=== PATIENT | female | born 1965 | race Caucasian/White ===

== ENCOUNTER 2020-10-03 15:44 | Outpatient (REF) | payer BC, SELFPAY ==
[2020-10-03 17:40] LABS: MANUAL DIFF FLAG NO
[2020-10-03 17:45] LABS: Basophils Absolute Auto 0.1 X10*3/uL (0.0-0.2); Basophils Percent Auto 0.4 % (0-2); Eosinophils Absolute Auto 0.2 X10*3/uL (0.0-0.4); Eosinophils Percent Auto 1.7 % (0-4); Hematocrit 37.8 % (37-47); Hemoglobin 12.1 g/dl (12.0-16.0); Imm Gran Abs Auto 0.06 X10*3/uL (0.00-0.03); Imm Gran Pct Auto 0.5 % (0.0-0.4); Lymphocytes Absolute Auto 2.9 X10*3/uL (1.2-4.9); Lymphocytes Percent Auto 22.7 % (20-40); Mean Corpuscular Volume 81.1 fL (80-98); Mean Platelet Volume 9.7 fL (9.4-12.3); Monocytes Absolute Auto 0.8 X10*3/uL (0.1-1.2); Monocytes Percent Auto 6.4 % (2-11); Neutrophils Absolute Auto 8.8 X10*3/uL (2.0-8.3); Neutrophils Percent Auto 68.3 % (45-73); Platelet Count 564 X10*3/uL (160-400); Red Blood Count 4.66 X10*6/uL (4.20-5.50); Red Cell Distribution Width 14.1 % (11.0-16.0); White Blood Count 12.8 X10*3/uL (4.8-10.8)
== END 2020-10-03 15:45 | disposition home or self-care (01) ==
LOC: HO.LAB 15:44
PROVIDERS: PCP Internal Medicine; Referring Provider Internal Medicine; Visit Provider Internal Medicine Pulmonary Disease
DX: J45.50 Severe persistent asthma, uncomplicated (principal); Z91.09 Other allergy status, other than to drugs and biological substances
CPT/HCPCS: 36415; 82785; 85025; 86003

== ENCOUNTER → 2020-11-16 15:38 | Outpatient (BNVA) | payer BC, SELFPAY | PROVIDERS: PCP Internal Medicine; Visit Provider Internal Medicine Pulmonary Disease | DX: Z13.89 Encounter for screening for other disorder (principal) ==

== ENCOUNTER 2021-02-09 08:51 | Outpatient (REF) | payer BC, SELFPAY ==
--- NOTE | 2021-02-09 17:05 | PFT_ITS ---
Forced vital capacity and FEV1 are both slightly decreased. [id number] and MVV are normal. post-bronchodilator therapy, there is no significant change. Total lung capacity and residual volume normal. Diffusion capacity normal. CONCLUSION: 1. Normal pulmonary function tests. 2. No evidence of obstructive or restrictive pulmonary disorder. MD RAMSES Onofre/MODL / [id number]
== END 2021-02-09 08:52 | disposition home or self-care (01) ==
LOC: HO.RESP 08:51
PROVIDERS: PCP Internal Medicine; Visit Provider Internal Medicine Pulmonary Disease
DX: J45.50 Severe persistent asthma, uncomplicated (principal)
CPT/HCPCS: 94060; 94727; 94729

== ENCOUNTER → 2021-02-27 15:39 | Outpatient (BNVA) | payer BC, SELFPAY | PROVIDERS: PCP Internal Medicine; Visit Provider Internal Medicine Pulmonary Disease ==

== ENCOUNTER 2021-05-08 07:29 | Day surgery (SDC) | payer BC, SELFPAY ==
[2021-05-01 14:19] VITALS: BMI 49.6
--- NOTE | 2021-05-04 08:14 | P.CONAN_ITS ---
Documented by User: Lenka Thomas 05/04/21 10:48 HPI - Anesthesia Eval Consult details Narrative: 55yo F for Colonoscopy Cardiac cleared *Multiple Med Allergies* PMFSH Active Problems Active Problems: All Active Problems (Updated 05/01/21 @ 14:18 by Torrie Masters) Severe persistent asthma (Acute) Environmental allergies (Acute) Past Medical History Medical History Anxiety and depression Asthma CHF (congestive heart failure) Depression Diabetes Diastolic dysfunction Fatty liver Fibromyalgia GERD (gastroesophageal reflux disease) HTN (hypertension) Hx of diverticulitis of colon Hx of endometriosis Hx of hidradenitis suppurativa Obesity JANKI on CPAP Osteoarthritis Surgical History Surgical History History of Hx of hernia repair Hx of laparoscopy Social History Social History Patient Tobacco Use Status: Never used Tobacco Use of substances other than those prescribed or required for medical reasons: No Are you DNR?: No Advance Directives: No Advance Directives Information Provided: No Advance Directives on File: No Meds Allergies Allergy/AdvReac Type Severity Reaction Status Date / Time hydrochlorothiazide Allergy Severe FACIAL Verified 05/08/21 07:59 [HYDROCHLOROTHIAZIDE] SWELLING AND REDNESS, redness and itching Sulfa (Sulfonamide Allergy Severe FACIAL Verified 05/08/21 07:59 Antibiotics) SWELLING [SULFA(SULFONAMIDE AND ANTIBIOTICS)] REDNESS, redness and itching cephalexin [From KEFLEX] Allergy Intermediate Mouth Verified 05/08/21 07:59 tingling clarithromycin Allergy Intermediate Gastrointestinal Verified 05/08/21 07:59 Upset glipizide Allergy Unknown Verified 05/08/21 07:59 lisinopril Allergy Cough Verified 05/08/21 08:43 Home Medications Medication Instructions Recorded Confirmed Last Taken Type albuterol sulfate 90 mcg/actuation 1 inh INHALATION QID 10/03/20 05/01/21 Unknown History aerosol inhaler bumetanide 2 mg tablet 4 mg PO . DAILY @1400 10/03/20 05/01/21 Unknown History esomeprazole magnesium 20 mg 20 mg PO DAILY 10/03/20 05/01/21 Unknown History capsule,delayed release losartan 25 mg tablet 25 mg PO DAILY 1205/01/21 05/08/21 06:00 History metformin 750 mg tablet,extended 750 mg PO DAILY 10/03/20 05/01/21 Unknown History release 24 hr mometasone-formoterol HFA 200 2 puff INHALATION BID 10/03/20 05/01/21 Unknown History mcg-5 mcg/actuation aerosol inhaler montelukast 10 mg tablet 10 mg PO BEDTIME 10/03/20 05/01/21 Unknown History spironolactone 50 mg tablet 50 mg PO DAILY 10/03/20 05/01/21 05/08/21 06:00 History verapamil 40 mg tablet 40 mg PO BID 10/03/20 05/01/21 05/08/21 06:00 History bumetanide 3 mg PO .DAILY @0800 05/01/21 05/01/21 Unknown History duloxetine [Cymbalta] 2 cap PO QAM 05/01/21 05/01/21 Unknown History Exam Exam Date and Time: May 04, 2021 0814 Height,Weight and Vital Signs: Height 5 ft 3 in Weight 127.006 kg Narrative Narrative: ETT/MIBI 2019 No ischemic EKG changes with exercise Normal myocardial perfusion. No evidence for ischemia or infarct Gated EF >70% ECHO 2019 Nml LV chamber size. Moderate conc LVH. Hyperdynamic LV systolic function. LVEF >75% Dynamic LVOT gradient which increases significantly with Valsava. Mitral chordal structure not well seen Normal RV size and function No significant valve disease Assessment and Plan Assessment Anesthesia Assessment: Chart Reviewed Documented by User: Sheryl Clark 05/08/21 09:03 [facility], [facility] Past Medical History Medical History Anxiety and depression Asthma CHF (congestive heart failure) Depression Diabetes Diastolic dysfunction Fatty liver Fibromyalgia GERD (gastroesophageal reflux disease) HTN (hypertension) Hx of diverticulitis of colon Hx of endometriosis Hx of hidradenitis suppurativa Obesity JANKI on CPAP Osteoarthritis Surgical History Surgical History History of Hx of hernia repair Hx of laparoscopy Social History Social History Patient Tobacco Use Status: Never used Tobacco Use of substances other than those prescribed or required for medical reasons: No Are you DNR?: No Advance Directives: No Advance Directives Information Provided: No Advance Directives on File: No Meds Allergies Allergy/AdvReac Type Severity Reaction Status Date / Time hydrochlorothiazide Allergy Severe FACIAL Verified 05/08/21 07:59 [HYDROCHLOROTHIAZIDE] SWELLING AND REDNESS, redness and itching Sulfa (Sulfonamide Allergy Severe FACIAL Verified 05/08/21 07:59 Antibiotics) SWELLING [SULFA(SULFONAMIDE AND ANTIBIOTICS)] REDNESS, redness and itching cephalexin [From KEFLEX] Allergy Intermediate Mouth Verified 05/08/21 07:59 tingling clarithromycin Allergy Intermediate Gastrointestinal Verified 05/08/21 07:59 Upset glipizide Allergy Unknown Verified 05/08/21 07:59 lisinopril Allergy Cough Verified 05/08/21 08:43 Home Medications Medication Instructions Recorded Confirmed Last Taken Type albuterol sulfate 90 mcg/actuation 1 inh INHALATION QID 10/03/20 05/01/21 Unknown History aerosol inhaler bumetanide 2 mg tablet 4 mg PO . DAILY @1400 10/03/20 05/01/21 Unknown History esomeprazole magnesium 20 mg 20 mg PO DAILY 10/03/20 05/01/21 Unknown History capsule,delayed release losartan 25 mg tablet 25 mg PO DAILY 10/03/20 05/01/21 05/08/21 06:00 History metformin 750 mg tablet,extended 750 mg PO DAILY 10/03/20 05/01/21 Unknown History release 24 hr mometasone-formoterol HFA 200 2 puff INHALATION BID 10/03/20 05/01/21 Unknown History mcg-5 mcg/actuation aerosol inhaler montelukast 10 mg tablet 10 mg PO BEDTIME 10/03/20 05/01/21 Unknown History spironolactone 50 mg tablet 50 mg PO DAILY 10/03/20 05/01/21 05/08/21 06:00 History verapamil 40 mg tablet 40 mg PO BID 10/03/20 05/01/21 05/08/21 06:00 History bumetanide 3 mg PO .DAILY @0800 05/01/21 05/01/21 Unknown History duloxetine [Cymbalta] 2 cap PO QAM 05/01/21 05/01/21 Unknown History Exam Airway Mallampati Class: II TM Dist: >3cm Neck ROM: Full Loose/Missing/Broken Teeth: No Heart: RRR Lungs: CTA Assessment and Plan Assessment Anesthesia Assessment: Anesthesia Plan Discussed and Chart Reviewed Final Anesthetic Review NPO: Yes ASA Class: III Final Preanesthetic Review: Meds/Allgs Chart Reviewed, Consent Obtained/Reviewed and Anes Risks/Benef Reviewed Patient Risk: Intermediate Procedure Risk: Low Anesthetic Plan Anesthetic Plan: MAC: Disposition: Standard PACU
[2021-05-08 08:11] VITALS: BP 130/67; PULSE 90; RESP 16; TEMP 36.8; O2SAT 98
[2021-05-08 08:15] LABS: Glucose, Whole Blood 165 mg/dL (60-115)
--- NOTE | 2021-05-08 08:42 | MHC.SHP ---
Pre-Procedural Eval Section A Date of Service: 05/08/21 Section B Chief Complaint: diverticulitis Details of Present Illness: screening,diverticulitis Relevant Family History (Specify if Yes): No Relevant Social History: None Present Medications: see Short Stay Collaborative assessment Medical History: No relevant PMH History of Previous Operations: No relevant previous surgery Allergies: Allergies Allergy/AdvReac Type Severity Reaction Status Date / Time hydrochlorothiazide Allergy Severe FACIAL Verified 05/08/21 07:59 [HYDROCHLOROTHIAZIDE] SWELLING AND REDNESS, redness and itching Sulfa (Sulfonamide Allergy Severe FACIAL Verified 05/08/21 07:59 Antibiotics) SWELLING [SULFA(SULFONAMIDE AND ANTIBIOTICS)] REDNESS, redness and itching cephalexin [From KEFLEX] Allergy Intermediate Mouth Verified 05/08/21 07:59 tingling clarithromycin Allergy Intermediate Gastrointestinal Verified 05/08/21 07:59 Upset glipizide Allergy Unknown Verified 05/08/21 07:59 Review of Systems Sugical H&P ROS: Negative: Constitution, Cardiovascular, Respiratory, Neurological, Psychiatric, Hem-Onc, Allergic/Immunologic, Gastrointestinal, Genitourinary, Musculoskeletal, Integumentary, Endocrine and Eyes/Ears/Nose/Throat Exam Surgical H&P Exam: Normal: HEENT, Normal: Heart, Normal: Lungs, Normal: Extremities, Normal: Abdomen, Normal: Skin and Normal: Neurological Plan Diagnosis/Plan: Unchanged I have reviewed the history and physical and performed a pertinent physical examination on my patient. No changes have occurred unless specified.
[2021-05-08] MEDS: Lactated Ringers 1,000 ML 50 ML IVCONT (08:43)
[2021-05-08 09:24] VITALS: BP 96/47; PULSE 85; RESP 18; TEMP 36.4; O2SAT 99
--- NOTE | 2021-05-08 09:25 | PM.OP ---
Brief Operative Note Date of Service: 05/08/21 Pre-op diagnosis: screening,diverticulitis Post-op diagnosis: same (colon polyps) Procedure: colonoscopy Surgeon: Corwin Álvarez Anesthesia: MAC Was an Profile Grinder Technician used for this Procedure?: No Estimated blood loss (mL): 0 Pathology: other (polyps x2) Condition: stable Disposition: PACU
[2021-05-08 09:40] VITALS: BP 121/74; PULSE 86; RESP 18; TEMP 36.4; O2SAT 97
--- NOTE | 2021-05-08 12:35 | OP_ITS ---
SURGEON: Corwin Álvarez MD INDICATIONS: Colon cancer screening and diverticulitis. PREOPERATIVE DIAGNOSIS: POSTOPERATIVE DIAGNOSIS: PROCEDURE PERFORMED: Colonoscopy to the cecum with snare polypectomy and biopsy. ESTIMATED BLOOD LOSS: COMPLICATIONS: ANESTHESIA: ASSISTANTS: SPECIMENS: MEDICATIONS: Monitored anesthesia care. DESCRIPTION OF PROCEDURE: History and physical performed. The risks and benefits of the procedure were explained to the patient. Informed consent was obtained. The patient was placed in the left lateral decubitus position. A digital rectal exam was performed and was found to be normal. The Olympus pediatric video colonoscope was introduced into the rectum and advanced to the cecum without difficulty. The cecum was identified by transillumination, palpation, and identification of ileocecal valve. Examination was performed and the scope was removed. She tolerated the procedure well and was taken to recovery area in stable condition. FINDINGS: The visualized colonic mucosa was within normal limits without evidence of masses or ulcers. A single polyp at about 45 cm was removed with a snare measuring about 8 mm and recovered via suction. The second polyp measuring less than 5 mm were identified in the rectum and removed with biopsy forceps. No other polyps were identified. There was scattered diverticulosis throughout the colon. The quality of the prep was good. IMPRESSION: Colon polyps. RECOMMENDATION: Follow up the biopsy results. MD EVA Zuniga/NAOMI / [id number]
== END 2021-05-08 10:00 | disposition home or self-care (01) ==
PROVIDERS: PCP Internal Medicine; Visit Provider Internal Medicine Gastroenterology
PROC: 0DJD8ZZ Inspection of Lower Intestinal Tract, Via Natural or Artificial Opening Endoscopic (ICD-10-PCS; CPT 45378; principal; 2021-05-08 08:50)
DX: Z12.11 Encounter for screening for malignant neoplasm of colon (principal); K51.40 Inflammatory polyps of colon without complications; K62.1 Rectal polyp; K57.30 Diverticulosis of large intestine without perforation or abscess without bleeding; Z87.19 Personal history of other diseases of the digestive system; G47.33 Obstructive sleep apnea (adult) (pediatric); J45.909 Unspecified asthma, uncomplicated; I11.0 Hypertensive heart disease with heart failure; I50.30 Unspecified diastolic (congestive) heart failure; E11.9 Type 2 diabetes mellitus without complications; Z79.84 Long term (current) use of oral hypoglycemic drugs; Z79.899 Other long term (current) drug therapy; Z88.1 Allergy status to other antibiotic agents; Z88.2 Allergy status to sulfonamides; Z88.8 Allergy status to other drugs, medicaments and biological substances; Z86.14 Personal history of Methicillin resistant Staphylococcus aureus infection
CPT/HCPCS: 45385; 45380; 82947; 88305; J2405; J2765

== ENCOUNTER → 2021-05-24 11:32 | Outpatient (BNVA) | payer BC, SELFPAY | PROVIDERS: PCP Internal Medicine; Visit Provider Internal Medicine Pulmonary Disease ==

== ENCOUNTER 2023-05-13 15:21 | Outpatient (AMB) | payer BC, MEDICAID, SELFPAY ==
--- NOTE | 2023-05-13 15:22 | A.OFFVIS_ITS ---
Intake Vital Signs 05/13/23 15:23 Height 5 ft 4 in Weight 268 lb BMI 46.0 BP 130/68 Pulse 105 H Pulse Oximetry (%) 97 Intake Visit Reasons: S/p ED visit Intake Note: pt was seen at the hospital for really bad asthma a couple weeks ago Allergies hydrochlorothiazide [HYDROCHLOROTHIAZIDE] Allergy (Severe, Verified 05/13/23 15:22) FACIAL SWELLING AND REDNESS, redness and itching Sulfa (Sulfonamide Antibiotics) [SULFA(SULFONAMIDE ANTIBIOTICS)] Allergy (Severe, Verified 05/13/23 15:22) FACIAL SWELLING AND REDNESS, redness and itching cephalexin [From KEFLEX] Allergy (Intermediate, Verified 05/13/23 15:22) Mouth tingling clarithromycin Allergy (Intermediate, Verified 05/13/23 15:22) Gastrointestinal Upset glipizide Allergy (Verified 05/13/23 15:22) Unknown lisinopril Allergy (Verified 05/13/23 15:22) Cough HPI S/p ED visit HPI Details 57-year-old lady, nonsmoker, with underlying history of diastolic dysfunction, obesity, hypertension, JANKI on CPAP (by her neurologist) followed for pulmonary component of underlying dyspnea. After the last office visit patient has been using Spiriva and albuterol MDI with suboptimal control of his symptoms. She has had a recent exacerbation treated with a prednisone course, now returned to baseline. [facility] Medical History Anxiety and depression Asthma CHF (congestive heart failure) Depression Diabetes Diastolic dysfunction Fatty liver Fibromyalgia GERD (gastroesophageal reflux disease) HTN (hypertension) Hx of diverticulitis of colon Hx of endometriosis Hx of hidradenitis suppurativa Obesity JANKI on CPAP Osteoarthritis Surgical History History of Hx of hernia repair Hx of laparoscopy Social History Patient Tobacco Use Status: Never used Tobacco Review of Systems Const Denies daytime sleepiness, Denies excessive sweating, Denies fatigue, Denies fever(s), Denies lethargy, Denies malaise, Denies night sweats, Denies snoring and Denies weight loss Eyes Denies blurry vision and Denies itchy eyes ENT Denies nasal congestion, Denies post nasal drip, Denies sinus pain, Denies sinus pressure and Denies other ( Thrush) Card Denies chest pain, Denies pedal edema, Denies dyspnea, Denies orthopnea and Denies paroxysmal nocturnal dyspnea Resp Denies cough, Denies hemoptysis, Denies excessive phlegm production, Denies dyspnea, Denies snoring and Denies wheezing GI Denies abdominal pain and Denies heartburn Musc Denies myalgias, Denies arthralgias and Denies joint swelling Skin/Breast Denies rash Neuro Denies memory loss and Denies seizure-like activity Psych Denies abnormal sleep pattern, Denies anxiety and Denies memory loss Endo Denies excessive sweating, Denies fatigue and Denies heat intolerance Jamal/Lymph Denies easy bruising Aller/Immun Denies itchy eyes, Denies seasonal rhinorrhea and Denies wheezing Physical Exam Vital Signs: Last Vital Signs Pulse 105 H 05/13/23 15:23 BP 130/68 05/13/23 15:23 Pulse Ox 97 05/13/23 15:23 BMI result Body Mass Index 46.0 Const General: no acute distress and alert Nutritional Appearance: obese Orientation/consciousness: Other orientation findings ( oriented) HEENT Head: Yes atraumatic Eyes General: appearance normal, both eyes and all related structures Sclerae: sclerae normal EOM: EOMs intact bilaterally Neck Neck: Yes supple Lymphatic: no lymphadenopathy noted Resp Effort & Inspection: normal respiratory effort and no use of accessory muscles Auscultation: clear to auscultation bilaterally Cardio Rate: regular rate Rhythm: regular rhythm Heart sounds: no gallops, no murmurs and no rubs Skin General skin exam: other ( warm) Extrem General: No clubbing, No cyanosis and No edema Assessment & Plan Assessment & Plan (1) Severe persistent asthma: Code(s): J45.50 - Severe persistent asthma, uncomplicated Plan: Suboptimal control on Spiriva, will switch to Dulera. Continue albuterol MDI. (2) Environmental allergies: Code(s): Z91.09 - Other allergy status, other than to drugs and biological substances Plan: Recent exacerbation secondary to environmental exposure. Continue on Singulair. Coding Level of Care Code Est Pt Level 4 (78343) Diagnoses Severe persistent asthma J45.50 Environmental allergies Z91.09
[2023-05-13 15:23] VITALS: BP 130/68; PULSE 105; O2SAT 97; BMI 46.0
== END 2023-05-13 15:43 | disposition home or self-care (01) ==
PROVIDERS: PCP Internal Medicine; Visit Provider Internal Medicine Pulmonary Disease
DX: J45.50 Severe persistent asthma, uncomplicated (principal); Z91.09 Other allergy status, other than to drugs and biological substances
CPT/HCPCS: 99214

== ENCOUNTER → 2023-05-13 15:21 | Outpatient (BNVA) | payer BC, MEDICAID, SELFPAY | PROVIDERS: PCP Internal Medicine; Visit Provider Internal Medicine Pulmonary Disease ==

== ENCOUNTER 2023-07-10 14:32 | Outpatient (AMB) | payer BC, MEDICAID, SELFPAY ==
[2023-07-10 14:35] VITALS: BP 122/72; PULSE 99; O2SAT 96; BMI 45.8
--- NOTE | 2023-07-10 14:35 | A.OFFVIS_ITS ---
Intake Vital Signs 07/10/23 14:35 Height 5 ft 4 in Weight 266 lb 12.149 oz BMI 45.8 BP 122/72 Blood Pressure Location Rt brachial Position Sitting Pulse 99 Pulse Source Doppler Pulse Oximetry (%) 96 Oxygen Delivery Method Room Air Intake Visit Reasons: hospital follow up Allergies hydrochlorothiazide [HYDROCHLOROTHIAZIDE] Allergy (Severe, Verified 07/10/23 14 :43) FACIAL SWELLING AND REDNESS, redness and itching Sulfa (Sulfonamide Antibiotics) [SULFA(SULFONAMIDE ANTIBIOTICS)] Allergy (Severe, Verified 07/10/23 14:43) FACIAL SWELLING AND REDNESS, redness and itching cephalexin [From KEFLEX] Allergy (Intermediate, Verified 07/10/23 14:43) Mouth tingling clarithromycin Allergy (Intermediate, Verified 07/10/23 14:43) Gastrointestinal Upset glipizide Allergy (Verified 07/10/23 14:43) Unknown lisinopril Allergy (Verified 07/10/23 14:43) Cough HPI hospital follow up HPI Details 57-year-old lady, nonsmoker, with underl elisabeth history of diastolic dysfunction, obesity, hypertension, JANKI on CPAP (by her neurologist) followed for pulmonary component of underlying dyspnea. After the last office visit patient required admission to [facility] for an acute exacerbation. She did not tolerate trilogy. Now she is using nebulized ipratropium and is finishing a prednisone taper. [facility] Medical History Anxiety and depression Asthma CHF (congestive heart failure) Depression Diabetes Diastolic dysfunction Fatty liver Fibromyalgia GERD (gastroesophageal reflux disease) HTN (hypertension) Hx of diverticulitis of colon Hx of endometriosis Hx of hidradenitis suppurativa Obesity JANKI on CPAP Osteoarthritis Surgical History History of Hx of hernia repair Hx of laparoscopy Social History Patient Tobacco Use Status: Never used Tobacco Review of Systems Const Denies daytime sleepiness, Denies excessive sweating, Denies fatigue, Denies fever(s), Denies lethargy, Denies malaise, Denies night sweats, Denies snoring and Denies weight loss Eyes Denies blurry vision and Denies itchy eyes ENT Denies nasal congestion, Denies post nasal drip, Denies sinus pain, Denies sinus pressure and Denies other ( Thrush) Card Denies chest pain, Denies pedal edema, Denies dyspnea, Reports dyspnea on exertion, Denies orthopnea and Denies paroxysmal nocturnal dyspnea Resp Denies cough, Denies hemoptysis, Denies excessive phlegm production, Denies dyspnea, Reports dyspnea on exertion, Denies snoring and Denies wheezing GI Denies abdominal pain and Denies heartburn Musc Denies myalgias, Denies arthralgias and Denies joint swelling Skin/Breast Denies rash Neuro Denies memory loss and Denies seizure-like activity Psych Denies abnormal sleep pattern, Denies anxiety and Denies memory loss Endo Denies excessive sweating, Denies fatigue and Denies heat intolerance Jamal/Lymph Denies easy bruising Aller/Immun Denies itchy eyes, Denies seasonal rhinorrhea and Denies wheezing Physical Exam Vital Signs: Last Vital Signs Pulse 99 07/10/23 14:35 BP 122/72 07/10/23 14:35 Pulse Ox 96 07/10/23 14:35 Oxygen Delivery Method Room Air 07/10/23 14:35 BMI result Body Mass Index 45.8 Const General: no acute distress and alert Nutritional Appearance: obese Orientation/consciousness: Other orientation findings ( oriented) HEENT Head: Yes atraumatic Eyes General: appearance normal, both eyes and all related structures Sclerae: sclerae normal EOM: EOMs intact bilaterally Neck Neck: Yes supple Lymphatic: no lymphadenopathy noted Resp Effort & Inspection: normal respiratory effort and no use of accessory muscles Auscultation: clear to auscultation bilaterally Cardio Rate: regular rate Rhythm: regular rhythm Heart sounds: no gallops, no murmurs and no rubs Skin General skin exam: other ( warm) Extrem General: No clubbing, No cyanosis and No edema Assessment & Plan Assessment & Plan (1) Severe persistent asthma: Code(s): J45.50 - Severe persistent asthma, uncomplicated Plan: Patient was not able to tolerate Trelegy or Symbicort. Her insurance does not cover Dulera. Will start on Breo and Combivent. (2) Environmental allergies: Code(s): Z91.09 - Other allergy status, other than to drugs and biological substances Plan: Continue Singulair. Medications: New ipratropium-albuterol 20-100 mcg/actuation (Combivent Respimat) space evenly during waking hours 1 puff inhalation 6XD 30 days 4 grams 6RF Breo Ellipta 200-25 mcg/dose (fluticasone furoate-vilanterol) 1 inh inhalation DAILY 30 days 60 ea 6RF NS Discontinued ipratropium-albuterol 0.5 mg-3 mg(2.5 mg base)/3 mL Discontinued Reason: Doctor's Order 3 mL inhalation Q4-6H 30 days PRN 270 mL 6RF wheezing fkrlrgdfffw-[id number]-qkjdjxim 200-62.5-25 mcg (Trelegy Ellipta) Discontinued Reason: Doctor's Order 1 inh inhalation DAILY 30 days 1 ea 6RF Coding Level of Care Code Est Pt Level 4 (38544) Diagnoses Severe persistent asthma J45.50 Environmental allergies Z91.09
== END 2023-07-10 15:10 | disposition home or self-care (01) ==
PROVIDERS: PCP Internal Medicine; Visit Provider Internal Medicine Pulmonary Disease
DX: J45.50 Severe persistent asthma, uncomplicated (principal); Z91.09 Other allergy status, other than to drugs and biological substances
CPT/HCPCS: 99214

== ENCOUNTER → 2023-07-10 14:32 | Outpatient (BNVA) | payer BC, MEDICAID, SELFPAY | PROVIDERS: PCP Internal Medicine; Visit Provider Internal Medicine Pulmonary Disease ==

== ENCOUNTER 2023-09-05 11:23 | Emergency (ER) | payer BC, MEDICAID, SELFPAY ==
--- NOTE | ~2023-09-05 | CT_ITS ---
EXAMINATION: CTA OF THE HEAD AND NECK CLINICAL INFORMATION: Right facial droop and aphasia. COMPARISON: None available. TECHNIQUE: Test bolus sequences followed by intravenous administration 70 mL of Omnipaque 350. Helical imaging was performed in the axial plane from the mediastinum to the skull vertex. Delayed postcontrast imaging of the head was also performed. The data was processed at the polysomnography technologist's workstation for generation of MIP sequences. Three-dimensional volume rendered reformatted images were also generated at an offline 3-D workstation. Stenoses are assessed in accordance with NASCET criteria unless otherwise indicated. This CT examination was performed using dose optimization techniques as appropriate, variously including the following: *Automated exposure control *Adjustment of mA and/or kV according to patient size (this includes techniques or standardized protocols for targeted exams where dose is matched to indication/reason for exam; i.e. extremities or head) *Use of iterative reconstruction technique DLP: 2370 mGy-cm FINDINGS: CT HEAD: There is no evidence of acute intracranial hemorrhage or territorial infarction. There is no loss of santoro to white matter differentiation. No abnormal mass effect or midline shift is seen. No extra-axial fluid collections are identified. The ventricles are normal in size. There is no abnormal attenuation within the brain parenchyma. The osseous structures and soft tissues are normal. The mastoid air cells and visualized portions of the paranasal sinuses are well aerated. CTA NECK: The imaged aortic arch and origins of the great vessels are normal. The common carotid arteries are widely patent with a partial retropharyngeal course. The carotid bifurcations are normal. The cervical internal carotid arteries are normal. The vertebral arteries opacify normally and are of normal caliber. Multinodular thyroid gland noted with punctate calcifications. No dominant glandular lesion is otherwise seen. Bulky ossific spurring and potential ossification of the posterior longitudinal ligament with disc-osteophyte complexes at the C5-C6 and C6-C7 levels contribute to significant foraminal encroachment and [id number] central canal stenosis, particularly at the C5-C6 level. Mild subsegmental atelectatic changes noted in the lungs. CTA HEAD: The intradural vertebral arteries and basilar artery are normal. The posterior cerebral arteries are widely patent. The internal carotid arteries are of normal caliber with mild atherosclerotic wall calcifications. The SO and MCA vascular complexes bilaterally are normal. Intracranial, there is no abnormal parenchymal or leptomeningeal enhancement. The venous sinuses opacify normally. CT/CT angio head neck IMPRESSION: Relatively normal CT angiogram of the head and neck. No vascular occlusion or significant stenosis. No acute intracranial process. 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 Similar findings also noted at the C6-C7 level, though to a lesser degree. Imaging findings reported to Dr. Gaston at 2:52 PM on 09/05/2023.
[2023-09-05 11:32] VITALS: BP 117/62; BP 131/104; PULSE 79; PULSE 82; RESP 18; TEMP 36.6; O2SAT 96; O2SAT 98; BMI 48.2
--- NOTE | 2023-09-05 11:53 | PC.NURSE ---
pt a&o x4, pleasant, calm, and cooperative. pt sts she has had some neuro deficits that started last friday. pt sts she was talking with her daughter when her words were coming out funny . she sts they didn't think anything of it and just laughed it off. pt now sts today she was at work when she noticed her R eye to be heavy and different than the L eye and than normal. she asked a coworker their opinion and stated they felt she did look a little off. pt went to school nurse who then called for an ambulands. pt neuros grossly in tact. pt got teary and sts she has been forgetful recently but has had a lot going on in her life right now. pt changed over to hospital attire and is sitting quietly on stretcher in no apparent distress. call jimenez within pt reach. awaiting provider pickup.
--- NOTE | 2023-09-05 12:05 | ECG_ITS ---
Test Reason : DIZZINESS Blood Pressure : / mmHG Vent. Rate : 080 BPM Atrial Rate : 080 BPM P-R Int : 172 ms QRS Dur : 080 ms QT Int : 394 ms P-R-T Axes : 027 005 052 degrees QTc Int : 454 ms Normal sinus rhythm Low voltage QRS Borderline ECG No previous ECGs available Referred By: Vicki Gaston Electronically Signed By:TIM MANDEL MD
--- NOTE | 2023-09-05 12:49 | ED_ITS ---
HPI - Neuro Symptoms/Deficit General Chief Complaint: Neuro Symptoms/Deficit Stated Complaint: R EYE DROOP SLURRED SPEECH Time Seen by Provider: 09/05/23 11:36 Source: patient Mode of arrival: EMS Limitations: no limitations History of Present Illness HPI Narrative: 58 yo female with PMH of HTN, asthma, elevated platelets, hidradenitis, DM, fibromyalgia here with c/o aphasia and word finding difficulties stuttering since Friday and then developed R sided eye facial droop yesterday. No prior known strokes. Her platelets are up to 600 not on aspirin or thinners no prior stroke or TIA - she is pending hematology evaluation. She did note Friday had nausea and did not feel well and stayed home from work. Onset (ago): day(s) () Location: speech and right face History of same: No Severity: mild Quality: weak Relieving factors: none Exacerbating factors: none Context: gradual onset On Anticoagulants: No Associated symptoms: denies other symptoms Treatments Prior to Arrival: none Related Data Home Medications Medication Instructions Recorded Confirmed bumetanide 2 mg tablet 4 mg PO . DAILY @1400 10/03/20 05/01/21 esomeprazole magnesium 20 mg 20 mg PO DAILY 10/03/20 05/01/21 capsule,delayed release metformin 750 mg tablet,extended 750 mg PO DAILY 10/03/20 05/01/21 release 24 hr montelukast 10 mg tablet 10 mg PO BEDTIME 10/03/20 05/01/21 spironolactone 50 mg tablet 50 mg PO DAILY 10/03/20 05/01/21 verapamil 40 mg tablet 40 mg PO BID 10/03/20 05/01/21 bumetanide 2 mg tablet 3 mg PO .DAILY @0800 05/01/21 05/01/21 cholecalciferol (vitamin D3) 25 25 mcg PO DAILY 05/13/23 mcg (1,000 unit) capsule dapagliflozin propanediol 10 mg 10 mg PO DAILY 05/13/23 tablet (Farxiga) duloxetine 60 mg capsule,delayed 60 mg PO QAM 05/13/23 release fluticasone propionate 50 1 spray intranasal DAILY 05/13/23 mcg/actuation nasal spray,suspension (Flonase Allergy Relief) losartan 50 mg tablet 50 mg PO DAILY 05/13/23 magnesium 200 mg tablet 200 mg PO DAILY 05/13/23 potassium chloride 10 mEq 10 meq PO DAILY 05/13/23 capsule,extended release potassium chloride 10 mEq 20 meq PO DAILY 05/13/23 tablet,extended release Previous Rx's Medication Instructions Recorded ipratropium 20 mcg-albuterol 100 1 puff inhalation 6XD 30 days #4 07/10/23 mcg/actuation mist for inhalation grams (Combivent Respimat) Dulera 200 mcg-5 mcg/actuation HFA 2 puff inhalation BID 30 days #1 ea 08/22/23 aerosol inhaler (mometasone-formoterol) albuterol sulfate 90 mcg/actuation 2 inh inhalation Q6H PRN shortness 08/22/23 aerosol inhaler (ProAir HFA) of breath or wheezing #8.5 grams Allergies Allergy/AdvReac Type Severity Reaction Status Date / Time hydrochlorothiazide Allergy Severe FACIAL Verified 07/10/23 14:43 [HYDROCHLOROTHIAZIDE] SWELLING AND REDNESS, redness and itching Sulfa (Sulfonamide Allergy Severe FACIAL Verified 07/10/23 14:43 Antibiotics) SWELLING [SULFA(SULFONAMIDE AND ANTIBIOTICS)] REDNESS, redness and itching cephalexin [From KEFLEX] Allergy Intermediate Mouth Verified 07/10/23 14:43 tingling clarithromycin Allergy Intermediate Gastrointestinal Verified 07/10/23 14:43 Upset glipizide Allergy Unknown Verified 07/10/23 14:43 lisinopril Allergy Cough Verified 07/10/23 14:43 Review of Systems 2 Review of Systems: Constitutional : No Fever, No Chills, No Fatigue ENT/Mouth : No sore throat, No Rhinorrhea Eyes: No Eye Pain, No Swelling, No Redness Cardiovascular : No Chest Pain, No SOB, No Dyspnea on Exertion Respiratory : No Cough, No Sputum Gastrointestinal : No Nausea, No Vomiting, No Diarrhea, No abdominal Pain Genitourinary : No Dysuria, No Urinary Frequency, No Hematuria, Musculoskeletal : No joint pain, No Myalgias, No Joint Swelling Skin : No Skin Lesions, No rash Neuro : No Weakness, No Numbness, No Dizziness, no Headache Psych : No Anxiety/Panic, No Depression Heme/Lymph: No Bruising, No Bleeding,No Lymphadenopathy Endocrine : No Polyuria, No Polydipsia All other systems reviewed and are negative PMFSH Past Medical History Attestation statement: The following information was validated with the patient. Medical History Anxiety and depression Fatty liver Asthma Osteoarthritis Hx of hidradenitis suppurativa Depression CHF (congestive heart failure) Fibromyalgia Diabetes HTN (hypertension) Hx of diverticulitis of colon Hx of endometriosis GERD (gastroesophageal reflux disease) Obesity JANKI on CPAP Diastolic dysfunction Surgical History Hx of laparoscopy History of Hx of hernia repair Social History Social History Patient Tobacco Use Status: Never used Tobacco Smoked in Last 30 Days: No Use of substances other than those prescribed or required for medical reasons: No Advance Directives: No Advance Directives Information Provided: Yes Physical Exam 2 Vital Signs: Vital Signs: Last Vital Signs Temp 97.9 F 09/05/23 11:32 Pulse 84 09/05/23 15:16 Resp 16 09/05/23 15:16 BP 105/59 L 09/05/23 15:16 Pulse Ox 99 09/05/23 15:16 O2 Del Method Room Air 09/05/23 15:16 BMI result Body Mass Index 48.2 Appearance: Alert. Oriented X3. No acute distress. Eyes: Pupils equal, round and reactive to light. ENT: Pharynx normal. Neck: Normal inspection. Neck supple. CVS: Normal heart rate and rhythm. Pulses normal. Respiratory: No respiratory distress. Breath sounds normal. Abdomen: Soft and nontender. Skin: Skin warm and dry. Normal skin color. Normal skin turgor. Extremities: No lower extremity edema. No calf ttp Neuro: Oriented X 3. No motor deficit. No sensory deficit. possible mild drooping of R upper eyelid ( I cannot see this)otherwise face is symmetric, some stuttering and word finding difficulties then speech is normal and fluent it is not consistent Course Course Course Narrative: symptoms unusual will get MRI of brain Reevaluation(s) Reevaluation #1: could not tolerate the MRI machine at this time given duration of symptoms and the fact that there are no consistent deficits and I myself see facial symmetry will DC home with outpatient MRI follow up and start her on 81mg aspirin with PCP follow up Medications Administered Discontinued Medications Generic Name Dose Route Start Last Admin Trade Name Freq PRN Reason Stop Dose Admin Iohexol 70 ml 11/03/23 13:56 09/05/23 13:56 Iohexol 350 Mg/Ml 75 Ml Infus..Btl IV 09/05/23 13:57 70 ml ONCE ONE Administration Lorazepam 1 mg 09/05/23 14:53 09/05/23 15:11 Lorazepam 1 Mg Tablet PO 09/05/23 14:54 1 mg ONCE ONE Administration Potassium Chloride 40 meq 09/05/23 13:14 09/05/23 14:19 Potassium Chloride Packet 20 Meq Packet PO 09/05/23 13:15 40 meq ONCE ONE Administration Medical Decision Making Medical Decision Making MDM Narrative: 58 yo female with PMH of HTN, asthma, elevated platelets, hidradenitis, DM, fibromyalgia at this time c/o R eyelid drooping and speech issues but > 24 hours ( I do not appreciate any facial assymetry) will need basic labs, EKG and CTA head and neck to assess for possible stroke. Platelets are elevated so she does have risk factors and is not on aspirin. Differential Diagnosis Differential Diagnoses: The differential diagnosis associated with the presentation includes stroke, lyte abnormality, anxiety Admission/Observation Consideration of admission/observation: Escalation of care including admission/observation considered Lab Data [facility] Lab Attestation statement: I reviewed the patient's lab results. 09/05/23 12:46 09/05/23 12:46 Labs: Lab Results 09/05/23 Range/Units 12:46 WBC 12.6 H (4.8-10.8) X10*3/uL RBC 4.92 (4.20-5.50) X10*6/uL Hgb 12.7 (12.0-16.0) g/dl Hct 39.9 (37.0-47.0) % MCV 81.1 (80.0-98.0) fL MCH 25.8 L (27.0-33.0) pg MCHC 31.8 (31.0-35.0) g/dl RDW 15.4 (11.0-16.0) % Plt Count 539 H (160-400) X10*3/uL MPV 9.5 (9.4-12.3) fL Immature Gran % (Auto) 0.6 H (0.0-0.4) % Neut % (Auto) 70.2 (45-73) % Lymph % (Auto) 20.3 (20-40) % [place] % (Auto) 6.2 (2-11) % Eos % (Auto) 2.1 (0-4) % Baso % (Auto) 0.6 (0-2) % Lymph # (Auto) 2.6 (1.2-4.9) X10*3/uL [place] # (Auto) 0.8 (0.1-1.2) X10*3/uL Eos # (Auto) 0.3 (0.0-0.4) X10*3/uL Baso # (Auto) 0.1 (0.0-0.2) X10*3/uL Abs Immat Gran (auto) 0.08 H (0.00-0.03) X10*3/uL Absolute Neuts (auto) 8.9 H (2.0-8.3) x10*3/uL Absolute Nucleated RBC 0.000 (0.0-0.012) X10*3/uL Nucleated RBC % (auto) 0.0 (0.0-0.2) /100WBC PT 14.0 H (11.1-13.3) SEC INR 1.2 H (0.9-1.1) Sodium 140 (135-145) mmol/L Potassium 3.2 L (3.3-5.1) mmol/L Chloride 101 (96-108) mmol/L Carbon Dioxide 28 (22-29) mmol/L Anion Gap 14 (12-20) BUN 12 (9-16) mg/dL Creatinine 0.69 (0.5-1.4) mg/dL Estim Creat Clear Calc 112.0 Estimated GFR > 60 Random Glucose 102 (60-115) mg/dL Calcium 9.4 (8.4-10.2) mg/dL Magnesium 1.8 (1.6-2.6) mg/dL Total Bilirubin 0.4 (0.0-1.0) mg/dL Direct Bilirubin 0.2 (0.0-0.5) mg/dL AST 13 (5-31) U/L ALT 12 (0-31) U/L Alkaline Phosphatase 119 H (39-117) U/L Troponin I High Sens < 2.7 (<3.5-17.0) ng/L Total Protein 7.5 (6.5-8.0) g/dL Albumin 4.0 (3.5-5.0) g/dL TSH 0.90 (0.32-4.0) uIU/mL Independent Interpretation I performed an independent interpretation of an: EKG and CT Scan Interpretation: Rate: 80 Rhythm: NSR [place]: normal Normal P waves. Normal CURT. Normal QRS complex. ST T wave : normal no JOCELYNN qTC: normal prior studies: no acute ischemia The study has been interpreted contemporaneously by me. . Radiology Impression Discussion of test interpretation with radiology: I discussed test interpretation with the radiologist and I have reviewed the radiologist's reading. Radiologist Impression: discussed with radiologist - negative CT - C5-C6 osteophytic spurring severe central canal stenosis. Independent Historian Clinical information obtained from an independent historian. History obtained from or confirmed by: Friend External Record Review External record reviewed: Inpatient record NIH Stroke Scale Internal: Initial- Upon Arrival Level of Consciousness: Alert Level of Consciousness Questions: Answers both questions correctly Level of Consciousness Commands: Performs both tasks correctly Best Gaze: Normal Visual: No visual loss Facial Palsy: Normal Motor Arm (Right): No drift Motor Arm (Left): No drift Motor Leg (Right): No drift Motor Leg (Left): No drift Limb Ataxia: Absent Sensory: Normal Best Language: No aphasia Dysarthia: Normal Extinction and Inattention: No abnormality Score: 0 Discharge Plan Discharge Clinical Impression: Stuttering, Elevated platelet count Patient Disposition: Home, Self-Care Instructions: Weakness (ED) Additional Instructions: start taking 81 mg aspirin daily given your elevated platelets. you can talk to your doctor about outpatient MRI at [facility] that might better fit your needs for claustrophobia. Please call your doctor next week for appointment. return for worsening symptoms - confusion, numbness, weakness, headaches, loss of vision, or any other concerns. Relatively normal CT angiogram of the head and neck. No vascular occlusion or significant stenosis. No acute intracranial process. 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 Similar findings also noted at the C6-C7 level, though to a lesser degree. incidental finding can follow up with your doctor Prescriptions: No Action albuterol sulfate [ProAir HFA] 90 mcg/actuation HFA aerosol inhaler 2 inh inhalation Q6H PRN (Reason: shortness of breath or wheezing) Qty: 8.5 6RF Dulera 200-5 mcg/actuation HFA aerosol inhaler 2 puff inhalation BID 30 Days Qty: 1 6RF bumetanide 2 mg tablet 3 mg PO .DAILY @0800 montelukast 10 mg tablet 10 mg PO BEDTIME verapamil 40 mg tablet 40 mg PO BID spironolactone 50 mg tablet 50 mg PO DAILY bumetanide 2 mg tablet 4 mg PO . DAILY @1400 metformin 750 mg tablet extended release 24 hr 750 mg PO DAILY esomeprazole magnesium 20 mg capsule,delayed release(DR/EC) 20 mg PO DAILY Combivent Respimat 20-100 mcg/actuation mist 1 puff inhalation 6XD 30 Days Qty: 4 6RF Rx Instructions: space evenly during waking hours potassium chloride 10 mEq tablet extended release 20 meq PO DAILY duloxetine 60 mg capsule,delayed release(DR/EC) 60 mg PO QAM Farxiga 10 mg tablet 10 mg PO DAILY losartan 50 mg tablet 50 mg PO DAILY magnesium 200 mg tablet 200 mg PO DAILY cholecalciferol (vitamin D3) 25 mcg (1,000 unit) capsule 25 mcg PO DAILY fluticasone propionate [Flonase Allergy Relief] 50 mcg/actuation spray,suspension 1 spray intranasal DAILY Rx Instructions: administer into each nostril potassium chloride 10 mEq capsule, extended release 10 meq PO DAILY
--- NOTE | 2023-09-05 12:51 | PC.NURSE ---
EKG obtained. 20G IV placed to RAC. labs drawn and sent. awaiting CTA.
[2023-09-05 12:52] LABS: MANUAL DIFF FLAG NO
[2023-09-05 12:54] LABS: Basophils Absolute Auto 0.1 X10*3/uL (0.0-0.2); Basophils Percent Auto 0.6 % (0-2); Eosinophils Absolute Auto 0.3 X10*3/uL (0.0-0.4); Eosinophils Percent Auto 2.1 % (0-4); Hematocrit 39.9 % (37.0-47.0); Hemoglobin 12.7 g/dl (12.0-16.0); Imm Gran Abs Auto 0.08 X10*3/uL (0.00-0.03); Imm Gran Pct Auto 0.6 % (0.0-0.4); Lymphocytes Absolute Auto 2.6 X10*3/uL (1.2-4.9); Lymphocytes Percent Auto 20.3 % (20-40); Mean Corpuscular HGB Conc 31.8 g/dl (31.0-35.0); Mean Corpuscular Hemoglobin 25.8 pg (27.0-33.0); Mean Corpuscular Volume 81.1 fL (80.0-98.0); Mean Platelet Volume 9.5 fL (9.4-12.3); Monocytes Absolute Auto 0.8 X10*3/uL (0.1-1.2); Monocytes Percent Auto 6.2 % (2-11); Neutrophils Absolute Auto 8.9 x10*3/uL (2.0-8.3); Neutrophils Percent Auto 70.2 % (45-73); Platelet Count 539 X10*3/uL (160-400); Red Blood Count 4.92 X10*6/uL (4.20-5.50); Red Cell Distribution Width 15.4 % (11.0-16.0); White Blood Count 12.6 X10*3/uL (4.8-10.8)
[2023-09-05 13:03] LABS: INTERNATIONAL NORM RATIO 1.2 (0.9-1.1)
[2023-09-05 13:08] LABS: Alanine Aminotransferase 12 U/L (0-31); Alkaline Phosphatase 119 U/L (39-117); Anion Gap 14 (12-20); Aspartate Amino Transferase 13 U/L (5-31); Bilirubin Direct 0.2 mg/dL (0.0-0.5); Bilirubin Total 0.4 mg/dL (0.0-1.0); Blood Urea Nitrogen 12 mg/dL (9-16); Calcium 9.4 mg/dL (8.4-10.2); Carbon Dioxide 28 mmol/L (22-29); Chloride 101 mmol/L (96-108); Estimated Glomerular Filt Rate > 60; Glucose Random 102 mg/dL (60-115); Magnesium 1.8 mg/dL (1.6-2.6); Potassium 3.2 mmol/L (3.3-5.1); Sodium 140 mmol/L (135-145); Total Protein 7.5 g/dL (6.5-8.0)
[2023-09-05 13:16] LABS: Troponin-I High Sensitivity < 2.7 ng/L (<3.5-17.0)
[2023-09-05] MEDS: iohexoL 350 MG/ML 75 ML INFUS..BTL 70 ML IV (13:56)
[2023-09-05] MEDS: Potassium Chloride Packet 20 MEQ PACKET 40 MEQ PO (14:19)
[2023-09-05] MEDS: LORazepam 1 MG TABLET PO (15:11)
[2023-09-05 15:16] VITALS: BP 105/59; PULSE 84; RESP 16; O2SAT 99
== END 2023-09-05 16:32 | disposition home or self-care (01) ==
PROVIDERS: Emergency Provider Emergency Medicine
DX: F98.5 Adult onset fluency disorder (principal); M79.7 Fibromyalgia; R42 Dizziness and giddiness; R47.81 Slurred speech; R47.01 Aphasia; R94.31 Abnormal electrocardiogram [ECG] [EKG]; R79.89 Other specified abnormal findings of blood chemistry; Z79.899 Other long term (current) drug therapy
CPT/HCPCS: 36415; 70496; 70498; 80048; 80076; 83735; 84443; 84484; 85025; 85610; 93005; 99284; Q9967

== ENCOUNTER 2024-04-21 08:03 | Outpatient (REF) | payer BC, MEDICAID, SELFPAY ==
--- NOTE | ~2024-04-21 | US_ITS ---
EXAMINATION: US ABDOMEN COMPLETE CLINICAL INFORMATION: Epigastric pain. COMPARISON: CT abdomen and pelvis 02/04/2023. TECHNIQUE: Real-time imaging of the abdominal viscera. FINDINGS: PANCREAS: The pancreas appears unremarkable, without masses or ductal dilatation, with the exception of the tail which is obscured by bowel gas. ABDOMINAL AORTA: The proximal, mid, and distal segments are normal in caliber. INFERIOR VENA CAVA: Visualized portions are normal. LIVER: The liver is normal in size. The liver contour is normal. There is diffuse increased liver parenchymal echogenicity, consistent with hepatic steatosis. No focal hepatic lesion. There is no intrahepatic biliary duct dilatation seen. GALLBLADDER: Normal. The gallbladder is physiologically distended without evidence of stones, sludge, polyps, wall thickening or pericholecystic fluid. COMMON BILE DUCT: Normal in caliber measuring 0.3 cm in diameter. RIGHT KIDNEY: Normal. No hydronephrosis. No renal calculi or focal parenchymal lesions. The kidney measures 12.6 cm in maximum dimension. LEFT KIDNEY: Normal. No hydronephrosis. No renal calculi or focal parenchymal lesions. The kidney measures 12.7 cm in maximum dimension. SPLEEN: Normal. The spleen measures 11.8 cm in maximum dimension. FREE FLUID: None. US/US abdomen complete IMPRESSION: Hepatic steatosis. A cause for the patient's epigastric pain has not been found.
[2024-04-21 09:10] LABS: Hematocrit 42.2 % (37.0-47.0); Hemoglobin 13.4 g/dl (12.0-16.0); Mean Corpuscular HGB Conc 31.8 g/dl (31.0-35.0); Mean Corpuscular Hemoglobin 26.2 pg (27.0-33.0); Mean Corpuscular Volume 82.6 fL (80.0-98.0); Mean Platelet Volume 9.1 fL (9.4-12.3); Platelet Count 516 X10*3/uL (160-400); Red Blood Count 5.11 X10*6/uL (4.20-5.50); Red Cell Distribution Width 14.6 % (11.0-16.0); White Blood Count 9.8 X10*3/uL (4.8-10.8)
[2024-04-21 10:04] LABS: Alanine Aminotransferase 11 U/L (0-31); Alkaline Phosphatase 117 U/L (39-117); Aspartate Amino Transferase 13 U/L (5-31); Bilirubin Direct 0.1 mg/dL (0.0-0.5); Bilirubin Total 0.4 mg/dL (0.0-1.0); Lipase 21 U/L (8-78); Total Protein 7.7 g/dL (6.5-8.0)
== END 2024-04-21 08:04 | disposition home or self-care (01) ==
LOC: HO.US 08:03
PROVIDERS: PCP Student in an Organized Health Care Education/Training Program; Visit Provider Internal Medicine Gastroenterology
DX: R10.13 Epigastric pain (principal)
CPT/HCPCS: 36415; 76700; 80076; 83690; 85027

== ENCOUNTER 2024-04-30 10:44 | Day surgery (SDC) | payer BC, MEDICAID, SELFPAY ==
--- NOTE | 2024-04-29 11:57 | P.CONAN_ITS ---
HPI - Anesthesia Eval Consult details Narrative: 58yo F for Upper Endoscopy Follows [facility] for Diastolic HF. Stable at last office visit but continues to describe chronic fatigue, dyspneic, chest tightness. Per cardiology, symptoms due to diastolic dysfunction and obesity. BMI = 50 Anesthesia Pre-Procedure Meds Is the patient on any of the following meds?: SGLT2 Inhib PMFSH Active Problems Active Problems: All Active Problems Severe persistent asthma (Acute) Environmental allergies (Acute) Past Medical History Medical History Anxiety and depression Fatty liver Asthma Osteoarthritis Hx of hidradenitis suppurativa Depression CHF (congestive heart failure) Fibromyalgia Diabetes HTN (hypertension) Hx of diverticulitis of colon Hx of endometriosis GERD (gastroesophageal reflux disease) Obesity JANKI on CPAP Diastolic dysfunction Surgical History Surgical History Hx of laparoscopy History of Hx of hernia repair Social History Social History Patient Tobacco Use Status: Never used Tobacco Use of substances other than those prescribed or required for medical reasons: No Are you DNR?: No Advance Directives: No Advance Directives Information Provided: Yes Patient : No Meds Allergies Allergy/AdvReac Type Severity Reaction Status Date / Time hydrochlorothiazide Allergy Severe FACIAL Verified 04/30/24 10:56 [HYDROCHLOROTHIAZIDE] SWELLING AND REDNESS, redness and itching Sulfa (Sulfonamide Allergy Severe FACIAL Verified 04/30/24 10:56 Antibiotics) SWELLING [SULFA(SULFONAMIDE AND ANTIBIOTICS)] REDNESS, redness and itching cephalexin [From KEFLEX] Allergy Intermediate Mouth Verified 04/30/24 10:56 tingling clarithromycin Allergy Intermediate Gastrointestinal Verified 04/30/24 10:56 Upset glipizide Allergy Unknown Verified 04/30/24 10:56 lisinopril Allergy Cough Verified 04/30/24 10:56 Home Medications ?Medication ?Instructions ?Recorded ?Confirmed ?Last Taken ?Type bumetanide 2 mg tablet 4 mg PO . DAILY @1400 10/03/20 04/30/24 04/29/24 History esomeprazole magnesium 20 mg 20 mg PO DAILY 10/03/20 04/30/24 04/29/24 History capsule,delayed release metformin 750 mg tablet,extended 750 mg PO DAILY 10/03/20 04/30/24 04/29/24 History release 24 hr montelukast 10 mg tablet 10 mg PO BEDTIME 10/03/20 04/30/24 04/29/24 History spironolactone 50 mg tablet 50 mg PO DAILY 10/03/20 04/30/24 04/30/24 History verapamil 40 mg tablet 40 mg PO BID 10/03/20 04/30/24 04/30/24 History bumetanide 2 mg tablet 3 mg PO .DAILY @0800 05/01/21 04/30/24 04/29/24 History cholecalciferol (vitamin D3) 25 25 mcg PO DAILY 05/13/23 04/30/24 04/29/24 Histo ry mcg (1,000 unit) capsule dapagliflozin propanediol 10 mg 10 mg PO DAILY 05/13/23 04/30/24 04/27/24 History tablet (Farxiga) duloxetine 60 mg capsule,delayed 60 mg PO QAM 05/13/23 04/30/24 04/29/24 History release fluticasone propionate 50 1 spray intranasal DAILY 05/13/23 Unknown History mcg/actuation nasal spray,suspension (Flonase Allergy Relief) losartan 50 mg tablet 50 mg PO DAILY 05/13/23 04/30/24 04/30/24 History magnesium 200 mg tablet 200 mg PO DAILY 05/13/23 04/30/24 04/29/24 History potassium chloride 10 mEq 10 meq PO DAILY 05/13/23 Unknown History capsule,extended release potassium chloride 10 mEq 20 meq PO DAILY 05/13/23 04/30/24 04/29/24 History tablet,extended release Exam Narrative Narrative: Per cardiology note, 09/2023 EKG was nml ECHO 12/2023 1. Nml LV chamber size. Mild conc LVH. Nml LV systolic function. Nml RWM. Mild cavity gradient that increases to 17mmHG with Valsalva. LVEF 55-60%. Nml LV diastolic function. 2. Enlarged RV size at 4.2cm. Nml RV global systolic function. 3. No hemodynamically significant valvular dysfunction. 4. C/w 2018, the dynamic mid LV gradient has decreased with Valsalva from up to 66mmHg to 17mmHg Assessment and Plan Assessment Anesthesia Assessment: Chart Reviewed
[2024-04-30 10:49] VITALS: BMI 46.9
--- NOTE | 2024-04-30 11:09 | P.CONAN_ITS ---
[facility] Active Problems Active Problems: All Active Problems Severe persistent asthma (Acute) Environmental allergies (Acute) Past Medical History Medical History Anxiety and depression Fatty liver Asthma Osteoarthritis Hx of hidradenitis suppurativa Depression CHF (congestive heart failure) Fibromyalgia Diabetes HTN (hypertension) Hx of diverticulitis of colon Hx of endometriosis GERD (gastroesophageal reflux disease) Obesity JANKI on CPAP Diastolic dysfunction Functional capacity: independent ambulation Patient : No Family History Family history of problems with anesthesia: No Surgical History Surgical History Hx of laparoscopy History of Hx of hernia repair History of Problems with Anesthesia: No Social History Social History Patient Tobacco Use Status: Never used Tobacco Meds Allergies Allergy/AdvReac Type Severity Reaction Status Date / Time hydrochlorothiazide Allergy Severe FACIAL Verified 04/30/24 10:56 [HYDROCHLOROTHIAZIDE] SWELLING AND REDNESS, redness and itching Sulfa (Sulfonamide Allergy Severe FACIAL Verified 04/30/24 10:56 Antibiotics) SWELLING [SULFA(SULFONAMIDE AND ANTIBIOTICS)] REDNESS, redness and itching cephalexin [From KEFLEX] Allergy Intermediate Mouth Verified 04/30/24 10:56 tingling clarithromycin Allergy Intermediate Gastrointestinal Verified 04/30/24 10:56 Upset glipizide Allergy Unknown Verified 04/30/24 10:56 lisinopril Allergy Cough Verified 04/30/24 10:56 Active Medications: Current Medications Albuterol Sulfate (Albuterol Sulfate (0.083%) 2.5 Mg/3 Ml Vial.Neb) 2.5 mg INHALE ONCE PRN PRN Reason: Shortness of Breath/Wheezing Lactated Ringer's (Lr) 1,000 mls @ 50 mls/hr IVCONT .Q20H RICHARD Home Medications ?Medication ?Instructions ?Recorded ?Confirmed ?Last Taken ?Type bumetanide 2 mg tablet 4 mg PO . DAILY @1400 10/03/20 04/30/24 04/29/24 History esomeprazole magnesium 20 mg 20 mg PO DAILY 10/03/20 04/30/24 04/29/24 History capsule,delayed release metformin 750 mg tablet,extended 750 mg PO DAILY 10/03/20 04/30/24 04/29/24 History release 24 hr montelukast 10 mg tablet 10 mg PO BEDTIME 10/03/20 04/30/24 04/29/24 History spironolactone 50 mg tablet 50 mg PO DAILY 10/03/20 04/30/24 04/30/24 History verapamil 40 mg tablet 40 mg PO BID 10/03/20 04/30/24 04/30/24 History bumetanide 2 mg tablet 3 mg PO .DAILY @0800 05/01/21 04/30/24 04/29/24 History cholecalciferol (vitamin D3) 25 25 mcg PO DAILY 05/13/23 04/30/24 04/29/24 History mcg (1,000 unit) capsule dapagliflozin propanediol 10 mg 10 mg PO DAILY 05/13/23 04/30/24 04/27/24 History tablet (Farxiga) duloxetine 60 mg capsule,delayed 60 mg PO QAM 05/13/23 04/30/24 04/29/24 History release fluticasone propionate 50 1 spray intranasal DAILY 05/13/23 Unknown History mcg/actuation nasal spray,suspension (Flonase Allergy Relief) losartan 50 mg tablet 50 mg PO DAILY 05/13/23 04/30/24 04/30/24 History magnesium 200 mg tablet 200 mg PO DAILY 05/13/23 04/30/24 04/29/24 History potassium chloride 10 mEq 10 meq PO DAILY 05/13/23 Unknown History capsule,extended release potassium chloride 10 mEq 20 meq PO DAILY 05/13/23 04/30/24 04/29/24 History tablet,extended release Exam Height,Weight and Vital Signs: Height 5 ft 3 in Weight 120.202 kg Airway Mallampati Class: IV TM Dist: >3cm Neck ROM: Full Assessment and Plan Final Anesthetic Review Family History of Problems with Anesthesia: No History of Problems with Anesthesia: No
[2024-04-30 11:14] VITALS: BP 143/83; PULSE 81; RESP 16; TEMP 35.8; O2SAT 94
[2024-04-30] MEDS: Lactated Ringers 1,000 ML 50 ML IVCONT (11:16)
[2024-04-30 11:25] LABS: Glucose, Whole Blood 131 mg/dL (60-115)
--- NOTE | 2024-04-30 11:38 | P.HPSUR_ITS ---
Pre-Procedural Eval Section A - 24 Hr Update-Section A only Date of Service: 04/30/24 Section B - Complete if H&P > 30 days Chief Complaint: Epigastric pain Details of Present Illness: see H&P no changes Relevant Family History (Specify if Yes): No Relevant Social History: None Present Medications: see Short Stay Collaborative assessment Medical History: No relevant PMH Allergies: Allergies Allergy/AdvReac Type Severity Reaction Status Date / Time hydrochlorothiazide Allergy Severe FACIAL Verified 04/30/24 10:56 [HYDROCHLOROTHIAZIDE] SWELLING AND REDNESS, redness and itching Sulfa (Sulfonamide Allergy Severe FACIAL Verified 04/30/24 10:56 Antibiotics) SWELLING [SULFA(SULFONAMIDE AND ANTIBIOTICS)] REDNESS, redness and itching cephalexin [From KEFLEX] Allergy Intermediate Mouth Verified 04/30/24 10:56 tingling clarithromycin Allergy Intermediate Gastrointestinal Verified 04/30/24 10:56 Upset glipizide Allergy Unknown Verified 04/30/24 10:56 lisinopril Allergy Cough Verified 04/30/24 10:56 Review of Systems Sugical H&P ROS: Negative: Constitution, Cardiovascular, Respiratory, Neurological, Psychiatric, Hem-Onc, Allergic/Immunologic, Gastrointestinal, Genitourinary, Musculoskeletal, Integumentary, Endocrine and Eyes/Ears/Nose/Throat Exam Surgical H&P Exam: Normal: HEENT, Normal: Heart, Normal: Lungs, Normal: Extrem ities, Normal: Abdomen, Normal: Skin and Normal: Neurological Plan Diagnosis/Plan: Unchanged I have reviewed the history and physical and performed a pertinent physical examination on my patient. No changes have occurred unless specified. Time Spent With Patient Time: Total time managing care of this patient today ____ minutes.
[2024-04-30 12:07] VITALS: BP 115/63; PULSE 81; RESP 16; TEMP 37.5; O2SAT 95
--- NOTE | 2024-04-30 12:11 | HO.ANESPROP2 ---
[facility] Active Problems Active Problems: All Active Problems Severe persistent asthma (Acute) Environmental allergies (Acute) Past Medical History Medical History Anxiety and depression Fatty liver Asthma Osteoarthritis Hx of hidradenitis suppurativa Depression CHF (congestive heart failure) Fibromyalgia Diabetes HTN (hypertension) Hx of diverticulitis of colon Hx of endometriosis GERD (gastroesophageal reflux disease) Obesity JANKI on CPAP Diastolic dysfunction Functional capacity: independent ambulation Patient : No Family History Family history of problems with anesthesia: No Surgical History Surgical History Hx of laparoscopy History of Hx of hernia repair History of Problems with Anesthesia: No Social History Social History Patient Tobacco Use Status: Never used Tobacco Use of substances other than those prescribed or required for medical reasons: No Are you DNR?: No Advance Directives: No Advance Directives Information Provided: Yes Patient : No Meds Allergies Allergy/AdvReac Type Severity Reaction Status Date / Time hydrochlorothiazide Allergy Severe FACIAL Verified 04/30/24 10:56 [HYDROCHLOROTHIAZIDE] SWELLING AND REDNESS, redness and itching Sulfa (Sulfonamide Allergy Severe FACIAL Verified 04/30/24 10:56 Antibiotics) SWELLING [SULFA(SULFONAMIDE AND ANTIBIOTICS)] REDNESS, redness and itching cephalexin [From KEFLEX] Allergy Intermediate Mouth Verified 04/30/24 10:56 tingling clarithromycin Allergy Intermediate Gastrointestinal Verified 04/30/24 10:56 Upset glipizide Allergy Unknown Verified 04/30/24 10:56 lisinopril Allergy Cough Verified 04/30/24 10:56 Active Medications: Current Medications Albuterol Sulfate (Albuterol Sulfate (0.083%) 2.5 Mg/3 Ml Vial.Neb) 2.5 mg INHALE ONCE PRN PRN Reason: Shortness of Breath/Wheezing Lactated Ringer's (Lr) 1,000 mls @ 50 mls/hr IVCONT .Q20H RICHARD Last Admin: 04/30/24 11:16 Dose: 50 mls/hr Home Medications ?Medication ?Instructions ?Recorded ?Confirmed ?Last Taken ?Type bumetanide 2 mg tablet 4 mg PO . DAILY @1400 10/03/20 04/30/24 04/29/24 History esomeprazole magnesium 20 mg 20 mg PO DAILY 10/03/20 04/30/24 04/29/24 History capsule,delayed release metformin 750 mg tablet,extended 750 mg PO DAILY 10/03/20 04/30/24 04/29/24 History release 24 hr montelukast 10 mg tablet 10 mg PO BEDTIME 10/03/20 04/30/24 04/29/24 History spironolactone 50 mg tablet 50 mg PO DAILY 10/03/20 04/30/24 04/30/24 History verapamil 40 mg tablet 40 mg PO BID 10/03/20 04/30/24 04/30/24 History bumetanide 2 mg tablet 3 mg PO .DAILY @0800 05/01/21 04/30/24 04/29/24 History cholecalciferol (vitamin D3) 25 25 mcg PO DAILY 05/13/23 04/30/24 04/29/24 History mcg (1,000 unit) capsule dapagliflozin propanediol 10 mg 10 mg PO DAILY 05/13/23 04/30/24 04/27/24 History tablet (Farxiga) duloxetine 60 mg capsule,delayed 60 mg PO QAM 05/13/23 04/30/24 04/29/24 History release fluticasone propionate 50 1 spray intranasal DAILY 05/13/23 Unknown History mcg/actuation nasal spray,suspension (Flonase Allergy Relief) losartan 50 mg tablet 50 mg PO DAILY 05/13/23 04/30/24 04/30/24 History magnesium 200 mg tablet 200 mg PO DAILY 05/13/23 04/30/24 04/29/24 History potassium chloride 10 mEq 10 meq PO DAILY 05/13/23 Unknown History capsule,extended release potassium chloride 10 mEq 20 meq PO DAILY 05/13/23 04/30/24 04/29/24 History tablet,extended release Exam Height,Weight and Vital Signs: Height 5 ft 3 in Weight 120.202 kg Last Vital Signs Temp 96.5 F L 04/30/24 11:14 Pulse 81 04/30/24 11:14 Resp 16 04/30/24 11:14 BP 143/83 H 04/30/24 11:14 Pulse Ox 94 04/30/24 11:14 O2 Del Method Room Air 04/30/24 11:14 Pertinent Lab Results Pertinent Lab Results: Laboratory Tests 04/30/24 11:09 POC Glucose 131 H Airway Mallampati Class: IV TM Dist: >3cm Neck ROM: Full Heart: RRR Lungs: CTA Assessment and Plan Assessment Anesthesia Assessment: Anesthesia Plan Discussed Final Anesthetic Review Family History of Problems with Anesthesia: No History of Problems with Anesthesia: No NPO: Yes ASA Class: III Final Preanesthetic Review: Meds/Allgs Chart Reviewed, Consent Obtained/Reviewed and Anes Risks/Benef Reviewed Patient Risk: Intermediate Procedure Risk: Low Anesthetic Plan Anesthetic Plan: MAC:
--- NOTE | 2024-04-30 12:14 | HO.POSTANES ---
Post Anesthesia Evaluation Post Anesthesia Evaluation Date of Service: 04/30/24 Vital Signs: Vital Signs Temp Pulse Resp BP Pulse Ox O2 Del Method 04/30/24 12:07 99.5 F 81 16 115/63 95 Room Air 04/30/24 11:14 96.5 F L 81 16 143/83 H 94 Room Air Anesthesia: Monitored Mental Status: Awake Pain Control: Satisfactory Nausea/Vomiting: None Hydration: Adequate Anesthesia-Related Issues: No Anes. Related Issues
[2024-04-30 12:22] VITALS: BP 115/63; PULSE 69; RESP 16; O2SAT 96
[2024-04-30 12:37] VITALS: BP 110/61; PULSE 68; RESP 16; O2SAT 96
--- NOTE | 2024-04-30 12:37 | OP_ITS ---
DATE OF SERVICE: 04/30/2024 SURGEON: Corwin Álvarez MD INDICATIONS: Epigastric pain. PREOPERATIVE DIAGNOSIS: POSTOPERATIVE DIAGNOSIS: PROCEDURE PERFORMED: Upper endoscopy with biopsy. ESTIMATED BLOOD LOSS: COMPLICATIONS: ANESTHESIA: Monitored anesthesia care. ASSISTANTS: SPECIMENS: DESCRIPTION OF PROCEDURE: A history and physical was performed. The risks and benefits of the procedure were explained to the patient. Informed consent was obtained. The patient was placed in the left lateral decubitus position. The Olympus video gastroscope was introduced into the esophagus, stomach, and duodenum. Examination was performed. The scope was removed. She tolerated the procedure well and was returned to the recovery area in stable condition. FINDINGS: Esophagus: The esophagus was normal. There was no esophagitis. The EG junction was slightly irregular. Biopsies were obtained from the EG junction. Stomach: The stomach showed multiple polyps in the body and fundus consistent with fundic gland polyps, the largest measured approximately 12 mm. Antral biopsies were obtained. Duodenum: The bulb and second portion were normal. Duodenal biopsies were obtained. IMPRESSION: 1. Epigastric pain. 2. Gastric polyps. RECOMMENDATION: Follow up the biopsy results. MD EVA Zuniga/NAOMI / [id number]
[2024-04-30 12:50] VITALS: BP 128/72; PULSE 79; RESP 20; TEMP 36.9; O2SAT 95
== END 2024-04-30 13:34 | disposition home or self-care (01) ==
PROVIDERS: PCP Student in an Organized Health Care Education/Training Program; Visit Provider Internal Medicine Gastroenterology
PROC: 0DJ08ZZ Inspection of Upper Intestinal Tract, Via Natural or Artificial Opening Endoscopic (ICD-10-PCS; CPT 43235; principal; 2024-04-30 12:10)
DX: R10.13 Epigastric pain (principal); K29.50 Unspecified chronic gastritis without bleeding; K31.7 Polyp of stomach and duodenum; Z87.19 Personal history of other diseases of the digestive system; I11.0 Hypertensive heart disease with heart failure; I50.9 Heart failure, unspecified; E11.9 Type 2 diabetes mellitus without complications; D75.839 Thrombocytosis, unspecified; G47.33 Obstructive sleep apnea (adult) (pediatric); J45.909 Unspecified asthma, uncomplicated; M79.7 Fibromyalgia; N80.9 Endometriosis, unspecified; F32.A Depression, unspecified; Z86.010 Personal history of colon polyps; Z79.51 Long term (current) use of inhaled steroids; Z79.899 Other long term (current) drug therapy; Z79.84 Long term (current) use of oral hypoglycemic drugs; Z88.8 Allergy status to other drugs, medicaments and biological substances; Z88.2 Allergy status to sulfonamides; Z88.1 Allergy status to other antibiotic agents; Z98.890 Other specified postprocedural states
CPT/HCPCS: 43239; 82947; 88305; 88313; 88342; J1596; J2704

== ENCOUNTER 2024-09-03 14:53 | Outpatient (AMB) | payer BC, MEDICAID, SELFPAY ==
[2024-09-03 14:57] VITALS: BP 104/60; PULSE 92; O2SAT 97; BMI 46.4
--- NOTE | 2024-09-03 14:57 | MHC.OFFVIS ---
Vital Signs 09/03/24 14:57 Height 5 ft 3 in Weight 262 lb BMI 46.4 BP 104/60 Blood Pressure Location Rt brachial Position Sitting Pulse 92 Pulse Source Doppler Pulse Oximetry (%) 97 Oxygen Delivery Method Room Air Intake Visit Reasons: COPD Allergies hydrochlorothiazide [HYDROCHLOROTHIAZIDE] Allergy (Severe, Verified 04/30/24 10:56) FACIAL SWELLING AND REDNESS, redness and itching Sulfa (Sulfonamide Antibiotics) [SULFA(SULFONAMIDE ANTIBIOTICS)] Allergy (Severe, Verified 04/30/24 10:56) FACIAL SWELLING AND REDNESS, redness and itching cephalexin [From KEFLEX] Allergy (Intermediate, Verified 04/30/24 10:56) Mouth tingling clarithromycin Allergy (Intermediate, Verified 04/30/24 10:56) Gastrointestinal Upset glipizide Allergy (Verified 04/30/24 10:56) Unknown lisinopril Allergy (Verified 04/30/24 10:56) Cough HPI HPI COPD: Details: 58-year-old lady, nonsmoker, with underlying history of diastolic dysfunction, obesity, hypertension, JANKI on CPAP (by her neurologist) followed for pulmonary component of underlying dyspnea. Patient continues on Breo, duo nebs, and albuterol MDI with good baseline control of her asthma symptoms. She uses Singulair for allergic component. She did have recent exacerbation with bronchitic symptoms treated with a course of doxycycline and prednisone, now resolved and essentially at baseline. [facility] Medical History Anxiety and depression Fatty liver Asthma Osteoarthritis Hx of hidradenitis suppurativa Depression CHF (congestive heart failure) Fibromyalgia Diabetes HTN (hypertension) Hx of diverticulitis of colon Hx of endometriosis GERD (gastroesophageal reflux disease) Obesity JANKI on CPAP Diastolic dysfunction Surgical History Hx of laparoscopy History of Hx of hernia repair Social History Patient Tobacco Use Status: Never used Tobacco Review of Systems Const Denies daytime sleepiness, Denies excessive sweating, Denies fatigue, Denies fever(s), Denies lethargy, Denies malaise, Denies night sweats, Denies snoring and Denies weight loss Eyes Denies blurry vision and Denies itchy eyes ENT Denies nasal congestion, Denies post nasal drip, Denies sinus pain, Denies sinus pressure and Denies other ( Thrush) Card Denies chest pain, Denies pedal edema, Denies dyspnea, Denies orthopnea and Denies paroxysmal nocturnal dyspnea Resp Denies cough, Denies hemoptysis, Denies excessive phlegm production, Denies dyspnea, Denies snoring and Denies wheezing GI Denies abdominal pain and Denies heartburn Musc Denies myalgias, Denies arthralgias and Denies joint swelling Skin/Breast Denies rash Neuro Denies memory loss and Denies seizure-like activity Psych Denies abnormal sleep pattern, Denies anxiety and Denies memory loss Endo Denies excessive sweating, Denies fatigue and Denies heat intolerance Jamal/Lymph Denies easy bruising Aller/Immun Denies itchy eyes, Denies seasonal rhinorrhea and Denies wheezing Physical Exam Vital Signs: Last Vital Signs Pulse 92 09/03/24 14:57 BP 104/60 09/03/24 14:57 Pulse Ox 97 09/03/24 14:57 Oxygen Delivery Method Room Air 09/03/24 14:57 BMI result Body Mass Index 46.4 Const General: no acute distress and alert Nutritional Appearance: obese Orientation/consciousness: Other orientation findings ( oriented) HEENT Head: Yes atraumatic Eyes General: appearance normal, both eyes and all related structures Sclerae: sclerae normal EOM: EOMs intact bilaterally Neck Neck: Yes supple Lymphatic: no lymphadenopathy noted Resp Effort & Inspection: normal respiratory effort and no use of accessory muscles Auscultation: clear to auscultation bilaterally Cardio Rate: regular rate Rhythm: regular rhythm Heart sounds: no gallops, no murmurs and no rubs Skin General skin exam: other ( warm) Extrem General: No clubbing, No cyanosis and No edema Assessment & Plan Assessment & Plan (1) Severe persistent asthma: Code(s): J45.50 - Severe persistent asthma, uncomplicated Category: Medical Plan: Controlled on current regimen of Breo, duo nebs, and albuterol MDI. Continue current regimen. (2) Environmental allergies: Code(s): Z91.09 - Other allergy status, other than to drugs and biological substances Category: Medical Plan: Controlled on Singulair. Continue current regimen. Coding Level of Care Code Est Pt Level 4 (16849) Diagnoses Severe persistent asthma J45.50 Environmental allergies Z91.09
== END 2024-09-03 15:15 | disposition home or self-care (01) ==
LOC: HO.HPS 14:53
PROVIDERS: PCP Student in an Organized Health Care Education/Training Program; Visit Provider Internal Medicine Pulmonary Disease
DX: J45.50 Severe persistent asthma, uncomplicated (principal); Z91.09 Other allergy status, other than to drugs and biological substances
CPT/HCPCS: 99214

== ENCOUNTER → 2024-09-03 14:53 | Outpatient (BNVA) | payer BC, MEDICAID, SELFPAY | PROVIDERS: PCP Student in an Organized Health Care Education/Training Program; Visit Provider Internal Medicine Pulmonary Disease ==

== ENCOUNTER 2024-12-08 14:57 | Outpatient (REF) | payer BC, MEDICAID, SELFPAY ==
[2024-12-08 15:25] LABS: MANUAL DIFF FLAG NO
[2024-12-08 15:34] LABS: Basophils Absolute Auto 0.1 X10*3/uL (0.0-0.2); Basophils Percent Auto 0.6 % (0-2); Eosinophils Absolute Auto 0.2 X10*3/uL (0.0-0.4); Eosinophils Percent Auto 1.7 % (0-4); Hemoglobin 12.5 g/dl (12.0-16.0); Imm Gran Abs Auto 0.11 X10*3/uL (0.00-0.03); Imm Gran Pct Auto 0.8 % (0.0-0.4); Lymphocytes Absolute Auto 2.6 X10*3/uL (1.2-4.9); Mean Corpuscular HGB Conc 31.3 g/dl (31.0-35.0); Mean Corpuscular Hemoglobin 26.1 pg (27.0-33.0); Mean Corpuscular Volume 83.5 fL (80.0-98.0); Mean Platelet Volume 9.4 fL (9.4-12.3); Monocytes Absolute Auto 0.7 X10*3/uL (0.1-1.2); Monocytes Percent Auto 5.3 % (2-11); Neutrophils Absolute Auto 9.3 x10*3/uL (2.0-8.3); Neutrophils Percent Auto 71.6 % (45-73); Platelet Count 497 X10*3/uL (160-400); Red Blood Count 4.79 X10*6/uL (4.20-5.50); Red Cell Distribution Width 14.5 % (11.0-16.0)
--- OUTSIDE RECORDS SUMMARY | 2024-12-08 16:03 | XMS_ITS | Clinical Summary ---
Author Organization [address] [place] [address] [place] [phone] Phone Care Team Providers Care Wrapper Stemmer Operator Name Role Phone Maria Del Rosario Oneill MD Primary Care Provider [phone] Allergies Active Allergy Reactions Criticality Noted Date Comments Amoxicillin 08/01/2021 Cephalexin 10/10/2016 Glipizide 05/21/2018 Hydrochlorothiazide 10/10/2016 Lisinopril 10/10/2016 Sulfa (Sulfonamide Antibiotics) 07/05 Medications Medication Sig Dispensed Refills Start Date End Date Status albuterol HFA (PROAIR HFA ; PROVENTIL HFA ; VENTOLIN HFA) 90 mcg/actuation inhaler Inhale by mouth. Active albuterol 0.63 mg/3 mL nebulizer solution Inhale 1 ampule by mouth. Active acetaminophen (TYLENOL) 500 mg tablet Take 1 tablet (500 mg total) by mouth. Active ascorbic acid, vitamin C, 500 mg capsule Take by mouth 1 (one) time each day. Active clindamycin (CLEOCIN T) 1 % gel PLEASE SEE ATTACHED FOR DETAILED DIRECTIONS 11/27/2024 Active clonazePAM (KlonoPIN) 0.5 mg tablet Take 1 tablet (0.5 mg total) by mouth 2 (two) times a day if needed. 09/20/2024 Active Farxiga 10 mg tablet Take 1 tablet (10 mg total) by mouth 1 (one) time each day. Active DULoxetine (CYMBALTA) [address] capsule Take 1 capsule (30 mg total) by mouth 2 (two) times a day. 09/20/2024 Active ferrous sulfate 325 mg (65 mg elemental iron) tablet Take 1 tablet (325 mg total) by mouth 1 (one) time each day. Active Breo Ellipta 200-25 mcg/dose inhaler Inhale 1 puff by mouth 1 (one) time each day. 06/30/2024 Active losartan (COZAAR) 50 mg tablet Take 1 tablet (50 mg total) by mouth 1 (one) time each day. Active metFORMIN XR (GLUCOPHAGE-XR) 750 mg 24 hr tablet Take 1 tablet (750 mg total) by mouth 2 (two) times a day. Active montelukast (SINGULAIR) 10 mg tablet Take 1 tablet (10 mg total) by mouth 1 (one) time each day. Active potassium chloride (KLOR-CON) 10 mEq CR tablet Take 2 tablets (20 mEq total) by mouth 1 (one) time each day. Active esomeprazole magnesium 20 mg tablet,delayed release (DR/EC) Take by mouth. Activ e verapamiL (CALAN) 40 mg tablet Take 1 tablet (40 mg total) by mouth 3 (three) times a day. Active bumetanide (BUMEX) 2 mg tablet Take 4.5 mg by mouth 1 (one) time each day. 1.5 tablet in the morning and 1 tablet in the afternoon Active cholecalciferol (VITAMIN D-3) 50 mcg (2,000 unit) tablet Take 1 tablet (2,000 Units total) by mouth 1 (one) time each day. Active magnesium 250 mg tablet Take by mouth 2 (two) times a day. Active Active Problems Problem Noted Date Diagnosed Date Type 2 diabetes mellitus wit h hyperglycemia, without long-term current use of insulin 12/07/2024 Chronic heart failure with p reserved ejection fraction (HFpEF) 12/07/2024 Assessment & Plan (12/07/2024 3:46 PM EST): The patient presents today with ongoing complaints of fatigue, dyspnea on exertion, and chest discomfort. 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 I have asked her to follow-up with her sleep medicine provider to ensure that she does not need a retitration study as she reports her sleep is nonrestorative; continued consistent use of CPAP was encouraged. She denies any shortness of breath with exertion as long as she remains compliant with her medications for her asthma which is reassuring. Additionally, she denies chest discomfort with exertion; this typically occurs at rest and improves when she is up and moving. She appears euvolemic on exam today and offers no other symptoms to present concern for worsening heart failure. Nevertheless, given her symptoms we will update an echocardiogram for reevaluation of worsening cardiac function or structural heart disease. She will continue with Farxiga and bumetanide as prescribed in addition to antihypertensive therapies. We discussed risk reduction through lifestyle choices including healthy diet, routine exercise and weight management. We reviewed heart failure management including low-sodium diet, symptom surveillance, daily weights and medication compliance. I've asked the patient to call if they develop worsening symptoms of heart failure such as increased shortness of breath, new or worsening cough, increased swelling in the legs or ankles, or weight gain of more than 2 pounds in one day or 4 pounds in one week. The patient verbalizes understanding and agreement with this plan. Orders: ECG 12 lead Transthoracic echocardiogram (TTE) complete with PRN contrast, bubble, strain, and 3D order panel; Future Primary hypertension 12/07/2024 Assessment & Plan (12/07/2024 3:46 PM EST): Pressure is adequately controlled on current antihypertensive medical therapy; continue verapamil, losartan, and bumetanide. We will update a metabolic panel and magnesium level as above. Orders: Basic metabolic panel; Future Magnesium; Future Sinus tachycardia 12/07/2024 Hyperlipidemia 12/07/2024 Assessment & Plan (12/07/2024 3:46 PM EST): No recent lipid panel on file; we will update a fasting lipid panel and readdress this as needed. Given her history of diabetes, LDL goal would be less than 70. She is currently not on any antilipid therapies. Orders: Lipid panel with reflex to direct LDL; Future Class 3 severe obesity due t o excess calories with serious comorbidity and body mass index (BMI) of 45.0 to 49.9 in adult 12/07/2024 Assessment & Plan (12/07/2024 3:46 PM EST): The patient is morbidly obese. She admits that she is an emotional eater and is struggling with depression more so in the recent months; she also has not followed up with her therapist since August 2024. The patient and I had a long discussion regarding this; she states that she was previously not ready to do the work that she needs to in order to address her mental health needs but that she feels as though she is not ready to do so. As such, she will reach out to her therapist to reestablish care and is aware of the importance in doing so; she also has a good friend that she is able to lean on for support and to help keep her accountable and I encouraged her to use her friend as a resource for her weight loss. I have strongly urged her to use the recumbent bicycle that she has access to at home, starting with brief exercise sessions and increasing duration and intensity over the course of time. Approaches towards weight loss are discussed, including burning more calories than one takes in by portion control and regular exercise with an emphasis on duration rather than intensity. Orders: Lipid panel with reflex to direct LDL; Future Chronic fatigue 12/07/2024 Assessment & Plan (12/07/2024 3:46 PM EST): Unchanged from previous, as discussed above. She has not had any labs completed in quite some time; we will update a basic metabolic panel and magnesium level to rule out any underlying electrolyte derangement that may be contributory, as well as a CBC to evaluate for possible anemia, and a TSH to evaluate for any underlying thyroid dysregulation. Will continue to readdress this as needed; she was also encouraged to follow-up with her PCP regarding this as well. Orders: Basic metabolic panel; Future Magnesium; Future Thyroid stimulating hormone with reflex free T4; Future Complete blood count; Future Transthoracic echocardiogram (TTE) complete with PRN contrast, bubble, strain, and 3D order panel; Future Chest discomfort 12/07/2024 Assessment & Plan (12/07/2024 3:46 PM EST): The patient does not experience chest discomfort with exertion; she describes it more as a sensation of needing to open of her chest, like a chest tightness that occurs more when she has been at rest for some time. I have encouraged her to try utilizing her rescue inhaler to see if this helps improve symptoms any. The patient was advised to seek emergent medical attention by calling 911 if they were to develop severe dyspnea, chest pain that did not resolve with rest, or if they were to faint. Dyspnea on exertion 12/07/2024 Assessment & Plan (12/07/2024 3:46 PM EST): As above; this does not appear to be related to her heart failure at this moment in time as she appears euvolemic on exam. She states that her dyspnea on exertion only occurs when she does not take her medications for asthma consistently, which is encouraging in relation to her cardiac comorbidities. We will continue to readdress this as indicated. Dizziness 12/07/2024 Assessment & Plan (12/07/2024 3:46 PM EST): The patient's dizziness may be multifactorial related to factors such as poor sleep, inactivity, inadequate self-care, and possibly even vertigo. She reports that her dizziness with position changes is often quite brief and not intrusive; should this worsen, I suggest that she obtain a blood pressure cuff and check her blood pressure during these times to evaluate for possible hypotension. Proper self-care with adequate hydration, proper nutrition, and adequate rest was encouraged. Her symptoms occur more so with rolling over in bed which is more typical for vertigo; she will follow-up with her PCP regarding this. Encounters Date Type Department Care Team Description 12/07/2024 8:40 AM EST Office Visit [facility] [address] [place] [address] Iqra Arellano NP Chronic heart failure with preserved ejection fraction (HFpEF) ([facility]) (Primary Dx); Chronic fatigue; Dyspnea on exertion; Dizziness; Chest discomfort; Primary hypertension; Hyperlipidemia, unspecified hyperlipidemia type; Class 3 severe obesity due to excess calories with serious comorbidity and body mass index (BMI) of 45.0 to 49.9 in adult ([facility]) from Last 3 Months Medical History Medical History Date Comments HTN (hypertension) DX:HTN (hyper tension) Hypokalemia DX:Hypokalemia Leukocytosis DX:Leukocytosis Diabetes mellitus ([facility]) DX:D iabetes mellitus ([facility]) Obstructive sleep apnea DX:Obstr uctive sleep apnea Morbid obesity with BMI of 4 5.0-49.9, adult ([facility]) DX:Morbid obesity with BMI o f 45.0-49.9, adult ([facility]) Family History Medical History Relation Name Comments Heart attack Father Heart failure Father Other: cardiac stents Father Other: cardiac arrest Maternal Grandmother Other: afib Other Other: cardica arrest Uncle Relation Name Status Comments Father Maternal Grandmother Other Uncle Social History Tobacco Use Types Packs/Day Years Used Date Smoking Tobacco: Never Smokeless Tobacco: Never Alcohol Use Standard Drinks/Week Comments Never 0 (1 standard drink = 0.6 oz pur e alcohol) Sex and Gender Information Value Date Recorded Sex Assigned at Not on file Gender Identity Not on file Sexual Orientation Not on file Job Start Date Occupation Industry Not on file Not on file Not on file Obstetrics History Last Filed Vital Signs Vital Sign Reading Time Taken Comments Blood Pressure 128/70 12/07/2024 10:03 AM EST Pulse 91 12/07/2024 10:03 AM EST Temperature - - Respiratory Rate - - Oxygen Saturation 97% 12/07/2024 10:03 AM EST Inhaled Oxygen Concentration - - Weight 117 kg (259 lb) 12/07/2024 10:03 AM EST Height 157.5 cm (5' 2 ) 12/07/2024 10:03 AM EST Body Mass Index 47.37 12/07/2024 10:03 AM EST Plan of Treatment Upcoming Encounters Date Type Department Care Team (Late st Contact Info) Description 02/23/2025 3:30 PM EDT Ancillary Procedure [facility] [address] [phone] 06/03/2025 9:20 AM EDT Office Visit [facility] [address] [id number] [place] Manuel MD [address] [address] Health Maintenance Due Date Last Done Comments Diabetes: Annual Foot Exam 1974 Diabetes: Annual Retina Eye Exam 1974 Cervical Cancer Screening: Pap Smear 1985 Zoster Vaccines (1 of 2) 2014 Pneumococcal Vaccine: Pediatrics (0 to 5 Years) and At-Risk Patients (6 to 64 Years) (2 of 2 - PCV) 07/25/2017 07/25/2016 Cholesterol Screening (Lipid Panel) 10/06/2022 Colorectal Cancer Screening: Colonoscopy 10/06/2022 Depression Screening 10/06/2022 HIV Screening 10/06/2022 Hepatitis C Screening 10/06/2022 Social Influencers of Health Screening 10/06/2022 Breast Cancer Screening 04/29/2024 04/29/2022, 12/08 RSV Immunization Patients 60+ Years Old (1 - Risk 60-74 years 1-dose series) 2024 Diabetes: Annual Urine Albumin-Creatinine Ratio (uACR) 12/07/2024 Diabetes: Blood Sugar Control Test (HGBA1C) 12/07/2024 Diabetes: Annual GFR (Glomerular Filtration Rate) 12/07/2025 12/07/2024 Hypertension/CHF/CAD Annual BMP Blood Test 12/07/2025 12/07/2024 DTaP,Tdap,and Td Vaccines (3 - Td or Tdap) 12/23/2028 12/23/2018, 06/13/2008 COVID-19 Vaccine Completed 10/09/2024, , 10/24/2021, Additional history exists Influenza Vaccine Completed 10/09/2024, , 08/16/2022, Additional history exists HIB Vaccines Aged Out No longer eligi ble based on patient's age to complete this topic HPV Vaccines Aged Out No longer eligi ble based on patient's age to complete this topic Hepatitis A Vaccines Aged Out No long er eligible based on patient's age to complete this topic Hepatitis B Vaccines Aged Out No long er eligible based on patient's age to complete this topic IPV Vaccines Aged Out No longer eligi ble based on patient's age to complete this topic MMR Vaccines Aged Out No longer eligi ble based on patient's age to complete this topic Meningococcal ACWY Vaccine Aged Out N o longer eligible based on patient's age to complete this topic RSV Immunization Patients Under 20 months Aged Out No longer eligible based on patient's age to complete this topic Varicella Vaccines Aged Out No longer eligible based on patient's age to complete this topic Procedures Procedure Name Priority Date/Time Associated Diagnosis Comments ECG 12-LEAD Routine 12/07/2024 3:47 PM EST Chronic heart failure with preserved ejection fraction (HFpEF) ([facility]) COMPLETE BLOOD COUNT Routine 12/07/2024 11:56 AM EST Chronic fatigue THYROID STIMULATING HORMONE WITH REFLEX FREE T4 Routine 12/07/2024 11:56 AM EST Chronic fatigue MAGNESIUM Routine 12/07/2024 11:56 AM EST Primary hypertension Chronic fatigue BASIC METABOLIC PANEL Routine 12/07/2024 11:56 AM EST Primary hypertension Chronic fatigue from Last 3 Months Results * ECG 12 lead (12/07/2024 3:47 PM EST) Ventricular Rate ECG 91 BPM GEMUSE Atrial Rate 91 BPM GEMUSE P-R Interval 172 ms GEMUSE QRS Duration 74 ms GEMUSE Q-T Interval 364 ms GEMUSE QTc 447 ms GEMUSE P Wave [place] 46 degrees GEMUSE R [place] -4 degrees GEMUSE T [place] 59 degrees GEMUSE ECG Interpretation Normal sinus rhythm Possible Left atrial enlargement Borderline ECG When compared with ECG of 30-JUN-2023 16:39, No significant change was found GEMUSE 12/07/2024 10:2 8 AM EST 12/07/2024 11:41 AM EST Iqra Arellano NP ECG ORDERABLE S GEMUSE * Thyroid stimulating hormone with reflex free T4 (12/07/2024 11:56 AM EST) Thyroid Stimulating Hormone (TSH) 1.320 0.450 - 4.500 uIU/mL [facility] 1 Blood Venous blood specimen / Unknown 12/07/2024 11:56 AM EST 12/07/2024 Narrative [facility] 1 - 12/08/2024 1:06 PM EST Performed at: ??01 - [facility] [address] ??[id number] Molecular Genetic Pathologist: Nancy Griggs MD, Phone: ??[phone] Iqra Arellano CUSTODIAL SERVICES MANAGER LAB BLOOD ORD ERABLES [facility] 1 * (ABNORMAL) Complete blood count (12/07/2024 11:56 AM EST) WBC 14.3(H) 3.4 - 10.8 x10E3/uL [facility] 1 RBC 5.27 3.77 - 5.28 x10E6/uL [facility] 1 Hemoglobin 13.9 11.1 - 15.9 g/dL [facility] 1 Hematocrit 43.8 34.0 - 46.6 % [facility] 1 MCV 83 79 - 97 fL [facility] 1 MCH 26.4(L) 26.6 - 33.0 pg [facility] 1 MCHC 31.7 31.5 - 35.7 g/dL [facility] 1 RDW 14.0 11.7 - 15.4 % [facility] 1 Platelets 584(H) 150 - 450 x10E3/uL [facility] 1 Blood Venous blood specimen / Unknown 12/07/2024 11:56 AM EST 12/07/2024 Narrative [facility] 1 - 12/08/2024 6:07 AM EST Performed at: ??01 - [facility] [address] ??[id number] Molecular Genetic Pathologist: Nancy Griggs MD, Phone: ??[phone] Iqra Arellano CUSTODIAL SERVICES MANAGER LAB BLOOD ORD ERABLES [facility] 1 * Magnesium (12/07/2024 11:56 AM EST) Magnesium 2.0 1.6 - 2.3 mg/dL [facility] 1 Blood Venous blood specimen / Unknown 12/07/2024 11:56 AM EST 12/07/2024 Narrative [facility] 1 - 12/08/2024 1:06 PM EST Performed at: ??01 - [facility] [place] [address] [place], [place] ??[id number] Molecular Genetic Pathologist: Nancy Griggs MD, Phone: ??[phone] Iqra Arellano CUSTODIAL SERVICES MANAGER LAB BLOOD ORD ERABLES [facility] 1 * (ABNORMAL) Basic metabolic panel (12/07/2024 11:56 AM EST) Glucose 133(H) 70 - 99 mg/dL [facility] 1 Blood Urea Nitrogen (BUN) 24 8 - 27 mg/dL [facility] 1 Creatinine 0.96 0.57 - 1.00 mg/dL [facility] 1 eGFR 68 >59 mL/min/1.7 3 [facility] 1 BUN/Creatinine Ratio 25 12 - 28 [facility] 1 Sodium 140 134 - 144 mmol/L [facility] 1 Potassium 4.0 3.5 - 5.2 mmol/L [facility] 1 Chloride 95(L) 96 - 106 mmol/L [facility] 1 Carbon Dioxide 23 20 - 29 mmol/L [facility] 1 Calcium 9.6 8.7 - 10.3 mg/dL [facility] 1 Blood Venous blood specimen / Unknown 12/07/2024 11:56 AM EST 12/07/2024 Narrative [facility] 1 - 12/08/2024 9:07 AM EST Performed at: ??01 - [facility] [place] [address] [place], [place] ??[id number] Molecular Genetic Pathologist: Nancy Griggs MD, Phone: ??[phone] Iqra Arellano CUSTODIAL SERVICES MANAGER LAB BLOOD ORD ERABLES [facility] 1 from Last 3 Months Care Teams Wrapper Stemmer Operator Relationship Specialty Start Date End Date Maria Del Rosario Oneill MD [address] [phone] PCP - General 06/30/23
--- OUTSIDE RECORDS SUMMARY | 2024-12-08 16:03 | XMS_ITS | Continuity of Care Document ---
Author Organization [facility] ter Address [address] [place] [id number]- Care Team Providers Care It Infrastructure Project Manager Name Role Phone Maria Del Rosario Oneill MD Primary Care Physician Encounter [facility] Date(s): 09/06/24 - 11/27/[address] [address] Attending Physician: Lenka Zamora NP Admitting Physician: Lenka Zamora NP Referring Physician: Lenka Zamora NP Encounter Type: Pre-Outpt Allergies, Adverse Reactions, Alerts Substance Criticality Severity Reaction Reaction Severity Status glipiZIDE Active lisinopril Active hydroCHLOROthiazide Active sulfa drugs Active Keflex Active Medications Breo Ellipta 200 mcg-25 mcg/inh inhalation powder 1 puffs, Inhalation, Daily, 0 Refills, Maintenance, 06/26/24 4:27:00 PM EDT, Partial fill upon patient request if the prescription is for a schedule II opioid drug. Start Date: 06/26/24 Status: Ordered Repeat number: 1 bumetanide 2 mg oral tablet See Instructions, 1.5 tab in AM. 1 tab in afternoon, 0 Refills, Maintenance, 06/26/24 4:27:00 PM EDT, Partial fill upon patient request if the prescription is for a schedule II opioid drug. Start Date: 06/26/24 Status: Ordered Repeat number: 1 esomeprazole 40 mg oral enteric coated capsule 1 capsule = 40 mg, By Mouth, Daily, # 90 capsule, 0 Refills, Maintenance, 06/26/17 9:10:51 AM EDT, EC Capsule Start Date: 06/26/17 Status: Ordered Quantity: 90.0 Unit: capsule Repeat number: 1 Farxiga 10 mg oral tablet 1 tablet = 10 mg, By Mouth, Daily, # 30 tablet, 0 Refills, Maintenance, 06/26/24 4:27:00 PM EDT, Tablet, Partial fill upon patient request if the prescription is for a schedule II opioid drug. Start Date: 06/26/24 Status: Ordered Quantity: 30.0 Unit: tablet Repeat number: 1 losartan 50 mg oral tablet 50 mg, 1, tablet, By Mouth, Daily, # 30 tablet, Refills 0, Maintenance, 03/08/21 3:11:00 PM EDT, Partial fill upon patient request if the prescription is for a schedule II opioid drug. Start Date: 03/08/21 Status: Ordered Quantity: 30.0 Unit: tablet Repeat number: 1 metFORMIN 750 mg oral tablet, extended release 1 tablet = 750 mg, By Mouth, 2 times a day, 0 Refills, Maintenance, 06/26/24 4:29:00 PM EDT, Partialfill upon patient request if the prescription is for a schedule II opioid drug. Start Date: 06/26/24 Status: Ordered Repeat number: 1 montelukast 10 mg oral tablet 10 mg, 1, tablet, By Mouth, Daily, Refills 0, Maintenance, 06/26/24 4:27:00 PM EDT, Partial fill upon patient request if the prescription is for a schedule II opioid drug. Start Date: 06/26/24 Status: Ordered Repeat number: 1 Singulair = 10 mg, By Mouth, Daily, 0 Refills, Maintenance, 06/26/17 9:13:34 AM EDT Start Date: 06/26/17 Status: Ordered Repeat number: 1 Spironolactone = 50 mg, By Mouth, Daily, 0 Refills, Maintenance, 06/26/24 4:26:00 PM EDT, Partial fill upon patientrequest if the prescription is for a schedule II opioid drug. Start Date: 06/26/24 Status: Ordered Repeat number: 1 Verapamil = 40 mg, By Mouth, 3 times a day, 0 Refills, Maintenance, 06/26/24 4:26:00 PM EDT, Partial fill uponpatient request if the prescription is for a schedule II opioid drug. Start Date: 06/26/24 Status: Ordered Repeat number: 1 Problem List Condition Confirmation Course Effective Dates Status Health St atus Informant Severe obesity Confirmed Active Social History Social History Type Response Smoking Status Never smoker entered on: 06/26/17 Sex Sex Representation Female (finding) Patient Care team information Care Team Personnel Name: Maria Del Rosario Oneill MD Position: Reference Physician Member Role: PCP Address: [address] [place] [address] Telecom: Care Team Related Persons Name: LAKISHA PHILLIPS Name: DARREN ASHTON Insurance Providers Guarantor name: SIS ASHTON Health Plan Information #: 1 Payer: [employer] Member Number: [id number] Policy Number: NA Group Number: [id number] Health Plan Information #: 2 Payer: [facility] Member Number: [id number] Policy Number: NA Group Number: [id number]
--- OUTSIDE RECORDS SUMMARY | 2024-12-08 16:05 | XMS_ITS | Encounter Summary ---
Author Organization [facility] Address [address] [place] [address] Care Team Providers Care Chemist Internship Name Role Phone Maria Del Rosario Oneill MD Primary Care Provider [phone] Reason for Referral * Imaging (Routine) - Pending Review Specialty Diagnoses / Procedures Referred By Naomi santos Referred To Contact Cardiology Diagnoses Chronic heart failure with preserved ejection fraction (HFpEF) (CMS/HCC) Chronic fatigue Procedures Transthoracic echocardiogram (TTE) complete with PRN contrast, bubble, strain, and 3D order panel NJ TTE W 2D IMAGE COMPLETE W DOPPLER ECHO & COLOR FLOW DOPPLER ECHO NJ BRODIE 2D COMPLETE W/CONTRAST OR W & WO CONTRAST WITH DOPPLER Iqra Arellano NP [address] [address] [facility] Referral ID Status Reason Start Date Expiration Date V isits Requested Visits Authorized [id number] Pending Review 12/07/2024 12/07/2025 1 1 Reason for Visit * Reason Comments Follow-up 6 mo * Other Medical (Routine) - Authorized Specialty Diagnoses / Procedures Referred By Naomi santos Referred To Contact Cardiology Diagnoses [Per [facility] Return for 6 months with catherine Ji 03/02/24 w/[place]. [facility]/Mervat pt] 12/06/24 jef w/pt per catherine-TainaT Procedures OFFICE VISIT Maria Del Rosario Oneill MD [address] [place] [address] [facility] [address] [place] [address] Referral ID Status Reason Start Date Expiration Date V isits Requested Visits Authorized [id number] Authorized 03/02/2024 03/02/2025 5 5 Encounter Details Date Type Department Care Team (Late st Contact Info) Description 12/07/2024 8:40 AM EST Office Visit [facility] Cardiology [facility] [address] [place] [address] Iqra Arellano, HARRY [address] [place], [place] [id number] Chronic heart failure with preserved ejection fraction (HFpEF) (CMS/[facility]) (Primary Dx); Chronic fatigue; Dyspnea on exertion; Dizziness; Chest discomfort; Primary hypertension; Hyperlipidemia, unspecified hyperlipidemia type; Class 3 severe obesity due to excess calories with serious comorbidity and body mass index (BMI) of 45.0 to 49.9 in adult (CMS/HCC) Social History Tobacco Use Types Packs/Day Years [...] file Not on file Not on file documented as of this encounter Last Filed Vital Signs Vital Sign Reading [...] Mass Index 47.37 12/07/2024 10:03 AM EST documented in this encounter Progress Notes * Iqra Arellano NP - 12/07/2024 8:40 AM ESTAssociated Problem(s): Chronic heart failure with preserved ejection fraction (HFpEF) ([facility]) The patient presents today with ongoing complaints [...] present concern for worsening heart failure. Nevertheless, givenher symptoms we will update an echocardiogram for [...] bubble, strain, and 3D order panel; Future * Iqra Arellano NP - 12/07/2024 8:40 AM ESTAssociated Problem(s): Primary hypertension Pressure is adequately controlled on current antihypertensive medical therapy; continue verapamil, losartan, and bumetanide. We will update a metabolic panel and magnesium level as above. Orders: Basic metabolic panel; Future Magnesium; Future * Iqra Arellano NP - 12/07/2024 8:40 AM ESTAssociated Problem(s): Hyperlipidemia No recent lipid panel on file; we will update a fasting lipid panel and readdress this as needed. Given her history of diabetes, LDL goal would be less than 70. She is currently not on any antilipid therapies. Orders: Lipid panel with reflex to direct LDL; Future * Iqra Arellano NP - 12/07/2024 8:40 AM ESTAssociated Problem(s): Class 3 severe obesity due to excess calories with serious comorbidity and minal dy mass index (BMI) of 45.0 to 49.9 in adult ([facility]) The patient is morbidly obese. She admits [...] panel with reflex to direct LDL; Future * Iqra Arellano NP - 12/07/2024 8:40 AM ESTAssociated Problem(s): Chronic fatigue Unchanged from previous, as discussed above. She has not had any labs completed in quite some time;we will update a basic metabolic panel and [...] bubble, strain, and 3D order panel; Future IA * Iqra Arellano NP - 12/07/2024 8:40 AM ESTAssociated Problem(s): Dyspnea on exertion As above; this does not appear to be related to her heart failure at this moment in time as she appears euvolemic on exam. She states that her dyspnea on exertion only occurs when she does not take her medications for asthma consistently, which is encouraging in relation to her cardiac comorbidities. We will continue to readdress this as indicated. IA * Iqra Arellano NP - 12/07/2024 8:40 AM ESTAssociated Problem(s): Chest discomfort The patient does not experience chest discomfort [...] emergent medical attention by calling 911 if theywere to develop severe dyspnea, chest pain that did not resolve with rest, or if they were to faint. * Iqra Arellano NP - 12/07/2024 8:40 AM ESTAssociated Problem(s): Dizziness The patient's dizziness may be multifactorial related to factors such as poor sleep, inactivity, inadequate self-care, and possibly even vertigo. She reports that her dizziness with position changes is often quite brief and not intrusive; should this worsen, I suggest that she obtain a blood pressure cuff and check her blood pressure during these times to evaluate for possible hypotension. Properself-care with adequate hydration, proper nutrition, and adequate rest was encouraged. Her symptomsoccur more so with rolling over in bed which is more typical for vertigo; she will follow-up with her PCP regarding this. * Iqra Arellano NP - 12/07/2024 8:40 AM EST Images from the original note were not included. [facility] PR[facility]IAL[facility] SOCIAL WORKER: Kingston Manuel MD PCP: Maria Del Rosario Oneill MD HPI: Juliette Stewart is a 59 y.o. old female with a past medical history significant for chronic diastolic heart failure/HFpEF, JANKI compliant with CPAP via nasal pillows, hypertension, hyperlipidemia, diabetes, and morbid obesity. She is a previous patient of Dr. Lemus who established care with Dr. Manuel in February 2024. Her most recent echocardiogram was completed in November 2023 noting mild concentric LVH with normalLV chamber size; normal left ventricular systolic function with an EF of 55 to 60%. Mid cavity gradient increased to 17 mmHg with Valsalva. Normal left ventricular diastolic function. Normal left andright atria. Enlarged RV at 4.2 cm; normal RV global systolic function. No hemodynamically significant valvular dysfunction. Compared to previous echocardiogram from 2018 which had shown a hyperdynamic left ventricle with EF greater than 75%, the dynamic mid LV gradient with Valsalva had decreased from up to 66 mmHg to 17 mmHg. Due to her previously significantly LV gradient, she underwent elevated cardiac MRI in April 2020 which revealed a normal LV with no evidence of cardiomyopathy and a normal right ventricle. She also had a right heart catheterization in December 2019 which revealed a pulmonary capillary wedge pressure of 16 mmHg and right ventricular pressure of 32/16, as well as a PA systolic pressure of 28/23. Previous PET/CT stress test from September 2023 completed for reports of shortness of breath with exertion and chest pain was read as probably normal; no clear ischemia or infarct and no coronary calcifications. A previous Holter monitor from 2022 at [facility] showed a heart rate range of 57-128 with a mean of 87 bpm. Less than 1% PVCs and less than 1% PACs. Symptoms of chest pain, dizziness, dyspnea,, heaviness and tightness, were reported throughout. She last saw Dr. Manuel in February 2024 at which time she was reporting chronic fatigue as well as chronic dyspnea on exertion, often with tightness in her chest. He felt that many of her symptoms were due to diastolic dysfunction, exacerbated by her weight; additionally, a hyperdynamic ventricle and dynamic outflow tract obstruction was likely contributory. Weight loss was advised as well as possible consultation with bariatric surgery should she be unsuccessful; given may history of pancreatitis in the past she was warned against taking Ozempic like medications. The patient presents today for a past medical history significant for chronic diastolic heart failure, hypertension, and hyperlipidemia. History of Present Illness She continues to report severe fatigue as exacerbated by her work schedule; often she will feel short of breath with exertion and will have some tightness in her chest that typically occurs at rest and improves with exertion. She has not tried using her inhaler when she feels this tightness in her chest, which she describes as of sensation of needing to open up her chest, like she needs to stretch but the stretching often does not provide any improvement. She denies any chest pain or pressurewith exertion. 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 Her sleep is nonrestorative, even with consistent use of her CPAP; she last sawher chief bank examiner over the summer but states she was not experiencing feeling this way at that time. She has also been having some hot flashes recently which are new; she has been menopausal since age 49. She continues to struggle with weight loss and depression; she admits that she is an emotional eater. She is not exercising as she used to fatigued at the end of the day; she does have a recumbent bicycle at home but does not use it. Her shortness of breath is unchanged from previous; she denies any shortness of breath at rest or with exertion as long as she takes her Breo and montelukast which she has been consistent with. She endorses some intermittent dizziness often with rolling over in bed but also when standing up too quickly or bending over at the waist; she has a history of severe vertigo over the summer 2023 which she did not seek timely treatment for as she believed it would resolve on its own. She also admits she suspects some mild hearing loss. No lightheadedness, no syncope or presyncope. She tries to remain well-hydrated. She denies peripheral edema and wears compression stockings daily; she also follows a low-sodium diet. No palpitations, no orthopnea or PND. ACTIVE MEDICATIONS: Current Outpatient Medications Medication Instructions acetaminophen (TYLENOL) 500 mg, oral albuterol 0.63 mg/3 mL nebulizer solution 1 ampule, inhalation albuterol HFA (PROAIR HFA ; PROVENTIL HFA ; VENTOLIN HFA) 90 mcg/actuation inhaler inhalation ascorbic acid, vitamin C, 500 mg capsule oral, Daily Breo Ellipta 200-25 mcg/dose inhaler 1 puff, inhalation, Daily bumetanide (BUMEX) 4.5 mg, oral, Daily, 1.5 tablet in the morning and 1 tablet in the afternoon cholecalciferol (VITAMIN D-3) 2,000 Units, oral, Daily clindamycin (CLEOCIN T) 1 % gel PLEASE SEE ATTACHED FOR DETAILED DIRECTIONS clonazePAM (KLONOPIN) 0.5 mg, oral, 2 times daily PRN DULoxetine (CYMBALTA) 30 mg, oral, 2 times daily esomeprazole magnesium 20 mg tablet,delayed release (DR/EC) oral Farxiga 10 mg, oral, Daily ferrous sulfate 325 mg (65 mg elemental iron) tablet 1 tablet, oral, Daily losartan (COZAAR) 50 mg, oral, Daily magnesium 250 mg tablet oral, 2 times daily metFORMIN XR (GLUCOPHAGE-XR) 750 mg, oral, 2 times daily montelukast (SINGULAIR) 10 mg, oral, Daily potassium chloride (KLOR-CON) 10 mEq CR tablet 20 mEq, oral, Daily verapamiL (CALAN) 40 mg, oral, 3 times daily PAST MEDICAL HISTORY: Patient Active Problem List Diagnosis Type 2 diabetes mellitus with hyperglycemia, without long-term current use of insulin ([facility]) Chronic heart failure with preserved ejection fraction (HFpEF) ([facility]) Primary hypertension Sinus tachycardia Hyperlipidemia Class 3 severe obesity due to excess calories with serious comorbidity and body mass index (BMI) of45.0 to 49.9 in adult ([facility]) Chronic fatigue Chest discomfort Dyspnea on exertion Dizziness ALLERGIES: Allergies Allergen Reactions Amoxicillin Cephalexin Glipizide Hydrochlorothiazide Lisinopril Sulfa (Sulfonamide Antibiotics) SOCIAL HISTORY: Social History Tobacco Use Smoking status: Never Smokeless tobacco: Never Substance Use Topics Alcohol use: Never PHYSICAL EXAM: Vitals: 12/07/24 1003 BP: 128/70 BP Location: Left arm Patient Position: Sitting BP Cuff Size: Large adult Pulse: 91 SpO2: 97% Weight: 117 kg (259 lb) Height: 1.575 m (62 ) Body mass index is 47.37 kg/m??. Physical Exam Vitals reviewed. Constitutional: General: She is not in acute distress. Appearance: Normal appearance. She is not ill-appearing. Comments: Morbid obesity HENT: Head: Normocephalic and atraumatic. Mouth/Throat: Mouth: Mucous membranes are moist. Eyes: General: No scleral icterus. Extraocular Movements: Extraocular movements intact. Pupils: Pupils are equal, round, and reactive to light. Neck: Vascular: Normal carotid pulses. No carotid bruit, hepatojugular reflux or JVD. Cardiovascular: Rate and Rhythm: Normal rate and regular rhythm. Pulses: Normal pulses. Heart sounds: Normal heart sounds. No murmur heard. No friction rub. No gallop. Pulmonary: Effort: Pulmonary effort is normal. No respiratory distress. Breath sounds: Normal breath sounds. No wheezing, rhonchi or rales. Abdominal: General: There is no distension. Palpations: Abdomen is soft. Tenderness: There is no abdominal tenderness. Musculoskeletal: General: No swelling. Cervical back: Neck supple. Right lower leg: No edema. Left lower leg: No edema. Skin: General: Skin is warm and dry. Neurological: General: No focal deficit present. Mental Status: She is alert and oriented to person, place, and time. Cranial Nerves: No cranial nerve deficit. Gait: Gait normal. Psychiatric: Attention and Perception: Attention normal. Mood and Affect: Mood and affect normal. Behavior: Behavior normal. Thought Content: Thought content normal. EKG: Encounter Date: 12/07/24 ECG 12 lead Result Value Ventricular Rate ECG 91 Atrial Rate 91 P-R Interval 172 QRS Duration 74 Q-T Interval 364 QTc 447 P Wave Hayward 46 R Hayward -4 T Hayward 59 ECG Interpretation Normal sinus rhythm Possible Left atrial enlargement Borderline ECG When compared with ECG of 30-JUN-2023 16:39, No significant change was found *Note: Due to a large number of results and/or encounters for the requested time period, some results have not been displayed. A complete set of results can be found in Results Review. TESTING: No recent labs available for review. ASSESSMENT/PLAN: Assessment & Plan Chronic heart failure with preserved ejection fraction (HFpEF) (CMS/[facility]) The patient presents today with ongoing complaints [...] such as increased shortness of breath, new orworsening cough, increased swelling in the legs or ankles, or weight gain of more than 2 pounds in one day or 4 pounds in one week. The patient verbalizes understanding and agreement with this plan. Orders: ECG 12 lead Transthoracic echocardiogram (TTE) complete with PRN contrast, bubble, strain, and 3D order panel; Future Chronic fatigue Unchanged from previous, as discussed above. She has not had any labs completed in quite some time;we will update a basic metabolic panel and [...] bubble, strain, and 3D order panel; Future Dyspnea on exertion As above; this does not appear to be related to her heart failure at this moment in time as she appears euvolemic on exam. She states that her dyspnea on exertion only occurs when she does not take her medications for asthma consistently, which is encouraging in relation to her cardiac comorbidities. We will continue to readdress this as indicated. Dizziness The patient's dizziness may be multifactorial related to factors such as poor sleep, inactivity, inadequate self-care, and possibly even vertigo. She reports that her dizziness with position changes is often quite brief and not intrusive; should this worsen, I suggest that she obtain a blood pressure cuff and check her blood pressure during these times to evaluate for possible hypotension. Properself-care with adequate hydration, proper nutrition, and adequate rest was encouraged. Her symptomsoccur more so with rolling over in bed which is more typical for vertigo; she will follow-up with her PCP regarding this. Chest discomfort The patient does not experience chest discomfort [...] emergent medical attention by calling 911 if theywere to develop severe dyspnea, chest pain that did not resolve with rest, or if they were to faint. Primary hypertension Pressure is adequately controlled on current antihypertensive medical therapy; continue verapamil, losartan, and bumetanide. We will update a metabolic panel and magnesium level as above. Orders: Basic metabolic panel; Future Magnesium; Future Hyperlipidemia, unspecified hyperlipidemia type No recent lipid panel on file; we will update a fasting lipid panel and readdress this as needed. Given her history of diabetes, LDL goal would be less than 70. She is currently not on any antilipid therapies. Orders: Lipid panel with reflex to direct LDL; Future Class 3 severe obesity due to excess calories with serious comorbidity and body mass index (BMI) of45.0 to 49.9 in adult ([facility]) The patient is morbidly obese. She admits [...] panel with reflex to direct LDL; Future I have obtained verbal consent from Juliette Stewart prior to the recording. I have advised Juliette T Robitaille that she may refuse the recording and require the recording to be turned off at any time during this encounter. I personally spent a total of >40 minutes, including both [id number] and tjq-[id number]-face timeon the date of the encounter, addressing the above diagnoses. Activities performed in this time include chart review, obtaining / reviewing history, performing amedically necessary evaluation, documentation and counseling including medical decision making of HFpEF, chronic fatigue, dyspnea on exertion, dizziness, chest discomfort, hypertension, hyperlipidemia, and obesity.. Thank you for allowing us to participate in the care of this patient. The patient will follow up in6 months, sooner PRN. As per AHA guidelines and previously established plan of care by Dr. Kingston Manuel MD, we discussed the following today: 1. Chronic heart failure with preserved ejection fraction (HFpEF) (CMS/[facility]) 2. Chronic fatigue 3. Dyspnea on exertion 4. Dizziness 5. Chest discomfort 6. Primary hypertension 7. Hyperlipidemia, unspecified hyperlipidemia type 8. Class 3 severe obesity due to excess calories with serious comorbidity and body mass index (BMI)of 45.0 to 49.9 in adult (CMS/[facility]) [facility] documented in this encounter Plan of Treatment Upcoming Encounters Date Type Department Care Team (Late st Contact Info) Description 02/23/2025 3:30 PM EDT Ancillary Procedure [facility] Cardiology [facility] [place] [address] [address] [address] 06/03/2025 9:20 AM EDT Office Visit [facility] Cardiology [facility] [address] [address] Kingston Manuel MD [address] [address] Scheduled Orders Name Type Priority Associated Diagnoses Orde r Schedule Lipid panel with reflex to direct LDL Lab Routine Hyperlipidemia, unspecified hyperlipidemia type Class 3 severe obesity due to excess calories with serious comorbidity and body mass index (BMI) of 45.0 to 49.9 in adult ([facility]) 1 Occurrences starting 12/07/2024 until 12/07/2025 Transthoracic echocardiogram (TTE) complete with PRN contrast, bubble, strain, and 3D order panel Echocardiography Routine Chronic heart failure with preserved ejection fraction (HFpEF) ([facility]) Chronic fatigue 1 Occurrences starting 12/07/2024 until 12/07/2025 documented as of this encounter Procedures Procedure Name Priority Date/Time Associated Diagnosis Comments ECG 12-LEAD Routine 12/07/2024 3:47 PM EST Chronic heart failure with preserved ejection fraction (HFpEF) ([facility]) THYROID STIMULATING HORMONE WITH REFLEX FREE T4 Routine 12/07/2024 11:56 AM EST Chronic fatigue COMPLETE BLOOD COUNT Routine 12/07/2024 11:56 AM EST Chronic fatigue MAGNESIUM Routine 12/07/2024 11:56 AM EST Primary hypertension Chronic fatigue BASIC METABOLIC PANEL Routine 12/07/2024 11:56 AM EST Primary hypertension Chronic fatigue documented in this encounter Results * ECG 12 lead (12/07/2024 3:47 PM EST) Ventricular Rate ECG 91 BPM GEMUSE Atrial Rate 91 BPM GEMUSE P-R Interval 172 ms GEMUSE QRS Duration 74 ms GEMUSE Q-T Interval 364 ms GEMUSE QTc 447 ms GEMUSE P Wave Hayward 46 degrees GEMUSE R Hayward -4 degrees GEMUSE T Hayward 59 degrees GEMUSE ECG Interpretation Normal sinus rhythm Possible Left atrial enlargement Borderline ECG When compared with ECG of 30-JUN-2023 16:39, No significant change was found GEMUSE 12/07/2024 10:2 8 AM EST 12/07/2024 11:41 AM EST Iqra Arellano NP ECG ORDERABLE S GEMUSE * (ABNORMAL) Complete blood count (12/07/2024 11:56 [...] AM EST Performed at: ??01 - [facility] [address] ??[id number] Site Supervisor: Nancy Griggs MD, Phone: ??[phone] Iqra Arellano NP LAB BLOOD ORD ERADALE Performing Organization Address [facility] Co de Phone Number [facility] 1 * Thyroid stimulating hormone with reflex free T4 (12/07/2024 11:56 AM EST) Thyroid Stimulating Hormone (TSH) 1.320 0.450 - 4.500 uIU/mL [facility] 1 Blood Venous blood specimen / Unknown 12/07/2024 11:56 AM EST 12/07/2024 Narrative [facility] 1 - 12/08/2024 1:06 PM EST Performed at: ??01 - [facility] [address] ??[id number] Site Supervisor: Nancy Griggs MD, Phone: ??[phone] Iqra Arellano NP LAB BLOOD ORD ERADALE Performing Organization Address City/[facility]/ZIP Co de Phone Number [facility] 1 * Magnesium (12/07/2024 11:56 AM EST) Magnesium 2.0 1.6 - 2.3 mg/dL [facility] 1 Blood Venous blood specimen / Unknown 12/07/2024 11:56 AM EST 12/07/2024 Narrative [facility] 1 - 12/08/2024 1:06 PM EST Performed at: ??01 - [facility] [address] ??[id number] Site Supervisor: Nancy Griggs MD, Phone: ??[phone] Iqra Arellano TRAFFIC ASSISTANT LAB BLOOD ORD ERABLES [facility] 1 * [...] AM EST Performed at: ??01 - [facility] [address] ??[id number] Site Supervisor: Nancy Griggs MD, Phone: ??[phone] Iqra Arellano TRAFFIC ASSISTANT LAB BLOOD ORD ERABLES [facility] 1 documented in this encounter Visit Diagnoses Diagnosis Chronic heart failure with preserved ejection fraction (HFpEF) ([facility])- Primary Chronic fatigue Other malaise and fatigue Dyspnea on exertion Other dyspnea and respiratory abnormality Dizziness Dizziness and giddiness Chest discomfort Other chest pain Primary hypertension Unspecified essential hypertension Hyperlipidemia, unspecified hyperlipidemia type Class 3 severe obesity due to excess calories with serious comorbidity and body mass index (BMI) of 45.0 to 49.9 in adult ([facility]) documented in this encounter Historical Medications * This list may reflect changes made after this encounter. Medication Sig Dispensed Refills Start Date End Date magnesium 250 mg tablet Take by mouth 2 (two) times a day. cholecalciferol (VITAMIN D-3) 50 mcg (2,000 unit) tablet Take 1 tablet (2,000 Units total) by mouth 1 (one) time each day. bumetanide (BUMEX) 2 mg tablet Take 4.5 mg by mouth 1 (one) time each day. 1.5 tablet in the morning and 1 tablet in the afternoon verapamiL (CALAN) 40 mg tablet Take 1 tablet (40 mg total) by mouth 3 (three) times a day. esomeprazole magnesium 20 mg tablet,delayed release (DR/EC) Take by mouth. potassium chloride (KLOR-CON) 10 mEq CR tablet Take 2 tablets (20 mEq total) by mouth 1 (one) time each day. montelukast (SINGULAIR) 10 mg tablet Take 1 tablet (10 mg total) by mouth 1 (one) time each day. metFORMIN XR (GLUCOPHAGE-XR) 750 mg 24 hr tablet Take 1 tablet (750 mg total) by mouth 2 (two) times a day. losartan (COZAAR) 50 mg tablet Take 1 tablet (50 mg total) by mouth 1 (one) time each day. Breo Ellipta 200-25 mcg/dose inhaler Inhale 1 puff by mouth 1 (one) time each day. 06/30/2024 ferrous sulfate 325 mg (65 mg elemental iron) tablet Take 1 tablet (325 mg total) by mouth 1 (one) time each day. DULoxetine (CYMBALTA) [address] capsule Take 1 capsule (30 mg total) by mouth 2 (two) times a day. 09/20/2024 Farxiga 10 mg tablet Take 1 tablet (10 mg total) by mouth 1 (one) time each day. clonazePAM (KlonoPIN) 0.5 mg tablet Take 1 tablet (0.5 mg total) by mouth 2 (two) times a day if needed. 09/20/2024 clindamycin (CLEOCIN T) 1 % gel PLEASE SEE ATTACHED FOR DETAILED DIRECTIONS 11/27/2024 ascorbic acid, vitamin C, 500 mg capsule Take by mouth 1 (one) time each day. acetaminophen (TYLENOL) 500 mg tablet Take 1 tablet (500 mg total) by mouth. albuterol 0.63 mg/3 mL nebulizer solution Inhale 1 ampule by mouth. albuterol HFA (PROAIR HFA ; PROVENTIL HFA ; VENTOLIN HFA) 90 mcg/actuation inhaler Inhale by mouth. added in this encounter Care Teams Chemist Internship Relationship Specialty Start Date End Date Maria Del Rosario Oneill MD [id number] [address] PCP - General 06/30/23 documented as of this encounter
[2024-12-08 16:11] LABS: Alanine Aminotransferase 14 U/L (0-31); Albumin Level 3.8 g/dL (3.5-5.0); Aspartate Amino Transferase 16 U/L (5-31); Bilirubin Direct 0.1 mg/dL (0.0-0.5); Bilirubin Total 0.4 mg/dL (0.0-1.0); Lipase 17 U/L (8-78); Total Protein 7.7 g/dL (6.5-8.0)
[2024-12-08 16:32] LABS: Alkaline Phosphatase 112 U/L (39-117)
== END 2024-12-08 14:58 | disposition home or self-care (01) ==
LOC: HO.LAB 14:57
PROVIDERS: Visit Provider Internal Medicine Gastroenterology
DX: R10.84 Generalized abdominal pain (principal)
CPT/HCPCS: 36415; 80076; 83690; 85025

== ENCOUNTER 2025-05-24 13:56 | Outpatient (AMB) | payer BC, SELFPAY ==
[2025-05-24 14:03] VITALS: BP 108/62; PULSE 101; O2SAT 96; BMI 45.2
--- NOTE | 2025-05-24 14:03 | MHC.OFFVIS ---
Vital Signs 05/24/25 14:03 Height 5 ft 3 in Weight 255 lb BMI 45.2 BP 108/62 Blood Pressure Location Lt brachial Position Sitting Pulse 101 H Pulse Source Pulse Oximeter Pulse Oximetry (%) 96 Oxygen Delivery Method Room Air Intake Visit Reasons: COPD Allergies hydrochlorothiazide (HYDROCHLOROTHIAZIDE) Allergy (Severe, Verified 05/24/25 14:07) FACIAL SWELLING AND REDNESS, redness and itching Sulfa (Sulfonamide Antibiotics) (SULFA(SULFONAMIDE ANTIBIOTICS)) Allergy (Severe, Verified 05/24/25 14:07) FACIAL SWELLING AND REDNESS, redness and itching cephalexin (From KEFLEX) Allergy (Intermediate, Verified 05/24/25 14:07) Mouth tingling clarithromycin Allergy (Intermediate, Verified 05/24/25 14:07) Gastrointestinal Upset glipizide Allergy (Verified 05/24/25 14:07) Unknown lisinopril Allergy (Verified 05/24/25 14:07) Cough HPI HPI COPD: Details: 59-year-old lady, nonsmoker, with underlying history of diastolic dysfunction, obesity, hypertension, JANKI on CPAP (by her neurologist) followed for pulmonary component of underlying dyspnea. Patient continues on Breo, duo nebs, and albuterol MDI with good baseline control of her asthma symptoms. She continues to Singulair for allergic component. She denies recent exacerbations. [facility] Medical History Anxiety and depression Fatty liver Asthma Osteoarthritis Hx of hidradenitis suppurativa Depression CHF (congestive heart failure) Fibromyalgia Diabetes HTN (hypertension) Hx of diverticulitis of colon Hx of endometriosis GERD (gastroesophageal reflux disease) Obesity JANKI on CPAP Diastolic dysfunction Surgical History Hx of laparoscopy History of Hx of hernia repair Social History Patient Tobacco Use Status: Never used Tobacco Review of Systems Const Denies daytime sleepiness, Denies excessive sweating, Denies fatigue, Denies fever(s), Denies lethargy, Denies malaise, Denies night sweats, Denies snoring and Denies weight loss Eyes Denies blurry vision and Denies itchy eyes ENT Denies nasal congestion, Denies post nasal drip, Denies sinus pain, Denies sinus pressure and Denies other ( Thrush) Card Denies chest pain, Denies pedal edema, Denies dyspnea, Denies orthopnea and Denies paroxysmal nocturnal dyspnea Resp Denies cough, Denies hemoptysis, Denies excessive phlegm production, Denies dyspnea, Denies snoring and Denies wheezing GI Denies abdominal pain and Denies heartburn Musc Denies myalgias, Denies arthralgias and Denies joint swelling Skin/Breast Denies rash Neuro Denies memory loss and Denies seizure-like activity Psych Denies abnormal sleep pattern, Denies anxiety and Denies memory loss Endo Denies excessive sweating, Denies fatigue and Denies heat intolerance Jamal/Lymph Denies easy bruising Aller/Immun Denies itchy eyes, Denies seasonal rhinorrhea and Denies wheezing Physical Exam Vital Signs: Last Vital Signs Pulse 101 H 05/24/25 14:03 BP 108/62 05/24/25 14:03 Pulse Ox 96 05/24/25 14:03 Oxygen Delivery Method Room Air 05/24/25 14:03 BMI result Body Mass Index 45.2 Const General: no acute distress and alert Nutritional Appearance: obese Orientation/consciousness: Other orientation findings ( oriented) HEENT Head: Yes atraumatic Eyes General: appearance normal, both eyes and all related structures Sclerae: sclerae normal EOM: EOMs intact bilaterally Neck Neck: Yes supple Lymphatic: no lymphadenopathy noted Resp Effort & Inspection: normal respiratory effort and no use of accessory muscles Auscultation: clear to auscultation bilaterally Cardio Rate: regular rate Rhythm: regular rhythm Heart sounds: no gallops, no murmurs and no rubs Skin General skin exam: other ( warm) Extrem General: No clubbing, No cyanosis and No edema Assessment & Plan Assessment & Plan (1) Severe persistent asthma: Code(s): J45.50 - Severe persistent asthma, uncomplicated Category: Medical Plan: Well controlled on current regimen of Breo, duo nebs, and albuterol MDI. Continue current regimen. (2) Environmental allergies: Code(s): Z91.09 - Other allergy status, other than to drugs and biological substances Category: Medical Plan: Well controlled on Singulair and Flonase. Continue current regimen. Coding Level of Care Code Est Pt Level 4 (34820) Diagnoses Severe persistent asthma J45.50 Environmental allergies Z91.09
--- OUTSIDE RECORDS SUMMARY | 2025-05-24 15:13 | XMS_ITS ---
Author Organization Unknown Allergies, Adverse Reactions, Alerts Substance Reaction Status Noinformation - Inactive Noinformation - Inactive Medications Medication Instructions Effective Dates (start - sto p) Status NoInformation Completed NoInformation Completed Problems Problem Status Start date Recorded date Z71.3: Dietary counseling and surveillance Inactive Z71.3: Dietary counseling and surveillance Inactive Procedures Procedure Date NoInformation NoInformation Results No information Plan of Treatment Patient Care team information Name Category Status Period Participants - Episode of care-focused care team Proposed 25-01-27 - - Episode of care-focused care team Proposed 25-01-05 - - - Proposed period not known - Notes Author - Date Note - no notes - no notes
--- OUTSIDE RECORDS SUMMARY | 2025-05-24 15:13 | XMS_ITS | Patient Health Record ---
Author Organization [facility] Address [address] [place] [address] Care Team Providers Care Monogram Operator Name Role Phone Maria Del Rosario Oneill Primary Care Provider Unavail Corwin Ames Jr Unavailable [phone] Allergies Allergen (clinical drug ingredient) Drug/Non Drug Allergy documented on EMR Reaction Allergy Type Onset Date Status Keflex Unknown Drug Allergy Active glipizide GlipiZIDE Unknown Drug Allergy Active hydrochlorothiazide HCTz (uncoded) Unknown Allergy Active Substance with sulfonamide structure and antibacterial mechanism of action (substance) Sulfa (uncoded) Unknown Allergy Active lisinopril Lisinopril Unknown Drug Allergy Activ e Results Component Value Reference Range Notes Complete Blood Count Auto Di ff Reviewed date:12/09/2024 10:30:07 AM Interpretation: Performing Lab:[facility], [address] [place] [id number] Notes/Report: White Blood Count 13.0 4.8-10.8 X10*3/uL Red Blood Count 4.79 4.20-5.50 X10*6/uL Hemoglobin 12.5 12.0-16.0 g/dl Hematocrit 40.0 37.0-47.0 % Mean Corpuscular Volume 83.5 80.0-98.0 fL Mean Corpuscular Hemoglobin 26.1 27.0-33.0 pg Mean Corpuscular HGB Conc 31.3 31.0-35.0 g/dl Red Cell Distribution Width 14.5 11.0-16.0 % Platelet Count 497 160-400 X10*3/uL Mean Platelet Volume 9.4 9.4-12.3 fL Neutrophils Percent Auto 71.6 45-73 % Imm Gran Pct Auto 0.8 0.0-0.4 % Lymphocytes Percent Auto 20.0 20-40 % Monocytes Percent Auto 5.3 2-11 % Eosinophils Percent Auto 1.7 0-4 % Basophils Percent Auto 0.6 0-2 % NRBC Pct Auto 0.0 0.0-0.2 /100WBC Neutrophils Absolute Auto 9.3 2.0-8.3 x10*3/u L Imm Gran Abs Auto 0.11 0.00-0.03 X10*3/uL Lymphocytes Absolute Auto 2.6 1.2-4.9 X10*3/u L Monocytes Absolute Auto 0.7 0.1-1.2 X10*3/uL Eosinophils Absolute Auto 0.2 0.0-0.4 X10*3/u L Basophils Absolute Auto 0.1 0.0-0.2 X10*3/uL NRBC Abs Auto 0.000 0.0-0.012 X10*3/uL Liver Panel Reviewed date:12/09/2024 10:30:22 AM Interpretation: Performing Lab:[address] [phone] Notes/Report: Bilirubin Total 0.4 0.0-1.0 mg/dL Bilirubin Direct 0.1 0.0-0.5 mg/dL Aspartate Amino Transferase 16 5-31 U/L Alanine Aminotransferase 14 0-31 U/L Total Protein 7.7 6.5-8.0 g/dL Albumin Level 3.8 3.5-5.0 g/dL Alkaline Phosphatase 112 39-117 U/L Lipase Reviewed date:12/09/2024 10:30:29 AM Interpretation: Performing Lab:[address] [phone] Notes/Report: Lipase 17 8-78 U/L Reason For Referral No Information Medications Medication SIG (Take, Route, Frequency, Duration) Notes Start Date End Date Status Esomeprazole Sodium 40 MG as directed Intravenous Active Bumex 0.5 MG 1 tablet Orally Once a day Active Montelukast Sodium A ctive Ferrous Sulfate 325 (65 Fe) MG TAKE 1 TABLET BY MOUTH EVERY DAY Oral for 90 Active Losartan Potassium 50 MG 1 tablet Orally Once a day Active Potassium Chloride ER 10 MEQ Oral for 90 Active ProAir HFA Active Breo Ellipta 200-25 MCG/ACT Inhalation for 30 Active Magnesium 250 MG 1 tablet with a meal Orally Once a day for 30 day(s) Active metFORMIN HCl ER 750 MG TAKE 1 TABLET BY MOUTH TWICE A DAY Oral for 90 Active MiraLax 17 GM/SCOOP 1 scoop mixed with 8 ounces of fluid Orally Once a day for 30 day(s) Active Potassium 99 MG 1 tablet Orally Once a day Active Flonase Allergy Relief 50 MCG/ACT 1 spray in each nostril Nasally Once a day for 30 day(s) Active Vitamin D3 50 MCG (1999) Orally Active Spironolactone 50 MG 1 tablet Orally Onc e a day Active Farxiga 10 MG TAKE 1 TABLET BY MORENO TH EVERY DAY Oral for 90 Active Verapamil HCl 40 MG as directed Orally T hree times a day Active Vitamin C 500 MG TAKE 1 TABLET BY MORENO TH EVERY DAY Oral for 90 Active Bumetanide 2 MG TAKE 1 AND A 1/2 TAB LETS BY MOUTH EVERY MORNING AND 1 TABLET EVERY EVENING Oral for 90 Active DULoxetine HCl 30 MG 1 capsule Orally Tw ice a day Active Immunizations Vaccine Route Administration Date Status Comme nts Influenza Unknown 08/09/2020 Administered Influenza Unknown 08/26/2023 Administered Social History Tobacco Use: Social History Observation Description Date Details (start date - stop date) Never Smoker NA - NA Tobacco Use/Smoking Question Answer Notes Patient is a nonsmoker Alcohol Screen Question Answer Notes Did you have a drink containing alcohol in the p ast year? No Points 0 Interpretation Negative Problems Problem Type SNOMED Code ICD Code Onset Dates Problem Status W/U Status Risk Notes Problem 358810313 Colon cancer screening (Z12.11) Active confirmed Problem 00942201 Epigastric pain (R10.13) Active confirmed Problem 9019303 Diverticulitis o f large intestine without perforation or abscess without bleeding (K57.32) Active confirmed Problem 872658637 Gastroesophageal reflux disease without esophagitis (K21.9) Active confirmed Encounters Encounter Location Date Provider Diagnosis [facility] [address] [place] [phone] 06/29/2024 Corwin Álvarez Jr [facility] [address] [place] [phone] 11/26/2024 Corwin Álvarez Jr Generalized abdominal pain R10.84 [facility] [address] [place] [address] 12/09/2024 Corwin Álvarez Jr Assessments Encounter Date Diagnosis (ICD Code) Assessment Notes Treatment Notes Treatment Clinical Notes Section Notes 11/26/2024 Generalized abdominal pain (ICD-10 - R10.84) Plan Of Treatment Pending Test Test Name Order Date LIVER PROFILE 11/26/2024 LIVER PROFILE 03/17/2024 LIPASE 11/26/2024 LIPASE 03/17/2024 CBC w/o DIFF 11/26/2024 CBC w/o DIFF 03/17/2024 US ABD 03/17/2024 Future Test Test Name Order Date COLONOSCOPY 01/08/2021 UPPER GI ENDOSCOPY 03/17/2024 HIDA SCAN GB WITH CCK 05/12/2024 Insurance Providers Payer Name Payer Address Payer Phone Subscriber Number Group Number Insured Name Patient Relationship to Insured Coverage Start Date Coverage End Date [employer] [facility] [address] [place] [address] [phone] [id number] SIS OLIVA Self - patient is the insured MEDICAID OF [facility] [address] [place] [address] [phone] [id number] SIS OLIVA Self - patient is the insured Medical (General) History Medical History History ICD Code hypertension type II diabetes asthma sleep apnea congestive heart failure fibromyalgia depression diverticulitis gastroesophageal reflux disease endometriosis Thrombocytosis Colonoscopy 05/23, benign polyps, five-ye ar followup Surgical History Surgery Date(Month/Year) hernia repair 2017 section 1995 laparoscopy
--- OUTSIDE RECORDS SUMMARY | 2025-05-24 15:13 | XMS_ITS | Clinical Summary ---
Author Organization [address] [place] [address] [place] [phone] Phone Care Team Providers Care Rn Midwife Name Role Phone Maria Del Rosario Oneill MD Primary Care Provider Allergies Active Allergy Reactions Criticality Noted Date Comments Amoxicillin 08/01/2021 Cephalexin 10/10/2016 Glipizide 05/21/2018 Hydrochlorothiazide 10/10/2016 Lisinopril 10/10/2016 Sulfa (Sulfonamide Antibiotics) 07/05 Medications albuterol HFA (PROAIR HFA ; PROVENTIL HFA [...] gel PLEASE SEE ATTACHED FOR DETAILED DIRECTIONS 5 Active clonazePAM (KlonoPIN) 0.5 mg tablet Take 1 tablet (0.5 mg total) by mouth 2 (two) times a day if needed. 4 Active Farxiga 10 mg tablet Take 1 tablet (10 mg total) by mouth 1 (one) time each day. Active DULoxetine (CYMBALTA) [address] capsule Take 1 capsule (30 mg total) by mouth 2 (two) times a day. 4 Active ferrous sulfate 325 mg (65 mg elemental iron) tablet Take 1 tablet (325 mg total) by mouth 1 (one) time each day. Active Breo Ellipta 200-25 mcg/dose inhaler Inhale 1 puff by mouth 1 (one) time each day. 4 Active losartan (COZAAR) 50 mg tablet Take [...] mg tablet,delayed release (DR/EC) Take by mouth. Active bumetanide (BUMEX) 2 mg tablet Take 4.5 mg by mouth 1 (one) time each day. 1.5 tablet in the morning and 1 tablet in the afternoon Active cholecalciferol (VITAMIN D-3) 50 mcg (2,000 unit) tablet Take 1 tablet (2,000 Units total) by mouth 1 (one) time each day. Active magnesium 250 mg tablet Take by mouth 2 (two) times a day. Active verapamiL (CALAN) 40 mg tabletIndicatio ns:Chronic diastolic (congestive) heart failure (CMS/HCC V24, CMS/HCC V28) TAKE 1 TABLET BY MOUTH 3 TIMES A DAY 270 tablet 1 5 Active fluticasone propionate (Flonase Allergy Relief) 50 mcg/actuation nasal spray Humble 2 sprays every day by intranasal route. Active loratadine (CLARITIN) 10 mg tablet Take 1 tablet (10 mg total) by mouth 1 (one) time each day. Active Active Problems Problem Noted Date Diagnosed Date Type 2 diabetes mellitus wit h hyperglycemia, without long-term current use of insulin ([facility] V24, [facility] V28) 12/07/2024 Chronic heart failure with p reserved ejection fraction (HFpEF) ([facility] [place]24, [facility] V28) 12/07/2024 Assessment & Plan (12/07/2024 3:46 PM [...] (BMI) of 45.0 to 49.9 in adult ([facility] V24, [facility] V28) 12/07/2024 Assessment & Plan (12/07/2024 3:46 PM [...] Encounters Date Type Department Care Team Description 05/09/2025 3:00 PM EDT Ancillary Procedure [facility] [address] [place] [phone] Chronic heart failure with preserved ejection fraction (HFpEF) ([facility] V24, [facility] V28); Chronic fatigue 03/14/2025 3:00 PM EDT Office Visit [facility] Oncology [address] [place] [phone] Rubio Andre MD Leukocytosis, unspecified type (Primary Dx); Reactive thrombocytosis 02/24/2025 3:00 PM EDT Office Visit [facility] Hematology Oncology [address] [place] [phone] Rubio Andre MD Leukocytosis, unspecified type from Last 3 Months Medical History Medical History Date Comments HTN (hypertension) DX:HTN (hyper tension) Hypokalemia DX:Hypokalemia Leukocytosis DX:Leukocytosis Diabetes mellitus ([facility] V 24, [facility] V28) DX:Diabetes mellitus ([facility]) Obstructive sleep apnea DX:Obstr uctive sleep apnea Morbid obesity with BMI of 4 5.0-49.9, adult ([facility] V24, [facility] V28) DX:Morbid obesity wit h BMI of 45.0-49.9, adult ([facility]) Family History Medical History Relation Name Comments [...] drink = 0.6 oz pur e alcohol) Comments Unknown Sex and Gender Information Value Date Recorded Sex Assigned at Female 02/15/2025 4:18 PM EDT Legal Sex Female 4:46 AM EST Gender Identity Female 02/15/2025 4:18 PM EDT Sexual Orientation Straight 02/15/2025 4: 18 PM EDT Obstetrics History Last Filed Vital Signs Vital Sign Reading Time Taken Comments Blood Pressure 129/84 05/09/2025 3:48 PM EDT Pulse 96 03/14/2025 3:05 PM EDT Temperature 36.3 C (97.3 F) 03/14/2025 3:05 PM EDT Respiratory Rate - - Oxygen Saturation 99% 03/14/2025 3:05 PM EDT Inhaled Oxygen Concentration - - Weight 117 kg (257 lb) 05/09/2025 3:48 PM EDT Height 160 cm (5' 3 ) 05/09/2025 3:48 PM EDT Body Mass Index 45.53 05/09/2025 3:48 PM EDT Plan of Treatment Upcoming Encounters Date Type Department Care Team (Late st Contact Info) Description 06/03/2025 9:20 AM EDT Office Visit [facility] [address] [facility] [address] [place] [phone] Kingston Manuel MD [address] [facility] [address] [place] [address] Health Maintenance Due Date Last Done Comments Diabetes: Annual Foot Exam 1974 Diabetes: Annual Retina Eye Exam 1974 Zoster Vaccines (1 of 2) 1983 Cervical Cancer Screening: Pap Smear 1985 Cholesterol Screening (Lipid Panel) 10/06/2022 Colorectal Cancer Screening: Colonoscopy 10/06/2022 HIV Screening 10/06/2022 Hepatitis C Screening 10/06/2022 Social Influencers of Health Screening 10/06/2022 Breast Cancer Screening 04/29/2024 04/29/2022, 12/08 RSV Immunization Adult Patients (1 - Risk 60-74 years 1-dose series) 2024 Depression Screening 11/03/2024 Diabetes: Annual Urine Albumin-Creatinine Ratio (uACR) 12/07/2024 Diabetes: Blood Sugar Control Test (HGBA1C) 12/07/2024 COVID-19 Vaccine (6 - Moderna risk season) 2025 10/09/2024, 08/16/2022, 10/24/2021, Additional history exists Influenza Vaccine (#1) 2025 , 07/31/2023, 08/16/2022, Additional history exists Diabetes: Annual GFR (Glomerular Filtration Rate) 12/07/2025 12/07/2024 Hypertension/CHF/CAD Annual BMP Blood Test 12/07/2025 12/07/2024 DTaP,Tdap,and Td Vaccines (3 - Td or Tdap) 12/23/2028 12/23/2018, 06/13/2008 Pneumococcal Vaccine: 50+ Years Completed 12/18/2024, 07/25/2016 HIB Vaccines Aged Out No longer eligi [...] patient's age to complete this topic Meningococcal B Vaccine Aged Out No l onger eligible based on patient's age to complete this topic RSV Immunization Patients Under 20 months Aged Out No longer eligible based on patient's age to complete this topic Varicella Vaccines Aged Out No longer eligible based on patient's age to complete this topic Procedures Procedure Name Priority Date/Time Associated Diagnosis Comments TRANSTHORACIC ECHOCARDIOGRAM (TTE) COMPLETE Routine 05/09/2025 3:48 PM EDT Chronic heart failure with preserved ejection fraction (HFpEF) ([facility] V24, [facility] V28) Chronic fatigue JAK2 GENE, V617F MUTATION, QUANTITATIVE, MOLECULAR STUDY Routine 02/24/2025 3:32 PM EDT Leukocytosis, unspecified type CBC WITH AUTO DIFFERENTIAL Routine 02/24/2025 3:32 PM EDT Leukocytosis, unspecified type SEDIMENTATION RATE Routine 02/24/2025 3: 32 PM EDT Leukocytosis, unspecified type CBC AND DIFFERENTIAL Routine 02/24/2025 3:32 PM EDT Leukocytosis, unspecified type BASIC METABOLIC PANEL Routine 12/07/2024 11:56 AM EST Primary hypertension Chronic fatigue from Last 3 Months or Most Recently Relevant to Health Maintenance Results * (ABNORMAL) TRANSTHORACIC ECHOCARDIOGRAM (TTE) COMPLETE (05/09/2025 3:48 PM EDT) Left Atrium Minor [place] 5.5 cm CV PACS Left Atrium Major [place] 5.6 cm CV PACS LA Area Sys (A2C) 17 cm2 CV PACS LA Area Sys (A4C) 16 cm2 CV PACS LA Volume (BP) 39 mL CV PACS LA Size 3.8 cm CV PACS RA Area 11.0 cm2 CV PACS RA 2D Volume 27 mL CV PACS AV Mean Gradient 6 mmHg CV PACS AV Mean Gradient 6 mmHg CV PACS Ao VTI 28.2 cm CV PACS AV Peak Yoni 1.7 m/s CV PACS AV Peak Gradient 11 mmHg CV PACS AV Area Continuity Equation 3.1 cm2 CV PACS AV Area Peak Velocity 3.1 cm2 CV PACS Aortic Sinus Valsalva 3.6 cm CV PACS Ascending Aorta 3.2 cm CV PACS IVC Proximal 1.2 cm CV PACS IVSD 1.1(A) 0.6 - 0.9 cm CV PACS LVIDD 3.9 3.8 - 5.2 cm CV PACS LVIDS 2.6 2.2 - 3.5 cm CV PACS LVOT Diameter 2.0 cm CV PACS LVOT Mean Yoni 1.2 m/s CV PACS LVOT Mean Grad 6 mmHg CV PACS LVOT Mean Grad 6 mmHg CV PACS LVOT Peak VTI 27.7 cm CV PACS LVOT Peak Yoni 1.6 m/s CV PACS LVOT Peak Gradient 11 mmHg CV PACS LVPWD 1.1(A) 0.6 - 0.9 cm CV PACS MV E' Tissue Velocity Lateral 7 cm/s CV PACS MV E' Tissue Velocity Septal 5 cm/s CV PACS LVOT Area 3.1 cm2 CV PACS LVOT Stroke Volume 87 mL CV PACS MV Deceleration [place] 2.6 m/s2 CV PACS E Wave Deceleration Time 232 119 - 242 ms CV PACS MV PHT 68 ms CV PACS MV Peak A Yoni 0.86 m/s CV PACS MV Peak E Yoni 0.62 m/s CV PACS MV Mean Gradient 1 mmHg CV PACS MV Mean Gradient 1 mmHg CV PACS MV Mean Gradient 1 mmHg CV PACS MV Mean Gradient 1 mmHg CV PACS MV VTI 18.5 cm CV PACS Mitral Valve Max Velocity 0.9 m/s CV PACS MV Peak Gradient 3 mmHg CV PACS MV Area PHT 3.2 cm2 CV PACS MV Area Continuity Equation 4.7 cm2 CV PACS PV Acceleration Time 144 ms CV PACS PV Acceleration Time 144 ms CV PACS PV Mean Gradient 1 mmHg CV PACS PV VTI 15.4 cm CV PACS PV Peak Velocity 0.8 m/s CV PACS PV Peak Gradient 3 mmHg CV PACS RV Diastolic Basal Dimension 3.3 2.5 - 4.1 cm CV PACS RV S' 11 cm/s CV PACS TAPSE 19 mm CV PACS E/E' Ratio Septal 12 CV PACS E/E' Ratio Averaged 11 CV PACS Relative Wall Thickness ratio 0.56 CV PACS LVOT:AV VTI Index 0.98 CV PACS FS 33 % CV PACS LV Mass 2D 140 g CV PACS MV VTI:LVOT VTI ratio 0.7 CV PACS LVOT flow 377 mL/s CV PACS AV Velocity Ratio 0.94 CV PACS E/A Ratio 0.7 CV PACS E/E' Ratio Lateral 9 CV PACS BSA 2.28 m2 CV PACS LA Volume Index (BP) 18 mL/m2 CV PACS LVIDD Index 1.81 cm/m2 CV PACS LVIDS Index 1.21 cm/m2 CV PACS LV Mass Index 2D 65 44 - 88 g/m2 CV PACS LVOT Stroke Index 40 mL/m2 CV PACS LA Dimension Index 2D 1.8 cm/m2 CV PACS RA 2D Volume Index 13(A) 15 - 27 mL/m2 CV PACS BERNARDA Index (VTI) 1.43 cm2/m2 CV PACS BERNARDA Index (Pk Yoni) 1.44 cm2/m2 CV PACS Ascending Aorta Index 1.49 cm/m2 CV PACS Est. RA Pressure 3 mmHg CV PACS Anatomical Region Laterality Modality Ultrasound Narrative 05/10/2025 3:20 PM EDT Left ventricle cavity size is normal. Left ventricular systolic function is in the normal range with an ejection fraction of 65-70%. No regional LV wall motion abnormalities noted. Left ventricle mild concentric hypertrophy. Right ventricle cavity is normal. Right ventricular systolic function is normal. Aortic valve leaflets are mildly thickened. No stenosis or insufficiency. There is moderate mitral annular calcification. No mitral stenosis or insufficiency. The Sinus of Valsalva is dilated (3.6 cm). Normal ascending aorta at 3.2 cm. No significant change from November 25, 2023. Left Ventricle Left ventricle cavity size is normal. There is trivial concentric hypertrophy. Systolic function is normal with an ejection fraction of 65-70%. There are no regional LV wall motion abnormalities. There is no diastolic dysfunction. Right Ventricle Right ventricle cavity appears normal. Systolic function is normal. Left Atrium Left atrium cavity size is normal. Right Atrium Right atrium cavity is normal. IVC/SVC Inferior vena cava structure is normal. RA pressures is estimated to be 3 mmHg (IVC diameter <21 mm and decreases >50% during inspiration). Mitral Valve The leaflets are mildly thickened. There is mild annular calcification. There is trace regurgitation. There is no evidence of mitral valve stenosis. Tricuspid Valve Tricuspid valve structure is normal. There is no regurgitation or stenosis. Cannot assess RVSP. Aortic Valve Number of aortic valve cusps cannot be determined. The leaflets are mildly thickened. There is no regurgitation or stenosis. Pulmonic Valve There is trace pulmonic valve regurgitation. There is no evidence of pulmonic valve stenosis. Ascending Aorta The Sinus of Valsalva is dilated (3.6 cm). Normal ascending aorta at 3.2 cm. Pericardium Pericardium appears normal. There is no pericardial effusion. Study Details Overall the study quality was technically difficult. Unable to administer contrast. Iqra Arellano NP CV ECHO PROCEDURES Fi nal Result * JAK2 gene, V617F mutation, quantitative, molecular study (02/24/2025 3:32 PM EDT) JAK2 V617F Mutation Quant Rslt NEGATIVE 03/03/2025 3:05 PM EDT [facility] Comment: The JAK2 V617F mutation is not detected in the provided specimen of this individual. This result does not rule out the presence of the JAK2 mutation at a level below the sensitivity of detection of this assay, or the presence of other mutations within JAK2 not detected by this assay. Background: Note 03/03/2025 3:05 PM EDT [facility] Comment: The Quantitative Real-Time PCR assay detects V617F mutation (c.1849 G>T) observed in approximately 95% polycythemia vera (PV), 55% essential thrombocythemia (ET) and 55% primary myelofibrosis (PMF). It is also infrequently present (3-5%) in myelodysplastic syndrome, chronic myelomonocytic leukemia, and other atypical chronic myeloid disorders. The results should be interpreted in the context of all clinical and laboratory findings. No therapeutic action should be taken based solely on these results. This assay detects only the JAK2 V617F point mutation. Other mutations that may occur in the JAK2 gene will not be detected. Methodology: Note 03/03/2025 3:05 PM EDT [facility] Comment: Total genomic DNA was extracted and subjected to TaqMan real-time PCR amplification/detection. Two amplification products per sample were monitored by real-time PCR using primers/probes specific to JAK2 wild type (WT) and JAK2 mutant V617F. The A-TEX Absolute Quantitation software will compare the patient specimen values to the standard curves and generate percent values for wild type and mutant type. The numerical values of Sample Mutant Quantity/(Sample Mutant Quantity+ Sample Wild Type Quantity)X100 is reported as a percentage. In vitro studies have indicated that this assay has an analytical sensitivity of 1%. References Note 03/03/2025 3:05 PM EDT [facility] Comment: Kurtis EJ, Clayton LM, Logna PJ, et al. Acquired mutation of the tyrosine kinase JAK2 in human myeloproliferative disorders. Lancet. 2005 Jan 19-; 365(5771):5494-9558. Isra Frank, Vince V, Lia Jett ROLA. A unique clonal JAK2 mutation leading to constitutive signaling causes polycythaemia vera. Nature. 2005 Feb 28; 434(6580):0105-7035. Rocio R, Raymundo F, Matilda , et al. A [id number]-ar-josdevdk mutation of JAK2 in myeloproliferative disorders. N Engl J Med. 2005 Feb 28; 352(64):9190-3913. Director Review: Estrellita Loaiza, PhD, [facility] 03/03/2025 3:05 PM EDT [facility] Comment: Director, Molecular Oncology [facility] [place] [address] Blood Venous blood specimen / Unknown Venipuncture / Unknown 02/24/2025 3:32 PM EDT 02/24/2025 4:41 PM EDT Narrative [facility] - 03/03/2025 3:05 PM EDT Test(s) [id number]: was developed and its performance characteristics determined by [facility]. It has not been cleared or approved by the Food and Drug Administration. Performed at: - [facility] [address] [facility], [place] [id number] Civil Clerk: Yaneli Harrison [facility], Phone: [phone] us Rubio Andre MD LAB MOLECULAR DIAGNOSTICS OR DERABLES Final Result [facility] * (ABNORMAL) CBC auto differential (02/24/2025 3:32 PM EDT) WBC 12.7(H) 4.8 - 10.8 K/mcL LAB HEMETOLOGY METHOD 02/24/2025 5:00 PM EDT [facility] RBC 5.00(H) 3.80 - 4.80 M/mcL LAB HEMETOLOGY METHOD 02/24/2025 5:00 PM EDT [facility] Hemoglobin 13.1 11.5 - 16.0 g/dL LAB HEMETOLOGY METHOD 02/24/2025 5:00 PM EDT [facility] Hematocrit 41.8 35.0 - 47.0 % LAB HEMETOLOGY METHOD 02/24/2025 5:00 PM EDT [facility] MCV 84.4 79.0 - 98.0 FL LAB [facility] MCH 26.5(L) 27.0 - 32.0 pcg LAB HEMETOLOGY METHOD 02/24/2025 5:00 PM [facility] MCHC 31.3(L) 32.0 - 37.0 g/dL LAB HEMETOLOGY METHOD 02/24/2025 5:00 PM [facility] RDW 14.5 11.0 - 15.0 % LAB HEMETOLOGY METHOD 02/24/2025 5:00 PM [facility] Platelets 534(H) 130 - 400 K/mcL LAB HEMETOLOGY METHOD 02/24/2025 5:00 PM [facility] MPV 9.9 7.0 - 11.0 FL LAB HEMETOLOGY METHOD 02/24/2025 5:00 PM [facility] NRBC 0.0 <1.0 % LAB HEMETOLOGY METHOD 02/24/2025 5:00 PM [facility] NRBC Absolute 0.00 <0.10 K/mcL LAB HEMETOLOGY METHOD 02/24/2025 5:00 PM [facility] Neutrophils Relative 70.7 % LAB HEMETOLOGY METHOD 02/24/2025 5:00 PM [facility] Lymphocytes Relative 19.5 % LAB HEMETOLOGY METHOD 02/24/2025 5:00 PM [facility] Monocytes Relative 5.9 % LAB HEMETOLOGY METHOD 02/24/2025 5:00 PM [facility] Eosinophils Relative 2.5 % LAB HEMETOLOGY METHOD 02/24/2025 5:00 PM [facility] Basophils Relative 0.6 % LAB HEMETOLOGY METHOD 02/24/2025 5:00 PM [facility] Immature Granulocytes Relative 0.8 % LAB HEMETOLOGY METHOD 02/24/2025 5:00 PM [facility] Neutrophils Absolute 8.98(H) 1.50 - 7.00 K/mcL LAB HEMETOLOGY METHOD 02/24/2025 5:00 PM EDT [facility] Lymphocytes Absolute 2.48 1.00 - 5.00 K/mcL LAB HEMETOLOGY METHOD 02/24/2025 5:00 PM EDT [facility] Monocytes Absolute 0.75 0.20 - 1.00 K/mcL LAB HEMETOLOGY METHOD 02/24/2025 5:00 PM EDT [facility] Eosinophils Absolute 0.32 0.00 - 0.50 K/[facility] LAB HEMETOLOGY METHOD 02/24/2025 5:00 PM EDT [facility] Basophils Absolute 0.08 0.00 - 0.20 K/[facility] LAB HEMETOLOGY METHOD 02/24/2025 5:00 PM EDT [facility] Immature Granulocytes Absolute 0.10(H) 0.00 - 0.03 K/[facility] LAB HEMETOLOGY METHOD 02/24/2025 5:00 PM EDT [facility] Blood Venous blood specimen / Unknown Venipuncture / Unknown 02/24/2025 3:32 PM EDT 02/24/2025 4:39 PM EDT us Rubio Andre MD LAB BLOOD ORDERABLES Final R esult [facility] [address] [place] [address], * (ABNORMAL) Sedimentation rate (02/24/2025 3:32 PM EDT) Sed Rate 36(H) 0 - 30 mm/hr LAB HEMETOLOGY METHOD 02/24/2025 4:49 PM EDT [facility] Blood Venous blood specimen / Unknown Venipuncture / Unknown 02/24/2025 3:32 PM EDT 02/24/2025 4:39 PM EDT us Rubio Andre MD LAB BLOOD ORDERABLES Final R esult [facility] [address] [place] [address], * (ABNORMAL) Basic metabolic panel (12/07/2024 11:56 AM EST) Pathologist [facility] Glucose 133(H) 70 - 99 mg/dL [facility] [...] - 12/08/2024 9:07 AM EST Performed at: 01 - [facility] [id number] Civil Clerk: Nancy Griggs MD, Phone: [phone] Iqra Arellano NP LAB BLOOD ORDERABLES Final Result [facility] 1 from Last 3 Months or Most Recently Relevant to Health Maintenance Insurance [facility] Care Teams Rn Midwife Relationship Specialty Start Date End Date Maria Del Rosario Oneill MD [address] [phone] PCP - General 06/30/23
--- OUTSIDE RECORDS SUMMARY | 2025-05-24 15:15 | XMS_ITS | Data Portability ---
Author Organization [facility], Main Office Address [address] [facility] [address] [place] [id number] Care Team Providers Care Swahili Teacher Name Role Phone GEORGIA SMALLWOOD Digital Associate Media Director DOUGLAS SANTIAGO Materials Branch Chief PATRICIO MILLER Sound Technician Supervisor PATRICIO DUMONT General Surgeon LYRIC ELDRIDGE Orthopedic Surgeon PACO ROMERO JR Keycase Assembler MARIA DEL ROSARIO ONEILL Primary Care Provider CARLENE BURNHAM Foundation Engineer Assessment Encounter Date Assessment Date Assessment LastModified by Organization Details LastModified Time 11/19/2024 11/19/2024 Discussed with patient the signs/symptom s warranted for a return to office visit and/or an ER visit. Patient understood and agreed with the plan. [email or web address] Not available 11/19/2024 14:13:50 Plan of Treatment Reminders Order Date Submit Date Provider Last Modified By Organization Details Last Modified Time Details Appointments FOLLOW UP 30MIN 2024 09:30A M MARIA DEL ROSARIO ONEILL MD Not available Not available Not available Follow Up DM 30 2024 02:00P M Nikole Urias PA-C Not available Not available Not available PE EST 2024 03:00P M MARIA DEL ROSARIO ONEILL MD Not available Not available Not available Lab CBC w/ auto diff 07/22/ 2025 07/22/2 025 CHARO [facility] (Centralized Electronic Ordering - All Locations), Patient Can Go To The Location Of Their Choice, 05/24/2025 10:08:02 inflam mation panel, serum or plasma 2024 025 CHARO [facility] (Centralized Electronic Ordering - All Locations), Patient Can Go To The Location Of Their Choice, 05/24/2025 10:08:03 ferrit in, serum or plasma 2024 025 CHARO [facility] (Centralized Electronic Ordering - All Locations), Patient Can Go To The Location Of Their Choice, 05/24/2025 10:08:01 inflam mation panel, serum or plasma 2024 025 CHARO [facility] (Centralized Electronic Ordering - All Locations), Patient Can Go To The Location Of Their Choice, 01/30/2025 08:07:01 CBC w/ auto diff 2024 025 CHARO [facility] (Centralized Electronic Ordering - All Locations), Patient Can Go To The Location Of Their Choice, 01/30/2025 08:06:59 ferrit in, serum or plasma 2024 025 CHARO [facility] (Centralized Electronic Ordering - All Locations), Patient Can Go To The Location Of Their Choice, 01/30/2025 08:07:03 ELGIN (antin uclear antibo dies) screen , ifa, serum 2024 025 [facility] Patient Can Go To The Location Of Their Choice, 01/30/2025 08:07:04 rf (rheum atoid factor ), serum 2024 025 [facility] Patient Can Go To The Location Of Their Choice, 01/30/2025 08:07:02 measle s virus IgG Ab, quant, immuno assay, serum 2024 025 [facility], [address], [place], [address], 01/30/2025 08:07:03 rubell a IgG Ab, quant immuno assay, serum or plasma 2024 025 CHARO [facility], [address], [place], [address], 01/30/2025 08:07:01 mumps virus IgG Ab, quant, immuno assay, serum 2024 025 CHARO [facility], [address], [place], [address], 01/30/2025 08:07:03 BMP, serum or plasma 2024 025 CHARO [facility] ([facility]ized [facility] Ordering - All Locations), Patient Can Go To The Location Of Their Choice, 01/30/2025 08:07:00 inflam mation panel, serum or plasma 2024 025 CHARO [facility] ([facility]ized Electronic Ordering - All Locations), Patient Can Go To The Location Of Their Choice, 12/30/2024 16:06:50 CBC w/ auto diff 2024 025 CHARO [facility] (Centralized Electronic Ordering - All Locations), Patient Can Go To The Location Of Their Choice, 12/30/2024 16:06:46 ferrit in, serum or plasma 2024 025 [email or web address] [facility] ([facility]ized [facility] Ordering - All Locations), Patient Can Go To The Location Of Their Choice, 12/21/2024 09:46:17 unlist ed lab - cortis ol+act h 2024 025 CHARO [facility] (Centralized Electronic Ordering - All Locations), Patient Can Go To The Location Of Their Choice, 12/30/2024 16:06:50 urinal ysis, comple te 2024 025 CHARO [facility] ([facility]ized Electronic Ordering - All Locations), Patient Can Go To The Location Of Their Choice, 12/30/2024 16:06:47 cultur e, urine 2024 025 CHARO [facility] ([facility]ized [facility] Ordering - All Locations), Patient Can Go To The Location Of Their Choice, [id number] 12/30/2024 16:06:52 cobala min and folate panel, serum 2024 025 CHARO [facility] ([facility]ized [facility] Ordering - All Locations), Patient Can Go To The Location Of Their Choice, [id number] 12/30/2024 16:06:48 hetero phile Ab, qualit ative latex agglut inatio n, serum 2024 025 CHARO [facility] ([facility]ized [facility] Ordering - All Locations), Patient Can Go To The Location Of Their Choice, [id number] 12/30/2024 16:06:51 parvov irus B19 igg+ig m Ab, serum 2024 025 CHARO [facility] ([facility]ized [facility] Ordering - All Locations), Patient Can Go To The Location Of Their Choice, [id number] 12/30/2024 16:06:49 Referral None record ed. Procedures None record ed. Surgeries None record ed. Imaging XR, chest, 2 view 2024 025 CHARO Not available 12/16/2024 12:34:24 Medication Orders Mirala x 17 gram/d ose oral powder 2024 025 [email or web address] [facility]acy #[id number], [address] [place] [address], [address], 03/29/2025 13:06:49 doxycy gimenez monohy drate 100 mg tablet 2024 025 [facility]acy #[id number], [address] [place] [address], [address], 01/28/2025 15:13:37 Patient TargetsNo targets recorded. Patient Instructions Encounter Date Encounter Id Patient Instructions Last Modified By Organization Details Last Modified Time 12/14/2024 [id number] learning about high white blood cell counts Not available 12/14/2024 13:33:39 01/28/2025 [id number] learning about high white blood cell counts Not available 01/28/2025 15:34:39 Reason for Referral None Reported. Results Created Date Observation Date Name Description Value Unit Range Abnormal Flag Note LastModifiedBy Organization Detail LastModifiedTime 11/10/19 25 11/10/2024 hemog lobin A1C, gilbert lopez k A1C 6.6 % 4-6 abnormal Not Available In-Office Order Internal Use Only DO Not Attach Compendium DO Not Attach Compendium, Do Not Delete/merge, [id number] 11/10/2024 15:12:05 12/07/1912/08/2024 CBC WITH DIFFE RENTI AL/PL ATELE T WBC 14.3 x10e3 /uL 3.4-10 .8 above high normal Not Available [facility] ([facility]) [address] [place], [address], 12/08/2024 14:07:03 12/07/19 25 12/08/2024 CBC WITH DIFFE RENTI AL/PL ATELE T RBC 5.25 x10e6 /uL 3.77-5 .28 normal Not Available [facility] ([facility]) [address] [place], [address], 12/08/2024 14:07:03 12/07/19 25 12/08/2024 CBC WITH DIFFE RENTI AL/PL ATELE T hemoglobin 14.1 g/dL 11.1-1 5.9 normal Not Available [facility] ([facility]) [address] [place], [address], 12/08/2024 14:07:03 12/07/19 25 12/08/2024 CBC WITH DIFFE RENTI AL/PL ATELE T hematocrit 43.8 % 34.0-4 6.6 normal Not Available [facility] ([facility]) [address] [place], [address], 12/08/2024 14:07:03 12/07/19 25 12/08/2024 CBC WITH DIFFE RENTI AL/PL ATELE T MCV 83 fL 79-97 normal Not Available [facility] ([facility]) [address] [place], [address], 12/08/2024 14:07:03 12/07/19 25 12/08/2024 CBC WITH DIFFE RENTI AL/PL ATELE T MCH 26.9 pg 26.6-3 3.0 normal Not Available [facility] ([facility]) [address] [facility], [place], [address], 12/08/2024 14:07:03 12/07/19 25 12/08/2024 CBC WITH DIFFE RENTI AL/PL ATELE T MCHC 32.2 g/dL 31.5-3 5.7 normal Not Available [facility] ([facility]) [address] [facility], [place], [address], 12/08/2024 14:07:03 12/07/19 25 12/08/2024 CBC WITH DIFFE RENTI AL/PL ATELE T RDW 14.0 % 11.7-1 5.4 Not Available [facility] ([facility]) [address] [facility], [place], [address], 12/08/2024 14:07:03 12/07/19 25 12/08/2024 CBC WITH DIFFE RENTI AL/PL ATELE T platelets 559 x10e3 /uL 150-45 0 above high normal Not Available [facility] ([facility]) [address] [facility], [place], [address], 12/08/2024 14:07:03 12/07/19 25 12/08/2024 CBC WITH DIFFE RENTI AL/PL ATELE T neutrophils 74 % not estab. normal Not Available [facility] ([facility]) [address] [facility], [place], [address], 12/08/2024 14:07:03 12/07/19 25 12/08/2024 CBC WITH DIFFE RENTI AL/PL ATELE T lymphs 17 % not estab. normal Not Available [facility] ([facility]) [address] [place], [address], 12/08/2024 14:07:03 12/07/19 25 12/08/2024 CBC WITH DIFFE RENTI AL/PL ATELE T monocytes 5 % not estab. normal Not Available [facility] ([facility]) [address] [place], [address], 12/08/2024 14:07:03 12/07/19 25 12/08/2024 CBC WITH DIFFE RENTI AL/PL ATELE T eos 2 % not estab. normal Not Available [facility] ([facility]) [address] [facility], [place], [address], 12/08/2024 14:07:03 12/07/19 25 12/08/2024 CBC WITH DIFFE RENTI AL/PL ATELE T basos 1 % not estab. normal Not Available [facility] ([facility]) [address] [place], [address], 12/08/2024 14:07:03 12/07/19 25 12/08/2024 CBC WITH DIFFE RENTI AL/PL ATELE T immature cells METABOLIC SPECIALIST Not Available [facility] ([facility]) [address] [place], [address], 12/08/2024 14:07:03 12/07/19 25 12/08/2024 CBC WITH DIFFE RENTI AL/PL ATELE T neutrophils (absolute) 10.7 x10e3 /uL 1.4-7. 0 above high normal Not Available [facility] ([facility]) [address] [place], [address], 12/08/2024 14:07:03 12/07/19 25 12/08/2024 CBC WITH DIFFE RENTI AL/PL ATELE T lymphs (absolute) 2.5 x10e3 /uL 0.7-3. 1 normal Not Available [facility] ([facility]) [address] [place], [address], 12/08/2024 14:07:03 12/07/19 25 12/08/2024 CBC WITH DIFFE RENTI AL/PL ATELE T monocytes(ab solute) 0.7 x10e3 /uL 0.1-0. 9 normal Not Available [facility] ([facility]) [address] [facility], [place], [address], 12/08/2024 14:07:03 12/07/19 25 12/08/2024 CBC WITH DIFFE RENTI AL/PL ATELE T eos (absolute) 0.2 x10e3 /uL 0.0-0. 4 normal Not Available [facility] ([facility]) [address] [facility], [place], [address], 12/08/2024 14:07:03 12/07/19 25 12/08/2024 CBC WITH DIFFE RENTI AL/PL ATELE T baso (absolute) 0.1 x10e3 /uL 0.0-0. 2 normal Not Available [facility] ([facility]) [address] [facility], [place], [address], 12/08/2024 14:07:03 12/07/19 25 12/08/2024 CBC WITH DIFFE RENTI AL/PL ATELE T immature granulocytes 1 % not estab. Not Available [facility] ([facility]) [address] [facility], [place], [address], 12/08/2024 14:07:03 12/07/19 25 12/08/2024 CBC WITH DIFFE RENTI AL/PL ATELE T immature grans (abs) 0.1 x10e3 /uL 0.0-0. 1 Not Available [facility] ([facility]) [address] [facility], [place], [address], 12/08/2024 14:07:03 12/07/19 25 12/08/2024 CBC WITH DIFFE RENTI AL/PL ATELE T NRBC METABOLIC SPECIALIST Not Available [facility] ([facility]) [address] [facility], [place], [address], 12/08/2024 14:07:03 12/07/19 25 12/08/2024 CBC WITH DIFFE RENTI AL/PL ATELE T hematology comments: METABOLIC SPECIALIST Not Available [facility] ([facility]) [address] [place], [address], 12/08/2024 14:07:03 12/07/19 25 12/08/2024 BASIC METAB OLIC PANEL (8) glucose 129 mg/dL 70-99 above high normal Not Available [facility] ([facility]) [address] [place], [address], 12/08/2024 14:07:04 12/07/19 25 12/08/2024 BASIC METAB OLIC PANEL (8) BUN 25 mg/dL 8-27 normal Not Available [facility] ([facility]) [address] [place], [address], 12/08/2024 14:07:04 12/07/19 25 12/08/2024 BASIC METAB OLIC PANEL (8) creatinine 0.91 mg/dL 0.57-1 .00 normal Not Available [facility] ([facility]) [address] [place], [address], 12/08/2024 14:07:04 12/07/19 25 12/08/2024 BASIC METAB OLIC PANEL (8) eGFR 72 mL/mi n/1.7 3 >59 normal Not Available [facility] ([facility]) [address] [place], [address], 12/08/2024 14:07:04 12/07/19 25 12/08/2024 BASIC METAB OLIC PANEL (8) BUN/creatini ne ratio 27 12-28 normal Not Available [facility] ([facility]) [address] [place], [address], 12/08/2024 14:07:04 12/07/19 25 12/08/2024 BASIC METAB OLIC PANEL (8) sodium 140 mmol/ L 134-14 4 normal Not Available [facility] ([facility]) [address] [facility] [place] [place], [address], 12/08/2024 14:07:04 12/07/19 25 12/08/2024 BASIC METAB OLIC PANEL (8) potassium 4.0 mmol/ L 3.5-5. 2 normal Not Available [facility] ([facility]) [address] [facility] [place] [place], [address], 12/08/2024 14:07:04 12/07/19 25 12/08/2024 BASIC METAB OLIC PANEL (8) chloride 95 mmol/ L 96-106 below low normal Not Available [facility] ([facility]) [address] [facility] [place] [place], [address], 12/08/2024 14:07:04 12/07/19 25 12/08/2024 BASIC METAB OLIC PANEL (8) carbon dioxide, total 24 mmol/ L 20-29 normal Not Available [facility] ([facility]) [address] [facility] [place], [address], 12/08/2024 14:07:04 12/07/19 25 12/08/2024 BASIC METAB OLIC PANEL (8) calcium 9.8 mg/dL 8.7-10 .3 normal Not Available [facility] ([facility]) [address] [place], [address], 12/08/2024 14:07:04 12/07/19 25 12/08/2024 IRON AND TIBC iron bind.cap.(TI BC) 360 ug/dL 250-45 0 normal Not Available [facility] ([facility]) [address] [place], [address], 12/08/2024 14:07:05 12/07/19 25 12/08/2024 IRON AND TIBC UIBC 324 ug/dL 131-42 5 normal Not Available [facility] ([facility]) [address] [place], [address], 12/08/2024 14:07:05 12/07/19 25 12/08/2024 IRON AND TIBC iron 36 ug/dL 27-159 normal Not Available [facility] ([facility]) [address] [place], [address], 12/08/2024 14:07:05 12/07/19 25 12/08/2024 IRON AND TIBC iron saturation 10 % 15-55 below low normal Not Available [facility] ([facility]) [address] [place], [address], 12/08/2024 14:07:05 12/07/19 25 12/08/2024 HEMOG LOBIN A1C hemoglobin A1C 7.0 % 4.8-5. 6 above high normal Predi abete s: 5.7 - 6.4 Diabe nayan: >6.4 Glyce charo contr ol for adult s with diabe nayan: <7.0 Not Available [facility] ([facility]) [address] [place], [address], 12/08/2024 14:07:06 12/07/1912/08/2024 TSH RFX ON ABNOR MAL TO FREE T4 TSH 1.370 uIU/m L 0.450- 4.500 normal Not Available [facility] ([facility]) [address] [place], [address], 12/08/2024 14:07:07 12/07/1912/08/2024 MARYLIN TIN ferritin 175 NG/mL 15-150 above high normal Not Available [facility] ([facility]) [address] [place], [address], 12/08/2024 14:07:08 12/07/1912/08/2024 ALBUM IN/CR EAT RATIO , RANDO M UR creatinine, urine 22.7 mg/dL not estab. normal Not Available [facility] ([facility]) [address] [place], [address], 12/08/2024 16:07:10 12/07/19 25 12/08/2024 ALBUM IN/CR EAT RATIO , TATE Wagner UR albumin, urine <3.0 ug/mL not estab. Not Available [facility] ([facility]) [address] [place], [address], 12/08/2024 16:07:10 12/07/19 25 12/08/2024 ALBUM IN/CR EAT RATIO , RANDO M UR alb/creat ratio <13 mg/g_ creat 0-29 Yue l: 0 - 29 Moder ately incre ased: 30 - 300 Sever hilda incre ased: >300 Not Available [facility] ([facility]) [address] [place], [address], 12/08/2024 16:07:10 12/28/19 25 12/29/2024 CBC WITH DIFFE RENTI AL/PL ATELE T WBC 14.5 x10e3 /uL 3.4-10 .8 above high normal Not Available [facility] ([facility]) [address] [place], [address], 12/30/2024 16:06:46 12/28/19 25 12/29/2024 CBC WITH DIFFE RENTI AL/PL ATELE T RBC 4.98 x10e6 /uL 3.77-5 .28 normal Not Available [facility] ([facility]) [address] [place], [address], 12/30/2024 16:06:46 12/28/19 25 12/29/2024 CBC WITH DIFFE RENTI AL/PL ATELE T hemoglobin 12.9 g/dL 11.1-1 5.9 normal Not Available [facility] ([facility]) [address] [place], [address], 12/30/2024 16:06:46 12/28/19 25 12/29/2024 CBC WITH DIFFE RENTI AL/PL ATELE T hematocrit 40.9 % 34.0-4 6.6 normal Not Available [facility] ([facility]) [address] [place], [address], 12/30/2024 16:06:46 12/28/19 25 12/29/2024 CBC WITH DIFFE RENTI AL/PL ATELE T MCV 82 fL 79-97 normal Not Available [facility] ([facility]) [address] [place], [address], 12/30/2024 16:06:46 12/28/19 25 12/29/2024 CBC WITH DIFFE RENTI AL/PL ATELE T MCH 25.9 pg 26.6-3 3.0 below low normal Not Available [facility] ([facility]) [address] [place], [address], 12/30/2024 16:06:46 12/28/19 25 12/29/2024 CBC WITH DIFFE RENTI AL/PL ATELE T MCHC 31.5 g/dL 31.5-3 5.7 normal Not Available [facility] ([facility]) [address] [place], [address], 12/30/2024 16:06:46 12/28/19 25 12/29/2024 CBC WITH DIFFE RENTI AL/PL ATELE T RDW 14.8 % 11.7-1 5.4 Not Available [facility] ([facility]) [address] [place], [address], 12/30/2024 16:06:46 12/28/19 25 12/29/2024 CBC WITH DIFFE RENTI AL/PL ATELE T platelets 530 x10e3 /uL 150-45 0 above high normal Not Available [facility] ([facility]) [address] [place], [address], 12/30/2024 16:06:46 12/28/19 25 12/29/2024 CBC WITH DIFFE RENTI AL/PL ATELE T neutrophils 69 % not estab. normal Not Available [facility] ([facility]) [address] [facility], [place], [address], 12/30/2024 16:06:46 12/28/19 25 12/29/2024 CBC WITH DIFFE RENTI AL/PL ATELE T lymphs 22 % not estab. normal Not Available [facility] ([facility]) [address] [facility], [place], [address], 12/30/2024 16:06:46 12/28/19 25 12/29/2024 CBC WITH DIFFE RENTI AL/PL ATELE T monocytes 5 % not estab. normal Not Available [facility] ([facility]) [address] [facility], [place], [address], 12/30/2024 16:06:46 12/28/19 25 12/29/2024 CBC WITH DIFFE RENTI AL/PL ATELE T eos 2 % not estab. normal Not Available [facility] ([facility]) [address] [facility], [place], [address], 12/30/2024 16:06:46 12/28/19 25 12/29/2024 CBC WITH DIFFE RENTI AL/PL ATELE T basos 1 % not estab. normal Not Available [facility] ([facility]) [address] [place], [address], 12/30/2024 16:06:46 12/28/19 25 12/29/2024 CBC WITH DIFFE RENTI AL/PL ATELE T immature cells METABOLIC SPECIALIST Not Available [facility] ([facility]) [address] [place], [address], 12/30/2024 16:06:46 12/28/19 25 12/29/2024 CBC WITH DIFFE RENTI AL/PL ATELE T neutrophils (absolute) 10.2 x10e3 /uL 1.4-7. 0 above high normal Not Available [facility] ([facility]) [address] [facility], [place], [address], 12/30/2024 16:06:46 12/28/19 25 12/29/2024 CBC WITH DIFFE RENTI AL/PL ATELE T lymphs (absolute) 3.1 x10e3 /uL 0.7-3. 1 normal Not Available [facility] ([facility]) [address] [place], [address], 12/30/2024 16:06:46 12/28/19 25 12/29/2024 CBC WITH DIFFE RENTI AL/PL ATELE T monocytes(ab solute) 0.7 x10e3 /uL 0.1-0. 9 normal Not Available [facility] ([facility]) [address] [facility], [place], [address], 12/30/2024 16:06:46 12/28/19 25 12/29/2024 CBC WITH DIFFE RENTI AL/PL ATELE T eos (absolute) 0.3 x10e3 /uL 0.0-0. 4 normal Not Available [facility] ([facility]) [address] [place], [address], 12/30/2024 16:06:46 12/28/19 25 12/29/2024 CBC WITH DIFFE RENTI AL/PL ATELE T baso (absolute) 0.1 x10e3 /uL 0.0-0. 2 normal Not Available [facility] ([facility]) [address] [place], [address], 12/30/2024 16:06:46 12/28/19 25 12/29/2024 CBC WITH DIFFE RENTI AL/PL ATELE T immature granulocytes 1 % not estab. Not Available [facility] ([facility]) [address] [place], [address], 12/30/2024 16:06:46 12/28/19 25 12/29/2024 CBC WITH DIFFE RENTI AL/PL ATELE T immature grans (abs) 0.1 x10e3 /uL 0.0-0. 1 Not Available [facility] ([facility]) [address] [place], [address], 12/30/2024 16:06:46 12/28/19 25 12/29/2024 CBC WITH DIFFE RENTI AL/PL ATELE T NRBC METABOLIC SPECIALIST Not Available [facility] ([facility]) [address] [place], [address], 12/30/2024 16:06:46 12/28/19 25 12/29/2024 CBC WITH DIFFE RENTI AL/PL ATELE T hematology comments: METABOLIC SPECIALIST Not Available [facility] ([facility]) [address] [facility], [place], [address], 12/30/2024 16:06:46 12/28/19 25 12/29/2024 URINA LYSIS , COMPL ETE specific gravity COMMEN T Test not perfo rmed. Patie nt was unabl e to provi de a self- colle cted speci men for the reque sted testi ng. The follo wing test( s) were not perfo rmed: Not Available [facility] ([facility]) [address] [facility], [place], [address], 12/30/2024 16:06:47 12/28/1912/29/2024 URINA LYSIS , COMPL ETE pH TNP Test not perfo rmed Not Available [facility] ([facility]) [address] [place], [address], 12/30/2024 16:06:47 12/28/19 25 12/29/2024 URINA LYSIS , COMPL ETE urine-color METABOLIC SPECIALIST Not Available [facility] ([facility]) [address] [place], [address], 12/30/2024 16:06:47 12/28/19 25 12/29/2024 URINA LYSIS , COMPL ETE appearance METABOLIC SPECIALIST Not Available [facility] ([facility]) [address] [facility], [place], [address], 12/30/2024 16:06:47 12/28/19 25 12/29/2024 URINA LYSIS , COMPL ETE WBC esterase METABOLIC SPECIALIST Not Available [facility] ([facility]) [address] [place], [address], 12/30/2024 16:06:47 12/28/19 25 12/29/2024 URINA LYSIS , COMPL ETE protein TNP Test not perfo rmed Not Available [facility] ([facility]) [address] [place], [address], 12/30/2024 16:06:47 12/28/19 25 12/29/2024 URINA LYSIS , COMPL ETE glucose TNP Test not perfo rmed Not Available [facility] ([facility]) [address] [place], [address], 12/30/2024 16:06:47 12/28/19 25 12/29/2024 URINA LYSIS , COMPL ETE ketones TNP Test not perfo rmed Not Available [facility] ([facility]) [address] [place], [address], 12/30/2024 16:06:47 12/28/19 25 12/29/2024 URINA LYSIS , COMPL ETE occult blood METABOLIC SPECIALIST Not Available [facility] ([facility]) [address] [place], [address], 12/30/2024 16:06:47 12/28/19 25 12/29/2024 URINA LYSIS , COMPL ETE bilirubin METABOLIC SPECIALIST Not Available [facility] ([facility]) [address] [place], [address], 12/30/2024 16:06:47 12/28/19 25 12/29/2024 URINA LYSIS , COMPL ETE urobilinogen ,semi-qn METABOLIC SPECIALIST Not Available [facility] ([facility]) [address], [place], [address], 12/30/2024 16:06:47 12/28/19 25 12/29/2024 URINA LYSIS , COMPL ETE nitrite, urine METABOLIC SPECIALIST Not Available [facility] ([facility]) [address] [facility] [place] [place], [address], 12/30/2024 16:06:47 12/28/19 25 12/29/2024 URINA LYSIS , COMPL ETE microscopic examination METABOLIC SPECIALIST Not Available [facility]) [address] [facility] [place] [place], [address], 12/30/2024 16:06:47 12/28/19 25 12/29/2024 URINA LYSIS , COMPL ETE microscopic examination METABOLIC SPECIALIST Not Available [facility] ([facility]) [address] [facility] [place] [place], [address], 12/30/2024 16:06:47 12/28/19 25 12/30/2024 VITAM IN B12 AND FOLAT E vitamin B12 403 pg/mL 232-12 45 normal Not Available [facility] ([facility]) [address] [facility] [place] [place], [address], 12/30/2024 16:06:48 12/28/19 25 12/30/2024 VITAM IN B12 AND FOLAT E folate (folic acid), serum 10.4 NG/mL >3.0 normal A serum folat e ivelisse ntrat ion of less than 3.1 ng/mL is consi dered to repre sent clini devin defic iency . Not Available [facility] ([facility]) [address] [facility] [place] [place], [address], 12/30/2024 16:06:48 12/28/19 25 12/29/2024 PARVO VIRUS B19, HUMAN , IGG/I GM parvovirus B19, IgG 3.9 index 0.0-0. 8 above high normal Negat nader <0.9 Equiv ocal 0.9 - 1.1 Posit nader >1.1 Not Available [facility] ([facility]) [address] [place], [address], 12/30/2024 16:06:49 12/28/19 25 12/29/2024 PARVO VIRUS B19, HUMAN , IGG/I GM parvovirus B19, IgM 0.2 index 0.0-0. 8 Negat nader <0.9 Equiv ocal 0.9 - 1.1 Posit nader >1.1 Not Available [facility] ([facility]) [address] [facility], [place], [address], 12/30/2024 16:06:49 12/28/1912/29/2024 CORTI ALBERTO+A CTH cortisol 6.0 ug/dL 6.2-19 .4 below low normal Pleas e Note: The refer ence inter tasha and robbi ing for this test is for an AM colle ction . If this is a PM colle ction pleas e use: Corti alberto PM: 2.3-1 1.9 Not Available [facility] ([facility]) [address] [place], [address], 12/30/2024 16:06:50 12/28/1912/30/2024 CORTI ALBERTO+A CTH acth, plasma 18.4 pg/mL 7.2-63 .3 ACTH refer ence inter tasha for sampl es colle cted betwe en 7 and 10 AM. Not Available [facility] ([facility]) [address] [place], [address], 12/30/2024 16:06:50 12/28/1912/29/2024 ESR-W ES+CR P sedimentatio n rate-westerg mallika 50 mm/HR 0-40 above high normal Not Available [facility] ([facility]) [address] [place], [address], 12/30/2024 16:06:50 12/28/19 25 12/29/2024 ESR-W ES+CR P C-reactive protein, quant 35 mg/L 0-10 above high normal Not Available [facility] ([facility]) [address] [facility], [place], [address], 12/30/2024 16:06:50 12/28/19 25 12/29/2024 MONON UCLEO SIS, QUAL W/REF COURTNEY mononucleosi s test, qual Negati ve negati ve The sensi tivit y of Heter ophil e antib kavon testi ng is 80-90 %. Epste in Martin IgM testi ng offer s highe r sensi tivit y. Not Available [facility] ([facility]) [address] [facility], [place], [address], 12/30/2024 16:06:51 12/28/1912/29/2024 MONON UCLEO SIS, QUAL W/REF COURTNEY interpretati on: Commen t EBV Inter preta tion Chart Gallagher: Antib kavon Prese nt + Antib kavon Absen t - Inter preta tion VCA-I gM VCA-I gG EBNA- IgG No previ ous infec tion/ - - - Susce ptibl e Prima ry infec tion (new + + - or recen t) Past Infec tion +or- + + See comme nt below * + - - *Resu lts indic ate infec tion with EBV at some time howev er canno t predi ct the timin g of the infec tion since antib odies to EBNA usual ly devel op after prima ry infec tion or, alter nativ hilda, appro ximat hilda 5-10% of patie nts with EBV never devel op antib odies to EBNA. Not Available [facility] ([facility]) [address] [facility], [place], [address], 12/30/2024 16:06:51 12/28/19 25 12/30/2024 MONON UCLEO SIS, QUAL W/REF COURTNEY ebv Ab vca, IgM <36.0 U/mL 0.0-35 .9 Negat nader <36.0 Equiv ocal 36.0 - 43.9 Posit nader >43.9 Not Available [facility] ([facility]) [address] [place], [address], 12/30/2024 16:06:51 12/28/19 25 12/30/2024 MONON UCLEO SIS, QUAL W/REF COURTNEY ebv Ab vca, IgG 227.0 U/mL 0.0-17 .9 above high normal Negat nader <18.0 Equiv ocal 18.0 - 21.9 Posit nader >21.9 Not Available [facility] ([facility]) [address] [place], [address], 12/30/2024 16:06:51 12/28/19 25 12/30/2024 MONON UCLEO SIS, QUAL W/REF COURTNEY ebv nuclear antigen Ab, IgG 42.9 U/mL 0.0-17 .9 above high normal Negat nader <18.0 Equiv ocal 18.0 - 21.9 Posit nader >21.9 Not Available [facility] ([facility]) [address] [place], [address], 12/30/2024 16:06:51 12/28/19 25 12/29/2024 MARYLIN TIN ferritin 160 NG/mL 15-150 above high normal Not Available [facility] ([facility]) [address] [place], [address], 12/30/2024 16:06:52 12/28/19 25 12/29/2024 URINE CULTU RE, ROUTI NE urine culture, routine COMMEN T Test not perfo rmed. Patie nt was unabl e to provi de a self- colle cted speci men for the reque sted testi ng. The follo wing test( s) were not perfo rmed: Not Available [facility] ([facility]) [address] [place], [address], 12/30/2024 16:06:52 12/28/19 25 12/29/[address] PROBL EM request problem COMMEN T Test not perfo rmed. Patie nt was unabl e to provi de a self- colle cted speci men for the reque sted testi ng. The follo wing test( s) were not perfo rmed: TEST: 92708 [id number] Urina lysis , Compl ete 65777 7 Urine Cultu re, Routi ne Not Available [facility] ([facility]) [address] [place], [address], 12/30/2024 16:06:53 01/29/2001/29/2025 CBC WITH DIFFE RENTI AL/PL ATELE T WBC 13.9 x10e3 /uL 3.4-10 .8 above high normal Not Available [facility] ([facility]) [address] [place], [address], 01/30/2025 08:06:59 01/29/2001/29/2025 CBC WITH DIFFE RENTI AL/PL ATELE T RBC 4.90 x10e6 /uL 3.77-5 .28 normal Not Available [facility] ([facility]) [address] [place], [address], 01/30/2025 08:06:59 01/29/2001/29/2025 CBC WITH DIFFE RENTI AL/PL ATELE T hemoglobin 13.1 g/dL 11.1-1 5.9 normal Not Available [facility] ([facility]) [address] [place], [address], 01/30/2025 08:06:59 01/29/2001/29/2025 CBC WITH DIFFE RENTI AL/PL ATELE T hematocrit 40.3 % 34.0-4 6.6 normal Not Available [facility] ([facility]) [address] [place], [address], 01/30/2025 08:06:59 01/29/20 25 01/29/2025 CBC WITH DIFFE RENTI AL/PL ATELE T MCV 82 fL 79-97 normal Not Available [facility] ([facility]) [address] [facility], [place], [address], 01/30/2025 08:06:59 01/29/20 25 01/29/2025 CBC WITH DIFFE RENTI AL/PL ATELE T MCH 26.7 pg 26.6-3 3.0 normal Not Available [facility] ([facility]) [address] [facility], [place], [address], 01/30/2025 08:06:59 01/29/2001/29/2025 CBC WITH DIFFE RENTI AL/PL ATELE T MCHC 32.5 g/dL 31.5-3 5.7 normal Not Available [facility] ([facility]) [address] [place], [address], 01/30/2025 08:06:59 01/29/20 25 01/29/2025 CBC WITH DIFFE RENTI AL/PL ATELE T RDW 14.4 % 11.7-1 5.4 Not Available [facility] ([facility]) [address] [place], [address], 01/30/2025 08:06:59 01/29/2001/29/2025 CBC WITH DIFFE RENTI AL/PL ATELE T platelets 523 x10e3 /uL 150-45 0 above high normal Not Available [facility] ([facility]) [address] [facility], [place], [address], 01/30/2025 08:06:59 01/29/2001/29/2025 CBC WITH DIFFE RENTI AL/PL ATELE T neutrophils 73 % not estab. normal Not Available [facility] ([facility]) [address] [place], [address], 01/30/2025 08:06:59 01/29/20 25 01/29/2025 CBC WITH DIFFE RENTI AL/PL ATELE T lymphs 19 % not estab. normal Not Available [facility] ([facility]) [address] [place], [address], 01/30/2025 08:06:59 01/29/20 25 01/29/2025 CBC WITH DIFFE RENTI AL/PL ATELE T monocytes 4 % not estab. normal Not Available [facility] ([facility]) [address] [place], [address], 01/30/2025 08:06:59 01/29/20 25 01/29/2025 CBC WITH DIFFE RENTI AL/PL ATELE T eos 2 % not estab. normal Not Available [facility] ([facility]) [address] [place], [address], 01/30/2025 08:06:59 01/29/20 25 01/29/2025 CBC WITH DIFFE RENTI AL/PL ATELE T basos 1 % not estab. normal Not Available [facility] ([facility]) [address] [place], [address], 01/30/2025 08:06:59 01/29/20 25 01/29/2025 CBC WITH DIFFE RENTI AL/PL ATELE T immature cells METABOLIC SPECIALIST Not Available [facility] ([facility]) [address] [place], [address], 01/30/2025 08:06:59 01/29/20 25 01/29/2025 CBC WITH DIFFE RENTI AL/PL ATELE T neutrophils (absolute) 10.3 x10e3 /uL 1.4-7. 0 above high normal Not Available [facility] ([facility]) [address] [place], [address], 01/30/2025 08:06:59 01/29/20 25 01/29/2025 CBC WITH DIFFE RENTI AL/PL ATELE T lymphs (absolute) 2.7 x10e3 /uL 0.7-3. 1 normal Not Available [facility] ([facility]) [address] [facility], [place], [address], 01/30/2025 08:06:59 01/29/20 25 01/29/2025 CBC WITH DIFFE RENTI AL/PL ATELE T monocytes(ab solute) 0.6 x10e3 /uL 0.1-0. 9 normal Not Available [facility] ([facility]) [address] [facility], [place], [address], 01/30/2025 08:06:59 01/29/20 25 01/29/2025 CBC WITH DIFFE RENTI AL/PL ATELE T eos (absolute) 0.3 x10e3 /uL 0.0-0. 4 normal Not Available [facility] ([facility]) [address] [facility], [place], [address], 01/30/2025 08:06:59 01/29/20 25 01/29/2025 CBC WITH DIFFE RENTI AL/PL ATELE T baso (absolute) 0.1 x10e3 /uL 0.0-0. 2 normal Not Available [facility] ([facility]) [address] [facility], [place], [address], 01/30/2025 08:06:59 01/29/20 25 01/29/2025 CBC WITH DIFFE RENTI AL/PL ATELE T immature granulocytes 1 % not estab. Not Available [facility] ([facility]) [address] [place], [address], 01/30/2025 08:06:59 01/29/20 25 01/29/2025 CBC WITH DIFFE RENTI AL/PL ATELE T immature grans (abs) 0.1 x10e3 /uL 0.0-0. 1 Not Available [facility] ([facility]) [address] [place], [address], 01/30/2025 08:06:59 01/29/20 25 01/29/2025 CBC WITH DIFFE RENTI AL/PL ATELE T NRBC METABOLIC SPECIALIST Not Available [facility] ([facility]) [address] [facility], [place], [address], 01/30/2025 08:06:59 01/29/20 25 01/29/2025 CBC WITH DIFFE RENTI AL/PL ATELE T hematology comments: METABOLIC SPECIALIST Not Available [facility] ([facility]) [address] [facility], [place], [address], 01/30/2025 08:06:59 01/29/20 25 01/29/2025 BASIC METAB OLIC PANEL (8) glucose 129 mg/dL 70-99 above high normal Not Available [facility] ([facility]) [address] [facility], [place], [address], 01/30/2025 08:07:00 01/29/20 25 01/29/2025 BASIC METAB OLIC PANEL (8) BUN 14 mg/dL 8-27 normal Not Available [facility] ([facility]) [address] [place], [address], 01/30/2025 08:07:00 01/29/20 25 01/29/2025 BASIC METAB OLIC PANEL (8) creatinine 0.66 mg/dL 0.57-1 .00 normal Not Available [facility] ([facility]) [address] [facility], [place], [address], 01/30/2025 08:07:00 01/29/20 25 01/29/2025 BASIC METAB OLIC PANEL (8) eGFR 100 mL/mi n/1.7 3 >59 normal Not Available [facility] ([facility]) [address] [facility] [place] [place], [address], 01/30/2025 08:07:00 01/29/20 25 01/29/2025 BASIC METAB OLIC PANEL (8) BUN/creatini ne ratio 21 12-28 normal Not Available [facility] ([facility]) [address] [facility] [place] [place], [address], 01/30/2025 08:07:00 01/29/2001/29/2025 BASIC METAB OLIC PANEL (8) sodium 139 mmol/ L 134-14 4 normal Not Available [facility] ([facility]) [address] [facility] [place] [place], [address], 01/30/2025 08:07:00 01/29/2001/29/2025 BASIC METAB OLIC PANEL (8) potassium 3.8 mmol/ L 3.5-5. 2 normal Not Available [facility] ([facility]) [address] [facility] [place] [place], [address], 01/30/2025 08:07:00 01/29/2001/29/2025 BASIC METAB OLIC PANEL (8) chloride 99 mmol/ L 96-106 normal Not Available [facility] ([facility]) [address] [facility] [place] [place], [address], 01/30/2025 08:07:00 01/29/2001/29/2025 BASIC METAB OLIC PANEL (8) carbon dioxide, total 21 mmol/ L 20-29 normal Not Available [facility] ([facility]) [address] [facility] [place] [place], [address], 01/30/2025 08:07:00 01/29/2001/29/2025 BASIC METAB OLIC PANEL (8) calcium 9.2 mg/dL 8.7-10 .3 normal Not Available [facility] ([facility]) [address] [facility] [place] [place], [address], 01/30/2025 08:07:00 01/29/2001/29/2025 ESR-W ES+CR P sedimentatio n rate-westerg mallika 79 mm/HR 0-40 above high normal Not Available [facility] ([facility]) [address] [facility] [place] [place], [address], 01/30/2025 08:07:01 01/29/2001/29/2025 ESR-W ES+CR P C-reactive protein, quant 33 mg/L 0-10 above high normal Not Available [facility] ([facility]) [address] [facility], [place], [address], 01/30/2025 08:07:01 01/29/2001/29/2025 RUBEL LA ANTIB ODIES , IGG rubella antibodies, IgG 3.78 index immune >0.99 Non-i mmune <0.90 Equiv ocal 0.90 - 0.99 Immun e >0.99 Not Available [facility] ([facility]) [address] [place], [address], 01/30/2025 08:07:01 01/29/2001/29/2025 RHEUM ATOID FACTO R (RF) rheumatoid factor (rf) 10.7 IU/mL <14.0 normal Not Available [facility]) [address] [facility], [place], [address], 01/30/2025 08:07:02 01/29/2001/29/2025 MUMPS ANTIB ODIES , IGG mumps abs, IgG 31.5 AU/mL immune >10.9 Negat nader <9.0 Equiv ocal 9.0 - 10.9 Posit nader >10.9 A posit nader resul t gener ally indic ates past expos ure to Mumps virus or previ ous vacci natio n. Not Available [facility] ([facility]) [address] [facility], [place], [address], 01/30/2025 08:07:02 01/29/2001/29/2025 MEASL ES ANTIB ODIES , IGG measles antibodies, IgG 231.0 AU/mL immune >16.4 Negat nader <13.5 Equiv ocal 13.5 - 16.4 Posit nader >16.4 Prese nce of antib odies to Rubeo la is presu mptiv e evide nce of immun ity excep t when acute infec tion is suspe cted. Not Available [facility] ([facility]) [address] [facility], [place], [address], 01/30/2025 08:07:03 01/29/20 25 01/29/2025 MARYLIN TIN ferritin 101 NG/mL 15-150 normal Not Available [facility] ([facility]) [address] [facility], [place], [address], 01/30/2025 08:07:03 01/29/20 25 01/29/2025 ELGIN BY IFA RFX TITER /LEIDY YING ELGIN by ifa rfx titer/patter n Negati ve Negat nader <1:80 Borde rline 1:80 Posit nader >1:80 ICAP nomen clatu re: AC-0 For more infor matio n about Hep-2 cell patte rns use ANApa ttern s.org , the offic ial websi te for the Inter natio nal Conse nsus on Antin uclea r Antib kavon (ELGIN) Patte rns (ICAP ). Not Available [facility] ([facility]) [address] [facility], [place], [address], 01/30/2025 08:07:04 02/25/20 25 02/24/2025 SEDIM ENTAT ION RATE sed rate 36 mm/HR 0-30 high Not Available [address], [address], 02/24/2025 16:52:49 02/25/20 25 02/24/2025 SEDIM ENTAT ION RATE note See Report high [facility], [address], Jayant puri, [place] [address] Not Available [address], [address], 02/24/2025 16:52:49 02/25/20 25 02/24/2025 CBC WITH AUTO DIFFE RENTI AL WBC 12.7 K/mcL 4.8-10 .8 high Not Available [address], [address], 02/24/2025 17:02:57 02/25/20 25 02/24/2025 CBC WITH AUTO DIFFE RENTI AL RBC 5.00 M/mcL 3.80-4 .80 high Not Available [address], [address], 02/24/2025 17:02:57 02/25/20 25 02/24/2025 CBC WITH AUTO DIFFE RENTI AL hemoglobin 13.1 g/dL 11.5-1 6.0 Not Available [address], [address], 02/24/2025 17:02:57 02/25/20 25 02/24/2025 CBC WITH AUTO DIFFE RENTI AL hematocrit 41.8 % 35.0-4 7.0 Not Available [address], [address], 02/24/2025 17:02:57 02/25/20 25 02/24/2025 CBC WITH AUTO DIFFE RENTI AL MCV 84.4 fL 79.0-9 8.0 Not Available [address], [address], 02/24/2025 17:02:57 02/25/20 25 02/24/2025 CBC WITH AUTO DIFFE RENTI AL MCH 26.5 pcg 27.0-3 2.0 low Not Available [address], [address], 02/24/2025 17:02:57 02/25/20 25 02/24/2025 CBC WITH AUTO DIFFE RENTI AL MCHC 31.3 g/dL 32.0-3 7.0 low Not Available [address], [address], 02/24/2025 17:02:57 02/25/20 25 02/24/2025 CBC WITH AUTO DIFFE RENTI AL RDW 14.5 % 11.0-1 5.0 Not Available [address], [address], 02/24/2025 17:02:57 02/25/20 25 02/24/2025 CBC WITH AUTO DIFFE RENTI AL platelets 534 K/mcL 130-40 0 high Not Available [address], [address], 02/24/2025 17:02:57 02/25/20 25 02/24/2025 CBC WITH AUTO DIFFE RENTI AL MPV 9.9 fL 7.0-11 .0 Not Available [address], [address], 02/24/2025 17:02:57 02/25/20 25 02/24/2025 CBC WITH AUTO DIFFE RENTI AL NRBC 0.0 % <1.0 Not Available [address], [address], 02/24/2025 17:02:57 02/25/20 25 02/24/2025 CBC WITH AUTO DIFFE RENTI AL NRBC absolute 0.00 K/mcL <0.10 Not Available [address], [address], 02/24/2025 17:02:57 02/25/20 25 02/24/2025 CBC WITH AUTO DIFFE RENTI AL neutrophils relative 70.7 % Not Available [address], [address], 02/24/2025 17:02:57 02/25/20 25 02/24/2025 CBC WITH AUTO DIFFE RENTI AL lymphocytes relative 19.5 % Not Available [address], [address], 02/24/2025 17:02:57 02/25/20 25 02/24/2025 CBC WITH AUTO DIFFE RENTI AL monocytes relative 5.9 % Not Available [address], [address], 02/24/2025 17:02:57 02/25/20 25 02/24/2025 CBC WITH AUTO DIFFE RENTI AL eosinophils relative 2.5 % Not Available [address], [address], 02/24/2025 17:02:57 02/25/20 25 02/24/2025 CBC WITH AUTO DIFFE RENTI AL basophils relative 0.6 % Not Available [address], [address], 02/24/2025 17:02:57 02/25/20 25 02/24/2025 CBC WITH AUTO DIFFE RENTI AL immature granulocytes relative 0.8 % Not Available [address], [address], 02/24/2025 17:02:57 02/25/20 25 02/24/2025 CBC WITH AUTO DIFFE RENTI AL neutrophils absolute 8.98 K/mcL 1.50-7 .00 high Not Available [address], [address], 02/24/2025 17:02:57 02/25/20 25 02/24/2025 CBC WITH AUTO DIFFE RENTI AL lymphocytes absolute 2.48 K/mcL 1.00-5 .00 Not Available [address], [address], 02/24/2025 17:02:57 02/25/20 25 02/24/2025 CBC WITH AUTO DIFFE RENTI AL monocytes absolute 0.75 K/mcL 0.20-1 .00 Not Available [address], [address], 02/24/2025 17:02:57 02/25/20 25 02/24/2025 CBC WITH AUTO DIFFE RENTI AL eosinophils absolute 0.32 K/mcL 0.00-0 .50 Not Available [address], [address], 02/24/2025 17:02:57 02/25/20 25 02/24/2025 CBC WITH AUTO DIFFE RENTI AL basophils absolute 0.08 K/mcL 0.00-0 .20 Not Available [address], [address], 02/24/2025 17:02:57 02/25/20 25 02/24/2025 CBC WITH AUTO DIFFE RENTI AL immature granulocytes absolute 0.10 K/mcL 0.00-0 .03 high Not Available [address], [address], 02/24/2025 17:02:57 02/25/20 25 02/24/2025 CBC WITH AUTO DIFFE RENTI AL note See Report high [facility], [address], Jayant reed d, [facility] [place] [id number] Not Available [address], [address], 02/24/2025 17:02:57 02/25/20 25 02/24/2025 JAK2 GENE, V617F MUTAT ION, QUANT ITATI VE, MOLEC ULAR STUDY jak2 v617f mutation quant rslt NEGATI VE The JAK2 V617F mutat ion is not detec tameka in the provi ded speci men of this indiv idual . This resul t does not rule out the prese nce of the JAK2 mutat ion at a level below the sensi tivit y of detec tion of this assay , or the prese nce of other mutat ions withi n JAK2 not detec tameka by this assay . Not Available [address], [address], 03/03/2025 15:07:02 02/25/20 25 02/24/2025 JAK2 GENE, V617F MUTAT ION, QUANT ITATI VE, MOLEC ULAR STUDY background: Note The Quant itati ve Real- Time PCR assay detec ts V617F mutat ion (c.18 49 G>T) obser carito in appro ximat hilda 95% polyc ythem ia vera (PV), 55% essen tial throm bocyt hemia (ET) and 55% prima ry myelo fibro sis (PMF) . It is also infre quent ly prese nt (3-5% ) in myelo dyspl astic syndr ome, chron ic myelo monoc ytic leuke roni, and other atypi devin chron ic myelo id disor ders. The resul ts shoul d be inter prete d in the soren xt of all clini devin and labor atory findi ngs. No thera peuti c actio n shoul d be taken based solel y on these resul ts. This assay detec ts only the JAK2 V617F point mutat ion. Other mutat ions that may occur in the JAK2 gene will not be detec tameka. Not Available [address], [address], 03/03/2025 15:07:02 02/25/2002/24/2025 JAK2 GENE, V617F MUTAT ION, QUANT ITATI VE, MOLEC ULAR STUDY methodology: Note Total genom ic DNA was extra cted and subje cted to TaqMa n real- time PCR ampli ficat ion/d etect ion. Two ampli ficat ion produ cts per sampl e were monit ored by real- time PCR using prime rs/pr obes speci fic to JAK2 wild type (WT) and JAK2 mutan t V617F . The ABI79 00 Absol jami Quant itati on softw are will cari re the patie nt speci men value s to the stand shruti curve s and gener ate perce nt value s for wild type and mutan t type. The numer ical value s of Sampl e Mutan t Quant ity/( Sampl e Mutan t Quant ity+ Sampl e Wild Type Quant ity)X 100 is repor tameka as a perce ntage . In vitro studi es have indic ated that this assay has an herson tical sensi tivit y of 1%. Not Available [address], [address], 03/03/2025 15:07:02 02/25/20 25 02/24/2025 JAK2 GENE, V617F MUTAT ION, QUANT ITATI VE, MOLEC ULAR STUDY references Note Ran r EJ, Clayton LM, Tiffanie francis PJ, et al. Acqui red mutat ion of the tyros ine kinas e JAK2 in human myelo proli ferat nader disor ders. Ayden t. 2005 Jan 19 ; 365(2 106): 1054- 1061. Patricio Frank, Vince V, Lia lynch ROLA. A uniqu e clona l JAK2 mutat ion leadi ng to const ituti ve signa ling cause s polyc ythae roni vera. Natur e. 2005 Feb 28; 434(8 099): 1144- 1148. Michelle duarte R, Lori cox F, Matilda , et al. A gain- of-fu nctio n mutat ion of JAK2 in myelo proli ferat nader disor ders. N Engl J Med. 2005 Feb 28; 352(1 7):17 79-17 90. Not Available [address], [address], 03/03/2025 15:07:02 02/25/20 25 02/24/2025 JAK2 GENE, V617F MUTAT ION, QUANT ITATI VE, MOLEC ULAR svp group director review: Estrellita Loaiza, PhD, [facility] Direc tor, [facility] Biolo [place] [address] [phone] Not Available [address], [address], 03/03/2025 15:07:02 02/25/20 25 02/24/2025 JAK2 GENE, V617F MUTAT ION, QUANT ITATI VE, MOLEC ULAR STUDY note See Report [facility], [address], Jayant reed d, [place] [id number] Not Available [address], [address], 03/03/2025 15:07:02 12/09/19 25 ECG 12-le ad No observ ation record ed. [email or web address] [facility] [address] [place], [address], 12/09/2024 19:04:14 12/16/19 25 12/14/2024 XR, chest , 2 view No observ ation record ed. CHARO [facility] [address] [facility] [address], [place], [address], 12/16/2024 14:29:50 02/09/20 25 02/08/2025 CT, abdom en + pelvi s, w/ contr ast CT Abd/Pe lvis W/ IV + Oral Contra st Reason : D72.82 9 elevat ed white blood count TECHNI QUE: Spiral CT throug h the abdome n and pelvis with IV contra st format tameka in 3 planes . 100 cc of Isovue 300 was admini stered intrav enousl y. This study was perfor med with oral contra st. Weight -based protoc ol using automa tic tube modula tion was used to optimi ze exposu re parame ters. CTDIvo l Body: 23.35 mGy, DLP Body: 1138 mGy*cm . COMPAR PABLO: 024 FINDIN GS: [employer] View Findin gs, Lines and Tubes: None. Visual ized Chest: Lung bases are clear. No pleura l effusi on. The heart is normal in size. No perica rdial effusi on. Diaphr agm: Normal . Liver: Normal . Gallbl adder: No CT eviden ce of gallbl adder pathol ogy. Bile ducts: No biliar y ductal dilati on. Spleen : Normal . Pancre as: Normal . Adrena l glands : Normal . Kidney s and ureter s: No hydron ephros is, stones , or suspic ious masses . Bladde r: Normal . Reprod uctive organs : Unrema rkable . Stomac h, small bowel, and large bowel: Normal stomac h and small bowel. Coloni c divert iculos is withou t acute inflam matory change . Append ix: Normal . Perito neum and retrop eriton eum: No ascite s or pneumo perito neum. No omenta l or mesent liat lesion s. Lymph nodes: No enlarg ed lymph nodes. Blood vessel s: Mild vascul ar calcif icatio ns but no aneury sm. No eviden ce of venous thromb osis. Abdomi nal and pelvic wall: Unrema rkable . Bones: Degene rative disc change s in the lumbar spine, increa sed at the L2-3 level. IMPRES CARMELITA: No acute intra- abdomi nal abnorm ality. Chroni c coloni c divert iculos is. No visual ized absces s or adenop athy. WSN: [id number] Orderi ng Physic danelle: Major Romero ie Dictat ed By: Gabriele Jackson MD Dictat ed Date/T augie: 11:35 a Review ed By: Gabriele Jackson MD Signed By: Gabriele Jackson MD Signed Date/T augie: 11:35 am Transc ribed By: FANNY Transc ribed Date/T augie: 11:19 am Patien t Class: Outpat ient [facility] (Outpt Imaging) [address] [place], [address], 02/09/2025 15:27:36 05/10/20 25 05/09/2025 trans thora cic echoc ardio gram (TTE) compl ete (cont rast/ bubbl e/3D PRN) No observ ation record ed. [email or web address] [facility] U/S Dept [address], [place], [address], 05/10/2025 19:15:06 05/16/20 05/09/2025 US, echoc ardio gram No observ ation record ed. [email or web address] [facility] [address] [facility] [address] [facility] [address], [place], [address], 05/16/2025 17:06:13 Result Notes Documentation Provider Name and Address Organization Details Recorded Time Ct, Abdomen + Pelvis, W/ Contrast : CT Abd/Pelvis W/ IV + Oral Contrast Reason: D72.829 elevated white blood count TECHNIQUE: Spiral CT through the abdomen and pelvis with IV contrast formatted in 3 planes. 100 cc of Isovue 300 was administered intravenously. This study was performed with oral contrast. Weight-based protocol using automatic tube modulation was used to optimize exposure parameters. CTDIvol Body: 23.35 mGy, DLP Body: 1138 mGy*cm. COMPARISON: 06/26/2024 FINDINGS: [employer] View Findings, Lines and Tubes: None. Visualized Chest: Lung bases are clear. No pleural effusion. The heart is normal in size. No pericardial effusion. Diaphragm: Normal. Liver: Normal. Gallbladder: No CT evidence of gallbladder pathology. Bile ducts: No biliary ductal dilation. Spleen: Normal. Pancreas: Normal. Adrenal glands: Normal. Kidneys and ureters: No hydronephrosis, stones, or suspicious masses. Bladder: Normal. Reproductive organs: Unremarkable. Stomach, small bowel, and large bowel: Normal stomach and small bowel. Colonic diverticulosis without acute inflammatory change. Appendix: Normal. Peritoneum and retroperitoneum: No ascites or pneumoperitoneum. No omental or mesenteric lesions. Lymph nodes: No enlarged lymph nodes. Blood vessels: Mild vascular calcifications but no aneurysm. No evidence of venous thrombosis. Abdominal and pelvic wall: Unremarkable. Bones: Degenerative disc changes in the lumbar spine, increased at the L2-3 level. IMPRESSION: No acute intra-abdominal abnormality. Chronic colonic diverticulosis. No visualized abscess or adenopathy. WSN: [id number] Ordering Physician: Maria Del Rosario Oneill Dictated By: Gabriele Millan MD Dictated Date/Time: 02/08/25 11:35 a Reviewed By: Gabriele Millan MD Signed By: Gabriele Millan MD Signed Date/Time: 02/08/25 11:35 am Transcribed By: FANNY Transcribed Date/Time: 04/08/25 11:19 am Patient Class: Outpatient MARIA DEL ROSARIO ALONZO, MD [address], [place], [address], [facility] 02/09/2025 10:27:59 Problems Name Problem SNOMED Code Status Onset Date Resolution Date Notes Provider Name and Address Organization Details Recorded Time Sinusiti s 35729167 Completed 04/02/2017 Mirza de la cruz [facility] 7 20:49:07 Abscess of breast 27081600 Completed 04/02/2017 Mirza de la cruz [facility] 7 20:49:17 Methicil apolinar resistan t Staphylo coccus aureus infectio n [id number] Completed 09/20/2024 MARIA DEL ROSARIO ONEILL MD [address], [place], [address] , [facility] 4 10:17:18 Anxiety 58176505 Completed 05/04/2015 Nikole Urias PA-C [address], [place], [address] , [facility] 6 15:19:05 Esophagi tis 39787156 Completed 09/20/2016 Mirza de la cruz [facility] 6 15:26:42 Skin lesion 11088359 Completed 02/12/2017 Mirza de la cruz [facility] 7 15:26:29 Fatigue 99798418 Completed 05/04/2015 Mirza de la cruz [facility] 7 15:26:32 Retro-au ricular cysts (hidrade nitis) 007750003 Completed 04/02/2017 Mirza de la cruz [facility] 7 20:48:57 On examinat ion - edema of legs Completed 09/20/2016 Mirza de la cruz [facility] 6 15:26:39 Acute asthma Completed 04/02/2017 Mirza de la cruz [facility] 7 20:49:14 Fatigue 97259839 Completed 02/12/2017 Mirza de la cruz [facility] 7 15:26:32 Cough 33796824 Completed 04/02/2017 MARIA DEL ROSARIO ONEILL MD [address], [place], [address] , [facility] 4 10:23:16 Dyspnea on exertion 23210851 Completed 02/12/2017 Mirza de la cruz [facility] 7 15:26:52 Dyspnea 485020224 Completed 04/02/2017 Mirza de la cruz [facility] 7 20:49:41 Acute sinusiti s 00538350 Completed 09/20/2016 MARIA DEL ROSARIO ONEILL MD [address], [place], [address] , [facility] 4 10:16:49 Muscle pain 39711521 Completed 02/12/2017 Mirza de la cruz [facility] 7 15:26:45 Acute pharyngi tis 107804382 Completed 04/02/2017 MARIA ESTHER Moncada [facility] 4 09:51:00 Disorder of breast 91234942 Completed 02/12/2017 Mirza de la cruz [facility] 7 15:26:38 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 [address], [place], [address] , [facility] 6 15:19:06 Administ ration of bacteria l and viral vaccine Completed 200705/17/2014 RECORDED 06/13/20 08 3:42PM BY MARIA ESTHER RODRIGEZ, OFFICE VISIT Nikole CHAWLAnParioC [address], [place], [address] , [facility] 6 15:19:06 Adult health examinat ion Completed 200806/13/2014 RESOLVED DATE: 03/31/20 09; IMPRESSI ON: PAP UTD, MAMMO UTD, NO ROLE FOR COLONOSC OPY, WILL EXERCISE MORE AND TRY FOR WEIGHT LOSS; RECORDED 03/31/20 09 12:46PM BY MEGHANN REYNOSO ON/ADDEN DUM iNkole Evangelistaden DENTONnParioC [address], [place], [address] , [facility] 6 15:19:06 General examinat ion of patient Completed 200806/13/2014 RESOLVED DATE: 03/31/20 09; IMPRESSI ON: 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, UP TO DATE ON MAMMO, NO ROLE FOR COLONSCO PY, 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; RECORDED 03/31/20 09 12:46PM BY MEGHANN REYNOSO ON/ADDEN DUM Nikole CORCORANC [address], [place], [address] , [facility] 6 15:19:06 General examinat ion of patient Completed 200805/17/2014 RESOLVED DATE: 03/31/20 09; IMPRESSI ON: 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, UP TO DATE ON MAMMO, NO ROLE FOR COLONSCO PY, 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; RECORDED 03/31/20 09 12:46PM BY XOCHITL REDDY, LILLIEATI ON/ADDEN RAUDEL CHAWLA-C [address], [place], [address] , [facility] 6 15:19:06 Acute pharyngi tis 135250622 Completed 201006/13/2014 RECORDED 09/25/20 11 4:25PM BY BALDOMERO STOKES MD, ANNOTATI ON/ADDEN MARIA ESTHER Lyles, [facility] 4 09:51:00 Cellulit is and abscess of trunk 740550373 Completed 201006/13/2014 RECORDED 09/25/20 11 4:25PM BY BALDOMERO STOKES MD, ANNOTATI ON/HERNANDEZ CORCORANC [address], [place], [address] , [facility] 6 15:19:05 Contact dermatit is due to solar radiatio n Completed 201006/13/2014 IMPRESSI ON: SECONDAR Y TO NEW HCTZ. COUNSELE D PT THAT I SUSPECT S/E NOT ALLX RX TO MEDICATI ON. NEVERTHE LESS SHE WILL MONITOR CLOSELY, CONTINUE WITH COOL COMPRESS ES AND BENADRYL THROUGHO UT THE DAY. DISCUSSE D CAMILO CE OF PROPER SUN PROTECTI ON ON MEDICATI ON. SHE DOES NOT WISH TO CHANGE MED FOR THE TIME BEING, HOWEVER WILL ALERT US AMISHA SHOULD HER SXS PERSIST OR CHANGE IN ANY CONCERNI NG WAY. I HAVE ASKED HER TO F/U WITH US IN 3-4 WEEKS, SOONER PRN.; RECORDED 09/25/20 11 4:25PM BY BALDOMERO STOKES MD, MEGHANN ON/HERNANDEZ CORCORANC [address], [place], [address] , [facility] 6 15:19:05 Pain of elbow region 34377104 Completed 201006/13/2014 RECORDED 09/25/20 11 4:25PM BY BALDOMERO STOKES MD, ANNOTATI ON/ADDEN DUM Nikole CORCORANC [address], [place], [address] , [facility] 6 15:19:05 Acute pharyngi tis 196214828 Completed 201005/17/2014 RECORDED 09/25/20 11 4:25PM BY BALDOMEOR STOKES MD, ANNOTATI ON/ADDEN DUM Deshaun thakkar [place] [facility] 4 09:51:00 Contact dermatit is due to solar radiatio n Completed 201005/17/2014 IMPRESSI ON: SECONDAR Y TO NEW HCTZ. COUNSELE D PT THAT I SUSPECT S/E NOT ALLX RX TO MEDICATI ON. NEVERTHE LESS SHE WILL MONITOR CLOSELY, CONTINUE WITH COOL COMPRESS ES AND BENADRYL THROUGHO UT THE DAY. DISCUSSMikey PAGE CE OF PROPER SUN PROTECTI ON ON MEDICATI ON. SHE DOES NOT WISH TO CHANGE MED FOR THE TIME BEING, HOWEVER WILL ALERT US AMISHA SHOULD HER SXS PERSIST OR CHANGE IN ANY CONCERNI NG WAY. I HAVE ASKED HER TO F/U WITH US IN 3-4 WEEKS, SOONER PRN.; RECORDED 09/25/20 11 4:25PM BY BALDOMERO STOKES MD, ANNOTATI ON/ADDEN DUM Nikole CORCORANC [address], [place], [address] , [facility] 6 15:19:05 Cellulit is and abscess of trunk [id number] Completed 201005/17/2014 RECORDED 09/25/20 11 4:25PM BY BALDOMERO STOKES MD, ANNOTBOONE ON/ADDEN DUM Nikole Urias PA-C [address], [place], [address] , [facility] 6 15:19:05 Pain of elbow region 63335816 Completed 201005/17/2014 RECORDED 09/25/20 11 4:25PM BY BALDOMERO STOKES MD, ANNOTATI ON/ADDEN DUM Nikole Urias PA-C [address], [place], [address] , [facility] 6 15:19:05 Contact dermatit is 07214167 Completed 201005/17/2014 RECORDED 09/25/20 11 4:25PM BY BALDOMERO STOKES MD, ANNOTATI ON/ADDEN DUM Mirza dumont [facility] 7 20:49:00 Acute bronchit is 71699273 Completed 201106/13/2014 RECORDED 07/24/20 12 11:28AM BY PAU ARRIAZA, MEGHANN ON/ADDEN DUM Nikole Urias PA-C [address], [place], [address] , [facility] 6 15:19:05 Chronic sinusiti s 00748452 Completed 201106/13/2014 RECORDED 07/24/20 12 11:28AM BY PAU ARRIAZA, MEGHANN ON/ADDEN DUM Nikole Urias PA-C [address], [place], [address] , [facility] 6 15:19:05 Acute asthma 994054337 Completed 201106/13/2014 IMPRESSI ON: FLARED WITH SINUSITI S, HAS PND, OVERUSIN G VENTOLIN , NEEDS TO USE SPACER, RESTART ADVAIR WHICH HELPED IN PAST, HAS FOLLWOUP 10/03; RECORDED 07/24/20 12 11:28AM BY MEGHANN VYAS ON/ADDEN DUM Nikole Urias PA-C [address], [place], [address] , [facility] 6 15:19:05 Eruption 949925820 Completed 201106/13/2014 RECORDED 07/24/20 12 11:28AM BY MEGHANN VYAS/ADDEN RAUDEL Urias PA-C [address], [place], [address] , [facility] 6 15:19:05 Dysphagi a 57332589 Completed 201106/13/2014 IMPRESSI ON: FOLLOWED BY DR HUSAIN , UNUSUAL SYMPTOM OF FOOD RELATED UPPER AIRWAY TIGHTENI NG, HAVING AN EVAL OF EHR UPPER AIRWAY WITH A NEW DOC; RECORDED 07/24/20 12 11:28AM BY MEGHANN VYAS/ADDJOSE MIGUEL Urias PA-C [address], [place], [address] , [facility] 6 15:19:06 Wheezing 87709271 Completed 201106/13/2014 IMPRESSI ON: SPIROMET RY STILL WITH SMALL AIRWAYS BRONCHOS PASM, WILL INCREASE FLOVENT TO 440MCG AND START SINGULAR I, RETURN IN 2M ONTHS FOR REPEAT SPIROMET RY; RECORDED 07/24/20 12 11:28AM BY MEGHANN VYAS/HERNANDEZ Urias PA-C [address], [place], [address] , [facility] 6 15:19:05 Dysuria 96213550 Completed 201106/13/2014 IMPRESSI ON: CHECK URINE SOUNDS LLIKE IC FLARE, WILL SURE PYRIDIUM FOR COMFORT FOR 2 NIIGHTS MAX; RECORDED 07/24/20 12 11:30AM BY MEGHANN VYAS/HERNANDEZ Urias PA-C [address], [place], [address] , [facility] 6 15:19:06 Noninfec tious gastroen teritis 55775622 Completed 201106/13/2014 RECORDED 07/24/20 12 11:28AM BY MEGHANN VYAS/HERNANDEZ STARKS Nikole Adonay CORCORANC [address], [place], [address] , [facility] 6 15:19:05 Pain of joint 81548508 Completed 201106/13/2014 RECORDED 07/24/20 12 11:29AM BY MEGHANN VYAS ON/ADDEN DUM Nikole Adonay CHAWLA-C [address], [place], [address] , [facility] 6 15:19:05 Screenin g for malignan t neoplasm of cervix Completed 201106/13/2014 RECORDED 07/24/20 12 11:28AM BY MEGHANN VYAS ON/ADDEN DUM Nikole Adonay CORCORANC [address], [place], [address] , [facility] 6 15:19:06 Generali zed aches and pains 77742317 Completed 201106/13/2014 RECORDED 07/24/20 12 11:29AM BY MEGHANN VYAS ON/ADDEN DUM Nikole CORCORANC [address], [place], [address] , [facility] 6 15:19:05 Diarrhea 47046181 Completed 201106/13/2014 IMPRESSI ON: PT PRESENTE D WITH WHAT LOOKED LIKE C DIF BUT FIRST TEST NEGATIVE , WAS GETTING BETTER ON MEDS, FINISHED 7 DAYS, NO GI COMPLAIN TS; RECORDED 07/24/20 12 11:28AM BY MEGHANN VYAS ON/ADDEN DUM Nikole Adonay CHAWLA-C [address], [place], [address] , [facility] 6 15:19:06 Acute bronchit is 58589522 Completed 201105/17/2014 RECORDED 07/24/20 12 11:28AM BY MEGHANN VYAS ON/ADDEN DUM Nikole Urias PA-C [address], [place], [address] , [facility] 6 15:19:05 Chronic sinusiti s 34010818 Completed 201105/17/2014 RECORDED 07/24/20 12 11:28AM BY MEGHANN VYAS ON/ADDEN DUM Nikole Urias PA-C [address], [place], [address] , [facility] 6 15:19:05 Noninfec tious gastroen teritis 33869374 Completed 201105/17/2014 RECORDED 07/24/20 12 11:28AM BY MEGHANN VYAS ON/ADDEN DUM Nikole Urias PA-C [address], [place], [address] , [facility] 6 15:19:05 Pain of joint 56196391 Completed 201105/17/2014 RECORDED 07/24/20 12 11:29AM BY MEGHANN VYAS ON/ADDEN DUM Nikole Urias PA-C [address], [place], [address] , [facility] 6 15:19:05 Eruption [id number] Completed 201105/17/2014 RECORDED 07/24/20 12 11:28AM BY MEGHANN VYAS ON/ADDEN DUM Nikole Urias PA-C [address], [place], [address] , [facility] 6 15:19:05 Dysphagi a [id number] Completed 201105/17/2014 IMPRESSI ON: FOLLOWED BY DR HUSAIN , UNUSUAL SYMPTOM OF FOOD RELATED UPPER AIRWAY TIGHTENI NG, HAVING AN EVAL OF EHR UPPER AIRWAY WITH A NEW DOC; RECORDED 07/24/20 12 11:28AM BY MEGHANN VYAS ON/ADDEN DUM Nikole Urias PA-C [address], [place], [address] , [facility] 6 15:19:05 Dysuria 66153695 Completed 201105/17/2014 IMPRESSI ON: CHECK URINE SOUNDS LLIKE IC FLARE, WILL SURE PYRIDIUM FOR COMFORT FOR 2 NIIGHTS MAX; RECORDED 07/24/20 12 11:30AM BY MEGHANN VYAS ON/ADDEN DUM Nikole CHAWLA-C [address] [address], [place], [address] , [facility] 6 15:19:06 Generali zed aches and pains 44958296 Completed 201105/17/2014 RECORDED 07/24/20 12 11:29AM BY MEGHANN VYAS ON/ADDEN DUM Nikoledileep CHAWLA-C [address] [address], [place], [address] , [facility] 6 15:19:05 Diarrhea 46030875 Completed 201105/17/2014 IMPRESSI ON: PT PRESENTE D WITH WHAT LOOKED LIKE C DIF BUT FIRST TEST NEGATIVE , WAS GETTING BETTER ON MEDS, FINISHED 7 DAYS, NO GI COMPLAIN TS; RECORDED 07/24/20 12 11:28AM BY MEGHANN VYAS ON/ADDEN DUM Nikole CHAWLA-C [address] [address], [place], [address] , [facility] 6 15:19:06 Adult health examinat ion Completed 201105/17/2014 RECORDED 07/24/20 12 11:28AM BY MEGHANN VYAS ON/ADDEN DUM Nikole Adonay CHAWLA-C [address] [address], [place], [address] , [facility] 6 15:19:06 Screenin g for malignan t neoplasm of cervix Completed 201105/17/2014 RECORDED 07/24/20 12 11:28AM BY MEGHANN VYAS ON/ADDJOSE MIGUEL Urias PA-C [address], [place], [address] , [facility] 6 15:19:06 Acute asthma 325329197 Completed 201105/17/2014 IMPRESSI ON: FLARED WITH SINUSITI S, HAS PND, OVERUSIN G VENTOLIN , NEEDS TO USE SPACER, RESTART ADVAIR WHICH HELPED IN PAST, HAS FOLLWOUP 10/03; RECORDED 07/24/20 12 11:28AM BY MEGHANN VYAS ON/ADDJOSE MIGUEL Urias PA-C [address], [place], [address] , [facility] 6 15:19:05 Wheezing 17420459 Completed 201105/17/2014 IMPRESSI ON: SPIROMET RY STILL WITH SMALL AIRWAYS BRONCHOS PASM, WILL INCREASE FLOVENT TO 440MCG AND START SINGULAR I, RETURN IN 2M ONTHS FOR REPEAT SPIROMET RY; RECORDED 07/24/20 12 11:28AM BY MEGHANN VYAS ON/HERNANDEZ Urias PA-C [address], [place], [address] , [facility] 6 15:19:05 Blood in urine 68339732 Completed 201106/13/2014 RECORDED 07/25/20 12 8:34AM BY MEGHANN SOUTH/HERNANDEZ CHAWLA-C [address], [place], [address] , [facility] 6 15:19:05 Malaise and fatigue 189879057 Completed 201106/13/2014 RECORDED 07/25/20 12 8:34AM BY [facility]TH[facility] 20:[facility]:24 Cough 19449533 Completed 201106/13/2014 RECORDED 07/25/20 12 8:34AM BY MEGHANN SOUTH ON/ADDEN RAUDEL ONEILL MD [address], [place], [address] , [facility] 4 10:23:16 Lymphade nopathy 48091332 Completed 201106/13/2014 IMPRESSI ON: LIKELY NODE. NO SIGNS OF INFX. ADVISED RE WARM COMPRESS , PRN NSAID. TO CALL FOR WORSENIN G OR IF PERSISTS . MAY CONSIDER US AND/OR ENT EVAL.; RECORDED 07/25/20 12 8:34AM BY MEGHANN SOUTH ON/ADDEN DUM Nikole CORCORANC [address], [place], [address] , [facility] 6 15:19:05 Fibromyo sitis 47120081 Completed 201106/13/2014 IMPRESSI ON: NL STRENGTH , NO RASH, CHECK LABS AND PT TO SEE [facility]; RECORDED 07/25/20 12 8:34AM BY MEGHANN SOUTH ON/DARNELLEN DUM Nikole CORCORANC [address], [place], [address] , [facility] 6 15:19:05 Blood in urine 02002327 Completed 201105/17/2014 RECORDED 07/25/20 12 8:34AM BY MEGHANN SOUTH ON/HERNANDEZ CORCORANC [address], [place], [address] , [facility] 6 15:19:05 Fibromyo sitis 49306932 Completed 201105/17/2014 IMPRESSI ON: NL STRENGTH , NO RASH, CHECK LABS AND PT [facility]; RECORDED 07/25/20 12 8:34AM BY MEGHANN SOUTH ON/HERNANDEZ CORCORANC [address], [place], [address] , [facility] 6 15:19:05 Malaise and fatigue 420940836 Completed 201105/17/2014 RECORDED 07/25/20 12 8:34AM BY MEGHANN SOUTH ON/ADDEN DUM [facility] 7 20:49:24 Lymphade nopathy 40532455 Completed 201105/17/2014 IMPRESSI ON: LIKELY NODE. NO SIGNS OF INFX. ADVISED RE WARM COMPRESS , PRN NSAID. TO CALL FOR WORSENIN G OR IF PERSISTS . MAY CONSIDER US AND/OR ENT EVAL.; RECORDED 07/25/20 12 8:34AM BY MEGHANN SOUTH ON/ADDEN DUM Nikole Urias PA-C [address], [place], [address] , [facility] 6 15:19:05 Cough 67673610 Completed 201105/17/2014 RECORDED 07/25/20 12 8:34AM BY MEGHANN SOUTH ON/ADDEN DUM MARIA DEL ROSARIO ONEILL MD [address], [place], [address] , [facility] 4 10:23:16 Candidia sis of mouth 04630119 Completed 201106/13/2014 IMPRESSI ON: NEW PROBLEM TO PROVIDER , USING STEROID INHALER WITHOUT RINSING; RECORDED 09/04/20 12 3:17PM BY DESHAUN REDDY MA, MEGHANN ON/ADDEN DUM Nikole Urias PA-C [address], [place], [address] , [facility] 6 15:19:05 Otitis media 54707514 Completed 201106/13/2014 RECORDED 09/04/20 12 3:17PM BY DESHAUN REDDY MA, MEGHANN ON/ADDEN DUM Nikole Urias PA-C [address], [place], [address] , [facility] 6 15:19:05 Tinnitus 65491556 Completed 201106/13/2014 RECORDED 09/04/20 12 3:17PM BY DESHAUN REDDY MA, ANNOTATI ON/ADDEN DUM Nikolesoto Urias PA-C [address], [place], [address] , [facility] 6 15:19:05 Acute sinusiti s 29576469 Completed 201106/13/2014 RECORDED 09/04/20 12 3:18PM BY DESHAUN REDDY MA, ANNOTATI ON/ADDEN DUM MARIA DEL ROSARIO ONEILL MD [address], [place], [address] , [facility] 4 10:16:49 Jack serna [id number] Completed 201106/13/2014 RECORDED 09/04/20 12 3:18PM BY DESHAUN REDDY MA, ANNOTATI ON/ADDEN DUM Nikolesoto Urias PA-C [address], [place], [address] , [facility] 6 15:19:05 Edema [id number] Completed 201106/13/2014 IMPRESSI ON: WORSE IN HEAT THE PAST WEEK.; RECORDED 09/04/20 12 3:17PM BY DESHAUN REDDY MA, ANNOTBOONE ON/ADDEN DUM Mirza de la cruz, [facility] 7 20:49:32 Allergy to drug 159145043 Completed 201106/13/2014 IMPRESSI ON: DUE TO HCTZ, WILL AVOID SUN, STOP MED; RECORDED 09/04/20 12 3:17PM BY DESHAUN REDDY MA, ANNOTBOONE ON/ADDEN DUM Nikoledileep Urias PA-C [address], [place], [address] , [facility] 6 15:19:06 Candidia sis of mouth 92460212 Completed 201105/17/2014 IMPRESSI ON: NEW PROBLEM TO PROVIDER , USING STEROID INHALER WITHOUT RINSING; RECORDED 09/04/20 12 3:17PM BY DESHAUN REDDY MA, MEGHANN ON/ADDEN DUM Nikole CORCORANC [address], [place], [address] , [facility] 6 15:19:05 Otitis media 18878964 Completed 201105/17/2014 RECORDED 09/04/20 12 3:17PM BY DESHAUN REDDY MA, MEGHANN ON/ADDEN DUM Nikole CORCORANC [address], [place], [address] , [facility] 6 15:19:05 Acute sinusiti s 23381191 Completed 201105/17/2014 RECORDED 09/04/20 12 3:18PM BY DESHAUN REDDY MA, MEGHANN ON/ADDEN DUM MARIA DEL ROSARIO ONEILL MD [address], [place], [address] , [facility] 4 10:16:49 Tinnitus 90692923 Completed 201105/17/2014 RECORDED 09/04/20 12 3:17PM BY DESHAUN REDDY MA, ANNOTBOONE ON/ADDEN DUM Nikole CORCORANC [address], [place], [address] , [facility] 6 15:19:05 Allergy to drug 347882409 Completed 201105/17/2014 IMPRESSI ON: DUE TO HCTZ, WILL AVOID SUN, STOP MED; RECORDED 09/04/20 12 3:17PM BY DESHAUN REDDY MA, ANNOTBOONE ON/ADDEN DUM Nikloe Urias PA-C [address], [place], [address] , [facility] 6 15:19:06 Increase d frequenc y of urinatio n 013847667 Completed 201106/13/2014 RECORDED 09/29/20 12 2:41PM BY SHELDON SHEIKH MA, ANNOTATI ON/ADDEN DUM Nikole Adonay PA-C [address], [place], [address] , [facility] 6 15:19:06 Abdomina l pain [id number] Completed 201106/13/2014 RECORDED 09/29/20 12 2:41PM BY SHELDON SHEIKH MA, ANNOTATI ON/ADDEN DUM Nikole Adonay PA-C [address], [place], [address] , [facility] 6 15:19:06 Knee pain Completed 201106/13/2014 IMPRESSI ON: HAD INJECITO N STILL WITH EFFUSION , PT TO GET MRI WITH LORAZEPA M, MOST LIKELY CARTILAG E INJURY; RECORDED 09/29/20 12 2:41PM BY SHELDON SHEIKH MA, ANNOTATI ON/ADDEN DUM Nikole Adonay PA-C [address], [place], [address] , [facility] 6 15:19:05 Pain of breast [id number] Completed 201106/13/2014 RECORDED 09/29/20 12 2:41PM BY SHELDON SHEIKH MA, ANNOTATI ON/ADDEN DUM Nikole Adonay PA-C [address], [place], [address] , [facility] 6 15:19:05 Pain of breast 59662659 Completed 201105/17/2014 RECORDED 09/29/20 12 2:41PM BY SHELDON SHEIKH MA, ANNOTATI ON/ADDEN DUM Nikole Adonay PA-C [address], [place], [address] , [facility] 6 15:19:05 Knee pain Completed 201105/17/2014 IMPRESSI ON: HAD INJECITO N STILL WITH EFFUSION , PT TO GET MRI WITH LORAZEPA M, MOST LIKELY CARTILAG E INJURY; RECORDED 09/29/20 12 2:41PM BY SHELDON SHEIKH MA, ANNOTATI ON/ADDEN DUM Nikolesoto CORCORANC [address], [place], [address] , [facility] 6 15:19:05 Increase d frequenc y of urinatio n [id number] Completed 201105/17/2014 RECORDED 09/29/20 12 2:41PM BY SHELDON SHEIKH MA, MEGHANN ON/ADDEN DUM Nikole CORCORANC [address], [place], [address] , [facility] 6 15:19:06 Abdomina l pain [id number] Completed 201105/17/2014 RECORDED 09/29/20 12 2:41PM BY SHELDON SHEIKH MA, ANNOTATI ON/ADDEN DUM Nikolesoto CORCORANC [address], [place], [address] , [facility] 6 15:19:06 Elevated blood-pr essure reading without diagnosi s of hyperten carmelita [id number] Completed 201106/13/2014 IMPRESSI ON: OFF MEDS DUE TO EDEMA WITH NORVASC, BRING IN BP NUMBERS 12/; RECORDED 10/01/20 12 8:06AM BY SHAY STEELE PA-C, ANNOTATI ON/ADDEN DUM Nikoledileep CORCORANC [address], [place], [address] , [facility] 6 15:19:06 Elevated blood-pr essure reading without diagnosi s of hyperten carmelita [id number] Completed 201105/17/2014 IMPRESSI ON: OFF MEDS DUE TO EDEMA WITH NORVASC, BRING IN BP NUMBERS 10/03; RECORDED 10/01/20 12 8:06AM BY SHAY STEELE PA-C, MEGHANN ON/HERNANDEZ Urias PA-C [address], [place], [address] , [facility] 6 15:19:06 Disorder of upper respirat ory system [id number] Completed 201206/13/2014 IMPRESSI ON: CONTINUE S WITH SXS OF SOME EAR AND SINUS PRESSURE , DIZZINES S AND NAUSEA. DISCUSSE D POSSIBLE FURTHER TX OPTIONS, TX W/MIGUEL ÁNGEL MCCORD. CALL ME FRIDAY WITH UPDATE, SOONER PRN.; RECORDED 12/07/19 13 3:53PM BY SHELDON SHEIKH MA, MEGHANN ON/HERNANDEZ Urias PA-C [address], [place], [address] , [facility] 6 15:19:06 Nausea [id number] Completed 201206/13/2014 IMPRESSI ON: IT IS DIFFICUL T TO SAY IF THIS IS A RESULT OF HER VERTIGO OR OF DIFFEREN T ETIOLOGY . SHE DOES HAVE GERD WHICH OVERALL IS STABLE. NO VOMITING , NO CHANGE IN BOWELS AND HER ABDO PAIN HAS RESOLVED WITH A DOWNWARD TRENDING WBC. SHE IS ALSO SIGNIFIC ANTLY STRESSED , HAS HX OF IBS AND ENDOMETR IOSIS BOTH OF WHICH HAVE GIVEN HER NAUSEA IN THE PAST. TX OUTLINED ABOVE, TOUCH BASE END OF WEEK.; RECORDED 12/07/19 13 3:53PM BY SHELDON SHEIKH MA, MEGHANN ON/HERNANDEZ Urias PA-C [address], [place], [address] , [facility] 6 15:19:05 Disorder of upper respirat ory system [id number] Completed 201205/17/2014 IMPRESSI ON: CONTINUE S WITH SXS OF SOME EAR AND SINUS PRESSURE , DIZZINES S AND NAUSEA. DISCUSSE D POSSIBLE FURTHER TX OPTIONS, TX W/MIGUEL ÁNGEL MCCORD. CALL ME FRIDAY WITH UPDATE, SOONER PRN.; RECORDED 12/07/19 13 3:53PM BY SHELDON SHEIKH MA, MEGHANN ON/ADDEN DUM Nikoledileep Urias PA-C [address], [place], [address] , [facility] 6 15:19:06 Nausea [id number] Completed 201205/17/2014 YAAI ON: IT IS DIFFICUL T TO SAY IF THIS IS A RESULT OF HER VERTIGO OR OF DIFFEREN T ETIOLOGY . SHE DOES HAVE GERD WHICH OVERALL IS STABLE. NO VOMITING , NO CHANGE IN BOWELS AND HER ABDO PAIN HAS RESOLVED WITH A DOWNWARD TRENDING WBC. SHE IS ALSO SIGNIFIC ANTLY STRESSED , HAS HX OF IBS AND ENDOMETR IOSIS BOTH OF WHICH HAVE GIVEN HER NAUSEA IN THE PAST. TX OUTLINED ABOVE, TOUCH BASE END OF WEEK.; RECORDED 12/07/19 13 3:53PM BY SHELDON SHEIKH MA, MEGHANN ON/ADDEN DUM Nikolesoto Urias PA-C [address], [place], [address] , [facility] 6 15:19:05 Vitamin D deficien cy 38536779 Completed 201206/13/2014 RECORDED 12/15/19 13 3:51PM BY SHAY STEELE PA-C, MEGHANN ON/ADDEN DUM Nikole Urias PA-C [address] [facility] [address], [place], [address] , [facility] 6 15:19:05 Vitamin D deficien cy 15639720 Completed 201205/17/2014 RECORDED 12/15/19 13 3:51PM BY SHAY STEELE PA-C, MEGHANN ON/ADDEN DUM Nikole Adonay CORCORANC [address] [facility] [address], [place], [address] , [facility] 6 15:19:05 Brachial neuritis 06252733 Completed 201206/13/2014 IMPRESSI ON: WITH CONTINUE D DISCOMFO RT, NOW UNABLE TO SLEEP AT NIGHT. CONTINUE S ON NSAID AND TYLENOL WITH LITTLE BENEFIT. PT X 1 ONLY, HOWEVER FEELS RELUCTAN T TO CONTINUE WITH COURSE DUE TO HER LEVEL OF DISCOMFO RT. WILL CHECK XRAY TODAY AND ARRANGE FOR HER TO SEE SPEC AT PSS. SHE WILL CONTINUE WITH OTCS FOR PAIN PER HER REQ.; RECORDED 01/14/20 13 8:48AM BY SHELDON SHEIKH MA, MEGHANN ON/ADDEN DUM Nikolesoto Urias PA-C [address], [place], [address] , [facility] 6 15:19:06 Brachial neuritis 08758471 Completed 201205/17/2014 IMPRESSI ON: WITH CONTINUE D DISCOMFO RT, NOW UNABLE TO SLEEP AT NIGHT. CONTINUE S ON NSAID AND TYLENOL WITH LITTLE BENEFIT. PT X 1 ONLY, HOWEVER FEELS RELUCTAN T TO CONTINUE WITH COURSE DUE TO HER LEVEL OF DISCOMFO RT. WILL CHECK XRAY TODAY AND ARRANGE FOR HER TO SEE SPEC AT PSS. SHE WILL CONTINUE WITH OTCS FOR PAIN PER HER REQ.; RECORDED 01/14/20 13 8:48AM BY SHELDON SHEIKH MA, MEGHANN ON/ADDEN DUM Nikole Urias PA-C [address], [place], [address] , [facility] 6 15:19:06 Breast finding [id number] Completed 201206/13/2014 RECORDED 03/17/20 13 10:01AM BY SHELDON SHEIKH MA, MEGHANN ON/ADDEN DUM Nikole Urias PA-C [address], [place], [address] , [facility] 6 15:19:06 Breast finding [id number] Completed 201205/17/2014 RECORDED 03/17/20 13 10:01AM BY SHELDON SHEIKH MA, MEGHANN ON/ADDEN DUM Nikoledileep Urias PA-C [address], [place], [address] , [facility] 6 15:19:06 Erythroc yte sediment ation rate above referenc e range 294186868 Completed 201206/13/2014 IMPRESSI ON: WILL RECHECK LABS ND PT HAS APPT TO SEE RHEUMATO LOGY; RECORDED 05/07/20 13 3:31PM BY GONZALO STEELE MA, MEGHANN ON/ADDEN DUM Nikole Urias PA-C [address], [place], [address] , [facility] 6 15:19:06 Hidtomen itis 87325124 Completed 201205/17/2014 IMPRESSI ON: SMALL UNDER AXILLA WILL RESTART MINOCYCL IN; RECORDED 05/07/20 13 3:31PM BY GONZALO STEELE MA, MEGHANN ON/ADDEN DUM Nikoledileep CHAWLA-C [address], [place], [address] , [facility] 6 15:19:05 Erythroc yte sediment ation rate above referenc e range 055888268 Completed 201205/17/2014 IMPRESSI ON: WILL RECHECK LABS ND PT HAS APPT TO SEE RHEUMATO LOGY; RECORDED 05/07/20 13 3:31PM BY GONZALO STEELE MA, MEGHANN ON/ADDEN DUM Nikole Urias DENTON-C [address], [place], [address] , [facility] 6 15:19:06 Dysfunct ion of eustachi an tube 99264374 Completed 201206/13/2014 IMPRESSI ON: START WITH SINUS RINSE, THEN DO FLONASE. CALL IN 2 WKS IF NOT IMPROVIN G AND CAN REFER TO ENT; RECORDED 06/23/20 13 8:04AM BY SHELDON SHEIKH MA, MEGHANN ON/ADDEN DUM Nikoledileep CHAWLA-C [address], [place], [address] , [facility] 6 15:19:05 Dysfunct ion of eustachi an tube 06522139 Completed 201205/17/2014 IMPRESSI ON: START WITH SINUS RINSE, THEN DO FLONASE. CALL IN 2 WKS IF NOT IMPROVIN G AND CAN REFER TO ENT; RECORDED 06/23/20 13 8:04AM BY SHELDON SHEIKH MA, MEGHANN ON/ADDEN DUM Nikolesoto Urias PA-C [address] [address], [place], [address] , [facility] 6 15:19:05 Candidal vulvovag initis 48987364 Completed 201206/13/2014 RECORDED 10/12/20 13 2:39PM BY SHELDON SHEIKH MA, MEGHANN ON/ADDEN DUM Nikoledileep Urias PA-C [address] [address], [place], [address] , [facility] 6 15:19:05 Urinary tract infectio us disease 61405935 Completed 201206/13/2014 RECORDED 10/12/20 13 2:39PM BY SHELDON SHEIKH MA, MEGHANN ON/ADDEN DUM Nikoledileep Urias PA-C [address] [address], [place], [address] , [facility] 6 15:19:05 Influenz a vaccine needed [id number] 06 Completed 201206/13/2014 RECORDED 10/12/20 13 2:39PM BY SHELDON SHEIKH MA, MEGHANN ON/ADDEN DUM Nikole Urias PA-C [address] [facility] [address], [place], [address] , [facility] 6 15:19:06 Epidermo id cyst of skin 325047955 Completed 201206/13/2014 IMPRESSI ON: ON BACK OF NECK, FULLY HEALED; RECORDED 10/12/20 13 2:39PM BY SHELDON SHEIKH MA, MEGHANN ON/ADDEN DUM Nikoledileep Urias PA-C [address] [facility] [address], [place], [address] , [facility] 6 15:19:05 Dizzines s and giddines s 787833451 Completed 201206/13/2014 RECORDED 10/12/20 13 2:39PM BY SHELDON SHEIKH MA, ANNOTATI ON/ADDEN DUM Nikole Urias PA-C [address] [facility] [address], [place], [address] , [facility] 6 15:19:05 Candidal vulvovag initis 03316989 Completed 201205/17/2014 RECORDED 10/12/20 13 2:39PM BY SHELDON SHEIKH MA, ANNOTATI ON/ADDEN DUM Nikole Urias PA-C [address] [address], [place], [address] , [facility] 6 15:19:05 Urinary tract infectio us disease 59501682 Completed 201205/17/2014 RECORDED 10/12/20 13 2:39PM BY SHELDON SHEIKH MA, ANNOTBOONE ON/ADDEN DUM Nikole [employer]-C [address] [address], [place], [address] , [facility] 6 15:19:05 Epidermo id cyst of skin 583425764 Completed 201205/17/2014 IMPRESSI ON: ON BACK OF NECK, FULLY HEALED; RECORDED 10/12/20 13 2:39PM BY SHELDON SHEIKH MA, ANNOTATI ON/ADDEN DUM Nikole Urias PA-C [address] [address], [place], [address] , [facility] 6 15:19:05 Edema 635270392 Completed 201205/17/2014 IMPRESSI ON: PROBABAL Y D/T SHORT LAPSE IN SPIRONOL ACTONE, LUNGS ARE CLEAR AND WITHOUT SIGNIFIC ANT WEIGHT GAIN BUT WILL CHECK A METABOLI C PANEL AND CXR; RECORDED 10/12/20 13 2:39PM BY SHELDON SHEIKH MA, ANNOTATI ON/ADDEN DUM [facility] 20:[facility]32 Dizzines s and giddines s 390162986 Completed 201205/17/2014 RECORDED 10/12/20 13 2:39PM BY SHELDON SHEIKH MA, ANNOTATI ON/ADDEN DUM Nikole Urias PA-C [address], [place], [address] , [facility] 6 15:19:05 Influenz a vaccine needed [id number] 06 Completed 201205/17/2014 RECORDED 10/12/20 13 2:39PM BY SHELDON SHEIKH MA, ANNOTBOONE ON/ADDEN DUM Nikole Adonay PA-C [address], [place], [address] , [facility] 6 15:19:06 Measurem ent finding [id number] Completed 201306/13/2014 RECORDED 11/18/19 14 8:54AM BY SHELDON SHEIKH MA, MEGHANN ON/ADDEN DUM Nikole Adonay PA-C [address], [place], [address] , [facility] 6 15:19:06 Cellulit is 016516704 Completed 201306/13/2014 RECORDED 11/18/19 14 8:55AM BY SHELDON SHEIKH MA, ANNOTBOONE ON/ADDEN DUM Nikole Adonay PA-C [address], [place], [address] , [facility] 6 15:19:05 Abnormal involunt luci movement 760829657 Completed 201306/13/2014 IMPRESSI ON: CONCERN FOR DEEP NECK SPACE INFECTIO N. NEED URGENT IMAGING (CT). SHE WILL GO TO [facility]. HER POST [place] HAS MEDIAL BULGING ON RIGHT. SHE UNDERSTA NDS IMPORTAN CE OF GOING; RECORDED 11/18/19 14 8:54AM BY SHELDON SHEIKH MA, ANNOTATI ON/ADDEN DUM Nikole Urias PA-C [address], [place], [address] , [facility] 6 15:19:05 Cellulit is 585017196 Completed 201305/17/2014 RECORDED 11/18/19 14 8:55AM BY SHELDON SHEIKH MA, ANNOTATI ON/ADDEN DUM Nikole Urias PA-C [address], [place], [address] , [facility] 6 15:19:05 Measurem ent finding [id number] Completed 201305/17/2014 RECORDED 11/18/19 14 8:54AM BY SHELDON SHEIKH MA, ANNOTATI ON/ADDEN DUM Nikole Adonay PA-C [address], [place], [address] , [facility] 6 15:19:06 Abnormal involunt luci movement 424403828 Completed 201305/17/2014 IMPRESSI ON: CONCERN FOR DEEP NECK SPACE INFECTIO N. NEED URGENT IMAGING (CT). SHE WILL GO TO [facility]. HER POST [place]ARY[place] HAS MEDIAL BULGING ON RIGHT. SHE UNDERSTA NDS IMPORTAN CE OF GOING; RECORDED 11/18/19 14 8:54AM BY SHELDON SHEIKH MA, MEGHANN ON/ADDEN DUM Nikole Adonay PA-C [address], [place], [address] , [facility] 6 15:19:05 Screenin g for malignan t neoplasm of breast Completed 201306/13/2014 RECORDED 02/10/20 14 3:24PM BY GONZALO STEELE MA, ANNOTATI ON/ADDEN DUM Nikole Urias PA-C [address], [place], [address] , [facility] 6 15:19:06 Patient status finding [id number] Completed 201305/17/2014 RECORDED 02/10/20 14 3:24PM BY GONZALO STEELE MA, OFFICE VISIT Nikole CORCORANC [address], [place], [address] , [facility] 6 15:19:06 Screenin g for malignan t neoplasm of breast Completed 201305/17/2014 RECORDED 02/10/20 14 3:24PM BY GONZALO STEELE MA, ANNOTATI ON/ADDEN DUM Nikole CHAWLA-C [address], [place], [address] , [facility] 6 15:19:06 Major depressi on single episode, in partial remissio n 40158567 Active 2013 Not Available [facility] 2 13:24:00 Adult health examinat ion Completed 201305/04/2015 Nikole CORCORANC [address], [place], [address] , [facility] 6 15:19:06 Lymphede md [id number] Completed 201306/13/2014 IMPRESSI ON: WILL INCREASE SPIRONOL ACTONE TO 50MG A DAY; RECORDED 02/24/20 14 11:34AM BY SHELDON SHEIKH MA, ANNOTATI ON/ADDEN DUM Nikole CORCORANC [address], [place], [address] , [facility] 6 15:19:05 Allergic rhinitis 26971434 Completed 201305/17/2014 RECORDED 02/24/20 14 11:34AM BY SHELDON SHEIKH MA, ANNOTATI ON/ADDEN DUM Nikole Adonay CHAWLA-C [address], [place], [address] , [facility] 6 15:19:05 Lymphede md [id number] Completed 201305/17/2014 IMPRESSI ON: WILL INCREASE SPIRONOL ACTONE TO 50MG A DAY; RECORDED 02/24/20 14 11:34AM BY SHELDON SHEIKH MA, ANNOTATI ON/ADDEN [facility] Nikole Urias PA-C [address], [place], [address] , [facility] 6 15:19:05 Pruritic disorder 283931721 Completed 201306/13/2014 IMPRESSI ON: MOST LIKLEY FORM FLOVENT, AVOID STEROID INHALERS FOR NOW, NO SYSTEMIC COMPLAIN TS; RECORDED 04/28/20 14 11:18AM BY SHELDON SHEIKH MA, ANNOTATI ON/ADDEN DUM Nikole Urias PA-C [address], [place], [address] , [facility] 6 15:19:05 Contact dermatit is [id number] Completed 201304/02/2017 Mirza de la cruz [facility] 7 20:49:00 Radial styloid tenosyno vitis 67280687 Completed 201309/20/2016 Mirza de la cruz [facility] 6 15:26:47 Edema 666553112 Completed 201304/02/2017 Mirza de la cruz [facility] 7 20:49:32 Vitamin D deficien cy 31141534 Active 2013 Not Available [facility] 2 13:24:00 Anemia 361893498 Completed 201304/02/2017 Mirza de la cruz [facility] 7 20:49:27 Anxiety state 541474051 Active 2013 Not Available [facility] 2 13:24:00 Hypokale roni 30043653 Completed 201304/02/2017 Mirza de la cruz [facility] 7 20:48:48 Phobia 141405515 Completed 201304/02/2017 Mirza de la cruz [facility] 7 20:49:04 Mood disorder 56829913 Completed 201305/04/2015 Nikole Urias PA-C [address], [place], [address] , [facility] 6 15:19:05 Allergic rhinitis 93064077 Active 2013 Not Available [facility] 2 13:24:00 Irritabl e bowel syndrome 76703182 Active 2013 Not Available [facility] 2 13:24:00 Glossiti s 12709131 Completed 201304/02/2017 Mirza de la cruz [facility] 7 20:48:45 Bite of animal Completed 201304/02/2017 [facility] 7 20:48:50 Cyst of ovary 35657259 Completed 201302/12/2017 Mirza de la cruz [facility] 7 15:26:35 Patient status finding [id number] Completed 201305/04/2015 Nikole Urias PA-C [address], [place], [address] , [facility] 6 15:19:06 Malaise and fatigue 646872086 Completed 201304/02/2017 Mirza de la cruz [facility] 7 20:49:24 Pure hypercho lesterol emia 676576303 Completed 201304/02/2017 Mirza de la cruz [facility] 7 20:49:29 Low back pain 462656243 Completed 201304/02/2017 Mirza de la cruz [facility] 7 20:49:21 Jack serna 86619434 Active 2014 Not Available [facility] 2 13:24:00 Gastro-e sophagea l reflux disease with esophagi tis 599832331 Active 2014 Not Available [facility] 2 13:24:00 Essentia l hyperten carmelita 07122070 Active 2014 Mariah Romero LPN null, [facility] 5 11:51:30 Asthma 433800047 Completed 201404/14/2020 Mirza de la cruz, [facility] 0 15:50:46 Fibromyo sitis 02413052 Active 2014 Not Available [facility] 2 13:24:00 Congesti ve heart failure 48070377 Completed 201604/14/2020 Mirza de la cruz, [facility] 0 15:50:26 Umbilica l hernia 688337384 Active 2016 Not Available [facility] 2 13:24:00 Restrict nader lung disease 56940479 Active 2016 Not Available [facility] 2 13:24:00 Type 2 diabetes mellitus 94543124 Completed 201706/23/2019 Mirza de la cruz, [facility] 0 15:50:37 Type 2 diabetes mellitus 92879290 Completed 201704/14/2020 Mirza de la cruz [facility] 0 15:50:37 Chronic diastoli c heart failure 687763323 Active 2018 Not Available [facility] 2 13:24:00 Divertic ulitis 225300587 Completed 201812/24/2019 Mirza de la cruz, [facility] 1 16:14:56 Type 2 diabetes mellitus 15443198 Completed 201812/24/2019 Mirza SkaggsSarai tim null, [facility] 0 15:50:37 Hyperlip idemia 98102079 Active 2019 Mariah Romero LPN null, [facility] 5 11:51:30 Divertic ulitis 945228133 Completed 202007/11/2021 Mirza TapiabetinaMary AnnSarai tim null, [facility] 1 16:14:56 Disorder of nervous system due to type 2 diabetes mellitus 526223637 Active 2021 Not Available [facility] 2 13:24:00 Diabetic peripher al neuropat hy 994469697 Active 2021 Not Available [facility] 2 13:24:00 COVID-19 038340945 Completed 202105/01/2023 MARIA DEL ROSARIO ONEILL MD [address], [place], [address] , [facility] 3 08:07:31 Divertic ulitis of colon 631665753 Active 2022 MARIA DEL ROSARIO ONEILL MD [address], [place], [address] , [facility] 3 09:36:57 Hypomagn esemia 305769079 Completed 202209/20/2024 MARIA DEL ROSARIO ONEILL MD [address], [place], [address] , [facility] 4 10:23:30 Morbid obesity 139981599 Active 2022 Filomena Ferris null, [facility] 3 09:03:34 Thoracic back pain 584737560 Active 2022 Poncho Manuel [facility] [address], [place], [address] , [facility] 3 11:19:05 Rib pain 956134090 Active 2022 GREG Liang [address], [place], [address] , [facility] 3 11:19:18 Iron deficien cy anemia 18702170 Active 2023 MARIA ESTHER Moncada, [facility] 4 16:17:09 Acute pharyngi tis 975784839 Completed 202307/30/2024 MARIA ESTHER Moncada, [facility] 4 09:51:00 Fever 421565449 Completed 202309/20/2024 MARIA DEL ROSARIO ONEILL MD [address], [place], [address] , [facility] 4 10:23:21 Exacerba tion of moderate persiste nt asthma 422562511 Completed 202309/20/2024 MARIA DEL ROSARIO ONEILL MD [address] [facility] [address], [place], [address] , [facility] 4 10:17:08 Nasal congesti on 95614468 Completed 202309/20/2024 MARIA DEL ROSARIO ONEILL MD [address] [facility] [address], [place], [address] , [facility] 4 10:17:44 Acute sinusiti s 94061707 Completed 202309/20/2024 MARIA DEL ROSARIO ONEILL MD [address] [facility] [address], [place], [address] , [facility] 4 10:16:49 Cough 83537698 Completed 202309/20/2024 MARIA DEL ROSARIO ONEILL MD [address] [facility] [address], [place], [address] , [facility] 4 10:23:16 Acute constipa tion 290439196 Active 2024 Mk de la cruz, [facility] 5 12:29:59 Hidraden itis suppurat mynor 32146470 Active 2024 Mk de la cruz, [facility] 5 12:36:57 Problem Notes None recorded. Procedures Surgical History Date Name Laterality Status Provider Name and Address Organization Details Recorded Time 09/21/20 24 I&D completed MARIA DEL ROSARIO ONEILL MD [address] [address], [place], [address], [facility] 09/21/2024 18:38:42 04/30/20 24 Endoscopic us exam esoph completed Luna Albarado [facility] 05/26/2024 08:25:26 04/19/20 24 Diabetic Foot Exam (Monofilament) completed Liborio Wilson [facility] 04/19/2024 11:26:34 03/12/20 23 diabetic retinopathy screening completed Luna Albarado [facility] 03/27/2023 13:05:58 04/29/20 22 Most Recent Mammogram completed Becky Rendon [facility] 05/02/2022 10:32:42 04/29/20 22 Mammogram Diagnostic Bilateral completed Becky Rendon [facility] 05/02/2022 10:32:31 04/26/20 22 Diabetic Foot Exam (Monofilament) completed Tanya Younger MA [facility] 04/26/2022 10:48:34 03/12/20 22 Diabetic Foot Exam (Monofilament) completed Nikole Urias PA-C [id number] [address], [place], [id number], [facility] 03/12/2022 13:51:50 03/03/20 21 Date of Last Pap Smear completed Pau Arriaza MA [facility] 05/02/2023 09:43:32 12/08/19 21 Date of Last Colonoscopy completed Pau Arriaza MA [facility] 05/02/2023 09:43:11 12/23/19 20 catheterization of right heart completed Pau Arriaza MA [facility] 12/24/2019 09:28:59 05/15/20 18 hernia repair completed Pau Arriaza MA [facility] 12/23/2018 11:20:55 12/08/19 18 Mammogram one breast completed Callie Howell [facility] 12/13/2017 11:59:24 10/16/20 17 FOBT completed Deshaun arriaga MA [facility] 10/16/2017 14:28:58 07/02/20 17 Breast Biopsy completed Becky Rendon [facility] 07/30/2017 11:47:14 05/02/20 16 Ultrasound of breast completed Becky Rendon [facility] 05/02/2016 15:51:32 11/03/18 96 Caesarean Section completed Yulisa Rosales [facility] 10/30/2015 13:54:35 Colonoscopy completed Danilo Urias PA-C [address], [id number] [place] [address] 06/03/2024 14:54:19 Imaging Results None recorded. Procedure Notes None recorded. Medical Equipment None Reported. Allergies Allergen ID Allergen Name Allergen Category Reaction Reaction Severity Criticality Documentation Date Start Date Code Code System Note Provider Name and Address Organization Details Recorded Time 58185 lisinopri l medicatio n cough Not available Not available 09/05/2015 92177 RxNorm MARIA ESTHER Vyas [facility] 5 10:41:56 91854 glipizide medicatio n Not available Not available Not available 08/04/2017 4821 RxNorm aller gy to sulfa MARIA ESTHER Bobo [facility] 7 16:20:38 32040 hydrochlo rothiazid e medicatio n Not available Not available Not available 12/31/2019 5487 RxNorm Mariah RomeroLUCRETIA [facility] 4 15:32:08 44256 Keflex medicatio n anaphylax is Not available Not available 12/31/2019 35995 7 RxNorm Shanique Palma jono [facility] 0 11:51:21 54767 Substance with sulfonami de structure and antibacte rial mechanism of action (substanc e) medicatio n rash severe Not available 12/31/2019 51603 8003 SNOMED Shanique Palma jono [facility] 0 11:51:22 5896 Augmentin medicatio n nausea Not available Not available 05/17/20142013 83211 2 RxNorm Deshaun Carlos Alberto-MARIA ESTHER Lees [facility] 5 16:04:47 5897 cephalexi n monohydra te medicatio n other Not available Not available 05/17/20142013 23670 8 RxNorm LIP TINGL ING AND PALET TE TINGL ING MARIA ESTHER Bobo [facility] 5 16:04:47 5898 hydrochlo rothiazid e medicatio n angioedem a itching Not available Not available Not available 05/17/20142013 5487 RxNorm FACIA L SWELL ING Deshaun Carlos Alberto-MARIA ESTHER Lees [facility] 9 14:34:17 5899 sulfameth oxazole medicatio n angioedem a rash Not available Not available Not available 05/17/20142013 56917 RxNorm Deshaun Carlos Alberto-M MARIA ESTHER nava [facility] 9 14:34:05 Medications Name Sig Start Date Stop Date Status Note LastModified by Organization Details LastModified Time Prescript ion - Prior Authoriza tion Request 02/24 completed Not Available Not Available Not Available tetracycl ine 500 mg capsule TAKE 1 CAPSULE BY MOUTH TWICE A DAY FOR 90 DAYS 12/27 completed Not Available Not Available Not Available losartan 50 mg tablet TAKE 1 TABLET BY MOUTH EVERY DAY DIRECTED 2024 active Not Available Not Available Not Avai lable cyclobenz aprine 10 mg tablet TAKE 1 TABLET 3 TIMES A DAY BY MOUTH DIRECTED FOR 10 DAYS, FOR MUSCLE SPASM. 08/09 completed Not Available Not Available Not Available amoxicill in 500 mg capsule Take 1 capsule every 12 hours by oral route. 07/24 completed Not Available Not Available Not Available furosemid e 40 mg tablet 01/02 completed Not Available Not Available Not Available azithromy mitzy 250 mg capsule DIRECTED 12/30 completed RECORDED 01/03/20 10 10:39AM BY SHAY STEELE, PA-C, MEDICATI ON AUTO-SYEDA CTIVATIO N;TAKE TWO TABS DAY ONE FOLLOWED BY ONE TAB DAILY DAYS 2-5 Not Available Not Available Not Available Miralax 17 gram/dose oral powder Take 17 g every day by oral route as needed. 2024 active Not Available Not Available Not Avai lable clotrimaz ole 10 mg krzysztof FOUR TIMES DAILY 11/25 completed RECORDED 12/13/19 14 5:10PM BY BALDOMERO STOKES MD, MEDICATI ON AUTO-SYEDA CTIVATIO N; Not Available Not Available Not Available nystatin 100,000 unit/mL oral suspensio n Take 5 mL 4 times a day by oral route for 7 days. 09/02 completed Not Available Not Available Not Available prednison e 10 mg tablet PLEASE SEE ATTACHED FOR DETAILED DIRECTIO NS 08/10 completed Not Available Not Available Not Available Protonix 40 mg tablet,de layed release Take 1 tablet twice a day by oral route as directed for 30 days. 08/09 completed Not Available Not Available Not Available doxycycli ne hyclate 100 mg capsule TAKE 1 CAPSULE TWICE A DAY BY ORAL ROUTE WITH MEALS FOR 10 DAYS. 08/20 completed Not Available Not Available Not Available Toprol XL 25 mg tablet,ex tended release DAILY 01/30 completed RECORDED 01/31/20 12 4:08PM BY YULISA CORDERO I, ANNOTATI ON/ADDJOSE MIGUEL DUM; Not Available Not Available Not Available ipratropi um 0.5 mg-albute rol 3 mg (2.5 mg base)/3 mL nebulizat ion soln INHALE 1 VIAL VIA NEBULIZE R 4 TIMES A DAY active Not Available Not Available No t Available torsemide 20 mg tablet 04/11 completed Not Available Not Available Not Available bumetanid e 2 mg tablet TAKE 1 & 1/2 TABLETS BY MOUTH EVERY MORNING AND TAKE 1 TABLET EVERY EVENING 2024 active Not Available Not Available Not Avai lable clindamyc in HCl 300 mg capsule TAKE 1 CAPSULE BY MOUTH EVERY 8 HOURS FOR10 DAYS TAKE IF STREP CULTURE IS POSITIVE . 02/25 completed Not Available Not Available Not Available verapamil 40 mg tablet TAKE 1 TABLET BY MOUTH 3 TIMES A DAY active Not Available Not Available No t Available Vitamin C 500 mg tablet TAKE 1 TABLET BY MOUTH EVERY DAY 2024 active Not Available Not Available Not Avai lable Cortispor in 3.5 mg/mL-10, 000 unit/mL-1 % ear drops,rosy pension FOUR TIMES DAILY 07/25 completed RECORDED 08/29/20 09 1:35PM BY CRALENE MACIEL PA-C, MEDICATI ON AUTO-SYEDA CTIVATIO N; Not Available Not Available Not Available azithromy mitzy 250 mg tablet TAKE 2 TABLETS (500 MG) BY ORAL ROUTE ONCE DAILY FOR 1 DAY THEN 1 TABLET (250 MG) BY ORAL ROUTE ONCE DAILY FOR 4 DAYS 03/12 completed Not Available Not Available Not Available ibuprofen 800 mg tablet 01/02 completed Not Available Not Available Not Available fluconazo le 150 mg tablet 01/02 completed Not Available Not Available Not Available benzonata te 200 mg capsule Take 1 capsule 3 times a day by oral route as needed for 10 days, for cough. 08/20 completed Not Available Not Available Not Available citalopra m 10 mg tablet DAILY 09/04 completed RECORDED 09/04/20 12 3:16PM BY DESHAUN REDDY MA, OFFICE VISIT; Not Available Not Available Not Available clarithro mycin 500 mg tablet Take 1 tablet twice a day by oral route as directed for 10 days. 12/28 completed Not Available Not Available Not Available minocycli ne 100 mg capsule TAKE 1 CAPSULE BY MOUTH EVERY 12 HOURS active Not Available Not Available No t Available phenazopy ridine 200 mg tablet QHS PRN SPASM 03/29 completed RECORDED 04/03/20 12 11:15AM BY MIRZA Gardner MD, MEDICATI ON AUTO-SYEDA CTIVATIO N; Not Available Not Available Not Available prednison e 20 mg tablet TAKE 2 TABLETS BY MOUTH EVERY DAY DIRECTED FOR 5 DAYS 09/26 completed Not Available Not Available Not Available clonazepa m 0.5 mg tablet TAKE 1 TABLET BY MOUTH TWICE A DAY NEEDED active Not Available Not Available No t Available sertralin e 100 mg tablet 04/11 completed Not Available Not Available Not Available Advair Diskus 100 mcg-50 mcg/dose powder for inhalatio n EVERY 12 HOURS 01/15 completed RECORDED 01/16/20 12 9:02AM BY PAU ARRIAZA, OFFICE VISIT; Not Available Not Available Not Available meclizine 12.5 mg tablet THREE TIMES DAILY PRN 10/29 completed RECORDED 12/05/19 13 8:22AM BY SHAY STEELE [facility]-C, [facility]; Not Available Not Available Not Available amlodipin e 2.5 mg tablet 01/02 completed Not Available Not Available Not Available potassium chloride ER 10 mEq tablet,ex tended release TAKE 2 TABLETS BY MOUTH EVERY DAY active Not Available Not Available No t Available metronida zole 500 mg tablet TAKE 1 TABLET BY MOUTH EVERY 8 HOURS FOR 7 DAYS 07/30 completed Not Available Not Available Not Available ciproflox acin 250 mg tablet BID 09/23 completed RECORDED 09/28/20 13 3:45PM BY ANNA CHAPA, MEDICATI ON AUTO-SYEDA CTIVATIO N; Not Available Not Available Not Available amlodipin e 5 mg tablet Take 1 tablet every day by oral route for 30 days. active Not Available Not Available No t Available ciproflox acin 500 mg tablet TAKE 1 TABLET BY MOUTH EVERY 12 HOURS FOR 7 DAYS 07/30 completed Not Available Not Available Not Available sulfameth oxazole 800 mg-trimet hoprim 160 mg tablet TWO TIMES DAILY 10/28 completed RECORDED 11/23/19 10 4:32PM BY SHAY STEELE PA-C, MEDICATI ON AUTO-SYEDA CTIVATIO N; Not Available Not Available Not Available doxycycli ne monohydra te 100 mg tablet Take 1 tablet twice a day by oral route for 10 days. 01/28 completed Not Available Not Available Not Available spironola ctone 25 mg tablet TAKE 1 TABLET BY MOUTH EVERY DAY 08/09 completed Not Available Not Available Not Available bupropion HCl SR 100 mg tablet,12 hr sustained -release TAKE 1 TABLET BY MOUTH EVERY DAY 07/02 completed Not Available Not Available Not Available Medrol 4 mg tablet DAILY 02/01 completed RECORDED 02/14/20 10 7:08AM BY CARLENE MACIEL PA-C, MEDICATI ON AUTO-SYEDA CTIVATIO N;TAKE MEDROL DOSEPAK DIRECTED Not Available Not Available Not Available oxycodone -acetamin ophen 5 mg-325 mg tablet 07/27 completed Not Available Not Available Not Available rifampin 300 mg capsule Take 1 capsule every 12 hours by oral route for 84 days. 01/17 completed Not Available Not Available Not Available Fluticaso ne Propionat e (Inhal) 50 mcg/BLIST inhl powd EACH NOSTRIL ONCE DAILY 2012 active RECORDED 02/10/20 14 3:26PM BY GONZALO STEELE MA, OFFICE VISIT; Not Available Not Available Not Available amoxicill in 875 mg tablet BID 09/10 completed RECORDED 09/25/20 11 3:33PM BY MIRZA Gardner MD, MEDICATI ON AUTO-SYEDA CTIVATIO N; Not Available Not Available Not Available citalopra m 20 mg tablet DAILY 04/05 completed RECORDED 04/05/20 10 3:20PM BY DESHAUN REDDY MA, OFFICE VISIT; Not Available Not Available Not Available lorazepam 0.5 mg tablet TAKE 1 TABLET BY MOUTH DAILY NEEDED FOR ANXIETY 12/09 completed Not Available Not Available Not Available clindamyc in 1 % topical gel PLEASE SEE ATTACHED FOR DETAILED DIRECTIO NS active Not Available Not Available No t Available furosemid e 80 mg tablet 04/11 completed Not Available Not Available Not Available OneTouch Ultra Test strips USE 1 STRIP EVERY DAY DIRECTED active Not Available Not Available No t Available benzonata te 100 mg capsule TAKE 1 CAPSULE BY MOUTH THREE TIMES A DAY NEEDED FOR 10 DAYS 10/21 completed Not Available Not Available Not Available deslorata dine 5 mg tablet DAILY 01/31 completed RECORDED 02/14/20 10 7:08AM BY CARLENE MACIEL PA-C, MEDICATI ON AUTO-SYEDA CTIVATIO N;SAMPLE S Not Available Not Available Not Available cephalexi n 500 mg capsule TID 01/20 completed RECORDED 01/21/20 13 3:29PM BY PAU ARRIAZA, OFFICE VISIT; Not Available Not Available Not Available Atrovent 0.02 % solution for inhalatio n Inhale 2.5 mL every 6 hours by inhalati on route. 08/09 completed Not Available Not Available Not Available ferrous sulfate 325 mg (65 mg iron) tablet TAKE 1 TABLET BY MOUTH EVERY DAY active Not Available Not Available No t Available esomepraz ole magnesium 40 mg capsule,d elayed release Take 1 capsule every day by oral route as directed . active Not Available Not Available No t Available nystatin 100,000 unit/gram topical cream APPLY TO THE AFFECTED AREA(S) BY TOPICAL ROUTE 2 TIMES PER DAY 03/24 completed Not Available Not Available Not Available lisinopri l 10 mg tablet 01/02 completed Not Available Not Available Not Available prednison e 50 mg tablet 05/14 completed Not Available Not Available Not Available Antivert 25 mg tablet TID PRN VERTIGO 08/06 completed RECORDED 08/29/20 09 1:35PM BY CARLENE MACIEL PA-C, MEDICATI ON AUTO-SYEDA CTIVATIO N; Not Available Not Available Not Available losartan 25 mg tablet TAKE 1 TABLET BY MOUTH EVERY DAY 03/27 completed currentl y on the 50mg Not Available Not Available Not Available indometha mitzy 25 mg capsule Take 1 capsule 3 times a day by oral route as needed for 20 days. 11/13 completed Not Available Not Available Not Available minocycli ne 50 mg capsule Take 100 mg by oral route. 03/24 completed Not Available Not Available Not Available bupropion HCl 75 mg tablet DAILY 04/24 completed RECORDED 04/24/20 12 8:50AM BY PAU ARRIAZA, OFFICE VISIT; Not Available Not Available Not Available Advair Diskus 500 mcg-50 mcg/dose powder for inhalatio n BID 01/15 completed RECORDED 01/16/20 12 9:02AM BY PAU ARRIAZA, OFFICE VISIT; Not Available Not Available Not Available diclofena c potassium 50 mg tablet Take 1 tablet twice a day by oral route. active Not Available Not Available No t Available magnesium 500 mg (as magnesium oxide) tablet Take 1 tablet every day by oral route as needed. 08/13 completed Not Available Not Available Not Available omeprazol e 20 mg capsule,d elayed release active Not Available Not Available Not Available budesonid e 0.5 mg/2 mL suspensio n for nebulizat ion INHALE 1 VIAL VIA NEBULIZE R TWICE A DAY 03/23 completed Not Available Not Available Not Available bumetanid e 1 mg tablet Take 1 tablet every day by oral route. 04/26 completed Not Available Not Available Not Available monteluka st 10 mg tablet TAKE 1 TABLET BY MOUTH EVERY DAY 2024 active Not Available Not Available Not Avai lable zinc 50 mg tablet Take 1 tablet every day by oral route as needed. 04/26 completed Not Available Not Available Not Available magnesium 250 mg tablet Take 1 tablet every day by oral route. active Not Available Not Available No t Available hydrochlo rothiazid e 25 mg tablet DAILY 07/01 completed RECORDED 07/01/20 11 3:32PM BY MEGHANN ROSALES ON/HERNANDEZ STARKS; Not Available Not Available Not Available mupirocin 2 % topical ointment APPLY A SMALL AMOUNT to nares twice daily for 5 days 12/27 completed Not Available Not Available Not Available furosemid e 20 mg tablet Take 3 tablets twice a day by oral route for 7 days. 11/25 completed Not Available Not Available Not Available ergocalci ferol (vitamin D2) 1,250 mcg (50,000 unit) capsule DAILY 04/09 completed RECORDED 04/09/20 10 2:51PM BY ANNA CHAPA, ANNOTATI ON/ADDJOSE MIGUEL DUM;OTC Not Available Not Available Not Available lorazepam 1 mg tablet DAILY PRN ANXIETY FOR MRI 09/05 completed RECORDED 09/08/20 12 8:29AM BY MIRZA Gardner MD, MEDICATI ON AUTO-YSEDA CTIVATIO N; Not Available Not Available Not Available Nasonex 50 mcg/actua tion [place] DAILY 2010 active RECORDED 01/16/20 12 9:02AM BY PAU ARRIAZA, OFFICE VISIT;SA MPLE GIVEN Not Available Not Available Not Available levofloxa mitzy 500 mg tablet TAKE 1 TABLET BY MOUTH EVERY DAY WITH FOOD FOR 1 WEEK 07/30 completed Not Available Not Available Not Available levofloxa mitzy 750 mg tablet TAKE 1 TABLET BY MOUTH EVERY DAY FOR 4 DAYS 05/02 completed Not Available Not Available Not Available methylpre dnisolone 4 mg tablets in a dose pack Take 1 dose pk every day by oral route as directed for 6 days. 03/24 completed Not Available Not Available Not Available albuterol sulfate HFA 90 mcg/actua tion aerosol inhaler Inhale 2 inhalati ons 4 times a day by inhalati on route as needed. active Not Available Not Available No t Available Zoloft 25 mg tablet Take 25 mg by oral route. 03/24 completed Not Available Not Available Not Available ondansetr on 4 mg disintegr ating tablet 07/27 completed Not Available Not Available Not Available losartan 100 mg tablet 01/02 completed Not Available Not Available Not Available fluoxetin e 20 mg capsule DAILY 04/05 completed RECORDED 04/05/20 10 3:20PM BY DESHAUN REDDY MA, OFFICE VISIT; Not Available Not Available Not Available Vicks Vaporub 5.2 %-1.2 %-2.8 % topical cream rubbing on her forehead and neck 08/01 /2024 completed Not Available Not Available Not Available sertralin e 50 mg tablet 04/11 completed Not Available Not Available Not Available doxycycli ne hyclate 100 mg tablet TAKE 1 TABLET BY MOUTH TWICE A DAY DIRECTED FOR 7 DAYS 04/19 completed Not Available Not Available Not Available chlorhexi dine gluconate 4 % topical liquid 1-2 TIMES DAILY 04/09 completed RECORDED 04/09/20 10 2:51PM BY MEGHANN ROSALES ON/ADDEN DUM; Not Available Not Available Not Available loratadin e 10 mg tablet DAILY 08/27 completed RECORDED 08/27/20 11 7:53AM BY RIAN RODRIGEZ MA, OFFICE VISIT; Not Available Not Available Not Available glipizide 5 mg tablet 08/04 completed Not Available Not Available Not Available spironola ctone 50 mg tablet TAKE 1 TABLET BY MOUTH TWICE A DAY active Not Available Not Available No t Available amoxicill in 875 mg-potass ium clavulana te 125 mg tablet 05/14 completed Not Available Not Available Not Available Tylenol Extra Strength 500 mg tablet Take 2 tablets every 6 hours by oral route as needed. 02/10 completed Not Available Not Available Not Available esomepraz ole magnesium 20 mg capsule,d elayed release Take 1 capsule every day by oral route. active Not Available Not Available No t Available Vitamin D 50,000 unit capsule EVERY 04/09 completed RECORDED 04/09/20 10 2:51PM BY MEGHANN ROSALES ON/HERNANDEZ DUM;THIS ORDER DISCONTI NUED PER [facility]. Not Available Not Available Not Available albuterol (refill) 90 mcg/actua tion aerosol inhaler Q 4-6 HRS PRN COUGH/WH EEZE 2012 active RECORDED 07/29/20 13 7:21PM BY MIRZA Gardner MD, REFILL REQUEST; Not Available Not Available Not Available azithromy mitzy 500 mg tablet 01/05 completed Not Available Not Available Not Available escitalop hussein 10 mg tablet DAILY 04/05 completed RECORDED 04/05/20 10 3:19PM BY DESHAUN REDDY MA, OFFICE VISIT; Not Available Not Available Not Available metaxalon e 800 mg tablet Take 1 tablet 3 times a day by oral route as directed for 6 days. 09/22 completed Not Available Not Available Not Available Vitamin D3 25 mcg (1,000 unit) capsule Take 3 capsules every day by oral route. active Not Available Not Available No t Available cyclobenz aprine 5 mg tablet Take 1 tablet 3 times a day by oral route as needed for 10 days. 09/21 completed Not Available Not Available Not Available minocycli ne 100 mg tablet 05/14 completed Not Available Not Available Not Available metformin ER 750 mg tablet,ex tended release 24 hr TAKE 1 TABLET BY MOUTH TWICE A DAY active Not Available Not Available No t Available Klor-Con M10 mEq tablet,ex tended release Take 2 tablets every day by oral route. 07/29 completed Not Available Not Available Not Available bupropion HCl XL 300 mg 24 hr tablet, extended release DAILY 04/24 completed RECORDED 04/24/20 12 8:50AM BY PAU ARRIAZA, OFFICE VISIT; Not Available Not Available Not Available escitalop hussein 5 mg tablet DAILY 08/06 completed RECORDED 08/06/20 13 3:31PM BY PAU ARRIAZA, OFFICE VISIT; Not Available Not Available Not Available Readi-Cat 2 2.1 % (w/v), 2.0 % (w/w) oral suspensio n Take 450 mL twice a day by oral route as directed for 1 day. 02/09 completed Not Available Not Available Not Available Spiriva with HandiHale r 18 mcg and inhalatio n capsules INHALE CONTENTS OF 1 CAPSULE DAILY 07/08 completed Not Available Not Available Not Available nitrofura ntoin monohydra te/macroc rystals 100 mg capsule Take 1 capsule twice a day by oral route for 7 days. 11/25 completed Not Available Not Available Not Available duloxetin e 20 mg capsule,d elayed release Take 2 capsules every day by oral route for 90 days. 10/10 completed Not Available Not Available Not Available duloxetin e 30 mg capsule,d elayed release Take 1 capsule twice a day by oral route for 90 days. active Not Available Not Available No t Available duloxetin e 60 mg capsule,d elayed release TAKE 1 CAPSULE BY MOUTH EVERY DAY IN THE MORNING 08/10 completed Not Available Not Available Not Available lactulose 10 gram/15 mL oral solution 04/11 completed Not Available Not Available Not Available Flovent HFA 110 mcg/actua tion aerosol inhaler 06/13 completed Not Available Not Available Not Available Amoxil TWO TIMES DAILY 01/05 completed RECORDED 01/26/20 10 2:46PM BY ANGIE COE, MEDICATI ON AUTO-SYEDA CTIVATIO N; Not Available Not Available Not Available Norvasc 1 TAB(S), 2.5 MG, ONCE A DAY, 30 DAY(S) 01/02 completed Not Available Not Available Not Available Singulair 1 TAB(S), 10 MG, ONCE A DAY (IN THE EVENING) , 30 DAY(S) 01/02 completed Not Available Not Available Not Available Citracal DAILY active RECORDED 02/23/20 14 9:06AM BY PAU ARRIAZA, OFFICE VISIT; Not Available Not Available Not Available Botox 06/13 completed Not Available Not Available Not Available Vitamin D3 2000 po qd 04/26 completed Not Available Not Available Not Available E-Z Spacer NEEDED 09/26 completed RECORDED 09/26/20 11 3:38PM BY RIAN RODRIGEZ MA, MEDICATI ON AUTO-SYEDA CTIVATIO N; Not Available Not Available Not Available multivita min TAKE 1 TABLET PO DAILY, PRN 03/24 completed Not Available Not Available Not Available Clindagel 1 1. 04/14 completed Not Available Not Available Not Available Flovent HFA TWO TIMES DAILY 03/23 completed RECORDED 03/23/20 14 9:23AM BY MIRZA Gardner MD, ANNOTATI ON/HERNANDEZ DUM;RINS E MOUTH AFTER EACH USE Not Available Not Available Not Available Symbicort 160 mcg-4.5 mcg/actua tion HFA aerosol inhaler INHALE 2 PUFFS TWICE A DAY 07/08 completed Not Available Not Available Not Available lisdexamf etamine 30 mg capsule 09/21 completed Not Available Not Available Not Available omeprazol e 20 mg tablet,de layed release Take 1 tablet every day by oral route. 07/08 completed Not Available Not Available Not Available lisdexamf etamine 20 mg capsule TAKE 1 CAPSULE BY MOUTH EVERY DAY IN THE MORNING active Not Available Not Available No t Available oxycodone 10 mg tablet 04/11 completed Not Available Not Available Not Available Dulera 200 mcg-5 mcg/actua tion HFA aerosol inhaler INHALE 2 PUFFS BY MOUTH TWICE A DAY 07/11 completed Not Available Not Available Not Available Dulera 2 1s. 04/14 completed Not Available Not Available Not Available Combivent Respimat 20 mcg-100 mcg/actua tion solution for inhalatio n po prn 10/21 completed Not Available Not Available Not Available EpiPen 2-Derick PRN ALLERGY 08/13 completed Not Available Not Available Not Available Victoza 2-Derick 0.6 mg/0.1 mL (18 mg/3 mL) subcutane ous pen injector Inject 0.6 mg by subcutan eous route for 30 days. 10/15 completed Not Available Not Available Not Available Farxiga 10 mg tablet TAKE 1 TABLET BY MOUTH EVERY DAY active Not Available Not Available No t Available guaifenes in ER 600 mg tablet, extended release 12 hr TAKE 1 TABLET BY MOUTH TWICE A DAY DIRECTED FOR 10 DAYS 08/10 completed Not Available Not Available Not Available Flonase Allergy Relief 50 mcg/actua tion nasal spray,rosy pension [place] 2 sprays every day by intranas al route. active Not Available Not Available No t Available duloxetin e 40 mg capsule,d elayed release Take 1 capsule every day by oral route for 30 days. 06/27 completed Not Available Not Available Not Available Breo Ellipta 200 mcg-25 mcg/dose powder for inhalatio n INHALE 1 PUFF INTO LUNGS ONCE DAILY active Not Available Not Available No t Available Readi-Cat 2 2 % (w/v) oral suspensio n DRINK 450ML BY MOUTH 6 HRS PRIOR APPT 450ML 90 MINS PRIOR APPT DIRECTED DO NOT EAT 3HRS PRIOR 03/29 completed Not Available Not Available Not Available Qvar RediHaler 80 mcg/actua tion HFA breath activated aerosol INHALE 1 DOSE TWICE A DAY 11/13 completed Not Available Not Available Not Available OneTouch Ultra Blue Test Strip Take 1 strip 3 times a day by miscell. route for 90 days. 03/23 completed Not Available Not Available Not Available Afluria Quad (PF) 60 mcg (15 mcg x 4)/0.5 mL IM syringe 04/11 completed Not Available Not Available Not Available magnesium 400 mg (as magnesium oxide) tablet Take 1 tablet twice a week by oral route as needed. 03/23 completed takes when not feeling nauseous Not Available Not Available Not Available OneTouch Delica Plus Lancet 30 gauge Take 1 each 3 times a day by miscell. route for 90 days. active Not Available Not Available No t Available Flucelvax Quad (PF) 60 mcg (15 mcg x 4)/0.5 mL IM syringe 04/14 completed Not Available Not Available Not Available Trelegy Ellipta 200 mcg-62.5 mcg-25 mcg powder for inhalatio n 1 INHALATI ON DAILY 07/08 completed Not Available Not Available Not Available BinaxNOW COVID-19 Ag Self Test kit TEST DIRECTED TODAY 02/03 completed Not Available Not Available Not Available Paxlovid 300 mg (150 mg x 2)-100 mg tablets in a dose pack TAKE 3 TABLETS BY MOUTH TWICE A DAY DIRECTED FOR 5 DAYS 12/15 completed Not Available Not Available Not Available Bimzelx Autoinjec tor 320 mg/2 mL subcutane ous auto-inje ctor one injectio n every 2 weeks x 4 months active Not Available Not Available No t Available Vitals Date Recorded Body height Body mass index (BMI) Body weight Heart rate Oxygen saturation Oxygen saturation in Arterial blood by Pulse oximetry Body temperature Systolic And Diastolic Provider Name and Address Organization Details Last Updated DateTime 5 160.02 cm 45.9 kg/m2 987255. 42 g 89 /min 98 % 98 % 97.9 [degF] 111/72 mm[Hg] Quyen Knox MA [facility] 5 14:05:38 Date Recorded Body height Body mass index (BMI) Body weight Oxygen saturation Oxygen saturation in Arterial blood by Pulse oximetry Heart rate Body temperature Systolic And Diastolic Provider Name and Address Organization Details Last Updated DateTime 5 160.02 cm 45.9 kg/m2 043427. 42 g 99 % 99 % 82 /min 98.2 [degF] 101/67 mm[Hg] Pau Arriaza MA [facility] 5 13:04:13 Date Recorded Body height Body mass index (BMI) Body weight Oxygen saturation Oxygen saturation in Arterial blood by Pulse oximetry Heart rate Body temperature Systolic And Diastolic Provider Name and Address Organization Details Last Updated DateTime 5 160.02 cm 45.5 kg/m2 014429. 24 g 97 % 97 % 81 /min 98.4 [degF] 109/73 mm[Hg] Pau Arriaza [facility] 5 15:12:28 Date Recorded Body height Body mass index (BMI) Body weight Heart rate Oxygen saturation Oxygen saturation in Arterial blood by Pulse oximetry Body temperature Systolic And Diastolic Provider Name and Address Organization Details Last Updated DateTime 5 160.02 cm 44.7 kg/m2 945376. 38 g 111 /min 95 % 95 % 98.5 [degF] 122/81 mm[Hg] Mariah Romero LPN [facility] 5 11:51:02 Date Recorded Body height Body mass index (BMI) Body weight Heart rate Oxygen saturation Oxygen saturation in Arterial blood by Pulse oximetry Body temperature Systolic And Diastolic Provider Name and Address Organization Details Last Updated DateTime 5 160.02 cm 45.2 kg/m2 959932. 05 g 94 /min 96 % 96 % 97.5 [degF] 96/65 mm[Hg] Young stephens MA [facility] 5 09:35:27 Social History Question Answer Notes LastModified by Organizat ion Details LastModified Time Tobacco Smoking Status Never Smoker Yulisa de la cruz [facility] 06/06/2014 13:05:38 Do You Have An Advance Directive? No HCP Declined Information not available 04/26/2022 Is Blood Transfusion Acceptable In An Emergency? Yes Information not available 06/21/2015 What Is Your Level Of Caffeine Consumption? Occasional [email or web address] Information not available 08/31/2014 How Much Tobacco Do You Chew? None Information not available 06/21/2015 What Type Of Diet Are You Following? DIABETIC Information not available 04/26/2022 Which Illicit Or Recreational Drugs Have You Used? None Information not available 06/21/2015 Do You Take Precautions To Prevent Distracted Driving? Yes Information not available 06/21/2015 How Often Do You Need To Have Someone Help You When You Read Instructions, Pamphlets, Or Other Written Material From Your Doctor Or Pharmacy? Never Information not available 06/21/2015 Have You Served In The ? No Information not available 04/21/2017 Have You Or Anyone In Your Household Had Any Of The Following Symptoms In The Last 14 Days: Sore Throat, Cough, Chills, Body Aches For Unknown Reasons, Shortness Of Breath For Unknown Reasons, Loss Of Smell, Loss Of Taste, Fever At Or Greater Than 100 Degrees Fahrenheit? No [email or web address] Information not available 12/28/2020 Are You Or Anyone In Your Household A Health Care Provider Or Emergency Responder? No [email or web address] Information not available 07/24/2020 To The Best Of Your Knowledge Have You Been In Close Proximity To Any Individual Who Tested Positive For COVID-19? No [email or web address] Information not available 07/24/2020 Have You Recently Traveled To A COVID-19 High Risk Area Or Gathering In The Last 10 Days? No [email or web address] Information not available 03/16/2021 What Was The Date Of Your Most Recent Tobacco Screening? 09/21/2024 [email or web address] Information not available 09/21/2024 How Many Children Do You Have? 1 Daughter Information not available 06/21/2015 Do You Use Your Seat Belt Or Car Seat Routinely? Yes Information not available 04/26/2022 Are You Sexually Active? No Information not available 06/21/2015 Do You Have Smoke And Carbon Monoxide Detectors In Your Home? Yes Information not available 04/26/2022 At What Age Did You Start Smoking Tobacco? 0 Information not available 06/21/2015 Are You Passively Exposed To Smoke? No Information not available 06/21/2015 How Much Tobacco Do You Smoke? No Information not available 06/21/2015 Do You Use Sunscreen Routinely? No Information not available 04/26/2022 How Many Years Have You Smoked Tobacco? 0 Information not available 06/21/2015 Sex: Unknown Functional Status Question Answer Note LastModified by Organizat ion Details LastModified Time Do you use any illicit or recreational drugs? No Information not available 04/26/2022 Do you or have you ever used any other forms of tobacco or nicotine? No Information not available 04/26/2022 What is your level of alcohol consumption? None [email or web address] Information not available 08/31/2014 Do you or have you ever used smokeless tobacco? Never used smokeless tobacco Information not available 09/14/2019 Are you currently employed? Yes [email or web address] Information not available 08/31/2014 Are you able to walk? YESWOREST Information not available 04/26/2022 Are you able to care for yourself? 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 Never used electronic cigarettes Information not available 04/26/2022 What is your exercise level? None [email or web address] Information not available 08/31/2014 Mental Status None recorded. Family History Relationship Description Onset Age of this Age Resolved Age Notes LastModified by Organization Details LastModified Time Father Myocardial infarction x 3 [email or web address] Not available 04/26 10:44:40 Father Stented artery x 6 abolcun Not available 2021 10:44:40 Father Malignant neoplasm of prostate abolcun Not available 2021 10:44:40 Father Hypertensive disorder abolcun Not available 2015 10:02:11 Father Carcinoma in situ of prostate abolcun Not available 2021 10:44:40 Father Hypercholest erolemia abolcun Not available 2021 10:44:40 Father Heart disease abolcun Not available 2021 10:44:40 Paternal Grandmother Alzheimer's disease abolcun Not available 2015 10:02:11 Maternal Aunt Alzheimer's disease abolcun Not available 2021 10:44:40 Mother Hypertensive disorder abolcun Not available 2015 10:02:11 Mother Anxiety abolcun Not available 0 04/26/2022 10:44:40 Mother Depressive disorder abolcun Not available 2015 10:02:11 Mother Diverticulit is abolcun Not available 2021 10:44:40 Mother Congenital hip dysplasia abolcun Not available 2021 10:44:40 Mother Endometriosi s abolcun Not available 2021 10:44:40 Mother History of total hysterectomy abolcun Not available 10:44:40 Mother Atrial fibrillation [email or web address] Not available 09:42:10 Maternal Grandmother Sudden cardiac abolcun Not available 2021 10:44:40 Maternal Uncle Sudden cardiac 53 abolcun Not available 2021 10:44:40 Paternal Uncle Sudden cardiac 52 abolcun Not available 2021 10:44:40 Paternal Grandfather Sudden cardiac abolcun Not available 2021 10:44:40 Paternal Grandfather Alcoholism abolcun Not available 10:44:40 Maternal Grandfather Alcoholism abolcun Not available 10:44:40 Brother Malignant melanoma abolcun Not available 2021 10:44:40 Sister Malignant tumor of breast age 62, PGM bilate ral breast cancer , patern al aut and a matern al aunt. [email or web address] enz Not available 02/21/2021 14:35:23 Unspecified Relation Kidney disease abolcun Not available 2021 10:44:40 Medical History Condition Response Coronary Artery Disease N Gout N Other N Blood Diseases N Kidney Stones N Hyperthyroidism N Breast Cancer N mrsa exposure N Depression Y COPD N Lung Disease N Hypothyroidism N Defects or Inherited Disease N Developmental or Behavioral Disorders N Breast Problem N Anesthesia Complications N Headaches/Migraines N Varicose Veins N Anxiety Disorder Y Muscle, Joint, or Bone Problems N Obesity N Vision or Eye Problems N Arthritis N Head Injury/Concussion N Polyps N Infertility N Mental Disorder N Congenital Anomalies N Acid Reflux (GERD) Y Cancer N Stroke N ADHD N Endometriosis N High Cholesterol N Liver Disease N Headaches N Fibromyalgia Y Kidney Disease N Heart Problems N Ear or Hearing Problems N Hospitalizations N Thyroid Problems N GI Problems N Developmental Delay N Acne N Skin Problems N Eating Disorder N Anemia N Constipation N Bladder Problems N Mental Illness N Ovarian Cancer N Diabetes N Bedwetting N Blood Transfusions N Seizures/Epilepsy N Heart Problems/Murmur N Tuberculosis N AIDS/HIV N Congestive Heart Failure (CHF) N Eczema N Diverticulitis N Abuse/Domestic Violence N Asthma Y Allergies N Reflux/GERD N Hepatitis N Heart Disease N Pulmonary Embolism N Hypertension Y Chicken Pox N Autism Spectrum Disorder (ASD) N Osteoporosis N Gynecological History Statement/Question Response Date of Last Pap Smear 03/03/2021 Date of Last Colonoscopy 12/08/2020 Most Recent Mammogram 04/29/2022 Obstetrics History GPAL:G 0 P 0 0 0 0 Immunizations Vaccine Type Date Status Note Provider Nam e and Address Organization Details Recorded Time Influenza, split virus, quadrivalent, PF 8 completed Luna de la cruz [facility] 08/19/2022 14:54:33 Influenza, MDCK, quadrivalent, PF 9 completed Luna de la cruz [facility] 08/19/2022 14:54:33 COVID-19, mRNA, LNP-S, PF, 100 mcg/0.5mL dose or 50 mcg/0.25mL dose 1 completed Luna de la cruz [facility] 08/19/2022 14:54:33 COVID-19, mRNA, LNP-S, PF, 100 mcg/0.5mL dose or 50 mcg/0.25mL dose 1 completed Luna de la cruz [facility] 08/19/2022 14:54:33 Influenza, split virus, quadrivalent, PF 5 completed Not Available [facility] 02:22:01 Influenza, split virus, quadrivalent, PF 1 [facility] 14:54:33 COVID-19, mRNA, LNP-S, PF, 100 mcg/0.5mL dose or 50 mcg/0.25mL dose 1 [facility] 14:54:33 Influenza, split virus, quadrivalent, PF 0 [facility] 14:54:33 pneumococcal polysaccharide PPV23 6 completed Luna Albarado [facility] 08/19/2022 14:54:33 Influenza, split virus, quadrivalent, PF 7 [facility] 14:54:33 Td (adult), 2 Lf tetanus toxoid, preservative free, adsorbed 9 [facility] 14:54:33 Influenza, split virus, trivalent, PF 4 [facility] 14:54:33 COVID-19, mRNA, LNP-S, bivalent, PF, 50 mcg/0.5 mL or 25mcg/0.25 mL dose 2 completed Beverly Garcia MA null, [facility] 08/21/2022 10:52:37 Influenza, split virus, quadrivalent, PF 2 completed MARIA ESTHER Hogan, [facility] 08/21/2022 10:52:37 COVID-19, mRNA, LNP-S, PF, 50 mcg/0.5 mL 4 [facility] 10:17:25 Influenza, split virus, trivalent, PF 4 completed Mariah Romero LPN null, [facility] 11/10/2024 15:29:47 Pneumococcal conjugate PCV21, polysaccharide [id number] conjugate, PF 5 completed MARIA ESTHER Vyas, [facility] 01/28/2025 15:06:12 Influenza, split virus, quadrivalent, PF 6 completed Not Available [facility] 11/20/2019 02:22:04 Influenza, split virus, trivalent, preservative 7 completed Luna de la cruz, [facility] 08/19/2022 14:54:33 Tdap 8 completed Luna de la cruz, [facility] 08/19/2022 14:54:33 Influenza, split virus, trivalent, preservative 0 completed Luna de la cruz, [facility] 08/19/2022 14:54:33 Influenza, split virus, trivalent, preservative 1 completed Luna de la cruz, [facility] 08/19/2022 14:54:33 Novel [id number], all formulations 1 completed Luna de la cruz, [facility] 08/19/2022 14:54:33 Influenza, split virus, trivalent, preservative 2 completed Luna de la cruz, [facility] 08/19/2022 14:54:33 Influenza, split virus, trivalent, preservative 3 completed Luna de la cruz, [facility] 08/19/2022 14:54:33 Influenza, split virus, quadrivalent, PF 3 completed Poncho Manuel, [facility] [address], [address], [facility] 07/31/2023 12:47:24 Past Encounters Encounter ID Performer Location Encounter Start Date Encounter Closed Date Diagnosis/Indication Diagnosis SNOMED-CT Code Diagnosis ICD10 Code Diagnosis Note [id number] Mirza dumont MD Main Office [address] [facility] [address] [place] [address] 06/06/2014 12:39:21 06/06/2014 13:40:14 Fibromyositis [id number] pt with a lot of achiness, stiffness on motrin, also thinks motrin lowers her mood, will stop motrin, change to diclofenac , will check renal function at next visit in a few months, pt ts to stretch, hydrate, continue cymbalta Major depr ession single episode, in partial remission [id number] continue cymbalta, change off motrin, give some tiem since recent stress with father with an OK, vacation got cancelled [id number] [facility] [address] [facility] [place] [address] 10/28/2006 00:00:00 [id number] [employer] [facility] [address] [facility] [place] [address] 06/20/2005 00:00:00 [id number] [employer] [facility] [address] [facility] [place] [address] 01/30/2004 00:00:00 [id number] [employer] [facility] [address] [facility] [place] [address] 10/26/2003 00:00:00 [id number] [employer] [facility] [address] [facility] [place] [address] 12/30/2006 00:00:00 [id number] [employer] [facility] [address] [facility] [place] [address] 01/19/2007 00:00:00 [id number] [employer] [facility] [address] [facility] [place] [address] 01/30/2007 00:00:00 [id number] [employer] [address] [facility] [place] [address] 06/01/2007 00:00:00 [id number] [employer] [facility] [address] [place] [address] 05/02/2008 00:00:00 [id number] [employer] [facility] [address] [place] [address] 06/13/2008 00:00:00 [id number] [employer] [address] [facility] [place] [address] 12/29/2008 00:00:00 [id number] [employer] [address] [facility] [place] [address] 03/31/2009 00:00:00 [id number] [employer] [address] [facility] [place] [address] 06/26/2009 00:00:00 [id number] [employer] [address] [facility] [place] [address] 2009 00:00:00 [id number] [employer] [address] [facility] [place] [address] 09/07/2009 00:00:00 [id number] [employer] [address] [facility] [place] [address] 10/18/2009 00:00:00 [id number] [employer] [address] [facility] [place] [address] 12/22/2009 00:00:00 [id number] [employer] [facility] [address] [facility] [place] [address] 12/25/2009 00:00:00 [id number] [employer] [address] [facility] [place] [address] 01/03/2010 00:00:00 [id number] [employer] erce [address] [facility] [place] [address] 01/26/2010 00:00:00 [id number] auto[employer]ce [address] [facility] [place] [address] 02/13/2010 00:00:00 [id number] [facility] [facility]ce [address] [place] [address] 04/05/2010 00:00:00 [id number] auto[employer] [facility]ce [address] [place] [address] 07/20/2010 00:00:00 [id number] [employer] [facility] [address] [place] [address] 10/10/2010 00:00:00 [id number] [facility] [facility] [address] [place] [address] 01/23/2011 00:00:00 [id number] [facility] [facility] [address] [place] [address] 02/01/2011 00:00:00 [id number] auto[employer] erce [address] [facility] [place] [address] 04/04/2011 00:00:00 [id number] [employer] [address] [facility] [place] [address] 05/01/2011 00:00:00 [id number] auto[employer] [facility]ce [address] [facility] [address] [place] [address] 05/03/2011 00:00:00 [id number] [employer] erce [address] [facility] [place] [address] 05/11/2011 00:00:00 [id number] [employer] [address] [facility] [address] [place] [address] 06/05/2011 00:00:00 [id number] auto[employer]ce [address] [facility] [address] [place] [address] 08/27/2011 00:00:00 [id number] [employer] [address] [facility] [place] [address] 09/25/2011 00:00:00 [id number] [employer] [address] [facility] [place] [address] 10/03/2011 00:00:00 [id number] auto[employer] erce [address] [facility] [address] [place] [address] 10/11/2011 00:00:00 [id number] auto[employer] erce [address] [place] [address] 11/15/2011 00:00:00 [id number] auto[employer] [facility]ce [address] [place] [address] 12/16/2011 00:00:00 [id number] auto[employer] erce [address] [facility] [place] [address] 01/16/2012 00:00:00 [id number] auto[employer] erce [address] [facility] [place] [address] 01/31/2012 00:00:00 [id number] auto[employer]Comm erce [address] [facility] [place] [address] 02/28/2012 00:00:00 [id number] [employer]ce [address] [facility] [place] [address] 03/27/2012 00:00:00 [id number] auto[employer] erce [address] [facility] [place] [address] 04/24/2012 00:00:00 [id number] [employer]ce [address] [facility] [place] [address] 07/24/2012 00:00:00 [id number] auto[employer] erce [address] [facility] [place] [address] 09/04/2012 00:00:00 [id number] [employer] [address] [facility] [place] [address] 09/08/2012 00:00:00 [id number] [employer] erce [address] [facility] [place] [address] 09/29/2012 00:00:00 [id number] [employer] [facility] [address] [facility] [place] [address] 12/07/2012 00:00:00 [id number] auto[employer] erce [address] [facility] [address] [place] [address] 12/15/2012 00:00:00 [id number] auto[facility] [facility]ce [address] [place] [address] 12/29/2012 00:00:00 [id number] auto[employer] erce [address] [place] [address] 01/13/2013 00:00:00 [id number] auto[employer] erce [address] [facility] [address] [place] [address] 01/15/2013 00:00:00 [id number] auto[employer] erce [address] [facility] [address] [place] [address] 01/20/2013 00:00:00 [id number] auto[employer]Comm erce [address] [facility] [address] [place] [address] 02/12/2013 00:00:00 [id number] auto[employer]Comm erce [address] [facility] [place] [address] 03/05/2013 00:00:00 [id number] auto[employer]Comm erce [address] [facility] [place] [address] 03/17/2013 00:00:00 [id number] auto[employer]Comm erce [address] [facility] [place] [address] 05/04/2013 00:00:00 [id number] auto[employer]Comm erce [address] [facility] [place] [address] 05/07/2013 00:00:00 [id number] auto[employer]Comm erce [address] [facility] [address] [place] [address] 06/23/2013 00:00:00 [id number] auto[employer]Comm erce [address] [facility] [place] [address] 08/06/2013 00:00:00 [id number] auto[facility] erce [address] [facility] [address] [place] [address] 09/29/2013 00:00:00 [id number] auto[facility]Comm erce [address] [place] [address] 10/12/2013 00:00:00 [id number] auto[employer]Comm erce [address] [facility] [place] [address] 11/11/2013 00:00:00 [id number] autoEComm erce [address] [facility] [place] [address] 11/12/2013 00:00:00 [id number] auto[employer]Comm erce [address] [facility] [place] [address] 11/18/2013 00:00:00 [id number] autoEComm erce [address] [facility] [place] [address] 02/09/2014 00:00:00 [id number] auto[employer]Comm erce [address] [facility] [place] [address] 02/22/2014 00:00:00 [id number] auto[employer]Comm erce [address] [facility] [place] [address] 04/05/2014 00:00:00 [id number] auto[employer]Comm erce [address] [facility] [place] [address] 04/07/2014 00:00:00 [id number] auto[employer]Comm erce [address] [facility] [place] [address] 04/27/2014 00:00:00 [id number] auto[employer]Comm erce [address] [facility] [place] [address] 04/28/2014 00:00:00 [id number] GREG Liang Main Office [address] [place] [address] 07/21/2014 15:26:15 07/21/2014 16:14:00 Fibromyositis [id number] Patient will try tylenol for this pain. Not more than 3G daily. Edema 658485702 Likely related to diclofenac as the sx decreased when she stopped the med. She felt it was working well for her stiffness but caused edema. She last took diclofenac yesterday. Recommend she stop diclofenac and was considerin g a different NSAID but patient would like to try Tylenol arthritis. Advised patient she cannot take more than 3g tylenol per day. She will try tylenol and call or return if she has any problems with this med. F/U at her next visit with PCP 08/31. Advised elevation and compressio n of legs to decrease edema symptoms. Essential hypertension [id number] Anxiety state [id number] Low back pain [id number] Mirza dumont MD Main Office [address] [facility] [address] [place] [address] 08/31/2014 15:50:31 08/31/2014 16:43:58 Needs influenza immunization [id number] Essential hypertension [id number] on meds, continue Edema 647952310 will pi ck up stockings for edema Asthma [id number] Sinusitis [id number] pt wi ll set up appt with ENT, may need interventi on, not clear if has sinusitis at this point [id number] Andrew Vitale MD Main Office [address] [facility] [address] [place] [address] 11/10/2014 12:56:56 11/10/2014 14:07:04 Abscess of breast 24591607 s/p spontaneou s drainage with evidence of surroundin g cellulitis .. Pt will resume previously prescribed cipro and call if recurrent or worsens. Methicilli n resistant Staphylococcus aureus infection [id number] Will try nasal eradicatio n tx. Pt counseled on precaution s to prevent recurrence . Consider ID consult if recurrence becomes an issue in the future. [id number] Mirza dumont MD Main Office [address] [facility] [address] [facility] [place] [address] 01/02/2015 16:02:19 01/02/2015 16:39:02 Essential hypertension [id number] on meds,edna r controlled with Norvasc 5mg, will increase spironolac tone to 50mg bid as well, may help with skin as well as BP Methicilli n resistant Staphylococcus aureus infection 900828907 new areas in bilateral axillas, treat with cipro, hot soaks, if not better call and return and pt to see dermatolog y for other treatment options since recurrent Anxiety 75947601 uses pr n, refilled today [id number] GREG Liang Main Office [address] [facility] [address] [place] [address] 02/08/2015 16:24:44 02/08/2015 17:18:57 Esophagitis [id number] Diagnosed with esophagiti s in ED, she I scheduled to see GI and ENT and needs referrals for both. She feels it is related to the medication s that she increased, she has decreased the doses and feels a bit better. She would like to come off spironolac tone as she does not feel it helps her hidradenit is anyway and will continue on 2.5 mg of amlodipine . She will continue to monitor her BP and call back if she has any problems. Other gunter will f/u at scheduled appt in April. Glossitis 59711864 She f eels she still has some tongue burning and had swelling, was diagnosed with esophagiti s, f/u with GI and ENT as scheduled. Essential hypertension 73732611 Will drop to 2.5 mg amlodipine and continue to monitor BP. Gastroesop hageal reflux disease 182492801 Continue esomeprazo le 40mg BID until you see GI and get further instructio ns. [id number] Ravinder dominguez MD Main Office [address] [facility] [address] [place] [address] 03/17/2015 09:33:53 03/17/2015 10:05:05 Sinusitis 52823874 Asthma [id number] Mirza dumont MD Main Office [address] [facility] [address] [place] [address] 04/05/2015 15:41:34 04/05/2015 16:35:41 Essential hypertension 64578668 on meds,edna r controlled with Norvasc 5mg, will increase spironolac tone to 50mg bid as well, may help with skin as well as BP Skin lesion 18221905 hea ling infected cyst, pt to see surgeon, on back of neck and a bit tender [id number] GREG Zhong Main Office [address] [address] [place] [address] 05/04/2015 08:03:37 05/04/2015 08:49:38 Hidradenitis 51886332 Received negative culture result from dermatolog y. Advise pt to continue topical clindamyci n ointment/w ound dressing and FU with dermatolog y. No additional oral abx today. [id number] Mirza dumont MD Main Office [address] [address] [place] [address] 06/21/2015 16:00:42 06/21/2015 16:39:37 Essential hypertension 50970973 on meds, good control Retro-mary cular cysts (hidradenitis) 568272787 gets recurrent skin lesions, followed by surgery Anxiety state 534806710 very anxious, is on cymbalta, that really helped the fibromyalg ia, will give lorazepam as needed for anxiety, pt will set up appt with psychiatrjustin dewey for med eval Major depr ession single episode, in partial remission 92327556 continue cymbalta, change off motrin, give some tiem since recent stress with father with an OK, vacation got cancelled [id number] Nikole Urias PA-C Main Office [address] [address] [place] [address] 07/14/2015 14:32:12 07/14/2015 15:26:33 On examination - edema of legs 355060789 Acute asthma 186799394 A sthma exacerbati on. Abnormal Spirometry . Mild restrictio n and moderate obstructio n of lung volumes. Start Flovent 110 mcg 2 puffs BID and rescue PRN. Return in 2 weeks for f/u and repeat spirometry . Fatigue 45663154 Likely asthma and stress related. BMP was normal in June. I will repeat in 2 weeks plus TSH and CBC. if fatigue persists. Essential hypertension 38324683 Uncontroll ed HTN. Lasix will improve somewhat. MIght rand to stop Amlodipine 2.5 as larger dose causes side effects plus edema and start MIRANDA or generic ARB. Retest in 2 weeks. Lower sodium and fluids. [id number] Nikole Urias PA-C Main Office [address] [address] [place] [address] 07/19/2015 09:07:53 07/19/2015 10:07:07 Essential hypertension 16928435 Uncontroll ed HTN. Start Lisinopril 10 mg daily in the am. Continue Amlodipine 2.5 mg daily. D/c Lasix. Continue Spironolac tone 50 mg daily. Test BP daily. Return in 1 week for recheck. Eliminate sodium from the diet. Increase exercise by walking 30 min daily. Avoid OTC meds that are stimulants . [id number] Nikole Urias PA-C Main Office [address] [address] [place] [address] 08/04/2015 16:02:57 08/04/2015 16:47:48 Essential hypertension 32986091 I10 HTN improved on current med combinatio n. Continue Lisinopril 10 mg daily as well as other antihypert ensive. Repeat BMP. Test BP 2-3 times weekly. F/u with PCP as scheduled in October. Avoid OTC meds that are stimulants . Allergic rhinitis 104088 04 J30.9 Needs infl uenza immunization 945985057 Z23 [id number] Mirza dumont MD Main Office [address] [address] [place] [address] 08/12/2015 10:25:05 08/12/2015 11:02:57 Essential hypertension 72810213 I10 on meds, good control Cough 69235009 R05 seems like pnd, from allergies no change of meds for htn [id number] Nikole Urias PA-C Main Office [address] [address] [place] [address] 09/05/2015 10:38:00 09/05/2015 11:05:43 Essential hypertension 46340441 I10 Intoleranc e to ACEI due to persistent cough and to Amlodipine due to persistent depended edema. Will discontinu ed Amlodipine and Lisinopril . Start Losartan Potassium at 100 mg daily. Continue Spironalac tone. Recheck as scheduled. Pt. will test BP at home . [id number] Nikole Urias PA-C Main Office [address] [address] [place] [address] 10/03/2015 14:35:52 10/03/2015 15:06:43 Edema 090515105 R60.9 Venous vs. cardiac. will set up stress echo. ProBNP as well as other labs ordered. Compressio n stockings. Lower sodium and fluids. Dyspnea on exertion 6084 5006 R06.09 Stable EKG. Will set up stress echo to r/o cardiac ischemia . Pt. has PE scheduled with PCP this month. Obesity 694048405 E66.9 [id number] Mirza dumont MD Main Office [address] [facility] [address] [facility] [address] 10/30/2015 13:35:37 10/30/2015 14:37:05 Adult health examination 229466779 Z00.00 pt will set up colonoscop y, pap utd, needs to exercise, mammogram utd, Screening for malignant neoplasm of colon 493516487 Z12.11 Asthma 756808980 J45.90 9 not using flovent so wheezing at night, pt to restart Major depr ession single episode, in partial remission 96719313 F32.4 mood is low, pt is safe with self, she will talk to her therapist about getting an eval with psych to consider changing meds Pure hypercholesterolemia 049874133 E78.0 Essential hypertension 93455603 I10 on meds, good control Fatigue 67570289 R53.83 pt is at risk for sleep apnea, shorts pharynx, snores, obese, will get eval [id number] Nikole Urias PA-C Main Office [address] [facility] [address] [facility] [place] [address] 11/22/2015 14:31:56 11/22/2015 15:17:17 Dyspnea 061887775 R06.00 Improved greatly with diuresis . Pt. lost almost 10 lbs all together by her scale at home. Continue Lasix , but lower to 40 mg daily. Repeat BMP. F/u with Dr. Waddell as scheduled in December. Spironalac tone 50 mg to continue. Recent stress echo and chest XRAy were normal. Edema 210091229 R60.9 Stress echo was normal. Chest Xray in ER normal. All cardiac work up , Pro BNP normal. Pt. made sign. dietary changes. Continue low sodium diet. repeat labs. F/u with PCP next month. [id number] Luis Waller MD Main Office [address] [facility] [address] [facility] [place] [address] 12/04/2015 12:42:06 12/04/2015 14:16:18 Asthma 877067054 J45.909 will d/c flovent since she won't use it regularly and start symbicort. She was instructed to call at the end of the week if her symptoms don't improve. 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 nonsmoker, family hx of CAD, will arrange cardiac evaluation Muscle pain 09397808 M79 .1 new to me is pt states about a year ago she was told she has polymyalgi a rheumatica and was given an injeciton of steroid, it helped a lot.not treated since, never told me of this, will recheck CPKa nd sed rate, if positive get to rheumatolo gya nd treat with steroid Fatigue 00684619 R53.83 pt is at risk for sleep apnea, shorts pharynx, snores, obese, will get eval, hasd appt but will reschedule Asthma 826024451 J45.90 9 pt will restart flovent, has a hx of asthma [id number] Andrew Vitale MD Main Office [address] [place] [address] 04/13/2016 09:53:08 04/13/2016 10:33:37 Acute pharyngitis 719188405 J02.9 Based on symptom score and recent exposure history will cover empiricall y with abx and d/c if culture negative. Alleries/v iral uri/GERD could also be factors though. Pt advised that we will call her to d/c abx if culture is negative. Supportive /symptomat ic tx advised as well. Essential hypertension 17828667 I10 Better on recheck. Pt will resume spironolac tone amisha and is in the process of scheduling a sleep study. 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 for edema, on diuretics, a bit better, limit salt Essential hypertension 39727282 I10 on meds, good control Retro-mary cular cysts (hidradenitis) 129945010 L73.2 Fatigue 17867982 R53.83 pt will set up sleep study, can get at home Muscle pain 42020689 M79 .1 new to me is pt states about a year ago she was told she has polymyalgi a rheumatica and was given an injeciton of steroid, it helped a lot.not treated since, never told me of this, will recheck CPKa nd sed rate, if positive get to rheumatolo gya nd treat with steroid Hidradenitis 87263724 L7 3.2 on minocyclin e bid, motrin and clindamyci n gel. having pain with it adn followed by derm [id number] Nikole Urias PA-C Main Office [address] [facility] [address] [place] [address] 07/05/2016 15:40:58 07/05/2016 16:35:34 Abdominal mass 689680419 R19.00 Abdominal mass. POssible abscess . Pt. is referred to the ER now for CT scan and further evaluation . [id number] Nikole Urias PA-C Main Office [address] [facility] [address] [place] [address] 07/12/2016 15:23:32 07/12/2016 16:29:03 Umbilical hernia 142893816 K42.9 INfected umbilical hernia. IMproved on Abx. Will continue and complete course as dir. See surgery as scheduled. Essential hypertension 69422123 I10 Continue current meds. [id number] Mirza dumont MD Main Office [address] [facility] [address] [place] [address] 07/25/2016 14:11:40 07/25/2016 15:11:46 Asthma 941603865 J45.909 pt will restart flovent, has a hx of asthma and it has been poorly controlled but is only on singulair, add flovent bid, if not improving will refer to pulmonary Essential hypertension 09884866 I10 on meds, good control Influenza vaccine needed 2731467025 106 Z23 Low back pain 537601611 M54.5 uses ibuprofen and it helps Pain of joint 17702011 M 25.50 pt will see rheumatolo gy Administra tion of pneumococcal vaccine 60842845 Z23 Obstructiv e sleep apnea syndrome 86860336 G47.33 just starting CPAP, hopefully will help with energy, weight Major depr ession single episode, in partial remission 43260739 F32.4 depression is active due to health issues, gaining weight [id number] Mirza dumont MD Main Office [address] [place] [address] 09/20/2016 15:01:53 09/20/2016 16:08:31 Asthma 959583850 J45.909 well controlled continue meds Gastroesop hageal reflux disease 102773142 K21.9 continue meds, lose weight Essential hypertension 62768540 I10 on meds, good control Blood in urine 04543809 R31.9 recheck urine Laboratory test result abnormal 037336038 R89.9 check labs in [facility], labs form Dr Jose with mild abnormalit iees Obstructiv e sleep apnea syndrome 28851839 G47.33 continue CPAP [id number] Mirza dumont MD Main Office [address] [facility] [address] [place] [address] 11/15/2016 15:17:48 11/15/2016 16:13:11 Major depression single episode, in partial remission 80748470 F32.4 depression is active due to health issues, gaining weight, is on cymbalta Anxiety state 806233395 F41.1 very anxious, is on cymbalta, that really helped the fibromyalg ia, will give lorazepam as needed for anxiety, pt [facility] Body mass index 40+ - severely obese 588490020 Z68.41 E66.01 interferin sim with her getting her hernia repaired due to restrictiv e lung disease, pt will see DR hoyos for eval and possible meds Vaginitis 22130914 N76.0 treat as below Retro-mary cular cysts (hidradenitis) 081963124 L73.2 considerin g surgery Umbilical hernia 0682894 07 K42.9 needs to lose weight before surgery [id number] Nikole Urias PA-C Main Office [address] [facility] [address] [place] [address] 12/11/2016 15:05:51 12/11/2016 16:02:49 Acute asthma 828704590 J45.901 Upper resp iratory infection 23200303 J06.9 [id number] Mirza dumont MD Main Office [address] [facility] [address] [place] [address] 02/12/2017 14:24:45 02/12/2017 15:44:52 Gastroesophageal reflux disease 405595032 K21.9 continue meds, lose weight Essential hypertension 06533008 I10 on meds, good control Anxiety state 963168018 F41.1 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 [id number] Mirza dumont MD Main Office [address] [facility] [address] [place] [address] 04/02/2017 15:13:55 04/02/2017 16:20:01 Anxiety state 093952002 F41.1 better overall Dysuria 01889485 R30.0 pt with urinary discomfort , her dip has blood but pt states she always has blood in her urine but briones nsot recall a workup except does know she had a cystoscopy years ago. will check urine, if blood she will need to see urology Fibromyositis 90751730 M 79.7 pt wants to wean off cymbalta, will do more exercise and stretching to help with fibromyalg ia Hidradenitis 41362252 L7 3.2 pt recently had injections into her hydradenit is, gets kenalog and is considerin g humara Major depr ession single episode, in partial remission 06459275 F32.4 depression is active due to health issues, gaining weight, is on cymbalta Essential hypertension 44603277 I10 on meds, good control Body mass index 40+ - severely obese 963803998 Z68.41 E66.01 interferlakisah montemayor with her getting her hernia repaired due to restrictiv e lung disease, Obesity 047195941 E66.9 [id number] Baldomero Stokes MD Main Office [address] [address] 04/21/2017 13:03:52 04/21/2017 14:00:17 Dizziness 064686013 R42 [id number] Mirza dumont MD Main Office [address] [address] 05/12/2017 15:05:46 05/12/2017 15:48:08 Fibromyalgia 143683763 M79.7 weaning down off cymblta, will go slow due to some side effects, better Essential hypertension 59907578 I10 on meds, good control Gastroesop hageal reflux disease 518156585 K21.9 continue meds, lose weight Body mass index 40+ - severely obese 250447520 Z68.41 E66.01 interferlakisha montemayor with her getting her hernia repaired due to restrictiv e lung disease, [id number] Mirza dumont MD Main Office [address] [address] 06/27/2017 14:20:36 06/27/2017 14:58:29 Mammography abnormal 689432089 R92.8 will get biopsy, they needed to try a different way due to unable to locate the cyst Asthma 132989487 J45.90 9 well controlled continue meds Gastroesop hageal reflux disease 091376039 K21.9 continue meds, lose weight Essential hypertension 24503494 I10 on meds, good control Fibromyositis 29095631 M 79.7 pt wants to wean off cymbalta, will do more exercise and stretching to help with fibromyalg ia, will reduce to QOD Body mass index 40+ - severely obese 300149513 Z68.41 E66.01 morgan montemayor with her getting her hernia repaired due to restrictiv e lung disease, [id number] Mirza dumont MD Main Office [address] [facility] [address] [facility] [place] [place] [place] [address] 08/01/2017 09:28:23 08/01/2017 11:13:50 [id number] Danilo Urias PA-C Main Office [address] [place] [address] 08/04/2017 16:12:46 08/04/2017 17:04:25 Needs influenza immunization 470699773 Z23 Chronic di astolic heart failure 402441537 I50.32 recent admission for chf exac - cont to f/u c card - next Friday Thyroid nodule 064695566 E04.1 pending eval c endo Essential hypertension 47601779 I10 bp stable, cont meds as dir Uncontroll ed type 2 diabetes mellitus 607509379 E11.65 new dx - A1C 7.2, started on glip at hospital but didn't get filled d/t sulfa allergy - will add metformin and set up eval c Gayla Constipation 39943464 K5 9.00 she rec'd her FOBT (has declined to get colonoscop y recently) Irritable bowel syndrome 73691523 K58.9 [id number] Nikole Urias PA-C Main Office [address] [place] [address] 09/01/2017 15:25:09 09/01/2017 16:40:40 Type 2 diabetes mellitus without complication 402155013 E11.9 Total time spent teaching and coordinati ng diabetic care 45 minutes. Basic physiology of Type II Diabetes Mellitus was reviewed. Glucose records were reviewed. Pt. was instructed on use of new glucose meter and advised to monitor glucose 2 times per day ; before and 2 hrs after meals. Goal for fasting glucose is 80-130 and 1-2 hrs after the meal under 180. Pt. was instructed on 1200 -1500 devin ADA diet and given 7 day sample menus to use at home. Pt. was advised to start exercise activity by walking 30 min at least 3 times weekly and increase weekly or by weekly to 4-6 day per week. If unable to walk , pt. should use other exercise modalities /equipment that is stationary at home or in the gym for that amount of time weekly or water exercises. Continue Metformin ER at 750 mg daily. Start Victoza at 0.6 mg daily SC injections . Body mass index 30+ - obesity 387238131 E66.01 Z68.42 will continue following DASH and 1200 devin ADA diets and exercise by walking daily as discussed. [id number] Danilo Urias PA-C Main Office [address] [address] [place] [address] 10/06/2017 11:31:09 10/06/2017 12:32:31 Acute pharyngitis 045115189 J02.9 Upper resp iratory infection 77130176 J06.9 Thyroid nodule 827956784 E04.1 pending eval c endo - but not until 18 - will check TFTs in light of palp. Insomnia 719226328 G47.0 0 see above Palpitations 28540157 R0 0.2 check TFTs - see above Obstructiv e sleep apnea syndrome 25697359 G47.33 fol by sleep medicine, cont cpap as dir [id number] Danilo Urias PA-C Main Office [address] [address] [place] [address] 10/15/2017 13:30:36 10/15/2017 14:23:07 Sinusitis 15037646 J32.9 Cough 14792956 R05 pnd contributi ng - see below Asthma 459336655 J45.30 lungs sound normal, do not suspect asthma exac or pna - cont inhalers as dir, but add mucinex [id number] Mirza dumont MD Main Office [address] [address] [place] [address] 10/16/2017 14:17:34 10/16/2017 16:28:07 Screening for malignant neoplasm of colon 167053722 Z12.11 [id number] Nikole Urias PA-C Main Office [address] [address] [place] [address] 11/25/2017 15:58:03 11/25/2017 16:57:59 Type 2 diabetes mellitus 92810068 E11.9 STable diabetic control on Metformin. Pt. will continue testing glucose daily. Repeat labs. F/u 3-4 m. Body mass index 30+ - obesity 934336614 E66.01 Z68.42 Major depr essive disorder 149556355 F32.9 Pt. will discuss with PCP at in Dec. about considerin g or restarting antidepres sants. Will take NSAIDs PRN for fibromyalg ia. [id number] Mirza dumont MD Main Office [address] [facility] [address] [facility] [place] [address] 01/05/2018 11:30:13 01/05/2018 12:22:06 Anxiety state 265697088 F41.1 overall a lot of stress with her daughter transition ing to a new situation, her daughter has PDD, autism, she is very vulnerable , mom is doing counseling and will start sertraline for worry, anxiety, start on half a pill a day Essential hypertension 95018344 I10 on meds, good control Chronic di astolic heart failure 734739889 I50.32 fluid balance is stable, followed by cardiology continue meds [id number] Mirza dumont MD Main Office [address] [place] [address] 02/03/2018 15:03:58 02/03/2018 15:53:06 Anxiety state 905129042 F41.1 Insomnia 314525137 G47.0 0 Major depr ession single episode, in partial remission 31583422 F32.4 depression is active due to health issues, gaining weight, is on cymbalta Fibromyositis 90081148 M 79.7 pt wants to wean off cymbalta, will do more exercise and stretching to help with fibromyalg ia, will reduce to QOD Well contr olled type 2 diabetes mellitus 261996278 E11.9 sees Nikole, work on diabetes control [id number] Nikole Urias PA-C Main Office [address] [facility] [address] [facility] [address] 02/24/2018 15:22:05 02/24/2018 16:04:58 Type 2 diabetes mellitus 74222882 E11.9 STable diabetic control on Metformin. Pt. will continue testing glucose daily. Stable labs. F/u 3-4 m. Hyperlipidemia 02350543 E78.00 Pt. would like to return to low fat/choles terol diet and lose more weight. Will retest in 3 m. Body mass index 30+ - obesity 563762867 E66.01 Z68.41 [id number] Danilo Urias PA-C Main Office [address] [facility] [address] [place] [address] 03/25/2018 15:04:23 03/25/2018 16:12:36 Acute pharyngitis 290093301 J02.9 Dyspnea 112243208 R06.00 Acute asthma 787520482 J 45.901 will give nebs as above, cont inhalers and montelukas t as dir, as well as pred pulse and encouraged use of robitussin /coricidin prn does not appear 'sick enough' to have pna, but offered to check cxr just in case - pt politely declined - call if worse, consider cxr at that time Seasonal a llergic rhinitis 629046772 J30.2 cont flonase and montelukas t as dir, also rec nasal saline spray [id number] Nikole Urias PA-C Main Office [address] [facility] [address] [place] [address] 04/27/2018 10:26:41 04/27/2018 11:25:49 Pre-surgery evaluation 267511993 Z01.818 Based on history , PE, EKG pt. has no above average cardiopulm onary risk for the hernia repair scheduled on 05/15/18 . Labs ordered as requested. Type 2 tremayne betes mellitus 76371000 E11.9 STable diabetic control on Metformin. Pt. advised to skip Metformin on the am of surgery and resume after the procedure. Essential hypertension 53545832 I10 Continue current meds.Take BP meds on the am of the surgery. Candidiasis of vagina 72 402805 B37.3 Moderate asthma 25052286 9 J45.40 stable on meds. Pt. is advised to take Dulera before the procedure. Congestive heart failure 91777823 I50.9 stable and asymptomat ic on diuretics. [id number] Danilo Urias PA-C Main Office [address] [facility] [address] [place] [address] 08/19/2018 14:54:28 08/19/2018 15:53:08 Acute pharyngitis 149886082 J02.9 Acute sinusitis 15543847 J01.90 [id number] Nikole Urias PA-C Main Office [address] [place] [address] 10/06/2018 14:03:06 10/06/2018 15:23:14 Type 2 diabetes mellitus 02050211 E11.9 STable diabetic control on Metformin. Continue testing glucose daily and lower total calories. Refer to network security administrator and nutritioni . F/u 6 m. Body mass index 30+ - obesity 363733142 E66.01 Z68.35 [id number] Mirza dumont MD Main Office [address] [address] [place] [address] 12/23/2018 10:54:25 12/23/2018 11:56:51 Adult health examination 519611418 Z00.00 has wanted to hold on colonoscop y pap utd, needs to exercise, mammogram utd, Requires a tetanus booster 066436829 Z23 Hidradenitis 11398898 L7 3.2 pt with resistant hidrintiti s. she is considerin g clindamyci n 300mg bid and rifampin. Body mass index 40+ - severely obese 925175257 E66.01 Z68.41 lost a lot fo water weight, continue with weight loss plan Major depr ession single episode, in partial remission 82238231 F32.4 pt to meet with med prescriber at her therapists place, consider cymbalta, helped in past Chronic di astolic heart failure 778894509 I50.32 fluid balance is stable, followed by cardiology continue meds [id number] Mirza dumont MD Main Office [address] [place] [address] 01/26/2019 13:48:34 01/26/2019 14:19:58 Major depression single episode, in partial remission 62009339 F32.4 is seeing a therapist and will start to do EMDR, restart cymbalta Fibromyositis 12618084 M 79.7 pt wants to restart cymbalta, it helped her fibromyalg ia and depression in the past, pt sees a counselor Shay Bahena and she feels pt is ready to restart medication s as well start at 30mg in the morning then increase to 30mg bid [id number] Andrew Vitale MD Main Office [address] [place] [address] 04/21/2019 14:29:25 04/21/2019 15:29:36 Lower abdominal pain 66819553 R10.30 Diverticulitis 863583232 K57.92 vs colitis from bad strawberri es - will rx c abx rec probiotics while on abx stay hydrated, prn tyl check stat cbc see below re: ER [id number] Andrew Vitale MD Main Office [address] [address] [place] [address] 04/26/2019 10:30:41 04/26/2019 11:14:11 Diverticulitis 836109281 K57.92 vs colitis from bad strawberri es (most likely colitis, but icd10 code was 'noninfect nader colitis') - significan tly better on abx - finish as dir rec cont. probiotics while on abx stay hydrated, prn tyl Leukocytosis 480668444 D 72.829 see above - recheck cbc in 1-2 wks off abx [id number] Baldomero Stokes MD Main Office [address] [place] [address] 04/30/2019 10:24:03 04/30/2019 11:27:57 Type 2 diabetes mellitus 42469965 E11.9 STable diabetic control on Metformin. Continue testing glucose daily and lower total calories. Refer to network security administrator and nutritioni st. F/u 6 m. Body mass index 30+ - obesity 122242175 E66.01 Z68.42 [id number] Luis Waller MD Main Office [address] [address] [place] [address] 06/08/2019 13:47:04 06/08/2019 15:08:02 Diverticulitis 783096047 K57.92 rx'd for similar ~ 6 wks ago - will rx again c abx (a little longer course), check labs, but this time attempt to check CT scan a/p as well as get GI rec cont. probiotics while on abx stay hydrated, prn tyl 25 minute office visit with greater than 50% of the visit face-to-fa ce with the patient and/or family providing counseling and/or coordinati on of care. [id number] Mirza dumont MD Main Office [address] [place] [address] 06/23/2019 09:29:59 06/23/2019 10:27:11 Essential hypertension 22232214 I10 on meds, good control Diverticulitis 135414365 K57.[address] scan, uncomplica tameka, resolved Chronic di astolic heart failure 463186152 I50.32 fluid balance is stable, followed by cardiology continue meds Well contr olled type 2 diabetes mellitus 395118006 E11.9 sees Nikole, work on diabetes control recent A1C 5.6 Body mass index 40+ - severely obese 981782690 E66.01 Z68.42 lost a lot fo water weight, continue with weight loss plan [id number] Baldomero Stokes MD Main Office [address] [address] [place] [address] 07/26/2019 10:29:15 07/26/2019 11:13:29 Cellulitis of toe 89608441 L03.031 continue doxycyclin e and foot soaks Fungal inf ection by site 029745614 B49 start nystatin cream between the affected toes twice daily. F/u if continues with the problem only. [id number] Baldomero Stokes MD Main Office [address] [address] [place] [address] 09/03/2019 10:35:56 09/03/2019 11:05:53 Pain of toe of left foot 3602072321 79709 M79.675 PT. will be advised to have an xray and take TYlenol ES for pain for now. Consider having her see network security administrator . [id number] Luis Waller MD Main Office [address] [place] [address] 09/14/2019 15:14:12 09/14/2019 16:27:50 Cough 98406542 R05 Edema of l ower extremity 157485526 R60.0 check BNP as she is very concerned about CHF. she will call tomorrow for results. if elevated she is to call dr miller's office for further instructio n on her diuretics. Acute sinusitis 97707518 J01.90 will tx for sinusitis- doxy, prednisone as directed. hydration, rest, clover sinus rinses as needed Wheezing 89523522 R06.2 neb given here with not much change in LS but Patient feels better [id number] Andrew Vitale MD Main Office [address] [facility] [address] [place] [address] 10/18/2019 10:44:15 10/18/2019 12:09:10 Acute sinusitis 33783281 J01.90 steam, flonase, sinus nasal rinses, keep hydrated, start antibiotic , rest. If not improving to call in the next few days Cough 79900158 R05 otc cough med if needed. No rales heard today, Call if worsening. Asthma 481627955 J45.90 9 no wheesing today, will call if sx start [id number] Mirza dumont MD Main Office [address] [address] [place] [address] 12/24/2019 09:20:30 12/24/2019 10:18:04 Adult health examination 849058959 Z00.00 mammogram utd, overdue for colonoscop y will set up, pt to see manager gyn next week Chronic di astolic heart failure 816115009 I50.32 fluid balance is stable, followed by cardiology continue meds Essential hypertension 68765003 I10 on meds, good control Body mass index 40+ - severely obese 615441946 E66.01 Z68.43 long talk on emotional eating Major depr ession single episode, in partial remission 13082520 F32.4 working on emotional eating in therapy, really helping Well contr olled type 2 diabetes mellitus 371113161 E11.9 sees Nikole, work on diabetes control Tinea corporis 51539808 B35.4 on back Screening for malignant neoplasm of colon 877256631 Z12.11 [id number] Baldomero Stokes MD Main Office [address] [facility] [address] [place] [address] 01/03/2020 15:04:21 01/03/2020 16:19:23 Type 2 diabetes mellitus 94975917 E11.9 Stable diabetic control on Metformin. Continue testing glucose daily and lower total calories. Refer to network security administrator and nutritioni st. F/u 6 m. Morbid obesity 002397888 E66.01 Body mass index 40+ - severely obese 700762939 Z68.42 [id number] Luis Waller MD Main Office [address] [address] [place] [address] 01/15/2020 09:24:39 01/15/2020 09:57:37 Acute pharyngitis 447930614 J02.9 Probable viral infection. Had a negative strep test yesterday. Declined codeine for pain. Told not to take NSAIDs because of CHF. [id number] Baldomero Stokes MD [facility] [address] [place] [address] [place] [address] 03/24/2020 14:17:06 03/24/2020 16:10:59 Acute pharyngitis 344458169 J02.9 Exposure t o viral disease 1615406418 19215 Z20.828 [id number] Mirza dumont MD Main Office [address] [address] [place] [address] 04/14/2020 15:02:23 04/14/2020 16:01:33 Essential hypertension 77063589 I10 on meds, good control Major depr ession single episode, in partial remission 52821909 F32.4 working on emotional eating in therapy, really helping she sees a prescriber as well, Chronic di astolic heart failure 317168267 I50.32 fluid balance is stable, followed by cardiology continue meds Moderate p ersistent asthma 225888495 J45.40 not using Dulera felt she has a sore throat not rinsing , will restart [id number] Luis Waller MD [address] [address] [place] [address] 07/24/2020 13:15:29 07/25/2020 10:50:37 Major depression single episode, in partial remission 73140102 F32.4 Recom. to increase duloxetine to 60 mg as recommende d by psych and schedule f/u . Type 2 tremayne betes mellitus without complication 368575374 E11.9 Repeat fasting labs. If A1c is up at 7% or higher, increase metformin. PT. is advised to lower total calories and restart exercise activity. Vitamin D deficiency 347 17769 E55.9 Hyperlipidemia 58332716 E78.00 retest lipids. [id number] Baldomero Stokes MD Telehealt h [address] [facility] [address] [place] [address] 07/29/2020 08:32:01 07/31/2020 10:35:54 Acute sinusitis 00754814 J01.90 Exposure t o viral disease 1981530986 17060 Z03.818 [id number] Mirza dumont MD Main Office [address] [facility] [address] [place] [address] 08/17/2020 09:42:31 08/17/2020 10:41:05 Essential hypertension 16084855 I10 on meds, good control Needs infl uenza immunization 437571980 Z23 Moderate p ersistent asthma 167918458 J45.40 dyspnea with walking, will get appt with pulmonary for eval and to optimize tx, Diastolic dysfunction 35 71758 I51.9 sees mandie Strauss g catheteriz ation but will do pulmonary first. Dyspnea on exertion 6084 5006 R06.09 most likely multifacto rial from morbid obesity, asthma, diastolic dysfunctio n will see pulmonary continue meds Body mass index 40+ - severely obese 069657287 E66.01 Z68.41 long talk on emotional eating, needs to get a handle on overeating , gained 8lbs and is affecting her health [id number] Mirza dumont MD Main Office [address] [address] [place] [address] 09/21/2020 12:49:34 09/21/2020 15:57:02 Abdominal pain 64721875 R10.9 video visit today for f/u back pain and pt reports 4 days of bilateral LQ abd/pelvic pain, a bit better today than yesterday, no fever, chills, vomiting or diarrhea, has a reduced appetite, firm stool yesterday. pt to come in for office visit tomorrow to evaluate ? diverticul itis (on both sides so not classic but pt has a hx of diverticul itis) vs constipati on, will see Nikole early in case she needs imaging. Spasm of back muscles 20 8061861 M62.830 improved after ER visit on skelaxin, no further need for this, pt is very deconditio rand. Essential hypertension 34033598 I10 on meds, good control Type 2 tremayne betes mellitus without complication 446602193 E11.9 Body mass index 40+ - severely obese 078150368 E66.01 Z68.41 morbidly obese and deconditio rand. [id number] Baldomero Stokes MD Main Office [address] [facility] [address] [facility] [address] 09/22/2020 08:29:09 09/22/2020 09:44:51 Abdominal pain 08893617 R10.9 Diverticul itis of colon 710680925 K57.32 [id number] Luis Waller MD [address] [place] [address] 11/09/2020 11:47:36 11/09/2020 13:55:29 Exposure to viral disease 3746865909 73583 Z03.818 her daughter is also sick, uses public transport and works outside the home. Isolate until covid results back. Acute sinusitis 94216668 J01.90 will tx for sinusitis- clarithrom ycin as directed. hydration, rest, nasal sinus rinses as needed Fever 620417256 R50.9 hydration, rest, tylenol or ibuprofen as needed. [id number] Mirza dumont MD [address] [place] [address] 11/13/2020 15:08:19 11/14/2020 13:37:44 History of diverticulitis 9272162304 80430 Z87.19 Pt currently has pain similar to previous bouts of diverticul itis. This is the 4-5th episode and has only had 1 [address] to document, never had colon screening. Will treat as if ditis and get CT to confirm. Stat labs to determine if pt needs to go to the ED. Rest, bland diet with clear fluids. If worsening needs to go to the ED Abdominal pain 60694961 R10.9 Labs today to see if any sx of inflammati on, if number elevated consider ED evaluation [id number] Mirza dumont MD Main Office [address] [place] [address] 12/28/2020 10:16:43 12/28/2020 11:32:41 Adult health examination 468619438 Z00.00 mammogram utd, colonoscop y is arranged for 01/2021 Screening for malignant neoplasm of colon 635793302 Z12.11 pt has appt Screening for malignant neoplasm of cervix 279104854 Z12.4 pt to arrange Essential hypertension 63155926 I10 on meds, good control Hyperlipidemia 54982070 E78.5 Pain of le ft ankle joint 2432269427 3699911 M25.572 will get xray and see ortho, most likely chronic tendonitis Right uppe r quadrant pain 019979218 R10.11 ruq pain elevated alk phos, check liver and gallbladde r rule out mass or abn and pt to see GI, has appt next week, Major depr ession single episode, in partial remission 17171540 F32.4 working on emotional eating in therapy, really helping she sees a prescriber as well, Chronic di astolic heart failure 142998911 I50.32 fluid balance is stable, followed by cardiology continue meds Body mass index 40+ - severely obese 590047963 E66.01 Z68.41 morbidly obese and deconditio rand. Type 2 tremayne betes mellitus without complication 695853456 E11.9 obesity and deconditio rand a problem [id number] Luis Waller MD Telehealt h [address] [facility] [address] [place] [address] 02/01/2021 10:02:26 02/01/2021 12:02:41 Exposure to viral disease 4528316068 14080 Z03.818 Isolate until covid results back. hydration, rest, tylenol or ibuprofen as needed. Essential hypertension 70474313 I10 Will drop to 2.5 mg amlodipine and continue to monitor BP. Type 2 tremayne betes mellitus without complication 700851464 E11.9 Polymyalgi a rheumatica 11111275 M35.3 Acute sinusitis 55431677 J01.90 will tx for sinusitis as sx started 10 days ago but also check covid test. hydration, rest, nasal sinus rinses as needed, doxy as directed x full 10 days. flonase daily. Counseling 005131277 Z71 .9 Health advice, education or counseling done for COVID 19 [id number] Mirza dumont MD Main Office [address] [address] [place] [address] 02/21/2021 13:42:07 02/21/2021 14:45:59 Family history of malignant neoplasm of breast in first degree relative 563820839 Z80.3 see HPI sister getting genetic testing, will refer pt to breast center in light of strong family hx, also has 2 superficia l cysts she may want addressed. Cyst of breast 476629483 N60.09 [id number] Mirza dumont MD Main Office [address] [address] [place] [address] 03/16/2021 15:25:26 03/16/2021 16:11:26 Major depression single episode, in partial remission 68959142 F32.4 working on emotional eating in therapy, really helping she sees a prescriber as well, Chronic di astolic heart failure 262950296 I50.32 fluid balance is stable, followed by cardiology continue meds Essential hypertension 18580054 I10 on meds, good control Hyperlipidemia 06323536 E78.5 Pain of le ft ankle joint 3482888754 4451818 M25.572 will get xray and see ortho, most likely chronic tendonitis Body mass index 40+ - severely obese 727726504 E66.01 Z68.41 morbidly obese and deconditio rand. pt is going to go to [facility] [id number] Mirza dumont MD Main Office [address] [address] [place] [address] 03/26/2021 13:50:05 03/27/2021 00:32:34 [id number] Mirza dumont MD Main Office [address] [address] [place] [address] 03/30/2021 15:15:01 03/30/2021 16:09:30 Abscess 700596278 L02.91 Will extend minocyclin e for a few more days through the weekend, continue warm soaks. If not gone completely in a week would have her see a surgeon Hyperglycemia 79949218 R 73.9 elevated hgba1c reaches criteria for diabetes Type 2 tremayne betes mellitus without complication 161182108 E11.9 New dx of diabetes, recommend lowering carbs and sweet in her diet, would like her to see Nikole Urias for education and possible treatment. Hidradenit is suppurativa 29435096 L73.2 dermatolog y evaluation [id number] Nikole Urias PAMary AnnC Main Office [address] [place] [address] 06/29/2021 13:28:31 06/29/2021 14:17:52 Furuncle 284787642 L02.92 Start warm compresses every 2-3 hrs for 5-10 minutes. Start Abx as directed for 7 days. Check glucose as discussed. [id number] Mirza dumont MD Main Office [address] [place] [address] 07/11/2021 15:36:47 07/11/2021 16:21:55 Essential hypertension 31117666 I10 on meds, good control Moderate p ersistent asthma 292197457 J45.40 refill singulair, sees pulmonary Chronic di astolic heart failure 010878146 I50.32 fluid balance is stable, followed by cardiology continue meds wear stockings Gastroesop hageal reflux disease 266896376 K21.9 continue meds, lose weight Body mass index 40+ - severely obese 986549560 E66.01 Z68.41 morbidly obese and deconditio rand. [id number] Mirza dumont MD Main Office [address] [address] 07/23/2021 11:32:40 07/23/2021 12:14:59 Right upper quadrant pain 044059507 R10.11 severe, lost 8lbs, very concerning for cholangiti s or acute cholecysti tis, pt with mild low grade fever, chills, poor appetite severe RUQ pain and referred pain form ther areas of abdomen, referred pt to [facility] ER, she has a ride and si gong now, needs imaging of gallbladde r pt understand s urgency [id number] Mirza dumont MD Main Office [address] [address] [place] [address] 07/27/2021 11:23:10 07/27/2021 12:01:37 Hypokalemia 50355707 E87.6 was lo K in ER, was given replacemen t but not taking, check level and pt was told to start 2 of the pills from ER amisha. Pancreatitis 18762690 K8 5.90 idiopathic , will recheck labs, pain is better so assume process is less active, any flare pt knows to go NPO and see reeval, pt needs to lessen fatty foods and eat very light Leukocytosis 548433660 D 72.829 recheck. most likely from pancreatii ts [id number] Mirza dumont MD [address] [address] [place] [address] 10/15/2021 08:39:53 10/15/2021 12:56:16 Acute sinusitis 50473311 J01.90 sinus pressure, headache, multiple med allergies but tolerates zpak well, will treat with zpak and encouraged sinus irrigation . tested negative for covid. needs eval if not improving, work note for today to be sent to pt Essential hypertension 59636696 I10 on meds, good control in past, I do not think headache is from htn, seems related to sinus pressure. [id number] Mirza dumont MD [address] [address] [place] [address] 11/04/2021 10:20:10 11/05/2021 09:53:12 Acute sinusitis 65580316 J01.90 see hpi, improved with zpak but now worse, will have pt stop minocyclin e and change to doxycyclin e (allergy to pcn, cephalospo rins and bactrim) and see derm this week for f/u hydradenit is. Hidradenit is suppurativa 38432460 L73.2 on back of neck, change to doxy and see derm in f/u [id number] Dickson Keith MD Main Office [facility] [address] [place] [address] 03/12/2022 12:54:36 03/12/2022 15:21:52 Hyperlipidemia 81825455 E78.5 retest lipids. Moderate p ersistent asthma 918161109 J45.40 Disorder o f nervous system due to type 2 diabetes mellitus 438031050 E11.49 recommend to see network security administrator for foot and nail care Diabetic p eripheral neuropathy 041159814 E11.40 Uncontroll ed type 2 diabetes mellitus 782496530 E11.65 Uncontroll ed type II diabetes due to noncomplia nce to diet. Pt. has h/o CHF. WE will add SGLT-2 Farxiga at 10 mg daily if electrolyt es and renal tests are stable. PT. is advised to have fasting labs done in 2-3 days. Increase metformin er to 750 mg BID. Discussed low calorie diet and exercise recommenda tions. F/u 6-7 weeks with glucose log. [id number] Dickson Keith MD Main Office [address] [place] [address] 04/26/2022 10:33:51 04/26/2022 11:36:33 Adult health examination 544404292 Z00.00 Physical exam done today, pt stable with health problems. Social and family history reviewed. Immunizati ons reviewed, advised annual flu shot, shingles vaccine, covid booster. She is upt to date on eye providers, needs to schedule dentist, mammogram up to date, colon up to date, Reviewed diet and exercise. 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 Body mass index 40+ - severely obese 706166068 E66.01 Z68.41 working on this, doing WW Type 2 tremayne betes mellitus without complication 358087056 E11.9 follows with , working on wt loss Screening for malignant neoplasm of breast 648071679 Z12.39 next friday, has appt Varicella vaccination 68 342595 Z23 can get at the pharmacy Bilateral hearing loss 93276464 H91.93 pt will arrange a hearing test Menopausal and postmenopausal disorders 924374812 N95.9 never had bone density [id number] Dickson Keith MD Main Office [address] [address] [facility] [place] [address] 05/21/2022 14:04:20 05/21/2022 14:39:25 Disorder of nervous system due to type 2 diabetes mellitus 484844931 E11.49 recommend to see network security administrator for foot and nail care. Diabetes is in much improved control. Continue Farxiga at 10 mg daily , increase hydration , continue exercise and weight watchers diet. F/u 3 m. 200613 MARIA DEL ROSARIO ONEILL MD Main Office [address] [place] [address] 07/02/2022 15:04:04 07/02/2022 15:43:58 Pain of left shoulder joint 8147895416 6545977 M25.512 - x-ray of the left shoulder showing DJD at the AC joint which is the most likely cause of the pain- continue with tylenol 500mg Q6HRS PRN, counselled on not exceeding more than 3g/day- due to patient's sensation of rolling, would possibly benefit from MRI- pt referred to sports medicine due to continues pain on at the shoulder and having the rolling sensation. Pt would also like to have discussion with specialist to see if MRI is needed- pt would like to defer physical therapy at this time and will continue with home exercises Low blood pressure 88379 003 I95.9 - pt blood pressure was 96/62 with a MAP of 72, currenlty asymptomat ic- pt currently on spironlact one 50mg, verapamil 40mg and losartan 25mg- will reduce the spironlact one to 25mg QD- pt advised to take BP readings at home and will follow-up in one week with results> if BP is well controlled on lower dose spironolac tone leave at this regimen> if BP is not well controlled will increase medication back to 50mg- pt has a hx of CHF and follows with cardiology (last seen on 06/24/2022 were BP was 130/88- ED precaution s given [id number] Mirza dumont MD Main Office [address] [facility] [address] [place] [address] 08/02/2022 13:53:35 08/02/2022 15:23:09 Right upper quadrant pain 170826071 R10.11 Will do labs now, stay off doxycyclin e for a few days as this could be causing GI issue. Rule out liver, pancreas inflammati on, gallbladde r, bile duct inflammati on. US ordered but cannot be done until friday. If patient's symptoms are worsening or labs off would send to ED for evaluation . [id number] Luis Waller MD Telehealt [address] [address] [place] [address] 08/21/2022 09:02:35 08/21/2022 11:43:22 COVID-19 620535613 U07.1 Multiple- co morbiditie s will treat with paxlovid.H ydration, rest, if feeling better quarantine x 5 days then mask for 5 days. If not better after 5 days quarantine for full 10 days. Tylenol as needed, OTC cough med as needed. Call/ return for worsening sx or concerns. Chronic di astolic heart failure 651842723 I50.32 Disorder o f nervous system due to type 2 diabetes mellitus 293304903 E11.49 Essential hypertension 51435100 I10 Moderate p ersistent asthma 356272395 J45.40 no SOB currently. Restrictiv e lung disease 00233811 J98.4 Polymyalgi a rheumatica 29432687 M35.3 [id number] Mirza Moore-Sarai dumont MD Main Office [address] [address] [place] [address] 10/10/2022 14:02:47 10/10/2022 14:30:39 Essential hypertension 23043461 I10 on meds, good control in past continue Cellulitis of toe of right foot 5875151425 9191569 L03.031 under right great toe, allergy to keflex and augmentin, will treat for cellulitis , pt to soak, to ER if any worsening and use indocin for pain sparingly [id number] Dickson Keith MD Main Office [address] [address] [place] [address] 11/13/2022 15:07:21 11/13/2022 15:44:54 Disorder of nervous system due to type 2 diabetes mellitus 528378175 E11.49 recommend to see network security administrator for foot and nail care. Diabetes is in stable control. Continue Farxiga 10 mg and metfromin . Increase activity level and try to walk 4 times weekly 30 minutes at least. Lower calories, maybe restart weight watchers and be more consistent with it. Schedule riley for diabetic eye exam. F/u 3-4 m. Diabetic p eripheral neuropathy [id number] E11.40 stable, not seeing network security administrator . Essential hypertension 33824464 I10 Increase losartan to 50 mg. Continue spironolac tone 25 mg. Begin testing bp at home and lower total sodium. Return in 4 weeks for f/u with bp log. [id number] Mirza dumont MD Main Office [address] [place] [address] 11/29/2022 14:27:05 11/29/2022 15:56:56 Right lower quadrant pain [id number] R10.31 [address] to [address] as an outpatient tonight, if not will need to go to the ED. Do lab now. Rule out appendicit is, colitis, diverticul itis, abcess/per foration. ADD: CT was ordered for tonight, discussed this with the education and training coordinator Dr Keith who will followup later. [id number] MARIA DEL ROSARIO ONEILL MD Main Office [address] [place] [address] 12/02/2022 08:59:22 12/02/2022 13:46:21 [id number] MARIA DEL ROSARIO ONEILL MD Main Office [address] [place] [address] 12/06/2022 11:10:32 12/06/2022 11:50:36 Hypokalemia 63830956 E87.6 - on discharge potassium was 4.0- will repeat level to ensure still within normal range, added Mg and Phos- most likely due to spironolac tone and bumetanide Transition from acute care to self-care [id number] 28997 Z76.89 - hospitaliz ation paperwork reviewed- pt was admitted for an episode of diverticul itis Diverticul itis of colon 751152019 K57.32 - hx of diverticul osis and diverticul itis- pt mention she has had approximat hilda three episodes and this is the first one were she needed to be hospitaliz ed- hospitaliz ed on 11/30-12/01 and was given IV levofloxac in and flagyl and later discharged on PO medication - completed antibiotic course- Pt advised to contact GI (Dr. Romero) as will need colonoscop y in the near future- pt advised to slowly reintroduc e solids into the dietAMENDE MENT 4PM: received CBC and it was noted that patient WBC increased from 8(at DC to 12.2 with left shift) pt also does have continued abdominal pain however better than previous. Will extend antibiotic treatment to cover for 10 days today (not seven). Ordered levofloxac in 750mg QD and metronidaz ole 500mg BID. Will repeat CBC in 3 days after antibiotic treatment. ED precaution s given Cyst of right ovary [id number] N83.201 - noted on CT scan and has grown in size, currently 3.1cm- pt will have US on 12/31 ordered by manager gyn Thrombocytosis 6656457 D 75.839 - platelet levels elevated during hospitaliz ation and slowly trending down- ordered repeat CBC for further evaluation Low blood pressure 29271 003 I95.9 - pt blood pressure was 100/42 with a MAP of 60, currenlty asymptomat ic- pt currently on spironolac tone 25mg, verapamil 40mg, bumetanide 2.5 AM and 2mg PM and losartan 50 mg- will reduce the losartan to 25mg QD- pt advised to take BP readings at home and will follow-up in one week with results> if BP is well controlled on lower dose spironolac tone leave at this regimen> if BP is not well controlled will increase medication back to 50mg- pt has a hx of CHF and follows with cardiology (last seen on 06/24/2022 were BP was 130/88)- ED precaution s given [id number] MARIA DEL ROSARIO ONEILL MD Main Office [address] [facility] 207 [facility] [place] [address] 12/09/2022 10:50:58 12/09/2022 12:07:27 Abscess 069395563 L02.91 - there is an area of infection located along patient chronic skin condition (hidradeni tis)- will start dose of clindamyci n 300mg TID for 7 days- pt to continue doxycyline after treatment with the clindamyci n- will check CBC to see if improvemen t in WBC- RTC if no improvemen t Cervical lymphadenopathy 013446133 R59.0 - pain notes tenderness on the right side however no lymphadeno pratibha noted on exam- pt did have a recent CBC with elevated WBC and left shift- ordered US of the neck for further evaluation [id number] Dickson Keith MD Main Office 3640 [facility] 207 [place] [address] 12/13/2022 08:51:42 12/13/2022 09:59:06 Essential hypertension 25066459 I10 stable htn on current meds. Repeat potassium as recommende d by PCP end of Dec. Hypokalemia 02501493 E87 .6 continue as per Jorge Oneill instructio ns. Hypomagnesemia 770546217 E83.42 begin Mag Oxide 400 mg daily. Repeat lab end of december Disorder o f nervous system due to type 2 diabetes mellitus 988911709 E11.49 Continue Farxiga 10 mg daily. F/u 3 m. [id number] MARIA DEL ROSARIO ONEILL MD Main Office [address] [place] [address] 12/27/2022 10:59:54 12/27/2022 11:38:05 Abscess 936185463 L02.91 - improved- there was an area of infection located along patient chronic skin condition (hidradeni tis)- completed course of clindamyci n 300mg TID for 7 days Cervical lymphadenopathy 154787594 R59.0 - pain comes and goes- no cervical lymphadeno pratibha noted on exam today- awaiting repeat CBC- US of the neck was normal Hidradenitis 50702457 L7 3.2 - currently not well controlled - currently at stage II- pt was not able to tolerate doxycyline or tetracycli ne- currently on clindamyci n cream- pt has been following with dermatolog y who recommende d starting humira injections > pt does not feel comfortabl e with this idea as she has history of diabetes, CHF, asthma- will try course of clindamyci n 300mg BID and rifampin 300mg BID for 12 weeks> pt counselled on side effects of taking clindamyci n for such a long period time such as C diff> pt will keep MD updated if any symptoms arise Acute sinusitis 51755190 J01.90 - pt complainin g of 7 days of congestion , facial pain, headaches- most likely viral infection at this time as not currently entirely convinced it is a bacterial infection (PE was reassuring and pt just finished several courses of antibiotic s)- will continue with supportive treatment at this time- Tylenol OTC, not to exceed package insert for pain or fever q4-6h advised prn. Counselled on not exceeding more than 3g/day. - Throat Lozenges otc prn for sore throat - saltwater gargle - adequate hydration enforced - saline sprays - humidifier use enforced. - return precaution s given [id number] Dickson Keith MD Main Office [address] [address] 01/17/2023 11:54:36 01/17/2023 14:16:30 COVID-19 141070690 U07.1 Tylenol OTC, not to exceed package insert for pain or fever q4-6h advised prn.Counse lled on not exceeding more than 3g/day.Thr oat Lozenges otc prn for sore throatsalt water gargleadeq uate hydration enforced, rest advised.sa line sprayshumi difier use enforced.p axlovid sent, last available kidney function reviewed, advised eua and potential side effects,[place] moreno advised to avoid clonazapam and monitor BP with verapamil and monitor glucose.Al so advised can use a teaspoon honey for cough but be mindful as she is a dm.isolati on precaution discussedp recaution advised if any difficulty breathing or tmax 103 > go to nearest ED [id number] MARIA DEL ROSARIO ONEILL MD Main Office [address] [address] 02/03/2023 10:16:40 02/03/2023 10:57:40 Diverticulitis of colon 061363703 K57.32 - hx of diverticul osis and diverticul itis- approximat hilda four episodes in patient lifetime, most recent pt needed to be hospitaliz ed on 11/30-12/01 (was given IV levofloxac in and flagyl and later discharged on PO medication )- Will see GI (Dr. Romero) on 04/10/23 - concerned patient may be having another diverticul itis flare as pain is similar to previous flares- ordered CT abdomen and pelvis with contrast> will not start antibiotic treatment until there is a positive result on CT scan- pt advised to continue solids as tolerated- ordered CBC to check the white count- ordered BMP and hepatic function panel- will check inflammato ry markers with ESR and CRP- ED precaution s given [id number] MARIA DEL ROSARIO ONEILL MD Main Office [address] [facility] 207 [facility] [place] [address] 02/10/2023 10:17:50 02/10/2023 12:42:06 Hidradenitis 31503459 L73.2 - currently not well controlled - currently at stage II- pt was not able to tolerate doxycyline (gets severe headaches) or tetracycli ne (gets severe abdominal pain)- currently on clindamyci n cream- pt has been following with dermatolog y who recommende d starting humira injections > pt does not feel comfortabl e with this idea as she has history of diabetes, CHF, asthma- pt did not want to try clindamyci n due to fear of getting C. diff.- will try course of 16 weeks of minocyclin e to see if there is improvemen t. Pt does have a history of joint pain on this medication however patient is willing to try> PLEASE NOTE: only a 30 days supply given to see if patient is in fact able to tolerate medication [id number] MARIA DEL ROSARIO ONEILL MD Main Office [address] [facility] [address] [facility] [place] [address] 04/25/2023 10:46:08 04/25/2023 11:24:55 Transition of care from emergency department to self-care [id number] 79274 Z76.89 - emergency department paperwork reviewed Restrictiv e lung disease 46537515 J98.4 - recent asthma exacerbati on on 04/19- pt was last seen by pulmonolog y [id number], will see May 2023- takes albuterol HFA as needed, was taking 4-5 times daily- c/w singular 10mg QD and spiriva 18mcg capsules> pt did take a 6 week break with spiriva, started back after ED visit- pt was given ipratropiu m-albutero l nebulizer solution by the emergency room> has been taking 2-3 time daily- since patient is seeing pulm in May will not order PFT testing Hypokalemia 38484156 E87 .6 - in the emergency room, K+ noted to be 3.2, pt given supplement ation- will repeat level to ensure still within normal range, added Mg- most likely due to spironolac tone and bumetanide Thrombocytosis 3283308 D 75.839 - platelet levels elevated during hospitaliz ation and slowly trending down- most recent platelet count from 04/19 was 485 Acute sinusitis 06486170 J01.90 - pt complainin g of 7 days of congestion , facial pain, headaches- improvemen t noted with doxycyline . As patient cannot tolerate doxycyline , medication as switched to levofloxac in for the next 4 days [id number] MARIA DEL ROSARIO ONEILL MD Main Office [address] [facility] [address] [place] [address] 05/02/2023 09:31:48 05/02/2023 10:11:05 Adult health examination 581382010 Z00.00 Health Maintenanc e FemaleA) Patient was counseled on healthy diet, exercise and nutrition due to BMI of 47.2 B) ScreeningL ast Mammogram: start at age 50 stop at 74Date: 04/29/2022 Result: BIRADS-1Ne xt: negative Last Pap smear: start at age 21 to age 65Date: 05/24/2021 Results: no atypical cellsNext: [id number] Last Colonoscop y: start at age 45-75Date: Result: Next: needs, ordered several times, pt has not follow-up Last DEXA scan:Date: due at 64Result: ordered pt has not follow-up C) Vaccines:I nfluenza: 08/16/2022 TdAP: 12/23/2018 (Td)Zoster : orderedPCV 13: due at 83XPVE07:0 07/25/2016P CV20:PCV15 :COVID: 01/17/2021 , 02/14/2021 , 10/24/2021 , 08/16/2022 D) Routine blood work orderedE) Updated patient's history RTC in one year for annual exam or sooner if any acute complaints Restrictiv e lung disease 05962919 J98.4 - recent asthma exacerbati on on 04/19- pt was last seen by pulmonolog y in 2020, will see May 2023- takes albuterol HFA as needed, was taking 4-5 times daily- c/w singular 10mg QD and spiriva 18mcg capsules> pt did take a 6 week break with spiriva, started back after ED visit- pt was given ipratropiu m-albutero l nebulizer solution by the emergency room> has been taking 2-3 time daily- since patient is seeing pulm in May will not order PFT testing Hypokalemia 59684900 E87 .6 - in the emergency room, K+ noted to be 3.2, pt given supplement ation- repeat bmp showed normal potassium, pt is currently on supplement ation- most likely due to spironolac tone and bumetanide Thrombocytosis 2209288 D 75.839 - platelet levels elevated during hospitaliz ation and slowly trending down- most recent platelet count from 04/19 was 485- will continue to monitor Hidradenitis 43591392 L7 3.2 - currently well controlled at stage II- pt was not able to tolerate doxycyline (gets severe headaches) or tetracycli ne (gets severe abdominal pain)- currently on clindamyci n cream- pt has been following with dermatolog y who recommende d starting humira injections > pt does not feel comfortabl e with this idea as she has history of diabetes, CHF, asthma- pt did not want to try clindamyci n due to fear of getting C. diff.- pt also tried a course of minocyclin e however it caused joint pain- for the future will stick with short courses of doxycline as it provides the most relief and less AE Diverticul itis of colon 273763215 K57.32 - hx of diverticul osis and diverticul itis- approximat hilda four episodes in patient lifetime, most recent pt needed to be hospitaliz ed on 11/30-12/01 (was given IV levofloxac in and flagyl and later discharged on PO medication )- Will see GI (Dr. Romero) on 04/10/23 Chronic di astolic heart failure 341669008 I50.32 - follows with cardiology , last seen on 06/24/2022- EF was 75%- under good control with current medication regimen Disorder o f nervous system due to type 2 diabetes mellitus 618107257 E11.49 - HbA1c from 12/2022 was 6.5 (at goal)- following with her diabetic specialist - c/w metformin ER 750mg BID and farxiga 10mg- ordered a repeat HbA1c to ensure no worsening Essential hypertension 56319162 I10 - at goal- BP today is 119/77- c/w losartan 50mg, verapamil 40mg, bumex and spironolac tone 25mg Pt counselled on:-Dietar y Approaches to Stop Hypertensi on (DASH) is an eating plan rich in fruits, vegetables , whole grains, fish, poultry, nuts, legumes, and low-fat dairy. These foods are high in gallagher nutrients such as potassium, magnesium, calcium, fiber, and protein. -Advised continued adherence to medication s and low salt diet - extensive counsellin g done regarding dietary habits. -Encourage d regular aerobic exercise 30 min for 4-5 x week. -BP monitoring at home advised to bring log at every visit -Side-effe cts of high BP can cause Stroke, Heart attack and even d/w pt -D/w pt when to call 911 or reach out to Health care provider: >Think you are having a reaction to a medicine you are taking. >Have headaches that keep coming back (recurring ). >Feel dizzy. >Have swelling in your ankles. >Have trouble with your vision. Hyperlipidemia 21822340 E78.5 - ordered lipid panel- Eat a heart-heal thy diet - Choose healthy fats. Avoid saturated fats that are found primarily in red meat, lira, sausage, and full-fat dairy products. Advised to choose lean proteins like chicken, turkey, and fish when possible. Switch to low-fat or fat-free dairy. And use monounsatu rated fats like olive and canola oil for cooking. - Cut out the trans fats. Trans fats are found in fried food and processed foods, like cookies, crackers, and other snacks. - Eat more omega-3s. Counseled on eating more fish, including salmon, mackerel, lawrence ,nuts and seeds, like walnuts and flax seeds. - Increase your fiber intake. By eating more oats, brain, fruits, beans, and vegetables , can lower your LDL cholestero l levels. - Eat more fruits and veggies. Vitamin D deficiency 347 97384 E55.9 - will check levels, not currently on any supplement ation Sleep apnea 59436183 G47 .30 - uses a CPAP- see on sleep on July 17 2023 Hepatitis C screening 41 9631184 Z11.59 Varicella vaccination 68 898763 Z23 Screening for malignant neoplasm of colon 457951402 Z12.11 Body mass index 40+ - severely obese 799239572 E66.01 Z68.41 - BMI is 47.2- Cut down on (limit) fast foods, sweets, and processed snack foods. - Limit alcohol intake to no more than 1- 2 drinks a day for men. One drink equals 12 oz of beer, 5 oz of wine, or 1 oz of hard liquor. - Keep a weight loss journal and keep track of the food and portions that you eat. - The exercise that you do- 4 times a week or 150 minutes cumulative of moderate exercise recommende d. [id number] MARIA DEL ROSARIO ONEILL MD Main Office [address] [facility] [address] [place] [address] 05/09/2023 10:49:36 05/09/2023 11:13:41 Hidradenitis 39346370 L73.2 - currently well controlled at stage II- c/w clindamyci n cream- pt has been following with dermatolog y who recommende d starting humira injections > pt does not feel comfortabl e with this idea as she has history of diabetes, CHF, asthma- pt did not want to try clindamyci n + rifampin due to fear of getting C. diff.- pt also tried a course of minocyclin e however it caused joint pain- pt provided with doxycyclin e 100mg BID for 7 days> pt is better able to tolerate this medication compared to tetracycli ne or minocyclin e- pt advised to follow-up again with dermatolog y [id number] MARIA DEL ROSARIO ONEILL MD Main Office [address] [facility] [address] [place] [address] 07/03/2023 08:59:53 07/03/2023 10:14:22 [id number] Dickson Keith MD Main Office [address] [facility] [address] [place] [address] 07/08/2023 15:02:40 07/08/2023 15:54:12 Disorder of nervous system due to type 2 diabetes mellitus 531268856 E11.49 Continue Farxiga 10 mg daily. Repeat A1c , microalbum in and lipids. Refer to ophthalmol ogist. F/u 4 m. Diabetic p eripheral neuropathy 884960332 E11.40 stable, not seeing network security administrator . Essential hypertension 43492205 I10 stable htn on current meds. Continue magnesium . Dash diet. F/u with PCP as scheduled in August. Hyperlipidemia 05199757 E78.5 retest lipids. Body mass index 40+ - severely obese 948389252 Z68.42 refer to [facility] medical nutrition /bariatric program. Pt. can not take GLP-1 for weight loss. Morbid obesity 823286794 E66.01 refer to [facility] nutrition /bariatric program. Pt. can not take GLP-1 for weight loss. [id number] Nikole Urias PA-C [facility] [address] [address] [place] [address] 07/14/2023 13:51:39 07/14/2023 14:44:39 Exacerbation of moderate persistent asthma 070710863 J45.41 P. is doing reasonably well post admission. Will continue inhalers , avoid extreme of temperatur e and f/u with pulmonary as scheduled. Hypokalemia 77647625 E87 .6 continue potassium supplement s, add magnesium oxide 400 mg daily. repeat bmp and magnesium every 3 m. Hypomagnesemia 480616915 E83.42 begin Mag Oxide 400 mg daily. Repeat lab in 2-3 m. [id number] Luis Waller MD Main Office [address] [address] [place] [address] 07/31/2023 10:38:29 07/31/2023 11:30:04 Needs influenza immunization 358474880 Z23 Thoracic back pain 48683 8004 M54.6 suspect muscle spasm, cyclobenza aldo at bedtime as needed- no driving or alcohol with med. She cannot take NSAIDS- will rx pred burst to take for 5 days. May use heat/ ice. gentle stretching as tolerated. If worsenign sx or concerns please call/ return. Rib pain 205515428 R07.8 1 [id number] MARIA DEL ROSARIO ONEILL MD Main Office [address] [facility] [address] [place] [address] 08/09/2023 09:02:31 08/09/2023 09:26:51 Candidiasis of mouth 49677466 B37.0 - white discharge, that was scrapped off during the exam with central portion of the tongue being erythemato us- pt given nystatin oral solution- RTC if no improvemen t [id number] MARIA DEL ROSARIO ONEILL MD Main Office [address] [address] [place] [address] 09/02/2023 14:59:25 09/02/2023 15:58:19 Anxiety state 713591410 F41.1 - LETICIA-7 score of 17- elevation is due patient current medical problems- pt was advised to contact her prescriber as she needs to be adjusted on her medication - currently on clonazepam 0.5mg BID, duloxetine ER 60mg> was previously on wellbutrin , citalopram , fluoxetine , escitalopr am Moderate p ersistent asthma 369001035 J45.40 - most likely contributi ng to patient dyspnea as she is currently not compliant with breo- did psychotherapist counselor patient take inhaler as it will provide relief and help her SOB- c/w albuterol as needed and singular 10mg QD- pt would like a second opinion therefore referral was placed for a new pulmonolog ist Congestive heart failure 52636795 I50.9 - diagnosed heart failure- ordered US echo for further evaluation - pt was lasts seen by cardiology on 08/22 who will be ordered a PET CT stress test Thrombocytosis 1778334 D 75.839 - platelet levels elevated during hospitaliz ation and slowly trending down- most recent platelet count from 05/19 was 568- will continue to monitor [id number] DENTON HOPKINS Main Office [address] [address] [place] [address] 09/11/2023 14:52:10 09/11/2023 15:48:23 Transition of care from emergency department to self-care [id number] 56463 Z76.89 c/w aspirin 81mg daily Stuttering 45474311 F98. 5 -presented to [facility] with stuttering and difficulty with word finding-menjivar s not experience d stuttering or changes in speech since discharge- discussed with pt to continue monitoring for any new symptom onset or changes Weakness present 7999287 07 M62.81 -pt presented to [facility] with right sided weakness-s ymptoms have since resolved and pt has not experience d muscular weakness since discharge- discussed with pt to continue to monitor for any new symptoms or changes Anxiety state 345663479 F41.1 - elevated stress due patient current medical problems- pt was advised to contact her prescriber as she needs to be adjusted on her medication - currently on clonazepam 0.5mg BID, duloxetine ER 60mg-pt gets anxious thinking of completing an MRI, was offered lorazepam in [facility] but had no relief. Since symptom resolution - pt denies outpatient MRI > was previously on wellbutrin , citalopram , fluoxetine , escitalopr am [id number] Andrew Vitale MD Main Office [address] [facility] [place] [address] 09/18/2023 10:44:10 09/18/2023 11:55:40 Influenza-like illness 60748910 B34.9 negative flu Acute sinusitis 16759130 J01.90 recommend probiotics while on abxcont lindsay/mucine x Asthmatic bronchitis 405 831403 J45.909 Cough 29343804 R05.9 Gastroesop hageal reflux disease 474261090 K21.9 [address] as dir [id number] Luis Waller MD Main Office [address] [facility] [address] 09/26/2023 13:29:35 09/26/2023 14:14:01 Persistent cough 206395649 R05.3 Her cough is probably a post-viral cough. She will continue with inhalers and benzonatat e. No role for continuing abx and breathing is good so need further prednisone needed. Congestive heart failure 60233125 I50.9 Will check a proBNP and she has an upcoming cardiology appointmen t. This is unlikely to be a CHF exacerbati on since her exam was normal. [id number] Dickson Keith MD Main Office [address] [facility] [address] [place] [address] 10/21/2023 12:53:16 10/21/2023 13:25:22 Disorder of nervous system due to type 2 diabetes mellitus 878621552 E11.49 Continue Farxiga 10 mg daily and metformin BID. Pt. was encouraged to work on lowering her calories and increasing exercise activity. F/u 3 m. Acute sinusitis 45723467 J01.90 Symptoms started over a week ago and are getting worse. will cover with antibiotic s [id number] MARIA DEL ROSARIO ONEILL MD Main Office [address] [facility] [address] [place] [address] 11/21/2023 08:52:31 11/21/2023 09:42:08 Hand wart 653962128 B07.8 - located on the left hand, 3rd digit- pt referred to dermatolog y for removal Low back pain 475331894 M54.50 - chronic, has been present for several months- pt refused messaged therapy, acupunctur e, PT and chiropract or- recommende d TENS unit- as pain is dull no new pain medication s given Thrombocytosis 5475745 D 75.839 - platelet levels elevated during hospitaliz ation and slowly trending down- most recent platelet count from 04/19 was 485- pt was referred to hematology however heme would like anemia to be fixed first and if no improvemen t can refer back Iron defic iency anemia 41244105 D50.9 - iron and TIBC: iron-25, % iron saturation -7 is low- pt currently on vitamin C and iron tablets Hypokalemia 69383440 E87 .6 [id number] Andrew Vitale MD Telehealt h [address] [facility] [address] [place] [address] 12/02/2023 09:04:34 12/02/2023 10:07:06 COVID-19 [id number] U07.1 cont otc meds (prn tyl, robitussin ) as dir, cont self-isola tion, cont push fluid intake, rest, consider extra vit D for a few days to help boost immune system advised pt only to go to ER if significan t sob where may need to be admitted, o/w avoid going to hospital if at all possible Counseling 014333461 Z71 .9 Health advice, education or counseling done for COVID 19 [id number] MARIA DEL ROSARIO ONEILL MD Main Office [address] [address] [place] [address] 12/15/2023 11:34:30 12/15/2023 12:01:15 Persistent cough [id number] R05.3 - most likely still lingering from recent COVID injection which patient contracted on 12/02- c/w tessalon perles as needed- c/w supportive treatment at this time- Tylenol OTC, not to exceed package insert for pain or fever q4-6h advised prn. Counselled on not exceeding more than 3g/day.- adequate hydration enforced- Also advised can use a teaspoon honey for cough Posterior rhinorrhea 758 44578 R09.82 - causing cough to be worse- c/w saline sprays- c/w humidifier nightly- c/w flonase QD- pt advised to add zyrtec 10mg QD as needed COVID-19 [id number] U07.1 - recent infection on 12/02 and patient was given paxlovid [id number] Luis Waller MD Main Office [address] [address] [place] [address] 02/26/2024 14:59:50 02/26/2024 15:38:19 Irritable bowel syndrome 91065661 K58.9 x1-2 weeks; pt notes of some improvemen ts in severity since onset-hx of IBS with constipati on-associa tameka symptoms of bloating, cramping, and lower abdominal pain-relie f with bowel movements; takes miralax which provides relief-pt notices worsening symptoms after having gluten; requesting celiac panel-samson es of any fever, chills, fatigue, n/v/d-tend erness to palpation of the lower abdomen-di scussed with pt to continue with conservati ve measuremen ts and trial gas-x for excess passing of naveed-will further evaluate with lab work [id number] MARIA DEL ROSARIO ONEILL MD Main Office [address] [address] [place] [address] 03/23/2024 15:05:22 03/23/2024 16:01:53 Iron deficiency anemia 91426259 D50.9 - iron and TIBC: iron-25, % iron saturation -7 is low- pt currently on vitamin C and iron tablets- will recheck levels Hypokalemia 48678601 E87 .6 - pt has history of hypokalemi a, concerned potassium may low again therefore ordered BMP Fatigue 76257576 R53.83 - pt psychiatri st requesting TSH testing, ordered Thrombocytosis 4000025 D 75.839 - elevated- most recent platelet count from 02/25 was 568- pt was referred to hematology however heme would like anemia to be fixed first and if no improvemen t can refer back Major depr ession single episode, in partial remission 33125910 F32.4 - not currently in remission- pt is following psychiatry who is prescribes her medication s- c/w duloxetine 60mg QD- pt started seeing a therapist- will continue to monitor [id number] Luis Waller MD Main Office [address] [facility] [address] [facility] [place] [address] 04/01/2024 11:14:03 04/01/2024 11:44:18 Acute sinusitis 82007117 J01.90 x1 week of sinus pressure, congestion , and headache-h as taken OTC medication s with little relief-joey l provide doxycyclin e x7 day course [id number] Andrew Vitale MD Main Office [address] [address] [place] [address] 04/19/2024 10:52:25 04/19/2024 11:54:43 Disorder of nervous system due to type 2 diabetes mellitus 832948438 E11.49 Continue Farxiga 10 mg daily and metformin BID. Pt. was encouraged to work on lowering her calories and increasing exercise activity. F/u 3 m. Diabetic p eripheral neuropathy 268675510 E11.40 stable, not seeing network security administrator . Essential hypertension 21090814 I10 stable htn on current meds. Continue magnesium. Dash diet. F/u with PCP as scheduled in August. [id number] Luis Waller MD Main Office [address] [facility] [address] [place] [address] 05/07/2024 14:04:41 05/07/2024 14:33:09 Benign paroxysmal positional vertigo [id number] H81.10 x3 episodes of BPPV in the last week-episo de last <5 seconds, triggered with quick head movements- sensation of the room spinning-d enies of any nausea/vom iting, vision changes, sob, chest pain-in office shayy hallpike is positive- bilaterall y-will refer to PT and discussed conservati ve measuremen ts [id number] Andrew Vitale MD Main Office [address] [facility] [address] [place] [address] 06/03/2024 14:05:42 06/03/2024 15:00:13 Benign paroxysmal positional vertigo 611205531 H81.10 x3 episodes of BPPV in the last week-episo de last <5 seconds, triggered with quick head movements- sensation of the room spinning-d enies of any nausea/vom iting, vision changes, sob, chest pain-in office shayy hallpike is positive- bilaterall y-will refer to PT and discussed conservati ve measuremen ts 8.24 - persists to a mild degree, pending see vestibular therapist in a few wksmeanwhi le, consider trial of lottie maneuver Diarrhea 54133123 R19.7 no recent abx and not all watery - so no need to check c.diffrec brat diet, stay hydrated, cont soup/crack ers - advance diet as tolerated Fatigue 01464665 R53.83 check labs to r/o dehydratio n, etc Cramp in lower limb [id number] 43851 R25.2 [id number] Luis Waller MD Main Office [address] [facility] [address] [place] [address] 06/26/2024 10:38:52 06/26/2024 11:29:37 Acute pharyngitis 559776834 J02.9 Probable viral infection. Had a negative strep test yesterday. Declined codeine for pain. Told not to take NSAIDs because of CHF. Abdominal pain 03697015 R10.9 Localized pain and tenderness in RLQ. Concern for appendicit is and advised her to go to the ER for further evaluation . Kidney stone is a possibilit y given blood in urine but less likely so no back pain. Doubt diverticul itis given the location and also unlikely to be constipati on. [id number] Luis Waller MD Main Office [address] [address] [place] [address] 07/30/2024 09:44:21 07/30/2024 10:18:25 Fever 290702408 R50.9 Likely viral illness, hydration, rest, tylenol or ibuprofen as needed. Flu negative. Exacerbati on of moderate persistent asthma 306766431 J45.41 Will tx for asthma exacerbati on. prednisone taper x 10 days. Continue inhaler/ neb treatments as needed, guaifenesi n as needed. Nasal congestion 8916175 0 R09.81 [id number] Luis Waller MD Main Office [address] [address] [place] [address] 08/10/2024 15:07:01 08/10/2024 15:40:57 Acute sinusitis 62827570 J01.90 sx x 2 weeks, hydration, rest, tylenol or ibuprofen as needed, tea with honey, OTC cough meds as needed, nasal sinus rinses as needed, doxy as directed x full 10 days. flonase daily. Cough 19778182 R05.9 hydration, rest [id number] Luis Waller MD Main Office [address] [address] [place] [address] 08/20/2024 15:12:03 08/20/2024 15:49:56 Low back pain 183866977 M54.50 x3 weeks; bilateral low back pain-pt was bending forward and felt an immediate, sharp pain-denie s of any red flag symptoms-h as been applying ice, vicks rub, and OTC pain medication s-suspect muscle spasm, cyclobenza aldo at bedtime as needed- no driving or alcohol with med. She cannot take NSAIDS-c/w use heat/ ice, gentle stretching as tolerated- If worsening sx or concerns please call/ return [id number] MARIA DEL ROSARIO ONEILL MD Main Office [address] [address] [place] [address] 09/21/2024 14:55:44 09/21/2024 15:47:15 Adult health examination 617715195 Z00.00 Health Maintenanc e FemaleA) Patient was counseled on healthy diet, exercise and nutrition due to BMI of 45.7 B) ScreeningL ast Mammogram: start at age 50 stop at 74Date: 04/29/2022 Result: BIRADS-1Ne xt: negative (has an appoitment on 10/14) Last Pap smear: start at age 21 to age 65Date: 05/24/2021 Results: no atypical cellsNext: 05/2024 (performed , will request) Last Colonoscop y: start at age 45-75Date: Result: Next: needs, ordered several times, pt has not follow-up Last DEXA scan:Date: due at 65Result: C) Vaccines:I nfluenza: will get a pharmacyTd AP: 12/23/2018 (Td)Zoster : ordered but not performedP PSV23:07/05PCV2 0: orderedCOV ID: 01/17/2021 , 02/14/2021 , 10/24/2021 , 08/16/2022 D) Routine blood work orderedE) Updated patient's history RTC in one year for annual exam or sooner if any acute complaints Chronic di astolic heart failure 016129599 I50.32 - follows with cardiology , last seen on 03/02/2024 -> they encourage weight loss, no change in regimen- EF was 75%- under good control with current medication > c/w farxiga, bumetanide 2mg TID Anxiety state 001721364 F41.1 - LETICIA-7 score of 9- elevation is due patient current medical problems- pt was advised to contact her prescriber as she needs to be adjusted on her medication - currently on clonazepam 0.5mg BID, duloxetine ER 60mg> was previously on wellbutrin , citalopram , fluoxetine , escitalopr am Disorder o f nervous system due to type 2 diabetes mellitus 627385871 E11.49 - HbA1c from 04/2027 was 6.7 (at goal)- following with her diabetic specialist - c/w metformin ER 750mg BID and farxiga 10mg- ordered a repeat HbA1c to ensure no worsening Essential hypertension 36334965 I10 - at goal- BP today is 121/78- c/w losartan 50mg, verapamil 40mg, bumex and spironolac tone 25mg Pt counselled on:-Dietar y Approaches to Stop Hypertensi on (DASH) is an eating plan rich in fruits, vegetables , whole grains, fish, poultry, nuts, legumes, and low-fat dairy. These foods are high in gallagher nutrients such as potassium, magnesium, calcium, fiber, and protein.-A dvised continued adherence to medication s and low salt diet - extensive counsellin g done regarding dietary habits.-En couraged regular aerobic exercise 30 min for 4-5 x week.-BP monitoring at home advised to bring log at every visit-Side -effects of high BP can cause Stroke, Heart attack and even d/w pt-D/w pt when to call 911 or reach out to Health care provider:> Think you are having a reaction to a medicine you are taking.>Menjivar ve headaches that keep coming back (recurring ).>Feel dizzy.>Hav e swelling in your ankles.>Menjivar ve trouble with your vision. Gastro-eso phageal reflux disease with esophagitis 245000478 K21.00 - c/w esomeprazo le 20mg QD The following lifestyle changes are recommende d and counseled : -Losing weight: Losing weight helps people who are overweight to reduce acid reflux. -Raising the head of your bed six to eight inches -Avoiding foods that trigger symptoms Avoid excessive caffeine, chocolate, alcohol, peppermint , and fatty foods. Sleep apnea 14608201 G47 .30 - uses a CPAP Hyperlipidemia 81865333 E78.5 Z00.00 - ordered lipid panel- Eat a heart-heal thy diet - Choose healthy fats. Avoid saturated fats that are found primarily in red meat, lira, sausage, and full-fat dairy products. Advised to choose lean proteins like chicken, turkey, and fish when possible. Switch to low-fat or fat-free dairy. And use monounsatu rated fats like olive and canola oil for cooking. - Cut out the trans fats. Trans fats are found in fried food and processed foods, like cookies, crackers, and other snacks. - Eat more omega-3s. Counseled on eating more fish, including salmon, mackerel, lawrence ,nuts and seeds, like walnuts and flax seeds. - Increase your fiber intake. By eating more oats, brain, fruits, beans, and vegetables , can lower your LDL cholestero l levels. - Eat more fruits and veggies. Major depr ession single episode, in partial remission 17873459 F32.4 - not currently in remission- pt is following psychiatry who is prescribes her medication s- c/w duloxetine 60mg QD- pt started seeing a therapist- will continue to monitor Screening for malignant neoplasm of breast 521203669 Z12.39 Screening for malignant neoplasm of cervix 443759813 Z12.4 Screening for malignant neoplasm of colon 516606606 Z12.11 Moderate p ersistent asthma 195043244 J45.40 - pt was last seen by pulmonolog y on 09/2024- takes albuterol HFA as needed, was taking 4-5 times daily- c/w singular 10mg QD and breo- pt was given ipratropiu m-albutero l nebulizer solutio Fatigue 94220280 R53.83 Z00.00 Administra tion of pneumococcal vaccine 37276868 Z23 Varicella vaccination 68 225865 Z23 Congestion of nasal sinus 29035245 R09.81 - recurrent- pt last injection was in August- sinus tenderness noted on exam- ordered doxycyline 100mg BID for 10 days- ordered Ct scan of the sinuses due to recurrence of injections Hidradenitis 11160408 L7 3.2 - currently well controlled at stage II- c/w clindamyci n cream- pt has been following with dermatolog y who recommende d starting humira injections > pt does not feel comfortabl e with this idea as she has history of diabetes, CHF, asthma- pt did not want to try clindamyci n + rifampin due to fear of getting C. diff.- pt also tried a course of minocyclin e however it caused joint pain- pt provided with doxycyclin e 100mg BID for 10 days (to help also with sinus injection) > pt is better able to tolerate this medication compared to tetracycli ne or minocyclin e- pt advised to follow-up again with dermatolog y Iron defic iency anemia 22046243 D50.9 - iron and TIBC: iron-36, % iron saturation -10 is low- pt currently on vitamin C and iron tablets- will recheck levels [id number] Luis Waller MD Main Office [address] [address] [place] [address] 11/10/2024 15:00:29 11/10/2024 15:51:49 Disorder of nervous system due to type 2 diabetes mellitus 020491511 E11.49 Stable type II diabetes with mild neuropathy and morbid obesity. Pt. was recommend to sign up for virtual services with [employer] for comprehens nader weight management and co management of DM. Continue Farxiga 10 mg daily and metformin BID. repeat microalbum in. Referral provided for ophthalmol ogist and podiatry. F/u 4 m. 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-s ymptoms of MENJIVAR, head congestion , cough, PND-has been taking flonase and tylenol with minimal relief-PE was unremarkab le, lungs were CTA b/l-discus sed conservati ve measuremen ts such as steam showers, sinus rinses, c/w OTC medication s [id number] MARIA DEL ROSARIO ONEILL MD Main Office [address] [address] [place] [address] 12/14/2024 12:51:47 12/14/2024 13:37:15 Disorder of nervous system due to type 2 diabetes mellitus 347501166 E11.49 - worsening- HbA1c from 12/2024 was 7.0 (at goal)- following with her diabetic specialist - c/w metformin ER 750mg BID and farxiga 10mg- due to hx of pancreatit is to avoid GLP-1- cannot take glipizide due to allergy- after discussion with VM will hold starting any other medication s at this time Hidradenitis 09312685 L7 3.2 - currently well controlled at stage II- c/w clindamyci n cream- pt has been following with dermatolog y who recommende d starting humira injections > pt does not feel comfortabl e with this idea as she has history of diabetes, CHF, asthma- pt did not want to try clindamyci n + rifampin due to fear of getting C. diff.- pt also tried a course of minocyclin e however it caused joint pain- pt provided with doxycyclin e 100mg BID for 10 days as currently having active discharge under the left breast and this could be contributi ng to fatigue and elevated white blood cell counts- pt advised to follow-up again with dermatolog y Fatigue 76823583 R53.83 Z00.00 - worsening- pt does have a hx of sleep apnea however did recently see sleep medicine and machine was working well therefore do not believe it is coming from JANKI- did see cardiology recently on 12/09 and will be undergoing echo. ekg was normal- pt also following closely with GI, no recent episodes of diverticul itis after June- believe there may a mood compoment to this and medication for depression may need adjusting however lets rule-out other medical causes- as patient is also having joint pain with fatigue will check parvovirus . ordered mono due to patient request- due to elevated WBC and fatigue ordered a chest x-ray and UA- will also check cortisol and ACTH levels due to hx of diabetes- will check on vitamin b12 and folic acid levels- RTC in 1 months Leukocytosis 777806716 D 72.829 - ferritin elevated at 175 believe it is elevated due to inflammati on or possible underlying infection -> ordered repeat levels- ordered ESR and CRP- ordered repeat CBC- pt advised to do all blood work after completion of doxycyline [id number] MARIA DEL ROSARIO ONEILL MD Main Office [address] [place] [address] 01/28/2025 14:51:03 01/28/2025 15:40:28 Fatigue 03081244 R53.83 Z00.00 - worsening- pt does have a hx of sleep apnea however did recently see sleep medicine and machine was working well therefore do not believe it is coming from JANKI- did see cardiology recently on 12/09 and will be undergoing echo. ekg was normal- pt also following closely with GI, no recent episodes of diverticul itis after June- believe there may a mood compoment to this and medication for depression may need adjusting however lets rule-out other medical causes- has IgG antibodies to parvovirus - chest x-ray was normal and UA was not done- normal cortisol and ACTH due to hx of diabetes- normal vitamin b12 and folic acid levels Hidradenitis 42952546 L7 3.2 - currently well controlled at stage II- c/w clindamyci n cream- pt has been following with dermatolog y who recommende d starting humira injections > pt does not feel comfortabl e with this idea as she has history of diabetes, CHF, asthma- pt did not want to try clindamyci n + rifampin due to fear of getting C. diff.- pt also tried a course of minocyclin e however it caused joint pain- pt has done several rounds of doxycyclin e 100mg- pt advised to follow-up again with dermatolog y -> started on Bimzelx> pt took one injection which improved symptoms significan tly> medication currently on hold due to elevated WBC with left shift Leukocytosis 145417434 D 72.829 - ferritin elevated but rending down: 175>160- elevated ESR and CRP -> ordered repeats to see the trend- WBC elevated but stable- ordered CT abdomen and pelvis to ensure there was no underlying abscess that has been missed> if normal will refer to hematology at [facility] [id number] 39975 M25.561 Inadequate immune status 987628622 Z01.84 [id number] Luis Waller MD Main Office [address] [facility] [address] [place] [address] 03/29/2025 11:32:22 03/29/2025 12:24:33 Acute constipation 880301133 K59.00 Pt with h/o diverticul osis presents with lower abdominal pain and gas pressure like pain that started last night. Today she is better, but no bowel movement for 3 days.Usual bowel pattern is once to twice daily. Takes iron pills regularly. No N/V, but decreased appetite. X-ray was discussed; shared decision-m aking with pt to defer imaging at this time. Advised increased fluid and fiber intake, Miralax 17 gm daily for until BM occurs. CT of the abdomen results were discussed with pt. Hidradenit is suppurativa 52849854 L73.2 Pt with a h/o of hidradenit is suppurativ a, with fistulas on both sides under the breast region - consistent with active flares. PT is seeing dermatolog ist this afternoon. [id number] MARIA DEL ROSARIO ONEILL MD Main Office [address] [facility] [place] [address] 05/24/2025 09:25:51 05/24/2025 10:10:17 Fatigue 68678762 R53.83 Z00.00 - stable- pt does have a hx of sleep apnea however did recently see sleep medicine and machine was working well therefore do not believe it is coming from JANKI- pt was seen by cardiology and it was determined fatigue was not coming cardiac origin- pt also following closely with GI, no recent episodes of diverticul itis after June- do believe there may a mood compoment to this and medication for depression may need adjusted- has IgG antibodies to parvovirus - chest x-ray was normal and UA was not done- normal cortisol and ACTH due to hx of diabetes- normal vitamin b12 and folic acid levels Hidradenitis 46727091 L7 3.2 - currently well controlled at stage II- c/w clindamyci n cream- currently on humira injections - pt did not want to try clindamyci n + rifampin due to fear of getting C. diff.- pt also tried a course of minocyclin e however it caused joint pain- pt has done several rounds of doxycyclin e 100mg Leukocytosis 944277242 D 72.829 - ferritin elevated but rending down: 175>160>10 1- elevated ESR and CRP -> trending down- WBC elevated but stable- CT scan abdomen is normal- ordered repeat levels Lower abdominal pain 545 95553 R10.30 - not currently in any pain- occurred on three occasions- pt underwent CT abdomen and pelvis 02/2025 which was normal- pt advised to c/w miralax as needed, currently having regular bowel movements- will keep an eye on this Health Concerns Section Related Observation LastModified by Organization Gisella ls LastModified Time None Recorded Concern Status LastModified by Organization Details LastModified Time None Recorded Advance Directives Directive N: HCP declined Payers Insurance Date Sequence Insurance Name Policy Number Policy Mondragon Covered Member ID Mondragon Member ID Guarantor Name 01/18/2025 2 [place] [id number] Juliette Stewart [id number] Juliette Stewart 05/24/2025 1 [place] [facility] [place] [id number] Juliette Stewart [id number] Juliette Stewart 01/28/2025 2 [place] [facility] Juliette Stewart [id number] Juliette Stewart Notes Date Note Type Note Provider Name and Address Organization Details Recorded Time 11/19/2024 text/html Upper Respirator y SymptomsReported bypatient.Location:hea d; throat Quality:productive cough;congested Severity:mild Duration:4 days Context:sick contact Associated Symptoms:no shortness of breath; no wheezing; no fever; no sore throat; no vomiting; no diarrhea; no rash; no nausea Juliette is a 59yr F who presents for URI symptoms. Reports of having sinus pressure/congestion, ear discomfort since 11/15/2024. 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 Denies of any fever, chest pain, wheezing/sob. Reports of having MENJIVAR, head congestion, PND. Has been taking flonase and tylenol with minimal relief. DENTON HOPKINS [address] [facility] [address], [place], [address], [facility] 11/19/2024 15:48:16 12/14/2024 text/html FatigueReported bypatient.Quality:cont inuous; symptoms worse during the day Severity:normal exercise habits;change in sleep patterns;worsening Duration:symptoms lasting over 2 weeks Timing:worse Context:symptoms do not improve on weekends/vacations Modifying Factors:no new stressors in life Associated Symptoms:no drug/alcohol withdrawal; no sleep disturbances; periods of not breathing (apnea) have not been observed; no recent change in weight;depression;anxi ety;snoring Juliette Stewart is a 59 year old F who presents to the clinic with complaints of severe fatigue. Patient mentions that this has been on-going since her flu and covid shot with periods of improvement and worsening again. Most recent episode of worsening was after she had GI upset three weeks ago. In addition to the fatigue patient has been calf pain and pain in the upper arms and shoulder. Has seen cardiology 12/09/2024, EKG was normal. The ordered a echo. Pt also recently saw her med prescriber as her depression has worsened. 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 Was seen by sleep medicine over the summer, CPAP working well. Pt is sleeping about 10 hours nightly and will need a nap the afternoon. FunctionHow would you rate your level of fatigue? severeWhat helps relieve your fatigue? sleepingWhat exacerbates your fatigue? exertionHow does your illness affect your ability to work and manage household responsibilities? pt is able to complete her work day however is very tired when she comes home, will need to take a napHow do you feel when you try to push through the fatigue? worse Sleep-relatedDo you have any trouble falling asleep or staying asleep? noAfter sleeping, do you feel rested? noHow would you describe your sleep quality? goodDo you require more naps than other people? no, pt will take one nap a day MARIA DEL ROSARIO ONEILL MD [address], [phone], [facility] 12/15/2024 11:00:48 01/28/2025 text/html FatigueReported bypatient.Quality:cont inuous; symptoms worse during the day Severity:normal exercise habits;change in sleep patterns;worsening Duration:symptoms lasting over 2 weeks Timing:worse Context:symptoms do not improve on weekends/vacations Modifying Factors:no new stressors in life Associated Symptoms:no drug/alcohol withdrawal; no sleep disturbances; periods of not breathing (apnea) have not been observed; no recent change in weight;depression;anxi ety;snoring Juliette Stewart is a 59 year old F who presents to the clinic with complaints of severe fatigue. Patient mentions that this has been on-going since her flu and covid shot with periods of improvement and worsening again. Most recent episode of worsening was after she had GI upset three weeks ago. In addition to the fatigue patient has been calf pain and pain in the upper arms and shoulder. Has seen cardiology 12/09/2024, EKG was normal. The ordered a echo. Pt also recently saw her med prescriber as her depression has worsened. 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 Was seen by sleep medicine over the summer, CPAP working well. Pt is sleeping about 10 hours nightly and will need a nap the afternoon. FunctionHow would you rate your level of fatigue? severeWhat helps relieve your fatigue? sleepingWhat exacerbates your fatigue? exertionHow does your illness affect your ability to work and manage household responsibilities? pt is able to complete her work day however is very tired when she comes home, will need to take a napHow do you feel when you try to push through the fatigue? worse Sleep-relatedDo you have any trouble falling asleep or staying asleep? noAfter sleeping, do you feel rested? noHow would you describe your sleep quality? goodDo you require more naps than other people? no, pt will take one nap a day MARIA DEL ROSARIO ONEILL MD [address] [address], [place], [phone], [facility] 01/28/2025 17:22:09 03/29/2025 text/html 59 yo F reports waking last night with sudden, intense lower abdominal pain described as cramping and gas- pressure-like, radiating across the lower abdomen. The episode was associated with sweating, weakness, and a sensation of passing out. Due to near passing out, the patient avoided going to the bathroom initially and passed a small amount of green-colored stool in bed. Reports hearing gurgling sounds in the lower abdomen during the episode. Last BM 3 days ago. No associated nausea or vomiting, though appetite was decreased. No recent dietary changes. No new medications - but takes iron. Denies chills. Temperature was 99.8 F, possibly related to known hidradenitis suppurativa flare with fistulas which she is being seen for it today.Has a history of diverticulitis - has been hospitalized twice before for it. Had a full CT scan in February with contrast due to high white counts and high platelets - with unremarkable findings (some diverticulosis) . States this is the third similar episode, though never previously evaluated for these types of episodes. Right now feels lightheaded from sitting to standing, and not well, but no more pain. Lives alone. Nikole Urias PA-C [address] [address], [place], [phone], [facility] 03/29/2025 13:07:03 05/24/2025 text/html FatigueReported bypatient.Quality:cont inuous; symptoms worse during the day Severity:normal exercise habits;change in sleep patterns;worsening Duration:symptoms lasting over 2 weeks Timing:worse Context:symptoms do not improve on weekends/vacations Modifying Factors:no new stressors in life Associated Symptoms:no drug/alcohol withdrawal; no sleep disturbances; periods of not breathing (apnea) have not been observed; no recent change in weight;depression;anxi ety;snoring Juliette Stewart is a 59 year old F who presents to the clinic with complaints of severe fatigue. Patient mentions that this has been on-going since her flu and covid shot with periods of improvement and worsening again. Most recent episode of worsening was after she had GI upset three weeks ago. In addition to the fatigue patient has been calf pain and pain in the upper arms and shoulder. Has seen cardiology 12/09/2024, EKG was normal. Repeat echo was normal. Pt also recently saw her med prescriber as her depression has worsened. [employer]IST as added on vyvanse. Patient has not yet started this as [employer]IST wanted PCP approval. Was seen by sleep medicine over the summer, CPAP working well. Pt is sleeping about 10 hours nightly and will need a nap the afternoon. FunctionHow would you rate your level of fatigue? severeWhat helps relieve your fatigue? sleepingWhat exacerbates your fatigue? exertionHow does your illness affect your ability to work and manage household responsibilities? pt is able to complete her work day however is very tired when she comes home, will need to take a napHow do you feel when you try to push through the fatigue? worse Sleep-relatedDo you have any trouble falling asleep or staying asleep? noAfter sleeping, do you feel rested? noHow would you describe your sleep quality? goodDo you require more naps than other people? no, pt will take one nap a day Patient was started on vyvanse in hopes that will help with fatigue, worsening depression and binge eating. Juliette was seen in March for acute onset abdominal pain. Patient mentions this woke her up from her sleep. Pain was located in the lower abdomen and it was diffuse in nature. It caused symptoms of nausea, sweating and fatigue. Pt also wet the bed due to the pain. Was seen by my colleague who thought this was likely coming from constipation and gave patient miralax. This occurred on three occasions December, January and March. MARIA DEL ROSARIO ONEILL MD [address] [address], [place], [phone], [facility] 05/24/2025 11:42:59 OBGyn Episode No OBEpisode recorded.
== END 2025-05-24 14:18 | disposition home or self-care (01) ==
LOC: HO.HPS 13:57
PROVIDERS: PCP Student in an Organized Health Care Education/Training Program; Visit Provider Internal Medicine Pulmonary Disease
DX: J45.50 Severe persistent asthma, uncomplicated (principal); Z91.09 Other allergy status, other than to drugs and biological substances
CPT/HCPCS: 99214